=== PATIENT | female | born 1935 | race Caucasian/White ===

== ENCOUNTER → 2016-04-29 | Outpatient (CLI) | payer BC ==
[~2016-04-29] MED LIST: ACET-1311 PO; ACET-1327 PO; ASPI81TA28 PO; ATOR-26 PO; ATV5X PO; CALC-354 PO; DOCU-149 PO; DOCU-94 PO; FLNIN/ NAE; FLUT0.15 NAE; FSM70 PO; LORA-741 PO; LSX40 PO; METO25TA56 PO; MRLP527 PO; NTRGSL/4 UT; NTRSLP4 SL; OMEP40CA41 PO; POLY335019 PO; POTA10CA28 PO; POTA10TA32 PO; SENN-61 PO; TOBRSUS OPL; TPRSR25 PO; XRL20 PO
--- NOTE | 2016-04-30 12:44 | MAMMOGRAPHY REPORT ---
BILATERAL DIGITAL SCREENING MAMMOGRAM WITH CAD: 04/29/2016 CLINICAL HISTORY: Routine screening. Patient has no complaints. TECHNIQUE: Current study was also evaluated with a Computer Aided Detection (CAD) system. Bilatera l CC and MLO views were obtained. COMPARISON: Comparison is made to exams dated: 04/23/2015 mammogram, 04/22/2014 mammogram, 04/23/2013 cecilia mogram, 04/19/2013 mammogram, 04/17/2012 mammogram, and 04/16/2011 mammogram - [facility]. BREAST COMPOSITION: There are scattered areas of fibroglandular density in both breasts. FINDINGS: There is a small newly visualized cluster of punctate calcifications in the left 12:00 br east posteriorly, for which spot magnification views are recommended for further evaluation. The remainder of both breasts are stable compared to prior exams, without suspicious masses, calcifi cations, or areas of architectural distortion noted. Other scattered bilateral benign-appearing selin cifications are not significantly changed, many of which are coarse popcorn calcifications and are c onsistent with benign degenerating fibroadenomas. IMPRESSION: ACR BI-RADS CATEGORY 0: INCOMPLETE EVALUATION: NEED ADDITIONAL IMAGING EVALUATION Left 12:00 breast calcifications, for which additional imaging evaluation is recommended. The patie nt will be called to schedule an appointment. Approximately 10% of breast cancers are not detected with mammography. A negative mammographic repor t should not delay biopsy if a clinically suggestive mass is present. Jovita Montano M.D. /:04/29/2016 16:40:04 Payroll And Benefits Manager: Linda Lynn, [facility] letter sent: Addl Imaging 0 BI-RADS Code: ACR BI-RADS Category 0: Incomplete Evaluation: Need Additional Imaging Evaluation
== END | disposition home or self-care (01) ==
LOC: C.MAMM 10:49
PROVIDERS: ATTEND Family Medicine
DX: Z12.31 Encounter for screening mammogram for malignant neoplasm of breast (principal); N64.89 Other specified disorders of breast

== ENCOUNTER → 2016-05-17 | Outpatient (CLI) | payer BC ==
--- NOTE | 2016-05-17 16:43 | MAMMOGRAPHY REPORT ---
UNILATERAL LEFT DIGITAL DIAGNOSTIC MAMMOGRAM: 05/17/2016 CLINICAL HISTORY: 80-year-old woman called back from screening mammography for a new small cluster o f microcalcifications in the 12:00 far posterior left breast. TECHNIQUE: Spot magnification left CC and ML views were obtained. COMPARISON: Comparison is made to exams dated: 04/29/2016 mammogram, 04/22/2014 mammogram, 04/19/2013 ma mmogram, 04/17/2012 mammogram, 04/15/2010 mammogram, and 04/14/2009 mammogram - [facility]. BREAST COMPOSITION: There are scattered areas of fibroglandular density in the left breast. FINDINGS: There is a grouping of 4-5 round and a few smaller faint punctate microcalcifications in the 12:00 far posterior left breast. These might calcifications are new compared to prior available mammograms. There are benign popcorn calcifications, rim calcifications and vascular calcification s elsewhere within the left breast. No obvious associated asymmetry, mass or architectural distorti on. The calcifications are indeterminate, given the interval development, and definitive characteri zation with tissue sampling is recommended. IMPRESSION: ACR BI-RADS CATEGORY 4B: INTERMEDIATE SUSPICION FOR MALIGNANCY 1. Stereotactic guided left breast biopsy is recommended for a new small grouping of round and punc celaya microcalcifications in the 12:00 posterior left breast. These results and recommendations were discussed with the patient at the time of the exam. She tenta tively scheduled the biopsy prior to leaving our department. Approximately 10% of breast cancers are not detected with mammography. A negative mammographic repor t should not delay biopsy if a clinically suggestive mass is present. Rox Will M.D. ay/:05/17/2016 14:52:17 Coal Cutter: Gideon THOMPSON(Khari)(M), [facility] letter sent: Abnormal 4/5 BI-RADS Code: ACR BI-RADS Category 4B: Intermediate Suspicion For Malignancy
== END | disposition home or self-care (01) ==
LOC: C.MAMM 13:45
PROVIDERS: ATTEND Family Medicine
DX: R92.0 Mammographic microcalcification found on diagnostic imaging of breast (principal)

== ENCOUNTER → 2016-05-27 | Outpatient (CLI) | payer BC ==
--- NOTE | 2016-05-27 13:53 | Discharge Instructions ---
Discharge Instructions Procedure Procedure Date: May 27, 2016. Reason for visit: Left Calcifications. Discharge Discharge Date: May 27, 2016. Discharge Diagnosis: post left breast stereotactic guided biopsy Medications Restart Stopped Medication(s): May restart Aspirin tomorrow Instructions Activity Recommendations: Additional Limitations (see below) Return to School/Work: no limitations Recommended Home Diet: No Limitations Provider Instructions: ACTIVITY RECOMMENDATIONS: * No lifting, pushing, pulling or exercising the affected side for three days. RETURN TO SCHOOL/WORK: * You may return to work/school after the procedure, but do not perform any strenuous activities for 24 to 48 hours. MEDICATIONS: * Tylenol (two 325 mg) every four to six hours if needed for mild pain (if not allergic to Tylenol). DIET: * Resume previous diet. SPECIAL CARE INSTRUCTIONS: * Keep biopsy site dry for 24 hours. May shower after 24 hours, but do not soak (bathe) incision. * May remove Tegaderm (plastic patch) tomorrow AFTER showering. * Leave the steri-strips on for one week. Allow the steri-strips to fall off by themselves. If not off after one week, you may remove them. You may place a Bandaid crosswise over the strips, if desired. * Apply ice 10 minutes on and 10 minutes off as needed. * Wear a bra at bedtime to sleep more comfortably for 2-3 days. * Your referring physician should have the results after approximately 5 to 7 business days. * Call for unusual bleeding, fever, drainage, etc or if you have any questions call [phone] during normal business hours or after hours call Dr Will, . FOLLOW UP VISIT: Follow-up with Referring Physician as scheduled. Allergies Coded Allergies: Latex (Verified Allergy, Intermediate, RASH, 11/27/15) Erythromycin (Verified Allergy, Unknown, unknown, 11/27/15) Mannie Rodriguez Recommendations: Call your doctor if: * Temperature above 101 degrees * Pain not relieved by pain medicine ordered * There is increased drainage or redness from any incision * You have any unanswered questions or concerns. Your Doctors Instructions noted above were prepared by provider Rox Will. Patient Signature Section: Patient Instructions Signature Page Maya Shultz Patient (or Guardian) Signature/Date: I have read and understand the instructions given to me by my caregivers. Caregiver/RN/Doctor Signature/Date: The above-named patient and/or guardian has received patient instructions on this date. + Original Patient Signature Page (only) stays with chart. Please make copy for patient.
--- NOTE | 2016-05-27 15:32 | MAMMOGRAPHY REPORT ---
UNILATERAL LEFT DIGITAL DIAGNOSTIC MAMMOGRAM: 05/27/2016 CLINICAL HISTORY: Status post left breast stereotactic guided biopsy of a small cluster of microcalc ifications in the 12:00 posterior left breast. Please refer to the report from left breast stereotactic biopsy performed at the same time for full detail. IMPRESSION: POST PROCEDURE IMAGING FOR MARKER PLACEMENT Please refer to the report from left breast stereotactic biopsy performed at the same time for full detail. Approximately 10% of breast cancers are not detected with mammography. A negative mammographic repor t should not delay biopsy if a clinically suggestive mass is present. Rox Will M.D. ay/:05/27/2016 13:45:19 Heel Cementer Machine: Linda Lynn, [facility] BI-RADS Code: Post Procedure Imaging For Marker Placement
--- NOTE | 2016-05-27 15:32 | MAMMOGRAPHY REPORT ---
STEREOTACTIC GUIDED BIOPSY LEFT BREAST: 05/27/2016 CLINICAL HISTORY: A small indeterminate cluster of microcalcifications in the 12:00 posterior left b reast. Patient presents for stereotactic biopsy. Family history of breast cancer = daughter. COMPARISON: Comparison is made to exams dated: 04/19/2013 mammogram, 04/22/2014 mammogram, 04/23/2015 cecilia mogram, and 04/29/2016 mammogram - [facility]. PATIENT CONSENT: After explaining the risks, benefits and alternatives of the procedure to the patie nt, informed consent was obtained both verbally and in writing. Specific risks include: Bleeding, i nfection, puncture of adjacent structure, nontarget biopsy, sampling error, metal allergy and medica tion reaction. PROCEDURE DESCRIPTION: A time-out was performed and the left breast was confirmed as the site of bio psy. The patient was placed prone on the stereotactic biopsy table and the breast was placed in CC f rom above compression. A pressure controller image was obtained that demonstrated the clustered microcalcification s in question. They are amenable to sterotactic biopsy. Then +15 and -15 stereo pair images were obtained. The calcifications were targeted utilizing the coordinates obtained by the computer. The skin was prepped with Betadine. 1% Lidocaine with and without epinipherine was administered as local anesthesia. A small skin incision was made. Through the incision, the needle was inserted to the d epth determined by the computer. 10 samples were obtained using a Wirama 9-gauge vacuum-assiste d biopsy device. The specimen radiograph failed to demonstrate the definite clustered microcalcifica tions. Therefore, repeat stereo pair images and subsequent repeat sampling was performed. The valente tional samples demonstrated the entire cluster of calcifications and therefore a metallic marker was placed at the biopsy site. All of the samples were obtained from the same single biopsy site. The re was no immediate complication. Hemostasis was achieved after several minutes of manual compressio n. The samples were sent to pathology in 2 appropriately labeled containers, one labeled with calci fications, containing the entire cluster, and the second container containing the remainder of the a djacent tissue. Postprocedure CC and ML views of the left breast demonstrate a new dumbbell shaped metallic biopsy m arker and no significant hematoma only an air pocket at the site of the biopsied clustered calcifica tions in the 11:30 to 12:00 posterior left breast. IMPRESSION: STEREOTACTIC GUIDED BIOPSY Status post left breast stereotactic biopsy of an indeterminate cluster of microcalcifications in th e 11:30 to 12:00 posterior left breast, with biopsy marker placed at the site. There is mild inferi or displacement of the biopsy marker clip from the air pocket by 2.8 cm, likely due to accordion eff ect. The patient will receive notification of the biopsy results from her referring physician. Rox Will M.D. ay/:05/27/2016 14:32:42 Metal Furnace Operator: Linda Lynn, [facility]
== END | disposition home or self-care (01) ==
LOC: C.MAMM 12:25
PROVIDERS: ATTEND Family Medicine
DX: D24.2 Benign neoplasm of left breast (principal); R92.0 Mammographic microcalcification found on diagnostic imaging of breast

== ENCOUNTER 2016-12-03 16:16 | Observation (INO) | payer BC, OTHER ==
[~2016-12-03] VITALS: Ht 167.6 cm; Wt 70.1 kg
[~2016-12-03 16:16] MED LIST changes: -ACET-1327 PO; -ATV5X PO; -DOCU-149 PO; -FLNIN/ NAE; -FSM70 PO; -MRLP527 PO; -NTRGSL/4 UT; -POTA10TA32 PO; -SENN-61 PO; -TPRSR25 PO
[2016-12-03] MEDS ORDERED: SODIUM CHLORIDE 0.9% 500ML 500 ML IV STA ×3 (16:31→17:32)
[2016-12-03] MEDS ORDERED: ASPIRIN 81 MG CHEW PO STA (16:31)
[2016-12-03] MEDS: NITROGLYCERIN 0.4 MG SL PER TAB CHARGE SL PRN ×3 (16:54→17:25)
--- NOTE | 2016-12-03 16:54 | DIAGNOSTIC IMAGING REPORT ---
CHEST ONE VIEW PORTABLE CLINICAL HISTORY: 81 years-old Female presenting with Chest Pain. TECHNIQUE: Portable upright AP view of the chest was obtained. COMPARISON: 11/27/2015. FINDINGS: Median sternotomy wires and mediastinal surgical clips noted. Cardiac silhouette normal. Lungs and pleural spaces clear. Osseous structures normal. Upper abdomen normal. IMPRESSION: 1. No acute cardiopulmonary disease. Electronically signed by: Hayes Smith M.D. 12/03/2016 4:53 PM Dictated Date/Time: 12/03/2016 4:52 PM
[2016-12-03 16:59] LABS: HEMATOCRIT 41.9 % (37-47); MEAN CELL VOLUME 89.5 fL (80-100); MEAN CORPUSCULAR HEMOGLOBIN 31.2 pg (25-34); MEAN CORPUSCULAR HGB CONC 34.8 g/dl (32-36); PLATELET COUNT 215 K/uL (130-400); RED BLOOD COUNT 4.68 M/uL (4.2-5.4); WHITE BLOOD COUNT 5.69 K/uL (4.8-10.8)
[2016-12-03 17:08] LABS: PROTHROMBIN TIME (PATIENT) 10.5 SECONDS (9.0-12.0)
[2016-12-03] MEDS ORDERED: FSM70 PO (17:18)
[2016-12-03] MEDS ORDERED: POTA10TA32 PO (17:18)
[2016-12-03] MEDS ORDERED: DOCU-149 PO (17:18)
[2016-12-03] MEDS ORDERED: MRLP527 PO (17:21)
[2016-12-03] MEDS ORDERED: FLNIN/ NAE (17:21)
[2016-12-03] MEDS ORDERED: ATV5X PO (17:21)
[2016-12-03 17:22] LABS: BLOOD UREA NITROGEN 22 mg/dl (7-18); BUN/CREATININE RATIO 24.1 (10-20); CALCIUM 9.3 mg/dl (8.5-10.1); CARBON DIOXIDE 28 mmol/L (21-32); CHLORIDE 107 mmol/L (98-107); CREATININE 0.93 mg/dl (0.60-1.20); GLUCOSE 96 mg/dl (70-99); POTASSIUM 4.5 mmol/L (3.5-5.1); SODIUM 140 mmol/L (136-145)
[2016-12-03] MEDS ORDERED: NTRGSL/4 UT (17:23)
[2016-12-03 17:34] LABS: BASO % 0.5 %; BASO ABS # 0.03 K/uL (0-0.2); COMPLETE YES; EOS % 4.2 %; IG% 0.2 %; LYMPH % 52.5 %; LYMPH ABS # 2.99 K/uL (1.2-3.4); MONO % 9.5 %; NEUT % 33.1 %
[2016-12-03 17:44] LABS: CKMB/CK RATIO 1.4 (0-3.0)
[2016-12-03] MEDS ORDERED: FENTANYL CITRATE INJ 50 MCG/1 ML 2 ML VIAL IV ONE (17:45)
[2016-12-03] MEDS ORDERED: ACETAMINOPHEN 325 MG TAB PO PRN (19:00)
[2016-12-03] MEDS ORDERED: ONDANSETRON INJ 2 MG/ML 2 ML VIAL IV PRN (19:00)
[2016-12-03] MEDS ORDERED: NITROGLYCERIN 0.4 MG SL PER TAB CHARGE SL PRN (19:00)
[2016-12-03] MEDS ORDERED: SENN-61 PO (19:14)
[2016-12-03] MEDS ORDERED: ACET-1327 PO (19:14)
[2016-12-03] MEDS ORDERED: LORAZEPAM 0.5 MG TAB PO PRN (19:15)
[2016-12-03] MEDS ORDERED: POLYETHYLENE (MIRALAX) 17 GM PACK PO PRN (19:15)
[2016-12-03] MEDS ORDERED: FUROSEMIDE 40 MG TAB PO PRN (19:15)
[2016-12-03 20:13] VITALS: BP 124/74; PULSE 67; TEMP 36.6; Ht 167.6 cm; Wt 70.1 kg
--- NOTE | 2016-12-03 20:46 | History and Physical ---
History & Physical Date & Time of Service: Dec 03, 2016 at 19:16 Chief Complaint: Chest Pain Primary Care Physician: Darian Cornelius, [place].[facility]. History of Present Illness Source: patient, clinic records This is an 81 y/o female with PMH of CAD s/p CABG x 2 in October 2016, history of PE on Xarelto, and other problems listed below who presents to the ED with shortness of breath. Patient follows with Dr. Darian Cornelius for primary care and Dr. Nolasco for cardiology. Pt was recently seen by Dr. Nolasco on 2016 at which time metoprolol was tapered then discontinued. Patient now presents with shortness of breath starting yesterday. Yesterday the episode occurred while sitting outside and resolved after a few hours. Then this morning while standing she became SOB. This was after a stressful incident involving a tractor they bought today. She took nitro with resolution. Then 2-3 hours later she developed recurrent SOB. This was persistent for a few hours, therefore her drove her to the ER. She received 4 baby aspirin, 3 sublingual nitro, and Fentanyl in ER with relief. She is now asymptomatic. She admits to associated warmth and palpitations with the episodes. She reports having similar presentation with prior CT's before her CABG. Before the past few days did not have dyspnea, but reports malaise for 1 month. Has had nausea for past 1 week. Had bilateral ankle swelling past 2 days which resolved with PRN Lasix. She denies URI symptoms, cough, chest pain, vomiting. Past Medical/Surgical History Medical Problems: (1) Anxiety Permanent Comment: mild; uses Ativan once yearly Status: Chronic (2) CAD (coronary artery disease) Permanent Comment: NSTEMI / CABG x 2 - 10/2015 Status: Chronic (3) Dyslipidemia Status: Chronic (4) ESOPHAGEAL REFLUX Status: Chronic (5) History of superficial phlebitis Status: Chronic (6) Pulmonary embolism Status: Chronic Surgical Problems: (1) H/O vein stripping Status: Chronic (2) History of partial colectomy Permanent Comment: 2* diverticulitis; 1984 Status: Chronic (3) History of partial hysterectomy Status: Chronic (4) Hx of bladder repair surgery Permanent Comment: cystocele repair Status: Chronic (5) S/P CABG x 2 Permanent Comment: 10/17/2015 at [place] Status: Chronic Social History Problems: (1) URIN TRACT INFECTION NOS Status: Resolved Family History Cancer Diabetes mellitus Lung disease Social History Smoking Status: Never Smoker Alcohol Use: occasionally Drug Use: none Marital Status: Housing status: lives with significant other Occupational Status: retired Immunizations History of Influenza Vaccine: Yes Influenza Vaccine Date: Jan 21, 2015 History of Tetanus Vaccine?: Yes Tetanus Immunization Date: August 17, 2010 History of Pneumococcal: Yes Pneumococcal Date: Apr 01, 2014 Multi-Drug Resistant Organisms History of MDRO: No Allergies Coded Allergies: Latex (Verified Allergy, Intermediate, RASH, 11/27/15) Erythromycin (Verified Allergy, Unknown, unknown, 11/27/15) Home Medications Scheduled Alendronate Sodium (Alendronate Sodium), 70 MG PO WK Aspirin (Aspirin Ec), 162 MG PO DAILY Atorvastatin (Lipitor), 80 MG PO DAILY Calcium Carbonate-Cholecalcife (Caltrate 600+D), 1 TAB PO DAILY Docusate Sodium (Ra Col-Rite), 100 MG PO HS Rivaroxaban (Xarelto), 20 MG PO DAILY Senna (Senokot), 1 TAB PO DAILY Scheduled PRN Acetaminophen (Acetaminophen ER), 650 MG PO DAILY PRN for Pain Furosemide (Furosemide), 40 MG PO DAILY PRN for Fluid Retention/Edema Lorazepam (Lorazepam), 0.5 MG PO TID PRN for Anxiety Nitroglycerin (Nitrostat), 0.4 MG UT UD PRN for Chest Pain Omeprazole (Prilosec), 40 MG PO DAILY PRN for Acid Reflux Polyethylene (Polyethylene Glycol 3350), 17 GM PO DAILY PRN for Constipation Potassium Chloride Microencaps (Potassium Chloride Er), 10 MEQ PO DAILY PRN for When Furosemide Taken Review of Systems Ten systems reviewed and negative except as noted in HPI. Physical Exam Vital Signs Date Time Temp Pulse Resp B/P (MAP) Pulse Ox O2 Delivery O2 Flow Rate FiO2 12/03/16 18:54 67 16 101/56 95 Room Air 12/03/16 18:36 76 19 95 12/03/16 18:35 112/66 12/03/16 18:31 65 22 96 12/03/16 18:30 113/56 12/03/16 18:26 66 15 95 12/03/16 18:25 99/59 12/03/16 18:21 68 18 93 8/18/17 18:20 100/57 818/17 18:16 62 16 93 818/17 18:15 121/54 818/17 18:11 63 16 92 818/17 18:10 120/58 818/17 18:06 59 17 95 818/17 18:05 107/91 18/17 18:01 65 15 92 18/17 18:00 114/59 18/17 17:56 69 20 95 18/17 17:55 123/55 18/17 17:51 72 24 87 18/17 17:50 133/53 18/17 17:46 63 27 94 18/17 17:45 129/65 818/17 17:41 66 21 97 18/17 17:40 117/65 18/17 17:36 72 27 96 18/17 17:35 114/62 18/17 17:31 73 21 95 18/17 17:30 122/70 18/17 17:27 73 20 116/66 97 Room Air 18/17 17:26 70 17 97 18/17 17:25 116/66 18/17 17:21 71 26 98 18/17 17:17 70 26 131/59 100 Room Air 18/17 17:16 68 29 99 18/17 17:15 131/59 18/17 17:14 127/64 18/17 17:11 82 33 100 18/17 17:06 91 23 97 18/17 17:01 96 19 96 18/17 17:00 91 20 95/73 96 Room Air 18/17 17:00 95/73 18/17 16:58 138/71 818/17 16:58 74 818/17 16:53 136/91 818/17 16:50 99 Room Air 18/17 16:45 98 Room Air 818/17 16:18 37.0 81 16 144/83 96 Room Air General Appearance: WD/WN, no apparent distress, + pertinent finding (alert 81 y/o female, lying in bed, no distress, at bedside) Head: normocephalic, atraumatic Eyes: normal inspection, PERRL, EOMI ENT: hearing grossly normal, pharynx normal Neck: supple, no JVD, trachea midline Respiratory/Chest: lungs clear, normal breath sounds, no respiratory distress, no accessory muscle use, + pertinent finding (saturating well on room air) Cardiovascular: regular rate, rhythm, no murmur, normal peripheral pulses Abdomen/GI: normal bowel sounds, non tender, soft Extremities/Musculoskelatal: normal inspection, no calf tenderness, no pedal edema Neurologic/Psych: alert, normal mood/affect, oriented x 3 Skin: normal color, warm/dry Diagnostics Laboratory Results Results Past 24 Hours Test 12/03/16 16:45 Range/Units White Blood Count 5.69 4.8-10.8 K/uL Red Blood Count 4.68 4.2-5.4 M/uL Hemoglobin 14.6 12.0-16.0 g/dL Hematocrit 41.9 37-47 % Mean Corpuscular Volume 89.5 80-100 fL Mean Corpuscular Hemoglobin 31.2 25-34 pg Mean Corpuscular Hemoglobin Concent 34.8 32-36 g/dl Platelet Count 215 130-400 K/uL Mean Platelet Volume 10.0 7.4-10.4 fL Neutrophils (%) (Auto) 33.1 % Lymphocytes (%) (Auto) 52.5 % Monocytes (%) (Auto) 9.5 % Eosinophils (%) (Auto) 4.2 % Basophils (%) (Auto) 0.5 % Neutrophils # (Auto) 1.88 1.4-6.5 K/uL Lymphocytes # (Auto) 2.99 1.2-3.4 K/uL Monocytes # (Auto) 0.54 0.11-0.59 K/uL Eosinophils # (Auto) 0.24 0-0.5 K/uL Basophils # (Auto) 0.03 0-0.2 K/uL RDW Standard Deviation 47.4 36.4-46.3 fL RDW Coefficient of Variation 14.4 11.5-14.5 % Immature Granulocyte % (Auto) 0.2 % Immature Granulocyte # (Auto) 0.01 0.00-0.02 K/uL Prothrombin Time 10.5 9.0-12.0 SECONDS Prothromb Time International Ratio 1.0 0.9-1.1 Activated Partial Thromboplast Time 27.0 21.0-31.0 SECONDS Partial Thromboplastin Ratio 1.0 Sodium Level 140 136-145 mmol/L Potassium Level 4.5 3.5-5.1 mmol/L Chloride Level 107 98-107 mmol/L Carbon Dioxide Level 28 21-32 mmol/L Anion Gap 5.0 3-11 mmol/L Blood Urea Nitrogen 22 7-18 mg/dl Creatinine 0.93 0.60-1.20 mg/dl Est Creatinine Clear Calc Drug Dose 45.1 ml/min Estimated GFR () 67.3 Estimated GFR (Non- 58.0 BUN/Creatinine Ratio 24.1 10-20 Random Glucose 96 70-99 mg/dl Calcium Level 9.3 8.5-10.1 mg/dl Total Creatine Kinase 102 26-192 U/L Creatine Kinase MB 1.4 0.5-3.6 ng/ml Creatine Kinase MB Ratio 1.4 0-3.0 Troponin I < 0.015 0-0.045 ng/ml Chemistry Specimen Hemolysis Diagnostic Radiology CHEST ONE VIEW PORTABLE CLINICAL HISTORY: 81 years-old Female presenting with Chest Pain. TECHNIQUE: Portable upright AP view of the chest was obtained. COMPARISON: 11/27/2015. FINDINGS: Median sternotomy wires and mediastinal surgical clips noted. Cardiac silhouette normal. Lungs and pleural spaces clear. Osseous structures normal. Upper abdomen normal. IMPRESSION: 1. No acute cardiopulmonary disease. EKG NSR, 78 bpm, no ST abnormality, no significant change when compared to prior EKG in [facility] from 09/2016 Impression Assessment and Plan DYSPNEA R/o ACS; known hx of CAD s/p CABG x 2 in 09/2015; patient reports similar presentation for prior CT's Relieved with nitro Initial troponin negative, EKG- no ischemic findings; CXR- no infiltrate or failure; not volume overloaded clinically, saturating well on RA History of PE, anticoagulated on Xarelto, PE unlikely, Wells score 1.5 (low risk ) Trend serial cardiac enzymes Check echo Repeat EKG in am Continue aspirin, statin, PRN Lasix Recently tapered off metoprolol by cardiology Consult cardiology HISTORY OF PE Continue Xarelto ANXIETY Continue PRN Ativan GERD Continue PPI CODE STATUS Full code per my discussion with the patient. DISPOSITION Follows with Dr. Darian Cornelius for primary care Patient seen in collaboration with Dr. Weiner. Please see his addendum. Attending addendum. Pt was seen and examined. Agreed with Hyun ESQUIVEL assessment, plan. 81 y/o female with PMH of CAD s/p CABG x 2 in October 2016, history of PE on Xarelto, presents to the ED with pressure in her chest associated with shortness of breath. Pt said that her symptoms feels the same when she had her heart attack. General- No acute distress Head- atraumatic Eyes- PERRL, EOMI ENT- oropharynx clear Neck- supple, no JVD Lungs- clear to auscultation Heart- regular rhythm; no murmur Abdomen- normal bowel sounds, soft Extremities- no calf tenderness Skin- warm & dry A/p Pressure like chest discomfort associated with dyspnea Need to R/O ACS R/o ACS; known hx of CAD s/p CABG x 2 in 09/2015; patient reports similar presentation for prior CT's First set troponin negative follow up CM EKG showed no ischemic changes Continue aspirin, statin, PRN Lasix Cardiology consul Please refer to Hyun ESQUIVEL documentation for other problems Nida Weiner MD VTE Prophylaxis VTE Risk Assessment Done? Y/N: Yes Risk Level: Moderate Given or contraindicated: Other Anticoagulation
[2016-12-03] MEDS: DOCUSATE SODIUM 100 MG CAP PO SCH (21:42)
[2016-12-03] MEDS ORDERED: IV FLUIDS COMPLETED PRN (22:00)
[2016-12-03 23:13] VITALS: BP 103/47; PULSE 66; TEMP 37; O2SAT 96
--- NOTE | 2016-12-03 23:24 | EMERGENCY ROOM VISIT NOTE ---
History Report prepared by Mayda: Byron York Under the Supervision of: Dr. Ricardo Aguilar D.O. First contact with patient: 16:24 Chief Complaint: CHEST PAIN Stated Complaint: CHEST PAIN History of Present Illness The patient is a 81 year old female who presents to the Emergency Room with complaints of pressure-like chest pain that occurred twice in the past day. She rates her pain a 5/10 in severity. Over this time, she had experienced this pain intermittently. This morning, she took a baby Aspirin and a Nitroglycerin and notes mild relief, but the pain is still present. Nothing makes her pain worse. She is also experiencing shortness of breath, dizziness, lightheadedness , and a headache. Pt denies change in vision, fevers, cough, rhinorrhea, jaw pain, loss of consciousness, nausea, vomiting, diarrhea, pain with urination, and melena. She has a past medical history of a double bypass last year. She states that she feels similar to how she felt at that time. She is currently on Xarelto for a history of a blood clot. Source of History: patient Onset: yesterday Position: chest Symptom Intensity: 5/10 Quality: pressure Timing: intermittent Modifying Factors (Relieving): other (ASA and NTG) Associated Symptoms: + headache, + SOB, No LOC, No fevers, No cough, No nausea, No vomiting, No abdominal pain, No melena, No diarrhea, No urinary symptoms Note: She is lightheaded and dizzy. She denies any arm or jaw pain. Review of Systems See HPI for pertinent positives & negatives. A total of 10 systems reviewed and were otherwise negative. Past Medical & Surgical Medical Problems: (1) Anxiety (2) CAD (coronary artery disease) (3) Chest pain (4) Dyslipidemia (5) ESOPHAGEAL REFLUX (6) History of superficial phlebitis (7) Pulmonary embolism Surgical Problems: (1) H/O vein stripping (2) History of partial colectomy (3) History of partial hysterectomy (4) Hx of bladder repair surgery (5) S/P CABG x 2 Social History Problems: (1) Chest pain (2) Elevated troponin (3) URIN TRACT INFECTION NOS Family History Cancer Diabetes mellitus Lung disease Social History Smoking Status: Never Smoker Alcohol Use: none Drug Use: none Marital Status: Housing Status: lives with significant other Occupation Status: retired Current/Historical Medications Scheduled Alendronate Sodium (Alendronate Sodium), 70 MG PO WK Aspirin (Aspirin Ec), 162 MG PO DAILY Atorvastatin (Lipitor), 80 MG PO DAILY Calcium Carbonate-Cholecalcife (Caltrate 600+D), 1 TAB PO DAILY Docusate Sodium (Ra Col-Rite), 100 MG PO HS Rivaroxaban (Xarelto), 20 MG PO DAILY Senna (Senokot), 1 TAB PO DAILY Scheduled PRN Acetaminophen (Acetaminophen ER), 650 MG PO DAILY PRN for Pain Furosemide (Furosemide), 40 MG PO DAILY PRN for Fluid Retention/Edema Lorazepam (Lorazepam), 0.5 MG PO TID PRN for Anxiety Nitroglycerin (Nitrostat), 0.4 MG UT UD PRN for Chest Pain Omeprazole (Prilosec), 40 MG PO DAILY PRN for Acid Reflux Polyethylene (Polyethylene Glycol 3350), 17 GM PO DAILY PRN for Constipation Potassium Chloride Microencaps (Potassium Chloride Er), 10 MEQ PO DAILY PRN for When Furosemide Taken Allergies Coded Allergies: Latex (Verified Allergy, Intermediate, RASH, 11/27/15) Erythromycin (Verified Allergy, Unknown, unknown, 11/27/15) Physical Exam Vital Signs Date Time Temp Pulse Resp B/P (MAP) Pulse Ox O2 Delivery O2 Flow Rate FiO2 12/03/16 20:13 36.6 67 14 124/74 Room Air 12/03/16 19:42 63 18 111/57 94 Room Air 12/03/16 18:54 67 16 101/56 95 Room Air 12/03/16 18:36 76 19 95 12/03/16 18:35 112/66 12/03/16 18:31 65 22 96 12/03/16 18:30 113/56 12/03/16 18:26 66 15 95 12/03/16 18:25 99/59 12/03/16 18:21 68 18 93 12/03/16 18:20 100/57 12/03/16 18:16 62 16 93 12/03/16 18:15 121/54 12/03/16 18:11 63 16 92 12/03/16 18:10 120/58 12/03/16 18:06 59 17 95 12/03/16 18:05 107/91 12/03/16 18:01 65 15 92 8/18/17 18:00 114/59 18/17 17:56 69 20 95 18/17 17:55 123/55 1817 17:51 72 24 87 18/17 17:50 133/53 18/17 17:46 63 27 94 1817 17:45 129/65 18/17 17:41 66 21 97 1817 17:40 117/65 1817 17:36 72 27 96 1817 17:35 114/62 18/17 17:31 73 21 95 1817 17:30 122/70 18/17 17:27 73 20 116/66 97 Room Air 12/03/16 17:26 70 17 97 1817 17:25 116/66 12/03/17 17:21 71 26 98 17 17:17 70 26 131/59 100 Room Air 12/03/16 17:16 68 29 99 17 17:15 131/59 17 17:14 127/64 17 17:11 82 33 100 1817 17:06 91 23 97 1817 17:01 96 19 96 17 17:00 91 20 95/73 96 Room Air 17 17:00 95/73 17 16:58 138/71 1817 16:58 74 1817 16:53 136/91 1817 16:50 99 Room Air 12/03/16 16:45 98 Room Air 17 16:18 37.0 81 16 144/83 96 Room Air Physical Exam GENERAL: alert, well appearing, well nourished, no distress, non-toxic, sitting up in bed EYE EXAM: normal conjunctiva OROPHARYNX: no exudate, no erythema, lips, buccal mucosa, and tongue normal and mucous membranes are moist NECK: supple, no nuchal rigidity, no adenopathy, non-tender LUNGS: Clear to auscultation. Normal chest wall mechanics HEART: no murmurs, S1 normal and S2 normal CHEST: Old midline sternal incision present. ABDOMEN: abdomen soft, non-tender, normo-active bowel sounds, no masses, no rebound or guarding. BACK: Back is symmetrical on inspection and there is no deformity, no midline tenderness, no CVA tenderness. SKIN: no rashes and no bruising UPPER EXTREMITIES: upper extremities are grossly normal. Radial pulses equal bilaterally. LOWER EXTREMITIES: No pitting edema. Calves equal bilaterally. NEURO EXAM: Normal sensorium, cranial nerves II-XII grossly intact, normal speech, no gross weakness of arms, no gross weakness of legs. Medical Decision & Procedures ER Provider Diagnostic Interpretation: Radiology results as stated below per my review and the radiologist's interpretation: CHEST ONE VIEW PORTABLE CLINICAL HISTORY: 81 years-old Female presenting with Chest Pain. TECHNIQUE: Portable upright AP view of the chest was obtained. COMPARISON: 11/27/2015. FINDINGS: Median sternotomy wires and mediastinal surgical clips noted. Cardiac silhouette normal. Lungs and pleural spaces clear. Osseous structures normal. Upper abdomen normal. IMPRESSION: 1. No acute cardiopulmonary disease. Electronically signed by: Hayes Smith M.D. 12/03/2016 4:53 PM Dictated Date/Time: 12/03/2016 4:52 PM Laboratory Results 12/03/16 16:45 Red Blood Count 4.68, Mean Corpuscular Volume 89.5, Mean Corpuscular Hemoglobin 31.2, Mean Corpuscular Hemoglobin Concent 34.8, Mean Platelet Volume 10.0, Neutrophils (%) (Auto) 33.1, Lymphocytes (%) (Auto) 52.5, Monocytes (%) (Auto) 9.5, Eosinophils (%) (Auto) 4.2, Basophils (%) (Auto) 0.5, Neutrophils # (Auto) 1.88, Lymphocytes # (Auto) 2.99, Monocytes # (Auto) 0.54, Eosinophils # (Auto) 0.24, Basophils # (Auto) 0.03 12/03/16 16:45 Test 12/03/16 16:45 White Blood Count 5.69 K/uL (4.8-10.8) Red Blood Count 4.68 M/uL (4.2-5.4) Hemoglobin 14.6 g/dL (12.0-16.0) Hematocrit 41.9 % (37-47) Mean Corpuscular Volume 89.5 fL (80-100) Mean Corpuscular Hemoglobin 31.2 pg (25-34) Mean Corpuscular Hemoglobin Concent 34.8 g/dl (32-36) Platelet Count 215 K/uL (130-400) Mean Platelet Volume 10.0 fL (7.4-10.4) Neutrophils (%) (Auto) 33.1 % Lymphocytes (%) (Auto) 52.5 % Monocytes (%) (Auto) 9.5 % Eosinophils (%) (Auto) 4.2 % Basophils (%) (Auto) 0.5 % Neutrophils # (Auto) 1.88 K/uL (1.4-6.5) Lymphocytes # (Auto) 2.99 K/uL (1.2-3.4) Monocytes # (Auto) 0.54 K/uL (0.11-0.59) Eosinophils # (Auto) 0.24 K/uL (0-0.5) Basophils # (Auto) 0.03 K/uL (0-0.2) RDW Standard Deviation 47.4 fL (36.4-46.3) RDW Coefficient of Variation 14.4 % (11.5-14.5) Immature Granulocyte % (Auto) 0.2 % Immature Granulocyte # (Auto) 0.01 K/uL (0.00-0.02) Prothrombin Time 10.5 SECONDS (9.0-12.0) Prothromb Time International Ratio 1.0 (0.9-1.1) Activated Partial Thromboplast Time 27.0 SECONDS (21.0-31.0) Partial Thromboplastin Ratio 1.0 Anion Gap 5.0 mmol/L (3-11) Est Creatinine Clear Calc Drug Dose 45.1 ml/min Estimated GFR () 67.3 Estimated GFR (Non- 58.0 BUN/Creatinine Ratio 24.1 (10-20) Calcium Level 9.3 mg/dl (8.5-10.1) Chemistry Specimen Hemolysis Laboratory results per my review. Medications Administered Medications (Trade) Dose Ordered Sig/Yane Route Start Time Stop Time Status Last Admin Dose Admin Aspirin (Aspirin Chew) 324 mg NOW STAT PO 12/03/16 16:31 12/03/16 16:33 DC 12/03/16 16:53 324 MG Nitroglycerin (Nitrostat Tab) 0.4 mg Q5M PRN SL 12/03/16 16:45 12/03/16 20:39 DC 12/03/16 17:25 0.4 MG Sodium Chloride 500 ml @ 999 mls/hr Q31M STAT IV 12/03/16 16:31 12/03/16 17:01 DC 12/03/16 16:56 999 MLS/HR Sodium Chloride 500 ml @ 999 mls/hr Q31M STAT IV 12/03/16 17:32 12/03/16 18:02 DC 12/03/16 17:39 999 MLS/HR Fentanyl Citrate (Fentanyl Inj) 50 mcg NOW ONCE IV 12/03/16 17:45 12/03/16 17:46 DC 12/03/16 17:37 50 MCG Sodium Chloride 500 ml @ 999 mls/hr Q31M STAT IV 12/03/16 17:32 12/03/16 18:02 DC 12/03/16 17:32 999 MLS/HR ECG Indication: chest pain Rate (beats per minute): 78 Rhythm: sinus rhythm Findings: no ectopy, other (Normal axis) ED Course ED COURSE: Vital signs were reviewed and showed hypertension. The patients medical record was reviewed The above diagnostic studies were performed and reviewed. ED treatments and interventions as stated above. 1624: The patient was evaluated in room B3. A complete history and physical examination was performed. 1631: Ordered Sodium Chloride 500 ml @ 999 mls/hr IV, Aspirin 324 mg PO 1645: Ordered Nitroglycerin 0.4 mg SL 1732: Ordered Sodium Chloride 500 ml @ 999 mls/hr IV, Sodium Chloride 500 ml @ 999 mls/hr IV 1745: Ordered Fentanyl Citrate 50 mcg IV 1748: Upon reevaluation, the patient is resting. I discussed my findings with the patient and she understands and agrees with the treatment plan. Based on the patients age, coexisting illnesses, exam and lab findings the decision to treat as an inpatient was made. The patient remained stable while under my care. The patient will be evaluated for further management. 1826: The patient's pain is gone. Medical Decision Differential diagnoses includes but is not limited to acute coronary syndrome, myocardial infarction, pericarditis, pulmonary embolus, aortic dissection, pneumonia, pneumothorax, musculoskeletal, shingles, esophageal. Patient is an 81-year-old female who presents the ER for chest tightness associated with shortness of breath which feels close to her previous [place]. History of your ago with double bypass. Pain was improved with nitroglycerin. CBC along with BMP and troponin was negative. EKG shows no obvious ischemia. INR was unremarkable. Patient is taking a Xa inhibitor and has not missed any doses. PE was not pursued secondary to this. Chest x-ray unremarkable. With her symptoms feeling similar to her previous CABG she is given nitroglycerin and aspirin. Her pain completely resolved. She was admitted to internal medicine for further workup. Medication Reconcilliation Current Medication List: was personally reviewed by me Blood Pressure Screening Patient's blood pressure: Elevated blood pressure Blood pressure disposition: Elevated BP felt to be situational Consults Time Called: [phone] Consulting Physician: Courtney Munoz [facility] Hospitalist Returned Call: [phone] I reviewed the patient's case with her. She will evaluate the patient for further management. Impression Primary Impression: Precordial chest pain Scribe Attestation The scribe's documentation has been prepared under my direction and personally reviewed by me in its entirety. I confirm that the note above accurately reflects all work, treatment, procedures, and medical decision making performed by me. Departure Information Dispostion Being Evaluated By Hospitalist Referrals Darian Cornelius D.O. (PCP) Patient Instructions My [facility]
[2016-12-04] VITALS (8 sets, daily range): BP systolic 110–136; BP diastolic 66–72; PULSE 62–71; TEMP 36.4–36.8; O2SAT 93–96
[2016-12-04 00:30] LABS: CKMB/CK RATIO 1.4 (0-3.0)
[2016-12-04 06:04] LABS: CKMB/CK RATIO 1.9 (0-3.0)
[2016-12-04] MEDS: ASPIRIN 81 MG ECTAB PO SCH (08:10)
[2016-12-04] MEDS: SENNA 8.6 MG TAB PO SCH (08:10)
[2016-12-04] MEDS: ATORVASTATIN 40 MG TAB PO SCH (08:10)
[2016-12-04] MEDS: PANTOprazole SOD 40 MG TAB PO SCH (08:10)
[2016-12-04] MEDS: CALCIUM 600MG + VIT D 400 IU TAB PO SCH (08:10)
[2016-12-04] MEDS: RIVAROXABAN 20 MG TAB PO SCH (08:11)
--- NOTE | 2016-12-04 11:02 | ECHOCARDIOGRAM REPORT ---
*NOTICE TO RECEIVING REPUBLICAN AGENCY This information is strictly Confidential and protected under [place] law. [place] law prohibits you from making any further disclosure of this information unless further disclosure is expressly permitted by the written consent of the person to whom it pertains or is authorized by law. A general authorization for the release of medical or other information is not sufficient for this purpose. Hospital accepts no responsibility if the information is made available to any other person, INCLUDING THE PATIENT. Interpretation Summary * Name: ARELY KINNEY Study Date: 12/04/2016 07:09 AM BP: 114/68 mmHg * Patient Location: C.2T\S\S239\S\1 HR: 69 * : 1935 (M/d/yyyy) Gender: Female Height: 66 in * Age: 81 yrs Ethnicity: [place] Weight: 155 lb * Ordering Physician: Hyun Carpenter * Performed By: Enid Murillo * * Reason For Study: DYSPNEA * BSA: 1.8 m2 * The study was technically adequate. * Compared to prior study, there is no significant change. * -- Conclusions -- * Ejection Fraction = 65-70%. * No regional wall motion abnormalities noted. * There is mild concentric left ventricular hypertrophy. * Grade I diastolic dysfunction, (abnormal relaxation pattern). * Mild aortic regurgitation. * There is mild mitral regurgitation. * There is mild tricuspid regurgitation. * Doppler findings do not suggest pulmonary hypertension. Procedure Details * A complete two-dimensional transthoracic echocardiogram was performed (2D, M-mode, Doppler and color flow Doppler). Left Ventricle * The left ventricle is normal in size. * There is no thrombus. * There is mild concentric left ventricular hypertrophy. * Ejection Fraction = 65-70%. * Left ventricular systolic function is normal. * No regional wall motion abnormalities noted. Right Ventricle * The right ventricle is normal size. * The right ventricular systolic function is normal as assessed by tricuspid annular plane systolic excursion (TAPSE) (normal >1.5 cm). Atria * The left atrial size is normal. * Right atrial size is normal. * There is no evidence of atrial septal defect, but resolution does not allow assessment for a patent foramen ovale. Mitral Valve * The mitral valve is normal. * There is no mitral valve stenosis. * There is mild mitral regurgitation. Tricuspid Valve * The tricuspid valve is normal. * There is no tricuspid stenosis. * There is mild tricuspid regurgitation. * Doppler findings do not suggest pulmonary hypertension. Aortic Valve * The aortic valve is trileaflet. * Aortic stenosis is absent. * Mild aortic regurgitation. Pulmonic Valve * The pulmonary valve is not well seen, but the Doppler examination is normal without significant regurgitation or stenosis. Great Vessels * The aortic root is normal size. Pericardium/Pleural * There is no pericardial effusion. Great Vessels * Normal inferior vena cava diameter and respiratory variation suggests normal central venous pressure. Left Ventricular Diastolic Function * Grade I diastolic dysfunction, (abnormal relaxation pattern). MMode 2D Measurements and Calculations IVSd 1.3 cm IVSs 1.8 cm LVIDd 3.6 cm LVIDs 2.1 cm LVPWd 1.3 cm LVPWs 1.6 cm IVS/LVPW 0.98 FS 41.9 % EDV(Teich) 53.7 ml ESV(Teich) 14.0 ml EF(Teich) 73.9 % EDV(cubed) 45.9 ml ESV(cubed) 9.0 ml EF(cubed) 80.4 % % IVS thick 42.3 % % LVPW thick 25.8 % LV mass(C)d 153.1 grams LV mass(C)dI 85.3 grams/m\S\2 LV mass(C)s 130.1 grams LV mass(C)sI 72.5 grams/m\S\2 SV(Teich) 39.7 ml SI(Teich) 22.1 ml/m\S\2 SV(cubed) 36.9 ml SI(cubed) 20.6 ml/m\S\2 ACS 0.96 cm LA dimension 3.7 cm asc Aorta Diam 2.9 cm LVOT diam 1.9 cm LVOT area 2.9 cm\S\2 LVAd ap4 24.5 cm\S\2 LVLd ap4 6.7 cm EDV(MOD-sp4) 74.4 ml EDV(sp4-el) 75.8 ml LVAs ap4 11.7 cm\S\2 LVLs ap4 5.4 cm ESV(MOD-sp4) 22.1 ml ESV(sp4-el) 21.6 ml EF(MOD-sp4) 70.3 % EF(sp4-el) 71.5 % LVAd ap2 15.1 cm\S\2 LVLd ap2 5.6 cm EDV(MOD-sp2) 33.1 ml EDV(sp2-el) 34.5 ml LVAs ap2 7.0 cm\S\2 LVLs ap2 4.7 cm ESV(MOD-sp2) 9.0 ml ESV(sp2-el) 8.8 ml EF(MOD-sp2) 72.7 % EF(sp2-el) 74.4 % LVLd %diff -20.34 % EDV(MOD-bp) 53.2 ml LVLs %diff -16.30 % ESV(MOD-bp) 14.9 ml EF(MOD-bp) 72.0 % SV(MOD-sp4) 52.3 ml SI(MOD-sp4) 29.2 ml/m\S\2 SV(MOD-sp2) 24.0 ml SI(MOD-sp2) 13.4 ml/m\S\2 SV(MOD-bp) 38.3 ml SI(MOD-bp) 21.3 ml/m\S\2 SV(sp4-el) 54.2 ml SI(sp4-el) 30.2 ml/m\S\2 SV(sp2-el) 25.7 ml SI(sp2-el) 14.3 ml/m\S\2 Doppler Measurements and Calculations MV E max janet 72.1 cm/sec MV A max janet 102.7 cm/sec MV E/A 0.70 MV dec time 0.18 sec Ao V2 max 116.5 cm/sec Ao max PG 5.4 mmHg Ao max PG (full) 3.0 mmHg DUC(V,A) 1.9 cm\S\2 DUC(V,D) 1.9 cm\S\2 AI max janet 345.5 cm/sec AI max PG 47.7 mmHg AI dec slope 226.8 cm/sec\S\2 AI P1/2t 446.1 msec LV V1 max PG 2.4 mmHg LV V1 max 77.8 cm/sec MR max janet 283.1 cm/sec MR max PG 32.1 mmHg PA V2 max 53.6 cm/sec PA max PG 1.1 mmHg TR max janet 236.2 cm/sec
[2016-12-04] MEDS ORDERED: METOPROLOL SUCC 25MG EXT REL TAB PO ONE (11:12)
--- NOTE | 2016-12-04 13:34 | CARDIOLOGY CONSULTATION ---
DATE OF CONSULTATION: 12/04/2016 REFERRING PHYSICIAN: Dr. Dilip Parikh. REASON FOR CONSULTATION: Chest pain. HISTORY OF PRESENT ILLNESS: Ms. Shultz is an 81-year-old female with a past medical history of coronary artery disease, status post coronary artery bypass grafting x2 in October 2016 secondary to left main ostial disease, history of PE on Xarelto and other problems listed below. Recently, metoprolol was discontinued by her delivery analyst, which was weaned over 2-3 weeks. Her symptoms have been gradual. She notes she has not felt quite as energetic. Over the past 48 hours, she experienced some episodes of chest discomfort and shortness of breath. He describes a feeling of someone sitting on her chest. She took aspirin and nitroglycerin as well as fentanyl in the ER yesterday. She is now asymptomatic. Her cardiac enzymes are negative. ECG unremarkable. Resting 2D transthoracic echo demonstrates normal wall motion and borderline hyperdynamic function. No edema today. Utilizes Lasix at home as needed. Denies fever, chills or URI symptoms. No orthopnea or PND. Offers no other complaints at this time. REVIEW OF SYSTEMS: The pertinent positives noted above. Comprehensive 10-system review is otherwise negative. PAST MEDICAL HISTORY: 1. Coronary artery disease with NSTEMI and coronary artery bypass grafting x2 in October 2015. 2. Dyslipidemia. 3. Anxiety disorder. 4. GERD. 5. Phlebitis. 6. Pulmonary embolus. 7. DVT. PAST SURGICAL HISTORY: 1. Vein stripping. 2. Coronary artery bypass grafting x2. 3. Partial colectomy due to diverticulitis. 4. Partial hysterectomy. 5. Bladder repair surgery. FAMILY HISTORY: Negative for premature CAD or sudden cardiac . SOCIAL HISTORY: Lifelong nonsmoker. She is and lives with her . ALLERGIES: LATEX AND ERYTHROMYCIN. HOME MEDICATIONS: 1. Alendronate 70 mg weekly. 2. Aspirin 162 mg daily. 3. Lipitor 80 mg. 4. Caltrate and vitamin D daily. 5. Xarelto 20 mg daily. 6. Colace 100 mg at bedtime. 7. Senokot daily. 8. Tylenol as needed. 9. Lasix 40 mg daily as needed. 10. Ativan 0.5 mg t.i.d. as needed. 11. Prilosec 40 mg daily. 12. Potassium chloride 10 mEq daily. ECG ON ADMISSION: Normal sinus rhythm, low voltage QRS. Resting 2D transthoracic echo demonstrates normal left ventricular systolic function, normal wall motion. No significant valvular disease. Chest x-ray on admission: No acute cardiopulmonary disease. TELEMETRY: Sinus rhythm, no dysrhythmias. LABORATORY DATA: Cardiac enzymes negative x3 sets. Sodium 140, potassium 4.5, chloride 107, CO2 is 28, BUN is 22, and creatinine is 0.93. INR is 1.0. White blood cell count 5.69, hemoglobin is 14.6, and platelet count is 215. PHYSICAL EXAMINATION: VITAL SIGNS: Temperature is 36.8 degrees centigrade, pulse 67 beats per minute and regular, respiratory rate is 18 breaths per minute, blood pressure 120/72, and SaO2 is 95% on room air. GENERAL: NAD, awake, alert and oriented x3. HEENT: Mucous membranes are moist. No scleral icterus. Conjunctivae pink. NECK: Supple. No JVD. No HJR. No carotid bruit. HEART: Regular with a normal S1 and S2. There is no murmur, rub, or gallop. LUNGS: Clear. There are no rales, rhonchi or wheeze. ABDOMEN: Soft and nontender. No rebound or guarding. EXTREMITIES: Warm and dry without clubbing, cyanosis or edema. NEUROLOGIC: Demonstrates no focal deficit. FINAL IMPRESSION: 1. An 81-year-old female with a history of prior coronary artery disease and coronary artery bypass grafting x2, presents with atypical chest discomfort. Initial evaluation for acute coronary syndrome is negative including normal ECG, negative cardiac enzymes, and normal resting 2D transthoracic echo without regional wall motion abnormality. 2. Gastroesophageal reflux disease with intermittent heartburn. 3. Pulmonary embolus on chronic oral anticoagulation with Xarelto. 4. Generalized anxiety disorder. PLAN AND RECOMMENDATIONS: Recommend dobutamine stress echocardiography. This can be performed as an outpatient. The patient is currently asymptomatic. Instructed to take proton pump inhibitor daily. Other cardiovascular medications will be continued as previously ordered. Xarelto will be continued as well. All questions answered to the satisfaction about the patient and her family members at bedside. At this time, the patient prefers to remain in the inpatient setting for stress testing on Tuesday. We will readdress later today. From a medication perspective, I am also restarting her metoprolol at a reduced dose. Toprol-XL 25 mg daily ordered. Thank you for allowing me to take part in the care of your patient.
--- NOTE | 2016-12-04 18:16 | Progress Note ---
Medicine Progress Note Date & Time of Visit: Dec 04, 2016 at 18:06. Subjective Pt was seen and examined Lying in bed comfortable with at bedside Pt said that she feels hungry Continue to feel a pressure in her chest denies any sob, palpitation Objective Last 8 Hrs Date Time Temp Pulse Resp B/P (MAP) Pulse Ox O2 Delivery O2 Flow Rate FiO2 12/04/16 16:27 36.8 65 16 115/70 (85) 93 Room Air 12/04/16 16:02 Room Air 12/04/16 12:02 Room Air 12/04/16 11:19 36.4 62 17 136/66 (89) 96 Room Air Physical Exam: General- No acute distress Head- atraumatic Eyes- PERRL, EOMI ENT- oropharynx clear Neck- supple, no JVD Lungs- clear to auscultation and percussion Heart- regular rhythm; no murmur Abdomen- normal bowel sounds, soft, Extremities- no calf tenderness Neuro- alert, oriented x 3; PERRL, EOMI; no facial palsy Skin- warm & dry Laboratory Results: Last 24 Hours Test 12/03/16 23:17 12/04/16 04:48 Total Creatine Kinase 77 U/L 77 U/L Creatine Kinase MB 1.1 ng/ml 1.5 ng/ml Creatine Kinase MB Ratio 1.4 1.9 Troponin I < 0.015 ng/ml < 0.015 ng/ml Assessment & Plan Pressure like chest discomfort associated with dyspnea R/o ACS; known hx of CAD s/p CABG x 2 in 09/2015; patient reports similar presentation for prior MT's All 3 sets of troponin negative EKG showed no ischemic changes Continue aspirin, statin, PRN Lasix Cardiology on board recommended dobutamine stress echo that can be done as an outpatient Pt would rather like to stay to get it done on Tuesday ECHO showed * Ejection Fraction = 65-70%. * No regional wall motion abnormalities noted. * There is mild concentric left ventricular hypertrophy. * Grade I diastolic dysfunction, (abnormal relaxation pattern). * Mild aortic regurgitation. * There is mild mitral regurgitation. * There is mild tricuspid regurgitation. HISTORY OF PE Continue Xarelto ANXIETY Continue PRN Ativan GERD Continue PPI CODE STATUS FUL CODE DISPOSITION Follows with Dr. Darian Cornelius for primary care Consultants: Cardiology Current Inpatient Medications: Current Inpatient Medications Medications (Trade) Dose Ordered Sig/Yane Route Start Time Stop Time Status Last Admin Dose Admin Acetaminophen (Tylenol Tab) 650 mg Q4H PRN PO 12/03/16 19:00 01/02/17 18:59 Ondansetron HCl (Zofran Inj) 4 mg Q6H PRN IV 12/03/16 19:00 01/02/17 18:59 Nitroglycerin (Nitrostat Tab) 0.4 mg UD PRN SL 12/03/16 19:00 01/02/17 18:59 Alendronate Sodium (Fosamax Tab) 70 mg Tu@0630 PO 12/07/16 06:30 01/06/17 06:29 Aspirin (Ecotrin Tab) 162 mg DAILY PO 12/04/16 09:00 01/03/17 08:59 12/04/16 08:10 162 MG Atorvastatin Calcium (Lipitor Tab) 80 mg DAILY PO 12/04/16 09:00 01/03/17 08:59 12/04/16 08:10 80 MG Docusate Sodium (coLACE CAP) 100 mg HS PO 12/03/16 21:00 01/02/17 20:59 12/03/16 21:42 100 MG Furosemide (Lasix Tab) 40 mg DAILY PRN PO 12/03/16 19:15 01/02/17 19:14 Lorazepam (Ativan Tab) 0.5 mg TID PRN PO 12/03/16 19:15 01/02/17 19:14 Miscellaneous Information (Pending Order) 1 ea QS N/A 12/04/16 00:00 01/03/17 00:00 Rivaroxaban (Xarelto Tab) 20 mg DAILY PO 12/04/16 09:00 01/03/17 08:59 12/04/16 08:11 20 MG Senna (Senokot Tab) 8.6 mg DAILY PO 12/04/16 09:00 01/03/17 08:59 12/04/16 08:10 8.6 MG Calcium/Vitamin D (Caltrate Plus Tab) 1 tab DAILY PO 12/04/16 09:00 01/03/17 08:59 12/04/16 08:10 1 TAB Polyethylene (Miralax Powder Packet) 17 gm DAILY PRN PO 12/03/16 19:15 9/17/17 19:14 Pantoprazole Sodium (Protonix Tab) 40 mg QAM PO 12/04/16 09:00 01/03/17 08:59 12/04/16 08:10 40 MG Miscellaneous (Iv Fluids Completed) 1 ea PRN PRN N/A 12/03/16 22:00 12/03/17 21:59 Metoprolol Succinate (Toprol Xl Tab) 25 mg QAM PO 12/05/16 09:00 01/04/17 08:59
[2016-12-04] MEDS: DOCUSATE SODIUM 100 MG CAP PO SCH (19:47)
[2016-12-05 04:18] VITALS: BP 115/70; PULSE 68; TEMP 36.7; O2SAT 97
[2016-12-05 07:25] VITALS: BP 107/64; PULSE 69; TEMP 36.9; O2SAT 95
[2016-12-05] MEDS: ATORVASTATIN 40 MG TAB PO SCH (07:44)
[2016-12-05] MEDS: CALCIUM 600MG + VIT D 400 IU TAB PO SCH (07:45)
[2016-12-05] MEDS: RIVAROXABAN 20 MG TAB PO SCH (07:45)
[2016-12-05] MEDS: METOPROLOL SUCC 25MG EXT REL TAB PO SCH (07:45)
[2016-12-05] MEDS: SENNA 8.6 MG TAB PO SCH (07:45)
[2016-12-05] MEDS: PANTOprazole SOD 40 MG TAB PO SCH (07:45)
[2016-12-05] MEDS: ASPIRIN 81 MG ECTAB PO SCH (07:45)
[2016-12-05 11:23] VITALS: BP 118/75; PULSE 64; TEMP 36.5; O2SAT 95
--- NOTE | 2016-12-05 12:24 | Progress Note ---
Medicine Progress Note Date & Time of Visit: Dec 05, 2016 at 12:19. Subjective Pt was seen and examined Lying in bed with no distress with at bed side Pt said that she continue to feels the pressure discomfort in her chest She had a BM this morning She would like to get the stress test done tomorrow denies any SOB, Palpitation and dizziness Objective Last 8 Hrs Date Time Temp Pulse Resp B/P (MAP) Pulse Ox O2 Delivery O2 Flow Rate FiO2 12/05/16 11:23 36.5 64 18 118/75 (89) 95 Room Air 12/05/16 08:05 Room Air 12/05/16 07:25 36.9 69 17 107/64 (78) 95 Room Air 12/05/16 04:26 Room Air Physical Exam: General- No acute distress Head- atraumatic Eyes- PERRL, EOMI ENT- oropharynx clear Neck- supple, no JVD Lungs- clear to auscultation and percussion Heart- regular rhythm; no murmur Abdomen- normal bowel sounds, soft, Extremities- no calf tenderness Neuro- alert, oriented x 3; PERRL, EOMI; no facial palsy Skin- warm & dry Assessment & Plan Pressure like chest discomfort associated with dyspnea R/o ACS; known hx of CAD s/p CABG x 2 in 09/2015; patient reports similar presentation for prior NC's All 3 sets of troponin negative EKG showed no ischemic changes Continue aspirin, statin, PRN Lasix Cardiology on board recommended dobutamine stress echo that can be done as an outpatient Pt would rather like to stay to get it done on Tuesday Continue to have pressure feeling in her chest ECHO showed * Ejection Fraction = 65-70%. * No regional wall motion abnormalities noted. * There is mild concentric left ventricular hypertrophy. * Grade I diastolic dysfunction, (abnormal relaxation pattern). * Mild aortic regurgitation. * There is mild mitral regurgitation. * There is mild tricuspid regurgitation. HISTORY OF PE Continue Xarelto ANXIETY Continue PRN Ativan GERD Continue PPI CODE STATUS FUL CODE DISPOSITION Follows with Dr. Darian Cornelius for primary care Consultants: Cardiology Current Inpatient Medications: Current Inpatient Medications Medications (Trade) Dose Ordered Sig/Yane Route Start Time Stop Time Status Last Admin Dose Admin Acetaminophen (Tylenol Tab) 650 mg Q4H PRN PO 12/03/16 19:00 01/02/17 18:59 Ondansetron HCl (Zofran Inj) 4 mg Q6H PRN IV 12/03/16 19:00 01/02/17 18:59 Nitroglycerin (Nitrostat Tab) 0.4 mg UD PRN SL 12/03/16 19:00 01/02/17 18:59 Alendronate Sodium (Fosamax Tab) 70 mg Tu@0630 PO 12/07/16 06:30 01/06/17 06:29 Aspirin (Ecotrin Tab) 162 mg DAILY PO 12/04/16 09:00 01/03/17 08:59 12/05/16 07:45 162 MG Atorvastatin Calcium (Lipitor Tab) 80 mg DAILY PO 12/04/16 09:00 01/03/17 08:59 12/05/16 07:44 80 MG Docusate Sodium (coLACE CAP) 100 mg HS PO 12/03/16 21:00 01/02/17 20:59 12/04/16 19:47 100 MG Furosemide (Lasix Tab) 40 mg DAILY PRN PO 12/03/16 19:15 01/02/17 19:14 Lorazepam (Ativan Tab) 0.5 mg TID PRN PO 12/03/16 19:15 01/02/17 19:14 Miscellaneous Information (Pending Order) 1 ea QS N/A 12/04/16 00:00 01/03/17 00:00 Rivaroxaban (Xarelto Tab) 20 mg DAILY PO 12/04/16 09:00 01/03/17 08:59 12/05/16 07:45 20 MG Senna (Senokot Tab) 8.6 mg DAILY PO 12/04/16 09:00 01/03/17 08:59 12/05/16 07:45 8.6 MG Calcium/Vitamin D (Caltrate Plus Tab) 1 tab DAILY PO 12/04/16 09:00 01/03/17 08:59 12/05/16 07:45 1 TAB Polyethylene (Miralax Powder Packet) 17 gm DAILY PRN PO 12/03/16 19:15 01/02/17 19:14 Pantoprazole Sodium (Protonix Tab) 40 mg QAM PO 12/04/16 09:00 01/03/17 08:59 12/05/16 07:45 40 MG Miscellaneous (Iv Fluids Completed) 1 ea PRN PRN N/A 12/03/16 22:00 12/03/17 21:59 Metoprolol Succinate (Toprol Xl Tab) 25 mg QAM PO 12/05/16 09:00 01/04/17 08:59 12/05/16 07:45 25 MG
[2016-12-05 15:13] VITALS: BP 106/69; PULSE 70; TEMP 36.4; O2SAT 93
[2016-12-05 19:00] VITALS: BP 110/71; PULSE 70; TEMP 36.3; O2SAT 93
[2016-12-05] MEDS: DOCUSATE SODIUM 100 MG CAP PO SCH (19:56)
[2016-12-05 23:46] VITALS: BP 122/75; PULSE 69; TEMP 36.8; O2SAT 96
[2016-12-06 04:18] VITALS: BP 130/75; PULSE 62; TEMP 36.4; O2SAT 98
[2016-12-06] MEDS: RIVAROXABAN 20 MG TAB PO SCH (07:46)
[2016-12-06] MEDS: ATORVASTATIN 40 MG TAB PO SCH (07:46)
[2016-12-06] MEDS: PANTOprazole SOD 40 MG TAB PO SCH (07:46)
[2016-12-06] MEDS: ASPIRIN 81 MG ECTAB PO SCH (07:46)
[2016-12-06] MEDS: METOPROLOL SUCC 25MG EXT REL TAB PO SCH (07:46)
[2016-12-06] MEDS: CALCIUM 600MG + VIT D 400 IU TAB PO SCH (07:46)
[2016-12-06] MEDS: SENNA 8.6 MG TAB PO SCH (07:46)
[2016-12-06 07:48] LABS: CREATININE 0.88 mg/dl (0.60-1.20)
[2016-12-06 08:08] VITALS: BP 124/60; PULSE 67; TEMP 36.9; O2SAT 93
[2016-12-06] MEDS ORDERED: DOBUTamine HCL 12.5 MG/ML 20 ML VIAL ONE (09:14)
[2016-12-06] MEDS ORDERED: ATROPINE SULFATE 0.1 MG/ML 5ML SYR ONE (09:14)
[2016-12-06] MEDS ORDERED: METOPROLOL TARTRATE 1 MG/ML VIAL ONE (09:15)
--- NOTE | 2016-12-06 12:30 | DOBUTAMINE ECHO ---
*NOTICE TO RECEIVING DEMOCRAT AGENCY This information is strictly Confidential and protected under [place] law. [place] law prohibits you from making any further disclosure of this information unless further disclosure is expressly permitted by the written consent of the person to whom it pertains or is authorized by law. A general authorization for the release of medical or other information is not sufficient for this purpose. Hospital accepts no responsibility if the information is made available to any other person, INCLUDING THE PATIENT. Interpretation Summary * Name: ARELY KINNEY Study Date: 12/06/2016 09:02 AM BP: 151/70 mmHg * Patient Location: .2T\S\S239\S\1 HR: 64 * : 1935 (M/d/yyyy) Gender: Female Height: 66 in * Age: 81 yrs Ethnicity: CA Weight: 154 lb * Ordering Physician: Sher Pichardo * Referring Physician: MARILU * Performed By: Ariana Capone RDCS * * Reason For Study: CHEST PAIN * BSA: 1.8 m2 * The study was technically adequate. * There is no comparison study available. * STRESS STUDY: Normal pharmacologic stress echocardiogram. No echocardiographic or ECG evidence of myocardial ischemia having achieved heart rate adequate for diagnostic purposes. Procedure Details * DOBUTAMINE ECHO, CPT#39816 Left Ventricle * There is mild concentric left ventricular hypertrophy. * The left ventricular ejection fraction increases normally with stress. The left ventricular end-systolic cavity size reduces post-stress (normal response). The left ventricular wall motion with stress is normal. * Left ventricular systolic function is normal. * Resting wall motion: Normal. Stress wall motion: Appropriate increase in Left ventricular systolic function and decrease in cavity size. No stress induced segmental wall motion abnormalities. Stress Parameters * The baseline ECG displays normal sinus rhythm. * Stress ECG: No ST changes. No arrhythmias. * The stress portion of this study was personally supervised by the undersigned interpreting physician. * Rest heart rate was '64' BPM. * Rest blood pressure was '151/70' * Maximum heart rate achieved was 137 bpm. * Maximum heart rate was 97 % of maximum age-predicted heart rate. * Maximum blood pressure was '168/69' * Maximum Dobutamine infusion rate was '20' mcg/kg/min. * A total of .5 mg of intravenous Atropine was used to supplement Dobutamine for heart rate response. * Dobutamine infusion was terminated due to achieving target heart rate * A total of 5 mg of IV Metoprolol was administered to reverse Dobutamine-induced tachycardia.
[2016-12-06 12:45] VITALS: BP 115/74; PULSE 74; TEMP 36.7; O2SAT 96
--- NOTE | 2016-12-06 13:29 | Progress Note ---
Medicine Progress Note Date & Time of Visit: Dec 06, 2016 at 13:18. Subjective Pt was seen and examined Lying in bed with no distress Pt said that she feels the same pressure in her chest Denies any sob, chest pain, palpitation and dizziness Objective Last 8 Hrs Date Time Temp Pulse Resp B/P (MAP) Pulse Ox O2 Delivery O2 Flow Rate FiO2 12/06/16 12:54 Room Air 12/06/16 12:45 36.7 74 16 115/74 (88) 96 Room Air 12/06/16 08:08 36.9 67 16 124/60 (81) 93 Room Air 12/06/16 08:05 Room Air Physical Exam: General- No acute distress Head- atraumatic Eyes- PERRL, EOMI ENT- oropharynx clear Neck- supple, no JVD Lungs- clear to auscultation and percussion Heart- regular rhythm; no murmur Abdomen- normal bowel sounds, soft, Extremities- no calf tenderness Neuro- alert, oriented x 3; PERRL, EOMI; no facial palsy Skin- warm & dry Laboratory Results: Last 24 Hours Test 12/06/16 06:40 Creatinine 0.88 mg/dl Est Creatinine Clear Calc Drug Dose 47.7 ml/min Estimated GFR () 71.9 Estimated GFR (Non- 62.1 Assessment & Plan Pressure like chest discomfort associated with dyspnea R/o ACS; known hx of CAD s/p CABG x 2 in 09/2015; patient reports similar presentation for prior CA's All 3 sets of troponin negative EKG showed no ischemic changes Continue aspirin, statin, PRN Lasix Cardiology on board recommended dobutamine stress echo that can be done as an outpatient Toprol xl 25mg restarted by cardiology Pt would rather like to stay to get it done on Tuesday Continue to have pressure feeling in her chest 12/06 Dobutamine stress echo showed no wall abnormality Continue metoprolol 25mg Clinically stable Follow up with your PCP Dr. Cornelius on 12/08 at 11 am ECHO showed * Ejection Fraction = 65-70%. * No regional wall motion abnormalities noted. * There is mild concentric left ventricular hypertrophy. * Grade I diastolic dysfunction, (abnormal relaxation pattern). * Mild aortic regurgitation. * There is mild mitral regurgitation. * There is mild tricuspid regurgitation. HISTORY OF PE Continue Xarelto ANXIETY Continue PRN Ativan GERD Continue PPI CODE STATUS FUL CODE DISPOSITION Discharge home today Follow up with your PCP Dr. Cornelius on 12/08 @ 11 am Consultants: Cardiology Procedures: Dobutamine stress echo Current Inpatient Medications: Current Inpatient Medications Medications (Trade) Dose Ordered Sig/Yane Route Start Time Stop Time Status Last Admin Dose Admin Acetaminophen (Tylenol Tab) 650 mg Q4H PRN PO 12/03/16 19:00 01/02/17 18:59 Ondansetron HCl (Zofran Inj) 4 mg Q6H PRN IV 12/03/16 19:00 01/02/17 18:59 Nitroglycerin (Nitrostat Tab) 0.4 mg UD PRN SL 12/03/16 19:00 01/02/17 18:59 Alendronate Sodium (Fosamax Tab) 70 mg Tu@0630 PO 12/07/16 06:30 01/06/17 06:29 Aspirin (Ecotrin Tab) 162 mg DAILY PO 12/04/16 09:00 01/03/17 08:59 12/06/16 07:46 162 MG Atorvastatin Calcium (Lipitor Tab) 80 mg DAILY PO 12/04/16 09:00 01/03/17 08:59 12/06/16 07:46 80 MG Docusate Sodium (coLACE CAP) 100 mg HS PO 12/03/16 21:00 01/02/17 20:59 12/05/16 19:56 100 MG Furosemide (Lasix Tab) 40 mg DAILY PRN PO 12/03/16 19:15 01/02/17 19:14 Lorazepam (Ativan Tab) 0.5 mg TID PRN PO 12/03/16 19:15 01/02/17 19:14 Miscellaneous Information (Pending Order) 1 ea QS N/A 12/04/16 00:00 01/03/17 00:00 Rivaroxaban (Xarelto Tab) 20 mg DAILY PO 12/04/16 09:00 01/03/17 08:59 12/06/16 07:46 20 MG Senna (Senokot Tab) 8.6 mg DAILY PO 12/04/16 09:00 01/03/17 08:59 12/06/16 07:46 8.6 MG Calcium/Vitamin D (Caltrate Plus Tab) 1 tab DAILY PO 12/04/16 09:00 01/03/17 08:59 12/06/16 07:46 1 TAB Polyethylene (Miralax Powder Packet) 17 gm DAILY PRN PO 12/03/16 19:15 01/02/17 19:14 Pantoprazole Sodium (Protonix Tab) 40 mg QAM PO 12/04/16 09:00 01/03/17 08:59 12/06/16 07:46 40 MG Miscellaneous (Iv Fluids Completed) 1 ea PRN PRN N/A 12/03/16 22:00 12/03/17 21:59 Metoprolol Succinate (Toprol Xl Tab) 25 mg QAM PO 12/05/16 09:00 01/04/17 08:59 12/06/16 07:46 25 MG
[2016-12-06] MEDS ORDERED: TPRSR25 PO (13:37)
--- NOTE | 2016-12-06 13:43 | Discharge Instructions ---
Discharge Instructions Date of Service Dec 06, 2016. Admission Reason for Admission: Pressure like chest discomfort Discharge Discharge Diagnosis / Problem: Atypical chest discomfort, Anxiety, GERD Discharge Goals Goal(s): Decrease discomfort, Improve function, Improve disease control Activity Recommendations Activity Limitations: resume your previous activity (as tolerated) . Instructions / Follow-Up Instructions / Follow-Up Follow up with your Primary care provider Dr. Cornelius on 12/08 @11 am New medication Metoprolol succinate ER 25 mg take 1 tab by mouth daily Current Hospital Diet Patient's current hospital diet: AHA Diet (Heart Healthy) Discharge Diet Recommended Diet: AHA Diet (Heart Healthy) Procedures Procedures Performed: Dobutamine stress echo Pending Studies Studies pending at discharge: no Medical Emergencies . Who to Call and When: Medical Emergencies: If at any time you feel your situation is an emergency, please call 911 immediately. . Non-Emergent Contact Non-Emergency issues call your: Primary Care Provider Call Non-Emergent contact if: you have any medication questions . . "Provider Documentation" section prepared by Nida Weiner. . VTE Core Measure Inpt VTE Proph given/why not?: Other Anticoagulation
[2016-12-06 14:03] VITALS: BP 115/74; PULSE 74; TEMP 36.7; O2SAT 96
[2016-12-07] MEDS ORDERED: ALENDRONATE SODIUM 70 MG TAB PO SCH (06:30)
--- NOTE | 2016-12-07 08:34 | Discharge Summary ---
Discharge Summary Date of Service Dec 07, 2016. Discharge Summary Admission Date: Dec 03, 2016 at 20:17 Discharge Date: Dec 06, 2016 Discharge Disposition: Home Principal Diagnosis: Atypical chest discomfort Secondary Diagnoses/Problems: Anxiety GERD Procedures: Dobutamine stress echo Consultations: Cardiology Medication Reconciliation New Medications: Metoprolol Succinate (Metoprolol Succinate ER) 25 Mg Tabcr 25 MG PO QAM for 30 Days Continued Medications: Acetaminophen (Acetaminophen ER) 650 Mg Tab 650 MG PO DAILY PRN for Pain Alendronate Sodium (Alendronate Sodium) 70 Mg Tab 70 MG PO WK TAKE THIS MEDICATION EVERY TUESDAY 30 MINUTES BEFORE FOOD OR ANY OTHER MEDICATIONS WITH A FULL GLASS OF WATER (8 OUNCES), REMAIN UPRIGHT AFTER TAKING FOR 30 MINUTES Aspirin (Aspirin Ec) 81 Mg Tab 162 MG PO DAILY Atorvastatin (Lipitor) 80 Mg Tab 80 MG PO DAILY Calcium Carbonate-Cholecalcife (Caltrate 600+D) 1 Tab Tab 1 TAB PO DAILY Docusate Sodium (Ra Col-Rite) 100 Mg Cap 100 MG PO HS Furosemide (Furosemide) 40 Mg Tab 40 MG PO DAILY PRN for Fluid Retention/Edema Lorazepam (Lorazepam) 0.5 Mg Tab 0.5 MG PO TID PRN for Anxiety Nitroglycerin (Nitrostat) 0.4 Mg Tab 0.4 MG UT UD PRN for Chest Pain, BTL Omeprazole (Prilosec) 40 Mg Cap 40 MG PO DAILY PRN for Acid Reflux Polyethylene (Polyethylene Glycol 3350) 527 Gm Soln 17 GM PO DAILY PRN for Constipation Potassium Chloride Microencaps (Potassium Chloride Er) 10 Meq Tab 10 MEQ PO DAILY PRN for When Furosemide Taken Rivaroxaban (Xarelto) 20 Mg Tab 20 MG PO DAILY Senna (Senokot) 8.6 Mg Tab 1 TAB PO DAILY, TAB Admission Information HPI (per Admitting provider): This is an 81 y/o female with PMH of CAD s/p CABG x 2 in October 2016, history of PE on Xarelto, and other problems listed below who presents to the ED with shortness of breath. Patient follows with Dr. Darian Cornelius for primary care and Dr. Nolasco for cardiology. Pt was recently seen by Dr. Nolasco on 2016 at which time metoprolol was tapered then discontinued. Patient now presents with shortness of breath starting yesterday. Yesterday the episode occurred while sitting outside and resolved after a few hours. Then this morning while standing she became SOB. This was after a stressful incident involving a tractor they bought today. She took nitro with resolution. Then 2-3 hours later she developed recurrent SOB. This was persistent for a few hours, therefore her drove her to the ER. She received 4 baby aspirin, 3 sublingual nitro, and Fentanyl in ER with relief. She is now asymptomatic. She admits to associated warmth and palpitations with the episodes. She reports having similar presentation with prior VA's before her CABG. Before the past few days did not have dyspnea, but reports malaise for 1 month. Has had nausea for past 1 week. Had bilateral ankle swelling past 2 days which resolved with PRN Lasix. She denies URI symptoms, cough, chest pain, vomiting. Physical Exam (per Admitting): General Appearance: WD/WN, no apparent distress, + pertinent finding (alert 81 y/o female, lying in bed, no distress, at bedside) Head: normocephalic, atraumatic Eyes: normal inspection, PERRL, EOMI ENT: hearing grossly normal, pharynx normal Neck: supple, no JVD, trachea midline Respiratory/Chest: lungs clear, normal breath sounds, no respiratory distress, no accessory muscle use, + pertinent finding (saturating well on room air) Cardiovascular: regular rate, rhythm, no murmur, normal peripheral pulses Abdomen/GI: normal bowel sounds, non tender, soft Extremities/Musculoskelatal: normal inspection, no calf tenderness, no pedal edema Neurologic/Psych: alert, normal mood/affect, oriented x 3 Skin: normal color, warm/dry Hospital Course Pressure like chest discomfort associated with dyspnea R/o ACS; known hx of CAD s/p CABG x 2 in 09/2015; patient reports similar presentation for prior VA's All 3 sets of troponin negative EKG showed no ischemic changes Continue aspirin, statin, PRN Lasix Cardiology on board recommended dobutamine stress echo that can be done as an outpatient Toprol xl 25mg restarted by cardiology Pt would rather like to stay to get it done on Tuesday Continue to have pressure feeling in her chest 12/06 Dobutamine stress echo showed no wall abnormality Continue metoprolol 25mg Clinically stable Follow up with your PCP Dr. Cornelius on 8/23 at 11 am ECHO showed * Ejection Fraction = 65-70%. * No regional wall motion abnormalities noted. * There is mild concentric left ventricular hypertrophy. * Grade I diastolic dysfunction, (abnormal relaxation pattern). * Mild aortic regurgitation. * There is mild mitral regurgitation. * There is mild tricuspid regurgitation. HISTORY OF PE Continue Xarelto ANXIETY Continue PRN Ativan GERD Continue PPI CODE STATUS FUL CODE DISPOSITION Discharge home today Follow up with your PCP Dr. Cornelius on 12/08 @ 11 am Total time spent on discharge = 35 minutes This includes examination of the patient, discharge planning, medication reconciliation, and communication with other providers. Discharge Instructions Discharge Instructions Date of Service Dec 06, 2016. Admission Reason for Admission: Pressure like chest discomfort Discharge Discharge Diagnosis / Problem: Atypical chest discomfort, Anxiety, GERD Discharge Goals Goal(s): Decrease discomfort, Improve function, Improve disease control Activity Recommendations Activity Limitations: resume your previous activity (as tolerated) . Instructions / Follow-Up Instructions / Follow-Up Follow up with your Primary care provider Dr. Cornelius on 12/08 @11 am New medication Metoprolol succinate ER 25 mg take 1 tab by mouth daily Current Hospital Diet Patient's current hospital diet: AHA Diet (Heart Healthy) Discharge Diet Recommended Diet: AHA Diet (Heart Healthy) Procedures Procedures Performed: Dobutamine stress echo Pending Studies Studies pending at discharge: no Medical Emergencies . Who to Call and When: Medical Emergencies: If at any time you feel your situation is an emergency, please call 911 immediately. . Non-Emergent Contact Non-Emergency issues call your: Primary Care Provider Call Non-Emergent contact if: you have any medication questions . . "Provider Documentation" section prepared by Nida Weiner. . VTE Core Measure Inpt VTE Proph given/why not?: Other Anticoagulation Additional Copies To Darian Cornelius D.O.
== END 2016-12-06 14:34 | disposition home or self-care (01) ==
LOC: C.EDB 16:17 → ENRESERV 19:26 → INTOOBSV 20:17 → C.2T 20:17 → CANBEDREQ 20:38
PROVIDERS: ADMIT Internal Medicine; ATTEND Internal Medicine
DX: R07.89 Other chest pain (principal); R06.00 Dyspnea, unspecified; K21.9 Gastro-esophageal reflux disease without esophagitis; E78.5 Hyperlipidemia, unspecified; I10 Essential (primary) hypertension; I25.10 Atherosclerotic heart disease of native coronary artery without angina pectoris; I25.2 Old myocardial infarction; Z79.82 Long term (current) use of aspirin; Z95.1 Presence of aortocoronary bypass graft; Z86.711 Personal history of pulmonary embolism; Z79.01 Long term (current) use of anticoagulants; Z90.710 Acquired absence of both cervix and uterus; Z90.49 Acquired absence of other specified parts of digestive tract; Z86.718 Personal history of other venous thrombosis and embolism; Z87.440 Personal history of urinary (tract) infections; Z83.3 Family history of diabetes mellitus; Z83.6 Family history of other diseases of the respiratory system

== ENCOUNTER → 2017-05-02 | Outpatient (CLI) | payer BC ==
[~2017-05-02] MED LIST changes: -ACET-1311 PO; +ACET650T9 PO; +ATV5X PO; +DOCU-149 PO; -DOCU-94 PO; -FLUT0.15 NAE; +FSM70 PO; -LORA-741 PO; -METO25TA56 PO; +MRLP527 PO; +NTRGSL/4 UT; -NTRSLP4 SL; -POLY335019 PO; -POTA10CA28 PO; +POTA10TA32 PO; +SENN-61 PO; -TOBRSUS OPL; +TPRSR25 PO
--- NOTE | 2017-05-03 07:51 | MAMMOGRAPHY REPORT ---
BILATERAL DIGITAL SCREENING MAMMOGRAM TOMOSYNTHESIS WITH CAD: 05/02/2017 CLINICAL HISTORY: Routine screening. Patient has no complaints. TECHNIQUE: Breast tomosynthesis in addition to standard 2D mammography was performed. Current study was also evaluated with a Computer Aided Detection (CAD) system. COMPARISON: Comparison is made to exams dated: 05/27/2016 mammogram, 05/17/2016 mammogram, 05/27/2016 massimo reotactic biopsy, 04/29/2016 mammogram, 04/23/2015 mammogram, and 04/22/2014 mammogram - [facility]. BREAST COMPOSITION: There are scattered areas of fibroglandular density in both breasts. FINDINGS: There is a stable biopsy marker clip in the 11:00 posterior left breast, denoting the site of prior benign stereotactic biopsy. There are numerous benign popcorn calcifications and scattered round benign-appearing microcalcifications in the breasts. Mild vascular calcification as well. No new suspicious mass, architectural distortion or cluster of microcalcifications is seen. IMPRESSION: ACR BI-RADS CATEGORY 1: NEGATIVE There is no mammographic evidence of malignancy. A 1 year screening mammogram is recommended. The pa tient will receive written notification of the results. Approximately 10% of breast cancers are not detected with mammography. A negative mammographic report should not delay biopsy if a clinically suggestive mass is present. Rox Will M.D. ay/:05/02/2017 16:14:24 Winder Fixer: Linda THOMPSON(Khari)(Yaritza), [facility] letter sent: Normal 1/2 BI-RADS Code: ACR BI-RADS Category 1: Negative
== END | disposition home or self-care (01) ==
LOC: C.MAMM 10:13
PROVIDERS: ATTEND Family Medicine
DX: Z12.31 Encounter for screening mammogram for malignant neoplasm of breast (principal)

== ENCOUNTER 2017-06-14 09:25 | Observation (INO) | payer BC ==
[2017-06-14] VITALS (7 sets, daily range): BP systolic 106–155; BP diastolic 55–84; PULSE 65–76; TEMP 36.4–37.1; O2SAT 93–97; Ht 167.6 cm; Wt 69.8 kg
[~2017-06-14] VITALS: Ht 167.6 cm; Wt 69.8 kg
--- NOTE | 2017-06-14 09:55 | EMERGENCY ROOM VISIT NOTE ---
History Report prepared by Mayda: Meeta Jackson Under the Supervision of: Dr. Jose Carey M.D. First contact with patient: 09:33 Chief Complaint: SHORTNESS OF BREATH Stated Complaint: SOB, REFERRED BY DOC Nursing Triage Summary: Pt ambulatory to triage for eval of sob, dizziness over the past week, worse since yesterday. Denies cough or cp. Pt states open heart surgery 1.5 yrs ago[address] Nolasco. History of Present Illness The patient is a 81 year old female who presents to the Emergency Room with complaints of constant shortness of breath for the past week worsening over the last two days. Her symptoms are always present but are worsened with exertion or moving around. Today the patient called her director of personnel's office and was advised to come to the ED for further evaluation. She reports a history of CHF and takes Lasix PRN. She took Lasix yesterday. She had a double bypass 1.5 years ago. The patient denies any new chest pain or cough. She denies fevers, urinary symptoms, diarrhea, melena, and any recent weight gain. She takes Xarelto. Source of History: patient Onset: 1 week ago Position: chest (respiratory) Quality: other (shortness of breath) Timing: constant, worsening Modifying Factors (Worsening): exertion, movement Associated Symptoms: No fevers, No cough, No chest pain, No melena, No diarrhea, No urinary symptoms Review of Systems See HPI for pertinent positives & negatives. A total of 10 systems reviewed and were otherwise negative. Past Medical & Surgical Medical Problems: (1) Anxiety (2) CAD (coronary artery disease) (3) Chest pain (4) Dyslipidemia (5) ESOPHAGEAL REFLUX (6) History of superficial phlebitis (7) Pulmonary embolism Surgical Problems: (1) H/O vein stripping (2) History of partial colectomy (3) History of partial hysterectomy (4) Hx of bladder repair surgery (5) S/P CABG x 2 Social History Problems: (1) Chest pain (2) Elevated troponin (3) URIN TRACT INFECTION NOS Family History Cancer Diabetes mellitus Lung disease Social History Smoking Status: Never Smoker Alcohol Use: none Drug Use: none Marital Status: Housing Status: lives with significant other Occupation Status: retired Current/Historical Medications Scheduled Alendronate Sodium (Alendronate Sodium), 70 MG PO WK Aspirin (Aspirin Ec), 162 MG PO DAILY Atorvastatin (Lipitor), 80 MG PO DAILY Calcium Carbonate-Cholecalcife (Caltrate 600+D), 1 TAB PO DAILY Metoprolol Succinate (Metoprolol Succinate ER), 25 MG PO QAM Rivaroxaban (Xarelto), 20 MG PO DAILY Scheduled PRN Acetaminophen (Tylenol), 650 MG PO DAILY PRN for PO Docusate Sodium (Ra Col-Rite), 100 MG PO HS PRN for Constipation Furosemide (Furosemide), 40 MG PO DAILY PRN for Fluid Retention/Edema Lorazepam (Lorazepam), 0.5 MG PO TID PRN for Anxiety Nitroglycerin (Nitrostat), 0.4 MG UT UD PRN for Chest Pain Omeprazole (Prilosec), 40 MG PO DAILY PRN for Acid Reflux Polyethylene (Polyethylene Glycol 3350), 17 GM PO DAILY PRN for Constipation Potassium Chloride Microencaps (Potassium Chloride Er), 10 MEQ PO DAILY PRN for When Furosemide Taken Sennosides (Senokot), 1 TAB PO DAILY PRN for Constipation Allergies Coded Allergies: Latex (Verified Allergy, Intermediate, RASH, 11/27/15) Erythromycin (Verified Allergy, Unknown, unknown, 11/27/15) Physical Exam Vital Signs Date Time Temp Pulse Resp B/P (MAP) Pulse Ox O2 Delivery O2 Flow Rate FiO2 06/14/17 13:32 152/76 06/14/17 13:25 76 19 97 06/14/17 13:07 171/68 06/14/17 11:23 36.8 59 19 131/77 96 06/14/17 11:08 131/77 06/14/17 10:55 61 19 94 06/14/17 10:25 66 22 94 06/14/17 10:07 66 06/14/17 09:27 36.6 72 18 160/81 98 Room Air Physical Exam GENERAL: Patient is in no acute distress. HEENT: No acute trauma, normocephalic atraumatic, mucous membranes moist, no nasal congestion, no scleral icterus. NECK: No stridor, no adenopathy, no meningismus, trachea is midline. LUNGS: Clear to auscultation bilaterally, no wheeze, no rhonchi, breath sounds equal. HEART: Without murmurs gallops or rubs, regular rate and rhythm. ABDOMEN: Soft, nontender, bowel sounds positive, no hernias, no peritonitis. EXTREMITIES: No cyanosis or edema, full range of motion of all the joints without pain or difficulty, no signs for acute trauma. NEUROLOGIC: Oriented x 3, no acute motor or sensory deficits, no focal weakness. SKIN: No rash, no jaundice, no diaphoresis. Medical Decision & Procedures ER Provider Diagnostic Interpretation: Radiology results as stated below per my review and radiologist interpretation: CHEST ONE VIEW PORTABLE CLINICAL HISTORY: 81 years-old Female presenting with EVALUATE RESPIRATORY DISTRESS.DYSPNEA. TECHNIQUE: Portable upright AP view of the chest was obtained. COMPARISON: 12/03/2016. FINDINGS: Median sternotomy wires, bypass graft rings, and mediastinal surgical clips noted. Atherosclerosis of aortic arch. Cardiac silhouette normal in size. Mildly low lung volumes with hypoventilatory changes. Slightly exaggerated thoracic kyphosis. Upper abdomen normal. IMPRESSION: 1. Mildly low lung volumes with hypoventilatory changes. No other evidence of acute cardiopulmonary disease. Electronically signed by: Hayes Smith M.D. 06/14/2017 10:20 AM Dictated Date/Time: 06/14/2017 10:19 AM (CHEST FOR PE) ANGIO WITH CLINICAL HISTORY: 81 years-old Female presenting with chest pain and shortness of breath. TECHNIQUE: Multidetector CT angiography of the chest was performed after administration of intravenous contrast. 3-D volumetric and/or maximum intensity projection (MIP) images were subsequently reconstructed for review. IV contrast: 72 mL of Optiray 320. A dose lowering technique was used consistent with the principles of ALARA (as low as reasonably achievable). COMPARISON: 02/12/2016. CT DOSE (mGy.cm): The estimated cumulative dose is 213.81 mGy.cm. FINDINGS: O And M Supervisor topogram: Median sternotomy wires and bypass graft rings noted. Pulmonary vasculature: The study is adequate for assessment of the pulmonary vascular tree. No filling defect within the pulmonary arteries to suggest embolus. Main pulmonary artery is not enlarged. No flattening of the interventricular septum. No intracardiac filling defect. No reflux of contrast into the hepatic veins. Remaining chest: On soft tissue windows, normal thyroid. Multiple benign calcifications noted in the breasts. Median sternotomy wires and postsurgical changes of bypass graft. Few subcentimeter subcarinal and bilateral hilar lymph nodes likely reactive. Atherosclerosis of the aorta. Four-vessel aortic arch noted. Heart top normal in size. Coronary artery calcification. No pericardial or pleural effusion. Upper abdomen normal. On lung windows, scarring noted at the apices. Dependent changes likely atelectasis. Few calcified granulomas noted. Solid 6 mm fissural nodule in the superior segment of the right lower lobe (series 4 image 118). Airways patent. On bone windows, degenerative changes of the spine. IMPRESSION: 1. No evidence of pulmonary embolus or gross evidence of acute aortic injury. 2. Post surgical changes of coronary artery bypass. 3. Dependent atelectasis. 4. Solid 6 mm pulmonary nodule in the right lower lobe. Follow-up per Ifrah Society 2017 recommendations below. Please refer to below summary of Fleischner Society 2017 recommendations for follow-up of incidental CT nodules (Melanie Silva et al. Guidelines for management of incidental pulmonary nodules detected on CT images: From the Fleischner Society 2017. Radiology 2017; 284: 228-243.) SOLID NODULES Single nodule; size < 6 mm * Low risk patients: No routine follow-up * High risk patients: Optional CT at 12 months Single nodule; size 6-8 mm * Low risk patients: CT at 6-12 months, then consider CT at 18-24 months * High risk patients: CT at 6-12 months, then at 18-24 months Single nodule; size > 8 mm * Either low or high risk patients: Considered CT at 3 months, PET/CT, or tissue sampling Multiple nodules; size < 6 mm * Low risk patients: No routine follow up * High risk patients: Optional CT at 12 months Multiple nodules; size 6-8 mm * Low risk patients: CT at 3-6 months, then consider CT at 18-24 months * High risk patients: CT at 3-6 months, then at 18-24 months Multiple nodules; size > 8 mm * Low risk patients: CT at 3-6 months, then consider at 18-24 months * High risk patients: CT at 3-6 months, then at 18-24 months Note: These guidelines apply to incidental nodules. These guidelines do not apply to patients younger than 35 years, immunocompromised patients, or patients with cancer. * Low risk patients: Minimal or absent history of smoking and/or other known risk factors * High risk patients: History of smoking, exposure to other carcinogens, emphysema, fibrosis, upper lobe location, family history of lung cancer, etc. * If a nodule up to 8 mm is partly solid or is ground glass, further follow-up is required after 24 months to exclude possible slow growing adenocarcinoma. SUBSOLID NODULES Single ground-glass nodule * Nodule size < 6 mm: No routine follow-up * Nodule size > or = 6 mm: CT at 6-12 months to confirm persistence, then CT every 2 years until 5 years Single part-solid nodule * Nodule size < 6 mm: No routine follow-up * Nodules size > or = 6 mm: CT at 3-6 months to confirm persistence. If unchanged and solid component remains < 6 mm, annual CT should be performed for 5 years Multiple nodules * Nodule size < 6 mm: CT at 3-6 months. If stable, consider CT at 2 and 4 years. * Nodules size > or = 6 mm: CT at 3-6 months. Subsequent management based on the most suspicious nodule(s) Electronically signed by: Hayes Smith M.D. 06/14/2017 11:29 AM Dictated Date/Time: 06/14/2017 11:23 AM Laboratory Results 06/14/17 10:00 Red Blood Count 4.73, Mean Corpuscular Volume 89.9, Mean Corpuscular Hemoglobin 30.4, Mean Corpuscular Hemoglobin Concent 33.9, Mean Platelet Volume 10.0 06/14/17 10:00 Test 06/14/17 10:00 06/14/17 12:02 White Blood Count 5.32 K/uL (4.8-10.8) Red Blood Count 4.73 M/uL (4.2-5.4) Hemoglobin 14.4 g/dL (12.0-16.0) Hematocrit 42.5 % (37-47) Mean Corpuscular Volume 89.9 fL (80-100) Mean Corpuscular Hemoglobin 30.4 pg (25-34) Mean Corpuscular Hemoglobin Concent 33.9 g/dl (32-36) Platelet Count 195 K/uL (130-400) Mean Platelet Volume 10.0 fL (7.4-10.4) RDW Standard Deviation 46.5 fL (36.4-46.3) RDW Coefficient of Variation 14.1 % (11.5-14.5) Neutrophils % (Manual) 27.8 % Lymphocytes % (Manual) 23.5 % Variant Lymphocytes % (manual) 40.0 % Monocytes % (Manual) 7.0 % Eosinophils % (Manual) 1.7 % Neutrophils # (Manual) 1.48 K/uL (1.4-6.5) Total Absolute Neutrophils 1.48 K/uL (1.4-6.5) Lymphocytes # (Manual) 1.25 K/uL (1.2-3.4) Absolute Variant Lymphocytes 2.13 K/uL Total Absolute Lymphocytes 3.38 K/uL (1.2-3.4) Monocytes # (Manual) 0.37 K/uL (0.11-0.59) Eosinophils # (Manual) 0.09 K/uL (0-0.5) Red Blood Cell Morphology Unremarkable Prothrombin Time 12.0 SECONDS (9.0-12.0) Prothromb Time International Ratio 1.1 (0.9-1.1) Activated Partial Thromboplast Time 30.6 SECONDS (21.0-31.0) Partial Thromboplastin Ratio 1.2 Anion Gap 6.0 mmol/L (3-11) Est Creatinine Clear Calc Drug Dose 48.5 ml/min Estimated GFR () 66.4 Estimated GFR (Non- 57.3 BUN/Creatinine Ratio 17.2 (10-20) Calcium Level 9.0 mg/dl (8.5-10.1) Magnesium Level 2.4 mg/dl (1.8-2.4) Total Bilirubin 0.6 mg/dl (0.2-1) Aspartate Amino Transf (AST/SGOT) 30 U/L (15-37) Alanine Aminotransferase (ALT/SGPT) 38 U/L (12-78) Alkaline Phosphatase 69 U/L (45-117) Troponin I < 0.015 ng/ml (0-0.045) Pro-B-Type Natriuretic Peptide 160 pg/ml (0-1800) Total Protein 7.6 gm/dl (6.4-8.2) Albumin 3.8 gm/dl (3.4-5.0) Globulin 3.8 gm/dl (2.5-4.0) Albumin/Globulin Ratio 1.0 (0.9-2) Urine Color YELLOW Urine Appearance CLEAR (CLEAR) Urine pH 8.5 (4.5-7.5) Urine Specific [place] 1.004 (1.000-1.030) Urine Protein NEG (NEG) Urine Glucose (UA) NEG (NEG) Urine Ketones NEG (NEG) Urine Occult Blood NEG (NEG) Urine Nitrite NEG (NEG) Urine Bilirubin NEG (NEG) Urine Urobilinogen NEG (NEG) Urine Leukocyte Esterase TRACE (NEG) Urine WBC (Auto) 0 /hpf (0-5) Urine RBC (Auto) 0-4 /hpf (0-4) Urine Hyaline Casts (Auto) 0 /lpf (0-5) Urine Epithelial Cells (Auto) 0-5 /lpf (0-5) Urine Bacteria (Auto) NEG (NEG) Laboratory results reviewed by me. Medications Administered Medications (Trade) Dose Ordered Sig/Yane Route Start Time Stop Time Status Last Admin Dose Admin Albuterol (Ventolin Hfa Inhaler) 3 puffs NOW ONCE INH 06/14/17 12:00 06/14/17 12:01 DC 06/14/17 12:19 3 PUFFS ECG Per My Interpretation Indication: SOB/dyspnea Rate (beats per minute): 66 Rhythm: normal sinus Findings: other (no PVC; no ST elevation) ED Course 0933: The patient was evaluated in room B3B. A complete history and physical exam was performed. 1103: I updated the patient and she is doing well. 1200: Albuterol 3 puffs INH 1219: I discussed the results with the patient. 1251: I spoke with Dr. Nolasco, the patient's director of personnel. We discussed the case. He felt that she should stay in the hospital for further management. 1259: I reassessed the patient at this time. She is feeling better and resting comfortably. I discussed the results and treatment plan with the patient. I answered all pertaining questions that she had. She expressed understanding and verbalized agreement. 1304: I spoke with Maria C Nix PA-C. We discussed the patient's case. [facility] Medical Decision Differential diagnoses includes CHF, pneumonia, pneumothorax, cardiac ischemia, anemia, electrolyte imbalance. There is no leukocytosis or concerning anemia. No significant electrolyte abnormalities, kidney failure or hepatitis. EKG shows a sinus rhythm, no acute ischemia. Cardiac enzyme testing times one is not consistent with acute cardiac injury. Chest film does not show pneumonia or CHF. Urinalysis does not show infection. Chest CT shows no pneumonia, no PE. The patient received albuterol via [facility], she was walked about the ER, she still felt dyspneic with exertion. Her O2 saturation did not drop. The patient presents with increasing dyspnea with exertion. She has had some chest pain as well. She has a history of previous cardiac bypass surgery. I discussed her case with her director of personnel. A hospital stay for further cardiac workup was felt warranted. I spoke with the patient and egg caser. The on- call hospitalist was consulted. Medication Reconcilliation Current Medication List: was personally reviewed by me Blood Pressure Screening Patient's blood pressure: Elevated blood pressure Blood pressure disposition: Elevated BP felt to be situational Consults Time Called: 1248 Consulting Physician: Dr. Nolasco Returned Call: [address] Nolasco, the patient's director of personnel. We discussed the case. He felt that she should stay in the hospital for further management. Additional Consults: Time Called: 1300 Consulted Physician: Maria C Nix PA-C Returned Call: 1304 Additional Comments: I spoke with Maria C Nix PA-C. We discussed the patient's case. The patient will be evaluated by the [facility] for further management. Impression Primary Impression: SOB (shortness of breath) Additional Impression: Precordial chest pain Scribe Attestation The scribe's documentation has been prepared under my direction and personally reviewed by me in its entirety. I confirm that the note above accurately reflects all work, treatment, procedures, and medical decision making performed by me. Departure Information Dispostion Being Evaluated By Hospitalist Referrals Darian Cornelius, D.O. (PCP) Patient Instructions My [facility] Problem Qualifiers
[2017-06-14 10:21] LABS: HEMATOCRIT 42.5 % (37-47); HEMOGLOBIN 14.4 g/dL (12.0-16.0); MEAN CELL VOLUME 89.9 fL (80-100); MEAN CORPUSCULAR HEMOGLOBIN 30.4 pg (25-34); MEAN CORPUSCULAR HGB CONC 33.9 g/dl (32-36); PLATELET COUNT 195 K/uL (130-400); RED CELL DISTRIBUTION WIDTH CV 14.1 % (11.5-14.5); RED CELL DISTRIBUTION WIDTH SD 46.5 fL (36.4-46.3); WHITE BLOOD COUNT 5.32 K/uL (4.8-10.8)
--- NOTE | 2017-06-14 10:21 | DIAGNOSTIC IMAGING REPORT ---
CHEST ONE VIEW PORTABLE CLINICAL HISTORY: 81 years-old Female presenting with EVALUATE RESPIRATORY DISTRESS.DYSPNEA. TECHNIQUE: Portable upright AP view of the chest was obtained. COMPARISON: 12/03/2016. FINDINGS: Median sternotomy wires, bypass graft rings, and mediastinal surgical clips noted. Atherosclerosis of aortic arch. Cardiac silhouette normal in size. Mildly low lung volumes with hypoventilatory changes. Slightly exaggerated thoracic kyphosis. Upper abdomen normal. IMPRESSION: 1. Mildly low lung volumes with hypoventilatory changes. No other evidence of acute cardiopulmonary disease. Electronically signed by: Hayes Smith M.D. 06/14/2017 10:20 AM Dictated Date/Time: 06/14/2017 10:19 AM
[2017-06-14 10:50] LABS: ALBUMIN 3.8 gm/dl (3.4-5.0); ALT/SGPT 38 U/L (12-78); BLOOD UREA NITROGEN 16 mg/dl (7-18); CARBON DIOXIDE 28 mmol/L (21-32); CREATININE 0.94 mg/dl (0.60-1.20); GLUCOSE 97 mg/dl (70-99); POTASSIUM 4.2 mmol/L (3.5-5.1); SODIUM 140 mmol/L (136-145)
[2017-06-14 10:55] LABS: ALKALINE PHOSPHATASE 69 U/L (45-117); AST/SGOT 30 U/L (15-37); TOTAL PROTEIN 7.6 gm/dl (6.4-8.2)
[2017-06-14] MEDS ORDERED: OPTIRAY 320 IV PRN (11:00)
--- NOTE | 2017-06-14 11:30 | DIAGNOSTIC IMAGING REPORT ---
(CHEST FOR PE) ANGIO WITH CLINICAL HISTORY: 81 years-old Female presenting with chest pain and shortness of breath. TECHNIQUE: Multidetector CT angiography of the chest was performed after administration of intravenous contrast. 3-D volumetric and/or maximum intensity projection (MIP) images were subsequently reconstructed for review. IV contrast: 72 mL of Optiray 320. A dose lowering technique was used consistent with the principles of ALARA (as low as reasonably achievable). COMPARISON: 02/12/2016. CT DOSE (mGy.cm): The estimated cumulative dose is 213.81 mGy.cm. FINDINGS: Meter Reader Chief topogram: Median sternotomy wires and bypass graft rings noted. Pulmonary vasculature: The study is adequate for assessment of the pulmonary vascular tree. No filling defect within the pulmonary arteries to suggest embolus. Main pulmonary artery is not enlarged. No flattening of the interventricular septum. No intracardiac filling defect. No reflux of contrast into the hepatic veins. Remaining chest: On soft tissue windows, normal thyroid. Multiple benign calcifications noted in the breasts. Median sternotomy wires and postsurgical changes of bypass graft. Few subcentimeter subcarinal and bilateral hilar lymph nodes likely reactive. Atherosclerosis of the aorta. Four-vessel aortic arch noted. Heart top normal in size. Coronary artery calcification. No pericardial or pleural effusion. Upper abdomen normal. On lung windows, scarring noted at the apices. Dependent changes likely atelectasis. Few calcified granulomas noted. Solid 6 mm fissural nodule in the superior segment of the right lower lobe (series 4 image 118). Airways patent. On bone windows, degenerative changes of the spine. IMPRESSION: 1. No evidence of pulmonary embolus or gross evidence of acute aortic injury. 2. Post surgical changes of coronary artery bypass. 3. Dependent atelectasis. 4. Solid 6 mm pulmonary nodule in the right lower lobe. Follow-up per Ifrah Society 2017 recommendations below. Please refer to below summary of Fleischner Society 2017 recommendations for follow-up of incidental CT nodules (Melanie Silva et al. Guidelines for management of incidental pulmonary nodules detected on CT images: From the Fleischner Society 2017. Radiology 2017; 284: 228-243.) SOLID NODULES Single nodule; size < 6 mm * Low risk patients: No routine follow-up * High risk patients: Optional CT at 12 months Single nodule; size 6-8 mm * Low risk patients: CT at 6-12 months, then consider CT at 18-24 months * High risk patients: CT at 6-12 months, then at 18-24 months Single nodule; size > 8 mm * Either low or high risk patients: Considered CT at 3 months, PET/CT, or tissue sampling Multiple nodules; size < 6 mm * Low risk patients: No routine follow up * High risk patients: Optional CT at 12 months Multiple nodules; size 6-8 mm * Low risk patients: CT at 3-6 months, then consider CT at 18-24 months * High risk patients: CT at 3-6 months, then at 18-24 months Multiple nodules; size > 8 mm * Low risk patients: CT at 3-6 months, then consider at 18-24 months * High risk patients: CT at 3-6 months, then at 18-24 months Note: These guidelines apply to incidental nodules. These guidelines do not apply to patients younger than 35 years, immunocompromised patients, or patients with cancer. * Low risk patients: Minimal or absent history of smoking and/or other known risk factors * High risk patients: History of smoking, exposure to other carcinogens, emphysema, fibrosis, upper lobe location, family history of lung cancer, etc. * If a nodule up to 8 mm is partly solid or is ground glass, further follow-up is required after 24 months to exclude possible slow growing adenocarcinoma. SUBSOLID NODULES Single ground-glass nodule * Nodule size < 6 mm: No routine follow-up * Nodule size > or = 6 mm: CT at 6-12 months to confirm persistence, then CT every 2 years until 5 years Single part-solid nodule * Nodule size < 6 mm: No routine follow-up * Nodules size > or = 6 mm: CT at 3-6 months to confirm persistence. If unchanged and solid component remains < 6 mm, annual CT should be performed for 5 years Multiple nodules * Nodule size < 6 mm: CT at 3-6 months. If stable, consider CT at 2 and 4 years. * Nodules size > or = 6 mm: CT at 3-6 months. Subsequent management based on the most suspicious nodule(s) Electronically signed by: Hayes Smith M.D. 06/14/2017 11:29 AM Dictated Date/Time: 06/14/2017 11:23 AM
[2017-06-14] MEDS ORDERED: ALBUTEROL HFA 8 GM INHALER INH ONE (12:00)
[2017-06-14 13:35] LABS: INR 1.1 (0.9-1.1); PTT PATIENT 30.6 SECONDS (21.0-31.0)
[2017-06-14] MEDS ORDERED: ONDANSETRON INJ 2 MG/ML 2 ML VIAL IV PRN (13:45)
[2017-06-14] MEDS ORDERED: ALUMINUM/MAGNESIUM/SIMETH (MAALOX MAX) 30 ML UDC PO PRN (13:45)
[2017-06-14] MEDS ORDERED: ACETAMINOPHEN 325 MG TAB PO PRN (13:45)
[2017-06-14] MEDS ORDERED: SENN-63 PO (13:58)
[2017-06-14] MEDS ORDERED: ACET-1311 PO (13:58)
[2017-06-14] MEDS ORDERED: NITROGLYCERIN 0.4 MG SL PER TAB CHARGE UT PRN (14:15)
[2017-06-14] MEDS ORDERED: LORAZEPAM 0.5 MG TAB PO PRN (14:15)
[2017-06-14] MEDS ORDERED: POLYETHYLENE (MIRALAX) 17 GM PACK PO PRN (14:15)
[2017-06-14] MEDS ORDERED: ALBUTEROL HFA 8 GM INHALER INH PRN (14:15)
[2017-06-14] MEDS ORDERED: DOCUSATE SODIUM 100 MG CAP PO PRN (14:15)
--- NOTE | 2017-06-14 14:22 | History and Physical ---
History & Physical Date & Time of Service: Jun 14, 2017 at 14:20 Chief Complaint: Sob, Referred By Doc Primary Care Physician: Darian Cornelius D.O. History of Present Illness Source: patient, spouse (at bedside), clinic records, hospital records Patient is an 81 y/o female with PMH of CAD (s/p CABG x 2 in October 2016), history of PE (on Xarelto), HLD and other medical problems listed below who presents to the ED with worsening dyspnea on exertion and chest discomfort. Patient walks for exercise and can go about a mile before experiencing dyspnea on exertion. Started to feel more SOB a week ago but could still complete her normal walk. Yesterday, however, patient could only walk 1/4 mile before needing to stop. Denies recent URI, cough or wheezing. Has continued to experience a constant chest discomfort that she describes as 4/10 "soreness" substernally in her left chest. States that it has been present intermittently since her CABG procedure 1.5 years ago. Does not seem to be exacerbated by exertion. Has not tried using sublingual ntg. Denies any tenderness to touch, radiation up to neck or down arms, diaphoresis, nausea or vomiting. Has a history of grade 1 diastolic HF for which she takes 40mg lasix as needed for LE edema. Patient last took Lasix yesterday due to a ~3-4 lb weight gain. LE edema has since resolved, per patient. Takes Xarelto for h/o PE. Follows with Dr. Darian Cornelius PCP and Dr. Nolasco for cardiology. Patient notes that she has been experiencing generalized malaise and fatigue over the past few months, which is similar to how she felt prior to previous MIs. Has also been experiencing lightheadedness when she bends forward. No near syncopal episodes. Denies fever, chills, URI symptoms, cough, palpitations, abdominal pain, nausea, vomiting, bowel or bladder changes. Past Medical/Surgical History Medical Problems: (1) Anxiety Permanent Comment: mild; uses Ativan once yearly Status: Chronic (2) CAD (coronary artery disease) Permanent Comment: NSTEMI / CABG x 2 - 10/2015 Status: Chronic (3) Dyslipidemia Status: Chronic (4) ESOPHAGEAL REFLUX Status: Chronic (5) History of superficial phlebitis Status: Chronic (6) Pulmonary embolism Status: Chronic Surgical Problems: (1) H/O vein stripping Status: Chronic (2) History of partial colectomy Permanent Comment: 2* diverticulitis; 1985 Status: Chronic (3) History of partial hysterectomy Status: Chronic (4) Hx of bladder repair surgery Permanent Comment: cystocele repair Status: Chronic (5) S/P CABG x 2 Permanent Comment: 10/17/2015 at [facility] [place] Status: Chronic Social History Problems: (1) URIN TRACT INFECTION NOS Status: Resolved Family History Cancer Diabetes mellitus Lung disease Social History Smoking Status: Never Smoker Alcohol Use: occasionally Drug Use: none Marital Status: Housing status: lives with significant other Occupational Status: retired Immunizations History of Influenza Vaccine: Yes Influenza Vaccine Date: Jan 21, 2015 History of Tetanus Vaccine?: Yes Tetanus Immunization Date: August 17, 2010 History of Pneumococcal: Yes Pneumococcal Date: Apr 01, 2014 Multi-Drug Resistant Organisms History of MDRO: No Allergies Coded Allergies: Latex (Verified Allergy, Intermediate, RASH, 11/27/15) Erythromycin (Verified Allergy, Unknown, unknown, 11/27/15) Home Medications Scheduled Alendronate Sodium (Alendronate Sodium), 70 MG PO WK Aspirin (Aspirin Ec), 162 MG PO DAILY Atorvastatin (Lipitor), 80 MG PO DAILY Calcium Carbonate-Cholecalcife (Caltrate 600+D), 1 TAB PO DAILY Metoprolol Succinate (Metoprolol Succinate ER), 25 MG PO QAM Rivaroxaban (Xarelto), 20 MG PO DAILY Scheduled PRN Acetaminophen (Tylenol), 650 MG PO DAILY PRN for PO Docusate Sodium (Ra Col-Rite), 100 MG PO HS PRN for Constipation Furosemide (Furosemide), 40 MG PO DAILY PRN for Fluid Retention/Edema Lorazepam (Lorazepam), 0.5 MG PO TID PRN for Anxiety Nitroglycerin (Nitrostat), 0.4 MG UT UD PRN for Chest Pain Omeprazole (Prilosec), 40 MG PO DAILY PRN for Acid Reflux Polyethylene (Polyethylene Glycol 3350), 17 GM PO DAILY PRN for Constipation Potassium Chloride Microencaps (Potassium Chloride Er), 10 MEQ PO DAILY PRN for When Furosemide Taken Sennosides (Senokot), 1 TAB PO DAILY PRN for Constipation Review of Systems Constitutional: + fatigue, No fever, No chills, No sweats Eyes: No worsening of vision, No diplopia ENT: No nasal symptoms, No sore throat, No tinnitus Respiratory: + shortness of breath, + dyspnea on exertion, No cough, No sputum , No wheezing, No dyspnea at rest, No hemoptysis Cardiovascular: + chest pain, No orthopnea, No PND, No edema, No palpitations Abdomen: No pain, No nausea, No vomiting, No diarrhea, No constipation Musculoskeletal: No joint pain, No muscle pain Genitourinary - Female: No dysuria Neurologic: No memory loss, No weakness, No numbness/tingling Psychiatric: No depression symptoms, No anxiety Hematologic / Lymphatic: No abnormal bleeding/bruising, No clotting problems Integumentary: No rash, No itch, No new/changing skin lesions Allergic / Immunologic: + seasonal allergies Physical Exam Vital Signs Date Time Temp Pulse Resp B/P (MAP) Pulse Ox O2 Delivery O2 Flow Rate FiO2 06/14/17 14:17 36.8 76 19 143/67 94 06/14/17 14:01 143/67 06/14/17 13:55 76 19 94 06/14/17 13:32 152/76 06/14/17 13:25 76 19 97 06/14/17 13:07 171/68 06/14/17 11:23 36.8 59 19 131/77 96 06/14/17 11:08 131/77 06/14/17 10:55 61 19 94 06/14/17 10:25 66 22 94 06/14/17 10:07 66 06/14/17 09:27 36.6 72 18 160/81 98 Room Air General Appearance: WD/WN, no apparent distress, + pertinent finding ( Breathing comfortably on room air ) Head: normocephalic, atraumatic Eyes: normal inspection, PERRL, sclerae normal ENT: normal ENT inspection, hearing grossly normal, pharynx normal (moist mucous membranes. No pharyngeal erythema. ) Neck: supple, thyroid normal, no JVD, trachea midline Respiratory/Chest: chest non-tender, lungs clear, normal breath sounds ( decreased breath sounds at bases), no respiratory distress, no accessory muscle use Cardiovascular: regular rate, rhythm, no murmur, normal peripheral pulses Abdomen/GI: non tender, soft, no organomegaly Back: normal inspection Extremities/Musculoskelatal: normal inspection, no calf tenderness, no pedal edema Neurologic/Psych: no motor/sensory deficits, alert, normal mood/affect, oriented x 3 Skin: normal color, warm/dry Diagnostics Laboratory Results Results Past 24 Hours Test 06/14/17 10:00 06/14/17 12:02 Range/Units White Blood Count 5.32 4.8-10.8 K/uL Red Blood Count 4.73 4.2-5.4 M/uL Hemoglobin 14.4 12.0-16.0 g/dL Hematocrit 42.5 37-47 % Mean Corpuscular Volume 89.9 80-100 fL Mean Corpuscular Hemoglobin 30.4 25-34 pg Mean Corpuscular Hemoglobin Concent 33.9 32-36 g/dl Platelet Count 195 130-400 K/uL Mean Platelet Volume 10.0 7.4-10.4 fL RDW Standard Deviation 46.5 36.4-46.3 fL RDW Coefficient of Variation 14.1 11.5-14.5 % Neutrophils % (Manual) 27.8 % Lymphocytes % (Manual) 23.5 % Variant Lymphocytes % (manual) 40.0 % Monocytes % (Manual) 7.0 % Eosinophils % (Manual) 1.7 % Neutrophils # (Manual) 1.48 1.4-6.5 K/uL Total Absolute Neutrophils 1.48 1.4-6.5 K/uL Lymphocytes # (Manual) 1.25 1.2-3.4 K/uL Absolute Variant Lymphocytes 2.13 K/uL Total Absolute Lymphocytes 3.38 1.2-3.4 K/uL Monocytes # (Manual) 0.37 0.11-0.59 K/uL Eosinophils # (Manual) 0.09 0-0.5 K/uL Red Blood Cell Morphology Unremarkable Prothrombin Time 12.0 9.0-12.0 SECONDS Prothromb Time International Ratio 1.1 0.9-1.1 Activated Partial Thromboplast Time 30.6 21.0-31.0 SECONDS Partial Thromboplastin Ratio 1.2 Sodium Level 140 136-145 mmol/L Potassium Level 4.2 3.5-5.1 mmol/L Chloride Level 106 98-107 mmol/L Carbon Dioxide Level 28 21-32 mmol/L Anion Gap 6.0 3-11 mmol/L Blood Urea Nitrogen 16 7-18 mg/dl Creatinine 0.94 0.60-1.20 mg/dl Est Creatinine Clear Calc Drug Dose 48.5 ml/min Estimated GFR () 66.4 Estimated GFR (Non- 57.3 BUN/Creatinine Ratio 17.2 10-20 Random Glucose 97 70-99 mg/dl Calcium Level 9.0 8.5-10.1 mg/dl Magnesium Level 2.4 1.8-2.4 mg/dl Total Bilirubin 0.6 0.2-1 mg/dl Aspartate Amino Transf (AST/SGOT) 30 15-37 U/L Alanine Aminotransferase (ALT/SGPT) 38 12-78 U/L Alkaline Phosphatase 69 45-117 U/L Troponin I < 0.015 0-0.045 ng/ml Pro-B-Type Natriuretic Peptide 160 0-1800 pg/ml Total Protein 7.6 6.4-8.2 gm/dl Albumin 3.8 3.4-5.0 gm/dl Globulin 3.8 2.5-4.0 gm/dl Albumin/Globulin Ratio 1.0 0.9-2 Urine Color YELLOW Urine Appearance CLEAR CLEAR Urine pH 8.5 4.5-7.5 Urine Specific [place] 1.004 1.000-1.030 Urine Protein NEG NEG Urine Glucose (UA) NEG NEG Urine Ketones NEG NEG Urine Occult Blood NEG NEG Urine Nitrite NEG NEG Urine Bilirubin NEG NEG Urine Urobilinogen NEG NEG Urine Leukocyte Esterase TRACE NEG Urine WBC (Auto) 0 0-5 /hpf Urine RBC (Auto) 0-4 0-4 /hpf Urine Hyaline Casts (Auto) 0 0-5 /lpf Urine Epithelial Cells (Auto) 0-5 0-5 /lpf Urine Bacteria (Auto) NEG NEG Diagnostic Radiology CXR: IMPRESSION: 1. Mildly low lung volumes with hypoventilatory changes. No other evidence of acute cardiopulmonary disease. Chest/thorax CTA: IMPRESSION: 1. No evidence of pulmonary embolus or gross evidence of acute aortic injury. 2. Post surgical changes of coronary artery bypass. 3. Dependent atelectasis. 4. Solid 6 mm pulmonary nodule in the right lower lobe. Follow-up per Ifrah Society 2017 recommendations below. Please refer to below summary of Fleischner Society 2017 recommendations for follow-up of incidental CT nodules (H Ricardo et al. Single nodule; size 6-8 mm * Low risk patients: CT at 6-12 months, then consider CT at 18-24 months * High risk patients: CT at 6-12 months, then at 18-24 months Impression Assessment and Plan Patient is an 81 y/o female with PMH of CAD (s/p CABG x 2 in October 2016), history of PE (on Xarelto), HLD and other medical problems listed below who presents to the ED with worsening dyspnea on exertion and chest discomfort. Dyspnea on exertion: -Noticeably declined from baseline yesterday -Denies recent URI, cough or wheezing -No leukocytosis, no evidence of PNA on CXR, no PE on chest/thorax CTA -CXR with mildly low lung volumes with hypoventilatory changes -No evidence of decompensated CHF on imaging. BNP of 160 -Albuterol inhaler given in ED with marginal improvement. Continue PRN -O2 saturation of 94% on room air Chest discomfort: -Described as a chronic intermittent "soreness" for past 1.5 years -States that generalized malaise, dyspnea on exertion is similar to presentations of [place] in past -H/o CABG x 2 in October 2016 -Dobutamine stress test from November 2017 without wall motion abnormalities -EKG with NSR, no acute ischemic changes -Initial troponin negative -CXR- no acute cardiopulmonary changes -Trend serial cardiac enzymes -Check echo -Repeat EKG in am -Dr. Nolasco aware -Plan for dobutamine stress test in AM if no active CP, troponin negative x 3 Diastolic CHF: -Euvolemic on exam -CXR without evidence of volume overload -Echo from Nov 2016 with EF of 65-70%, grade 1 diastolic dysfunction, mild aortic regurgitation, mild mitral regurg, mild tricuspid regurg -Took lasix PRN yesterday. Hold for now. H/o PE: -No evidence of a PE on chest/thorax CTA -Cont Xarelto Lung nodule on CTA: -Incidental finding of a solid 6 mm pulmonary nodule in the right lower lobe. -Follow-up per Ifrah Society 2017 recommendations: repeat CT scan in 6-12 months HLD: -Cont statin Osteoporosis: -Cont home dose vit D, calcium, Fosamax Anxiety: -Stable -Home dose ativan PRN DVT Ppx: Xarelto Code status: FULL per my discussion with patient PCP: Mark Cornelius Dispo: Observation telemetry. Patient lives at home with . Discharge planning ordered. Patient seen in collaboration with Dr. Doan. Please see addendum. Level of Care Telemetry Resuscitation Status FULL RESUSCITATION VTE Prophylaxis VTE Risk Assessment Done? Y/N: Yes Risk Level: Moderate Given or contraindicated: Other Anticoagulation Note ATTENDING ADDENDUM Record reviewed. Patient interviewed and examined. Care coordinated with Maria C Nix PA-C. Please refer to her documentation for patient's history. Briefly, 81-year-old female with history of coronary artery disease (status post CABG in 2017), pulmonary embolism, and other problems as noted below. She has experienced dyspnea on exertion for some time, but worsening symptoms over the past few days. No fever or cough. Notes substernal chest pressure that is fairly constant and not related to exertion. Chronic lower extremity edema. No palpitations. Chronically anticoagulated with rivaroxaban for history of pulmonary embolism. EXAM: General-no acute distress VS- as noted HEENT-anicteric Neck-no JVD Lungs-clear to auscultation Heart-regular, no murmur gallop appreciated Abdomen-soft, nontender Extremities-no cyanosis; no calf tenderness; trace pretibial edema Neuro-alert DATA: Troponin less than 0.015 . Other lab studies as noted. Chest x-ray did not show any infiltrates, effusions, CHF. CTA chest negative for pulmonary embolism or other acute findings. 6 mm pulmonary nodule noted in the right lower lobe. EKG performed at 1006 reviewed and demonstrated normal sinus rhythm at 70/minute , no acute ST or T-wave abnormalities. ASSESSMENT AND PLAN: History of ischemic heart disease and pulmonary embolism. Chronic, but worsening dyspnea on exertion. Nonexertional chest pain. EKG shows sinus rhythm without acute changes. First 2 troponins within normal limits. No acute processes on either chest x-ray or CT chest. No signs/symptoms of pulmonary infection. Etiology of symptoms uncertain. Check serial cardiac markers. Consult Cardiology. Pursue further pulmonary evaluation if there is not a cardiac etiology to explain her significant dyspnea. Consider Pulmonary Medicine consultation and 2 step pulse oximetry prior to discharge. Please refer to JESUS ALBERTO Nix's documentation for discussion of other issues. Mark Doan MD
[2017-06-14] MEDS ORDERED: ASPIRIN 81 MG ECTAB PO ONE (15:00)
[2017-06-14] MEDS: RIVAROXABAN 20 MG TAB PO SCH (16:01)
[2017-06-14] MEDS ORDERED: IV FLUIDS COMPLETED PRN (16:15)
[2017-06-15] VITALS (9 sets, daily range): BP systolic 114–122; BP diastolic 53–73; PULSE 68–94; TEMP 36.4–37; O2SAT 92–96
[2017-06-15 05:46] LABS: HEMATOCRIT 40.5 % (37-47); HEMOGLOBIN 13.7 g/dL (12.0-16.0); MEAN CELL VOLUME 90.4 fL (80-100); MEAN CORPUSCULAR HEMOGLOBIN 30.6 pg (25-34); MEAN CORPUSCULAR HGB CONC 33.8 g/dl (32-36); MEAN PLATELET VOLUME 9.8 fL (7.4-10.4); PLATELET COUNT 183 K/uL (130-400); RED CELL DISTRIBUTION WIDTH SD 46.5 fL (36.4-46.3); WHITE BLOOD COUNT 5.91 K/uL (4.8-10.8)
[2017-06-15 06:24] LABS: CALCIUM 8.4 mg/dl (8.5-10.1); CREATININE 0.88 mg/dl (0.60-1.20); POTASSIUM 4.2 mmol/L (3.5-5.1)
--- NOTE | 2017-06-15 10:07 | Progress Note ---
Internal Med Progress Note Date of Service: Jun 15, 2017. Provider Documentation: SUBJECTIVE: Seen and examined at bedside States having SOB at rest which worsens with exertion Denies chest pain, cough, wheezing, dizziness, nausea Family at bedside No other complaints OBJECTIVE: Vital Signs-as noted below .Physical Exam: General Appearance:Moderately built and nourished, no apparent distress Head: normocephalic, Atraumatic Eyes: normal inspection, EOMI, PERRL Neck: supple, Trachea midline Respiratory/Chest: Normal breath sounds, CTA Cardiovascular: S1, S2, No murmur Abdomen/GI:Soft, Non tender, Bowel sounds present Extremities/Musculoskelatal:normal inspection, Trace edema Neurologic/Psych:AAOX3, grossly no focal neurological deficits Skin: normal color, warm, Vertical well healed post surgical scar on chest Lab data as noted below. ASSESSMENT & PLAN: Patient is an 81 yr female with PMH of CAD s/p CABG in October 2016, H/O PE on Xarelto presents with worsening dyspnea on exertion. Dyspnea on exertion: Unclear etiology Chronic Intermittent chest discomfort H/O CABG in October 2016 No H/O COPD, Asthma Last stress test in Nov 2017 CTA: No PE, No signs of Pneumonia CXR with mildly low lung volumes with hypoventilatory changes BNP 160 EKG: no acute ischemic changes Troponin X 3: Negative ECHO pending Planned for dobutamine stress test today Will consider Pulmonology consult if cardiac work up negative May need 2 step prior to discharge Incentive spirometry for dependent atelectasis Diastolic CHF: No signs of decompensation Last ECHO in Nov 2016: EF of 65-70%, grade 1 diastolic dysfunction, On lasix PRN at home H/o PE: No acute PE on CTA Cont Xarelto Incidental finding of Lung nodule on CTA: solid 6 mm pulmonary nodule in the right lower lobe. Will advise to get repeat CT scan in 6-12 months HLD: Continue statin Osteoporosis: Continue Vit D, calcium, Fosamax Anxiety: stable Ativan PRN DVT Px: On Xarelto Code status: Full Code Disposition: Monitor in telemetry. Vital Signs: Date Time Temp Pulse Resp B/P (MAP) Pulse Ox O2 Delivery O2 Flow Rate FiO2 06/15/17 08:00 Room Air 06/15/17 07:43 37.0 80 19 122/63 (82) 93 Room Air 06/15/17 04:00 95 Room Air 06/15/17 03:40 36.9 68 18 120/53 (75) 96 Room Air 06/15/17 00:01 95 Room Air 06/14/17 23:33 37.1 73 18 106/55 (72) 96 Nasal Cannula 2.0 06/14/17 20:00 95 Room Air 06/14/17 19:07 36.4 71 18 132/59 (83) 94 Room Air 06/14/17 16:00 97 Room Air 06/14/17 15:45 36.6 76 19 132/60 (84) 93 Room Air 06/14/17 15:00 36.8 65 18 155/84 97 Room Air 06/14/17 14:44 36.8 68 16 155/84 (107) 97 Room Air 06/14/17 14:17 36.8 76 19 143/67 94 06/14/17 14:01 143/67 06/14/17 13:55 76 19 94 06/14/17 13:32 152/76 06/14/17 13:25 76 19 97 06/14/17 13:07 171/68 06/14/17 11:23 36.8 59 19 131/77 96 06/14/17 11:08 131/77 06/14/17 10:55 61 19 94 06/14/17 10:25 66 22 94 06/14/17 10:07 66 Lab Results: Results Past 24 Hours Test 06/14/17 10:00 06/14/17 12:02 06/14/17 15:42 06/14/17 21:57 Range/Units White Blood Count 5.32 4.8-10.8 K/uL Red Blood Count 4.73 4.2-5.4 M/uL Hemoglobin 14.4 12.0-16.0 g/dL Hematocrit 42.5 37-47 % Mean Corpuscular Volume 89.9 80-100 fL Mean Corpuscular Hemoglobin 30.4 25-34 pg Mean Corpuscular Hemoglobin Concent 33.9 32-36 g/dl Platelet Count 195 130-400 K/uL Mean Platelet Volume 10.0 7.4-10.4 fL RDW Standard Deviation 46.5 36.4-46.3 fL RDW Coefficient of Variation 14.1 11.5-14.5 % Neutrophils % (Manual) 27.8 % Lymphocytes % (Manual) 23.5 % Variant Lymphocytes % (manual) 40.0 % Monocytes % (Manual) 7.0 % Eosinophils % (Manual) 1.7 % Neutrophils # (Manual) 1.48 1.4-6.5 K/uL Total Absolute Neutrophils 1.48 1.4-6.5 K/uL Lymphocytes # (Manual) 1.25 1.2-3.4 K/uL Absolute Variant Lymphocytes 2.13 K/uL Total Absolute Lymphocytes 3.38 1.2-3.4 K/uL Monocytes # (Manual) 0.37 0.11-0.59 K/uL Eosinophils # (Manual) 0.09 0-0.5 K/uL Red Blood Cell Morphology Unremarkable Prothrombin Time 12.0 9.0-12.0 SECONDS Prothromb Time International Ratio 1.1 0.9-1.1 Activated Partial Thromboplast Time 30.6 21.0-31.0 SECONDS Partial Thromboplastin Ratio 1.2 Sodium Level 140 136-145 mmol/L Potassium Level 4.2 3.5-5.1 mmol/L Chloride Level 106 98-107 mmol/L Carbon Dioxide Level 28 21-32 mmol/L Anion Gap 6.0 3-11 mmol/L Blood Urea Nitrogen 16 7-18 mg/dl Creatinine 0.94 0.60-1.20 mg/dl Est Creatinine Clear Calc Drug Dose 48.5 ml/min Estimated GFR () 66.4 Estimated GFR (Non- 57.3 BUN/Creatinine Ratio 17.2 10-20 Random Glucose 97 70-99 mg/dl Calcium Level 9.0 8.5-10.1 mg/dl Magnesium Level 2.4 1.8-2.4 mg/dl Total Bilirubin 0.6 0.2-1 mg/dl Aspartate Amino Transf (AST/SGOT) 30 15-37 U/L Alanine Aminotransferase (ALT/SGPT) 38 12-78 U/L Alkaline Phosphatase 69 45-117 U/L Troponin I < 0.015 < 0.015 < 0.015 0-0.045 ng/ml Pro-B-Type Natriuretic Peptide 160 0-1800 pg/ml Total Protein 7.6 6.4-8.2 gm/dl Albumin 3.8 3.4-5.0 gm/dl Globulin 3.8 2.5-4.0 gm/dl Albumin/Globulin Ratio 1.0 0.9-2 Urine Color YELLOW Urine Appearance CLEAR CLEAR Urine pH 8.5 4.5-7.5 Urine Specific [place] 1.004 1.000-1.030 Urine Protein NEG NEG Urine Glucose (UA) NEG NEG Urine Ketones NEG NEG Urine Occult Blood NEG NEG Urine Nitrite NEG NEG Urine Bilirubin NEG NEG Urine Urobilinogen NEG NEG Urine Leukocyte Esterase TRACE NEG Urine WBC (Auto) 0 0-5 /hpf Urine RBC (Auto) 0-4 0-4 /hpf Urine Hyaline Casts (Auto) 0 0-5 /lpf Urine Epithelial Cells (Auto) 0-5 0-5 /lpf Urine Bacteria (Auto) NEG NEG Test 06/15/17 05:34 Range/Units White Blood Count 5.91 4.8-10.8 K/uL Red Blood Count 4.48 4.2-5.4 M/uL Hemoglobin 13.7 12.0-16.0 g/dL Hematocrit 40.5 37-47 % Mean Corpuscular Volume 90.4 80-100 fL Mean Corpuscular Hemoglobin 30.6 25-34 pg Mean Corpuscular Hemoglobin Concent 33.8 32-36 g/dl RDW Standard Deviation 46.5 36.4-46.3 fL RDW Coefficient of Variation 14.0 11.5-14.5 % Platelet Count 183 130-400 K/uL Mean Platelet Volume 9.8 7.4-10.4 fL Sodium Level 140 136-145 mmol/L Potassium Level 4.2 3.5-5.1 mmol/L Chloride Level 108 98-107 mmol/L Carbon Dioxide Level 26 21-32 mmol/L Anion Gap 6.0 3-11 mmol/L Blood Urea Nitrogen 19 7-18 mg/dl Creatinine 0.88 0.60-1.20 mg/dl Est Creatinine Clear Calc Drug Dose 47.7 ml/min Estimated GFR () 71.9 Estimated GFR (Non- 62.1 BUN/Creatinine Ratio 21.0 10-20 Random Glucose 102 70-99 mg/dl Calcium Level 8.4 8.5-10.1 mg/dl Triglycerides Level 121 0-150 mg/dl Cholesterol Level 152 0-200 mg/dl HDL Cholesterol 63 mg/dl LDL Cholesterol, Calculated 65 mg/dl VLDL Cholesterol, Calculated 24 mg/dl Cholesterol/HDL Ratio 2.4
[2017-06-15] MEDS: ASPIRIN 81 MG ECTAB PO SCH (12:12)
[2017-06-15] MEDS: METOPROLOL SUCC 25MG EXT REL TAB PO SCH (12:12)
[2017-06-15] MEDS: PANTOprazole SOD 40 MG TAB PO PRN (12:13)
[2017-06-15] MEDS: ATORVASTATIN 40 MG TAB PO SCH (12:13)
[2017-06-15] MEDS: CALCIUM 600MG + VIT D 400 IU TAB PO SCH (12:13)
--- NOTE | 2017-06-15 12:16 | EXERCISE STRESS ECHO ---
*NOTICE TO RECEIVING [employer] This information is strictly Confidential and protected under [place] law. [place] law prohibits you from making any further disclosure of this information unless further disclosure is expressly permitted by the written consent of the person to whom it pertains or is authorized by law. A general authorization for the release of medical or other information is not sufficient for this purpose. Hospital accepts no responsibility if the information is made available to any other person, INCLUDING THE PATIENT. Interpretation Summary * Name: ARELY KINNEY Study Date: 06/15/2017 10:06 AM BP: 129/66 mmHg * Patient Location: C.2E\S\E204\S\1 HR: 101 * : 1935 (M/d/yyyy) Gender: Female Height: 66 in * Age: 81 yrs Ethnicity: CA Weight: 158 lb * Ordering Physician: Maria C Nix * Referring Physician: Self, Referred * Performed By: Beverly Elmore RDCS * * Reason For Study: Chest pain * BSA: 1.8 m2 * -- Conclusions -- * Nonischemic exercise stress echocardiogram. * No arrhythmias. * Elevated BP response to exercise. * Average exercise tolerance for age. * At rest, normal LV chamber size and wall thickness. * Normal LV systolic function, EF 65-70%. * No segmental left ventricular wall motion abnormalities are noted. * Grade I diastolic dysfunction. * Aortic valve sclerosis mild, without significant aortic valvular stenosis. Mild aortic regurgitation. * Pulmonary hypertension is not present. * PASP of 28 mmHg assuming a RA pressure of 3 mmHg. Procedure Details * ECHOEX, CPT #[id number] * ECHO DOPPLER, CPT #[id number] * ECHO COLOR FLOW, CPT #[id number] Left Ventricle * The left ventricle is normal in size. * There is normal left ventricular wall thickness. * Ejection Fraction = 65-70%. * Left ventricular systolic function is normal. * No segmental left ventricular wall motion abnormalities are noted. * Resting wall motion: Normal. Stress wall motion: Appropriate increase in Left ventricular systolic function and decrease in cavity size. No stress induced segmental wall motion abnormalities. Right Ventricle * The right ventricular cavity size is normal (basal dimension <4.2 cm in right ventricular apical 4-chamber view). * The right ventricular systolic function is qualitatively normal. Atria * The left atrial size is normal. * Right atrial size is normal. * No ASD detected; PFO is not assessed. Mitral Valve * The mitral valve is normal in structure and function. Tricuspid Valve * The tricuspid valve is normal in structure and function. Aortic Valve * The aortic valve is trileaflet. * Aortic valve sclerosis mild, without significant aortic valvular stenosis. * Mild aortic regurgitation. Pulmonic Valve * The pulmonary valve is not well seen, but the Doppler examination is normal without significant regurgitation or stenosis. Great Vessels * The aortic root and proximal ascending aorta are normal sized. Pericardium * There is no pericardial effusion. Stress Parameters * Normal baseline electrocardiogram. * There was no new ST segment depression. * No arrhythmia were noted with stress. * The stress portion of this study was personally supervised by the undersigned interpreting physician. * Rest heart rate was '101' BPM. * Rest blood pressure was '129/66' * Maximum heart rate achieved was 166 bpm. * Maximum heart rate was 118 % of maximum age-predicted heart rate. * Maximum blood pressure was '209/103' * Total exercise time was '6:01' * Maximum exercise MET level achieved was '7.00' METS * Maximum treadmill speed was '2.80' miles per hour. * Maximum treadmill elevation was '12.70'% grade. * Exercise was terminated due to 'patient fatigue' Left Ventricular Diastolic Function * Grade I diastolic dysfunction, (abnormal relaxation pattern). MMode 2D Measurements and Calculations IVSd 0.83 cm LVIDd 3.7 cm LVIDs 2.3 cm LVPWd 0.71 cm IVS/LVPW 1.2 FS 37.8 % EDV(Teich) 59.1 ml ESV(Teich) 18.5 ml EF(Teich) 68.7 % EDV(cubed) 51.7 ml ESV(cubed) 12.5 ml EF(cubed) 75.9 % LV mass(C)d 79.0 grams LV mass(C)dI 43.7 grams/m\S\2 SV(Teich) 40.6 ml SI(Teich) 22.4 ml/m\S\2 SV(cubed) 39.2 ml SI(cubed) 21.7 ml/m\S\2 Ao root diam 2.5 cm Ao root area 5.1 cm\S\2 ACS 1.8 cm LA dimension 2.6 cm asc Aorta Diam 2.4 cm LA/Ao 1.0 LVOT diam 2.0 cm LVOT area 3.3 cm\S\2 LVAd ap4 17.5 cm\S\2 LVLd ap4 6.3 cm EDV(MOD-sp4) 39.8 ml EDV(sp4-el) 41.5 ml LVAs ap4 6.9 cm\S\2 LVLs ap4 4.4 cm ESV(MOD-sp4) 9.9 ml ESV(sp4-el) 9.2 ml EF(MOD-sp4) 75.1 % EF(sp4-el) 77.8 % LVAd ap2 14.4 cm\S\2 LVLd ap2 5.8 cm EDV(MOD-sp2) 29.5 ml EDV(sp2-el) 30.4 ml LVAs ap2 6.6 cm\S\2 LVLs ap2 4.7 cm ESV(MOD-sp2) 8.0 ml ESV(sp2-el) 7.9 ml EF(MOD-sp2) 73.0 % EF(sp2-el) 74.0 % LVLd %diff -8.43 % EDV(MOD-bp) 36.0 ml LVLs %diff 6.8 % ESV(MOD-bp) 9.2 ml EF(MOD-bp) 74.5 % SV(MOD-sp4) 29.9 ml SI(MOD-sp4) 16.5 ml/m\S\2 SV(MOD-sp2) 21.6 ml SI(MOD-sp2) 11.9 ml/m\S\2 SV(MOD-bp) 26.8 ml SI(MOD-bp) 14.8 ml/m\S\2 SV(sp4-el) 32.3 ml SI(sp4-el) 17.9 ml/m\S\2 SV(sp2-el) 22.5 ml SI(sp2-el) 12.4 ml/m\S\2 Doppler Measurements and Calculations MV E max janet 75.7 cm/sec MV A max janet 104.8 cm/sec MV E/A 0.72 MV dec time 0.20 sec Ao V2 max 167.0 cm/sec Ao max PG 11.1 mmHg Ao max PG (full) 5.4 mmHg DUC(V,A) 2.4 cm\S\2 DUC(V,D) 2.4 cm\S\2 AI max janet 377.3 cm/sec AI max PG 57.0 mmHg AI dec slope 304.6 cm/sec\S\2 AI P1/2t 362.9 msec LV V1 max PG 5.8 mmHg LV V1 max 120.3 cm/sec PA V2 max 80.1 cm/sec PA max PG 2.6 mmHg PA acc slope 476.2 cm/sec\S\2 PA acc time 0.12 sec TR max janet 248.4 cm/sec PA pr(Accel) 23.5 mmHg
--- NOTE | 2017-06-15 16:12 | PULMONARY CONSULTATION ---
DATE OF CONSULTATION: 06/15/2017 TIME: 3:00 p.m. REPORT OF CONSULTATION: The patient was seen in room 204. She is an 81-year-old female who is being evaluated because of a chief complaint of shortness of breath. She states overall she has not felt quite right since a bypass surgery on her coronary artery disease about a year and a half ago. Especially, for the past 6 months, she has not felt right. For the past week, she has had shortness of breath and dizziness. The shortness of breath has been both at rest and with exertion. She tells me she feels short of breath at the time of this exam even though she looks perfectly comfortable. She does relate that she is typically active. She walks up to a mile at a time, usually without difficulty. Recently, she was getting winded at about 1/4 mile. In April, she had gained 3 or 4 pounds. Lasix was ordered. She thinks it helped some. She has not had any true chest pain. She has not had any significant cough, sputum production or hemoptysis. She has not had chills, fevers or sweats. The patient does have a history of pulmonary embolic disease, which occurred after her bypass surgery. She did have a CAT scan of the chest done yesterday. This showed no evidence of pulmonary embolic disease. She did have a 6-mm nodule in the right lower lobe that clearly is not causing her shortness of breath, but needs followup. Dependent atelectasis was reported, which is frequently found with a CAT scan and is related to position. I asked the patient if she has been under a lot of stress. She said that her has some dementia and that has bothered her. Her was present during this evaluation. She has never had any lung trouble in the past. She specifically denied asthma, emphysema, tuberculosis or pleurisy. She has never smoked. The patient underwent a stress echo earlier today. She did well getting her heart rate up to 166. She exercised for 6 minutes and achieved a maximum of 7 METs. The echo showed grade 1 diastolic dysfunction with a normal ejection fraction of 65%-70%. PAST SURGICAL HISTORY: 1. Coronary artery bypass graft in 2016. 2. Vein stripping. 3. Partial hysterectomy. 4. Bladder suspension x2. 5. Partial colectomy for diverticular disease. PAST MEDICAL HISTORY: 1. Coronary artery disease. 2. Hyperlipidemia. 3. Reflux. 4. Anxiety. 5. Prior pulmonary emboli. 6. Prior history of phlebitis in the remote past. SOCIAL HISTORY: Tobacco never. ETOH -- very occasional. ALLERGIES: ERYTHROMYCIN AND LATEX. FAMILY HISTORY: Mother at age 78, color cancer. Father at age 66, emphysema. REVIEW OF SYSTEMS: In addition to the above-mentioned complaints, the patient has noticed decreased energy. She has had headaches for the past 3 days. She has had dizziness. She has had some balance problems, which she has noticed for about 6 months. She complains of constipation. The remainder of the review of systems is negative except as noted above. PHYSICAL EXAMINATION: GENERAL: The patient is a pleasant 81-year-old female who was cooperative, alert and oriented. She was in no distress at rest. She did not look short of breath even though she stated she was short of breath. VITAL SIGNS: Temperature is 36.4. HEENT: Pupils were reactive to light. Nares were clear. Mouth exam was unremarkable. NECK: Palpation of the neck reveals no lymph nodes or masses. HEART: Heart rate was 74 per minute. The rhythm was regular. Blood pressure 116/73. LUNGS: Lung gifford were clear bilaterally. The respiratory rate was 18 breaths per minute. The oxygen saturation was 94% on room air. ABDOMEN: Soft. Bowel sounds were present. There was no tenderness to palpation. EXTREMITIES: Showed no cyanosis, clubbing or edema. LABORATORY DATA: White count is 5.91. Hemoglobin 13.7. Platelets 183,000. Coags were normal. Urinalysis was normal. Electrolytes show sodium 140, potassium 4.2, chloride 108, bicarbonate 26. BUN 19, creatinine 0.88. Calcium was 8.4. Troponins were negative x3. Cholesterol was 152. LDL cholesterol was 65. HDL was 63. Liver functions were normal. IMPRESSION: 1. Shortness of breath of undetermined etiology. 2. Right lower lobe nodule of 6 mm. 3. Anxiety. 4. Grade 1 diastolic dysfunction. 5. Recent history of balance problems and ataxia. COMMENTS: The patient on exam shows no signs of any significant pulmonary disease. She has never smoked. She had not had any environmental exposures. 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 I am wondering if some of her shortness of breath could be stress related. She seemed to express that possibility. Obviously, cannot exclude metabolic disorders such as hypothyroidism, etc. I think this should be checked. She likely would need pulmonary functions. The lung nodule will need followup. RECOMMENDATIONS: 1. Check TSH level. 2. We would suggest a followup CAT scan of the chest without contrast in 6-12 months. 3. Advise outpatient complete pulmonary function test. 4. We would do a 2-step before discharge to be certain she does not desaturate with ambulation. 5. Consideration could be given to a CT of the brain or an MRI of the brain in light of the complaints of the balance problems. Thank you for asking me to assist in her care.
[2017-06-15] MEDS: RIVAROXABAN 20 MG TAB PO SCH (16:19)
[2017-06-16] VITALS: BP 118/62; PULSE 77; TEMP 36.6; O2SAT 93
[2017-06-16 03:35] VITALS: BP 111/68; PULSE 82; TEMP 36.7; O2SAT 95
[2017-06-16 04:00] VITALS: O2SAT 95
[2017-06-16 07:08] LABS: CALCIUM 8.8 mg/dl (8.5-10.1); CREATININE 0.85 mg/dl (0.60-1.20); POTASSIUM 4.2 mmol/L (3.5-5.1)
[2017-06-16 07:47] VITALS: BP 113/63; PULSE 75; TEMP 37; O2SAT 91
[2017-06-16 08:00] VITALS: O2SAT 96
[2017-06-16] MEDS: PANTOprazole SOD 40 MG TAB PO PRN (08:12)
[2017-06-16] MEDS: METOPROLOL SUCC 25MG EXT REL TAB PO SCH (08:12)
[2017-06-16] MEDS: ATORVASTATIN 40 MG TAB PO SCH (08:13)
[2017-06-16] MEDS: CALCIUM 600MG + VIT D 400 IU TAB PO SCH (08:13)
[2017-06-16] MEDS: ASPIRIN 81 MG ECTAB PO SCH (08:13)
--- NOTE | 2017-06-16 08:33 | Progress Note ---
Internal Med Progress Note Date of Service: Jun 16, 2017. Provider Documentation: SUBJECTIVE: Seen and examined at bedside Feels lot better Reports dyspnea is much improved Denies chest pain, cough No other complaints Planned for 2 step today OBJECTIVE: Vital Signs-as noted below .Physical Exam: General Appearance:Moderately built and nourished, no apparent distress Head: normocephalic, Atraumatic Eyes: normal inspection, EOMI, PERRL Neck: supple, Trachea midline Respiratory/Chest: Normal breath sounds, CTA Cardiovascular: S1, S2, No murmur Abdomen/GI:Soft, Non tender, Bowel sounds present Extremities/Musculoskelatal:normal inspection, Trace edema Neurologic/Psych:AAOX3, grossly no focal neurological deficits Skin: normal color, warm, Vertical well healed post surgical scar on chest Lab data as noted below. ASSESSMENT & PLAN: Patient is an 81 yr female with PMH of CAD s/p CABG in October 2016, H/O PE on Xarelto presents with worsening dyspnea on exertion. Dyspnea on exertion: Unclear etiology Chronic Intermittent chest discomfort H/O CABG in October 2016 No H/O COPD, Asthma Last stress test in Nov 2017 CTA: No PE, No signs of Pneumonia CXR with mildly low lung volumes with hypoventilatory changes BNP 160 EKG: no acute ischemic changes Troponin X 3: Negative TSH: Normal Stress ECHO as below Negative dobutamine Stress Test Appreciate Pulmonology Input 2 step done Continue Incentive spirometry for dependent atelectasis Needs PFTs done as outpatient Diastolic CHF: No signs of decompensation Last ECHO in Nov 2016: EF of 65-70%, grade 1 diastolic dysfunction, On lasix PRN at home H/o PE: No acute PE on CTA Cont Xarelto Incidental finding of Lung nodule on CTA: solid 6 mm pulmonary nodule in the right lower lobe. Advised to get repeat CT chest scan in 6-12 months HLD: Continue statin Osteoporosis: Continue Vit D, calcium, Fosamax Anxiety: stable Ativan PRN DVT Px: On Xarelto Code status: Full Code Disposition: Plan to discharge home today Follow up with your PCP on 2017 at 12:55 PM Follow up with your Machine Feeder on July 06, 2017 at 9:15 AM Follow up with your Gymnasium Teacher and get Pulmonary function tests as outpatient as advised Seek immediate medical attention if your symptoms reoccur or worsen Get CT chest in 6-12 months to monitor for Right lower lobe Lung Nodule PROCEDURES: Stress ECHO: * Nonischemic exercise stress echocardiogram. * No arrhythmias. * Elevated BP response to exercise. * Average exercise tolerance for age. * At rest, normal LV chamber size and wall thickness. * Normal LV systolic function, EF 65-70%. * No segmental left ventricular wall motion abnormalities are noted. * Grade I diastolic dysfunction. * Aortic valve sclerosis mild, without significant aortic valvular stenosis. Mild aortic regurgitation. * Pulmonary hypertension is not present. * PASP of 28 mmHg assuming a RA pressure of 3 mmHg. Vital Signs: Date Time Temp Pulse Resp B/P (MAP) Pulse Ox O2 Delivery O2 Flow Rate FiO2 06/16/17 08:00 96 Room Air 06/16/17 07:47 37.0 75 18 113/63 (80) 91 Room Air 06/16/17 04:00 95 Room Air 06/16/17 03:35 36.7 82 18 111/68 (82) 95 Room Air 06/16/17 00:00 93 Room Air 06/16/17 00:00 36.6 77 118/62 (80) 93 Room Air 06/15/17 20:00 95 Room Air 06/15/17 19:45 36.8 78 16 122/62 (82) 95 Room Air 06/15/17 16:25 36.4 68 16 114/66 (82) 92 Room Air 06/15/17 16:00 94 Room Air 06/15/17 12:05 36.4 94 18 116/73 (87) 94 Room Air 06/15/17 12:00 Room Air Lab Results: Results Past 24 Hours Test 06/16/17 06:02 Range/Units Sodium Level 139 136-145 mmol/L Potassium Level 4.2 3.5-5.1 mmol/L Chloride Level 108 98-107 mmol/L Carbon Dioxide Level 24 21-32 mmol/L Anion Gap 7.0 3-11 mmol/L Blood Urea Nitrogen 20 7-18 mg/dl Creatinine 0.85 0.60-1.20 mg/dl Est Creatinine Clear Calc Drug Dose 49.4 ml/min Estimated GFR () 75.0 Estimated GFR (Non- 64.7 BUN/Creatinine Ratio 23.4 10-20 Random Glucose 116 70-99 mg/dl Calcium Level 8.8 8.5-10.1 mg/dl Magnesium Level 2.3 1.8-2.4 mg/dl
--- NOTE | 2017-06-16 08:38 | Discharge Instructions ---
Discharge Instructions Date of Service Jun 16, 2017. Admission Reason for Admission: Chest Pain, Sob Discharge Discharge Diagnosis / Problem: Chest Pain, Dyspnea Discharge Goals Goal(s): Decrease discomfort, Improve function Activity Recommendations Activity Limitations: resume your previous activity Exercise/Sports Limitations: as tolerated . Instructions / Follow-Up Instructions / Follow-Up Follow up with your PCP on 2017 at 12:55 PM Follow up with your Wood Grinder Operator on July 06, 2017 at 9:15 AM Follow up with your Bus And Trolley Inspecting Dispatcher and get Pulmonary function tests as outpatient as advised Seek immediate medical attention if your symptoms reoccur or worsen Get CT chest in 6-12 months to monitor for Right lower lobe Lung Nodule Current Hospital Diet Patient's current hospital diet: AHA Diet (Heart Healthy), Low Sodium Diet (2gm Na) Discharge Diet Recommended Diet: AHA Diet (Heart Healthy), Low Sodium Diet (2gm Na) Pending Studies Studies pending at discharge: no Laboratory Results Lipid Panel Test 06/15/17 05:34 Range/Units Triglycerides Level 121 0-150 mg/dl Cholesterol Level 152 0-200 mg/dl HDL Cholesterol 63 mg/dl Cholesterol/HDL Ratio 2.4 LDL Cholesterol, Calculated 65 mg/dl Medical Emergencies . Who to Call and When: Medical Emergencies: If at any time you feel your situation is an emergency, please call 911 immediately. . Non-Emergent Contact Non-Emergency issues call your: Primary Care Provider, Wood Grinder Operator, Bus And Trolley Inspecting Dispatcher Call Non-Emergent contact if: you have a fever, your pain is not controlled, your pain is worsening, your pain is unusual for you, your pain is concerning you, you have any medication questions Seek immediate medical attention if your symptoms reoccur or worsen . . "Provider Documentation" section prepared by Clay Conrad. .
[2017-06-16 10:03] VITALS: BP 113/63; PULSE 75; TEMP 37; O2SAT 96
--- NOTE | 2017-06-16 10:06 | Discharge Summary ---
Discharge Summary Date of Service Jun 16, 2017. Discharge Summary Admission Date: Jun 14, 2017 at 13:44 Discharge Date: Jun 16, 2017 Discharge Disposition: Home Principal Diagnosis: Chest Pain, Dyspnea Procedures: CTA: 1. No evidence of pulmonary embolus or gross evidence of acute aortic injury. 2. Post surgical changes of coronary artery bypass. 3. Dependent atelectasis. 4. Solid 6 mm pulmonary nodule in the right lower lobe. Follow-up per [employer] 2017 recommendations below. Stress ECHO: * Nonischemic exercise stress echocardiogram. * No arrhythmias. * Elevated BP response to exercise. * Average exercise tolerance for age. * At rest, normal LV chamber size and wall thickness. * Normal LV systolic function, EF 65-70%. * No segmental left ventricular wall motion abnormalities are noted. * Grade I diastolic dysfunction. * Aortic valve sclerosis mild, without significant aortic valvular stenosis. Mild aortic regurgitation. * Pulmonary hypertension is not present. * PASP of 28 mmHg assuming a RA pressure of 3 mmHg. Consultations: Pulmonology Pending Studies/Follow-Up: Follow up with your PCP on 2017 at 12:55 PM Follow up with your [employer] Assistant on July 06, 2017 at 9:15 AM Follow up with your Shot Lighter and get Pulmonary function tests as outpatient as advised Seek immediate medical attention if your symptoms reoccur or worsen Get CT chest in 6-12 months to monitor for Right lower lobe Lung Nodule Medication Reconciliation Continued Medications: Acetaminophen (Tylenol) 325 Mg Tab 650 MG PO DAILY PRN for PO, TAB Alendronate Sodium (Alendronate Sodium) 70 Mg Tab 70 MG PO WK TAKE THIS MEDICATION EVERY TUESDAY 30 MINUTES BEFORE FOOD OR ANY OTHER MEDICATIONS WITH A FULL GLASS OF WATER (8 OUNCES), REMAIN UPRIGHT AFTER TAKING FOR 30 MINUTES Aspirin (Aspirin Ec) 81 Mg Tab 162 MG PO DAILY Patient taking differently: 81mg BID Atorvastatin (Lipitor) 80 Mg Tab 80 MG PO DAILY Calcium Carbonate-Cholecalcife (Caltrate 600+D) 1 Tab Tab 1 TAB PO DAILY Docusate Sodium (Ra Col-Rite) 100 Mg Cap 100 MG PO HS PRN for Constipation Furosemide (Furosemide) 40 Mg Tab 40 MG PO DAILY PRN for Fluid Retention/Edema Lorazepam (Lorazepam) 0.5 Mg Tab 0.5 MG PO TID PRN for Anxiety Metoprolol Succinate (Metoprolol Succinate ER) 25 Mg Tabcr 25 MG PO QAM for 30 Days Nitroglycerin (Nitrostat) 0.4 Mg Tab 0.4 MG UT UD PRN for Chest Pain, BTL Omeprazole (Prilosec) 40 Mg Cap 40 MG PO DAILY PRN for Acid Reflux Polyethylene (Polyethylene Glycol 3350) 527 Gm Soln 17 GM PO DAILY PRN for Constipation Potassium Chloride Microencaps (Potassium Chloride Er) 10 Meq Tab 10 MEQ PO DAILY PRN for When Furosemide Taken Rivaroxaban (Xarelto) 20 Mg Tab 20 MG PO DAILY Sennosides (Senokot) 8.6 Mg Tab 1 TAB PO DAILY PRN for Constipation for 20 Days, #20 TAB Admission Information HPI (per Admitting provider): Patient is an 81 y/o female with PMH of CAD (s/p CABG x 2 in October 2016), history of PE (on Xarelto), HLD and other medical problems listed below who presents to the ED with worsening dyspnea on exertion and chest discomfort. Patient walks for exercise and can go about a mile before experiencing dyspnea on exertion. Started to feel more SOB a week ago but could still complete her normal walk. Yesterday, however, patient could only walk 1/4 mile before needing to stop. Denies recent URI, cough or wheezing. Has continued to experience a constant chest discomfort that she describes as 4/10 "soreness" substernally in her left chest. States that it has been present intermittently since her CABG procedure 1.5 years ago. Does not seem to be exacerbated by exertion. Has not tried using sublingual ntg. Denies any tenderness to touch, radiation up to neck or down arms, diaphoresis, nausea or vomiting. Has a history of grade 1 diastolic HF for which she takes 40mg lasix as needed for LE edema. Patient last took Lasix yesterday due to a ~3-4 lb weight gain. LE edema has since resolved, per patient. Takes Xarelto for h/o PE. Follows with Dr. Darian Cornelius PCP and Dr. Nolasco for cardiology. Patient notes that she has been experiencing generalized malaise and fatigue over the past few months, which is similar to how she felt prior to previous MIs. Has also been experiencing lightheadedness when she bends forward. No near syncopal episodes. Denies fever, chills, URI symptoms, cough, palpitations, abdominal pain, nausea, vomiting, bowel or bladder changes. Physical Exam (per Admitting): General Appearance: WD/WN, no apparent distress, + pertinent finding ( Breathing comfortably on room air ) Head: normocephalic, atraumatic Eyes: normal inspection, PERRL, sclerae normal ENT: normal ENT inspection, hearing grossly normal, pharynx normal (moist mucous membranes. No pharyngeal erythema. ) Neck: supple, thyroid normal, no JVD, trachea midline Respiratory/Chest: chest non-tender, lungs clear, normal breath sounds ( decreased breath sounds at bases), no respiratory distress, no accessory muscle use Cardiovascular: regular rate, rhythm, no murmur, normal peripheral pulses Abdomen/GI: non tender, soft, no organomegaly Back: normal inspection Extremities/Musculoskelatal: normal inspection, no calf tenderness, no pedal edema Neurologic/Psych: no motor/sensory deficits, alert, normal mood/affect, oriented x 3 Skin: normal color, warm/dry Hospital Course Patient is an 81 yr female with PMH of CAD s/p CABG in October 2016, H/O PE on Xarelto presents with worsening dyspnea on exertion. Dyspnea on exertion: Unclear etiology Chronic Intermittent chest discomfort H/O CABG in October 2016 No H/O COPD, Asthma Last stress test in Nov 2017 CTA: No PE, No signs of Pneumonia CXR with mildly low lung volumes with hypoventilatory changes BNP 160 EKG: no acute ischemic changes Troponin X 3: Negative TSH: Normal Stress ECHO as below Negative dobutamine Stress Test Appreciate Pulmonology Input 2 step done Continue Incentive spirometry for dependent atelectasis Needs PFTs done as outpatient Diastolic CHF: No signs of decompensation Last ECHO in Nov 2016: EF of 65-70%, grade 1 diastolic dysfunction, On lasix PRN at home H/o PE: No acute PE on CTA Cont Xarelto Incidental finding of Lung nodule on CTA: solid 6 mm pulmonary nodule in the right lower lobe. Advised to get repeat CT chest scan in 6-12 months HLD: Continue statin Osteoporosis: Continue Vit D, calcium, Fosamax Anxiety: stable Ativan PRN DVT Px: On Xarelto Code status: Full Code Disposition: Plan to discharge home today Follow up with your PCP on 2017 at 12:55 PM Follow up with your [employer] Assistant on July 06, 2017 at 9:15 AM Follow up with your Shot Lighter and get Pulmonary function tests as outpatient as advised Seek immediate medical attention if your symptoms reoccur or worsen Get CT chest in 6-12 months to monitor for Right lower lobe Lung Nodule PROCEDURES: Stress ECHO: * Nonischemic exercise stress echocardiogram. * No arrhythmias. * Elevated BP response to exercise. * Average exercise tolerance for age. * At rest, normal LV chamber size and wall thickness. * Normal LV systolic function, EF 65-70%. * No segmental left ventricular wall motion abnormalities are noted. * Grade I diastolic dysfunction. * Aortic valve sclerosis mild, without significant aortic valvular stenosis. Mild aortic regurgitation. * Pulmonary hypertension is not present. * PASP of 28 mmHg assuming a RA pressure of 3 mmHg. Total time spent on discharge = This includes examination of the patient, discharge planning, medication reconciliation, and communication with other providers. Discharge Instructions Discharge Instructions Date of Service Jun 16, 2017. Admission Reason for Admission: Chest Pain, Sob Discharge Discharge Diagnosis / Problem: Chest Pain, Dyspnea Discharge Goals Goal(s): Decrease discomfort, Improve function Activity Recommendations Activity Limitations: resume your previous activity Exercise/Sports Limitations: as tolerated . Instructions / Follow-Up Instructions / Follow-Up Follow up with your PCP on 2017 at 12:55 PM Follow up with your [employer] Assistant on July 06, 2017 at 9:15 AM Follow up with your Shot Lighter and get Pulmonary function tests as outpatient as advised Seek immediate medical attention if your symptoms reoccur or worsen Get CT chest in 6-12 months to monitor for Right lower lobe Lung Nodule Current Hospital Diet Patient's current hospital diet: AHA Diet (Heart Healthy), Low Sodium Diet (2gm Na) Discharge Diet Recommended Diet: AHA Diet (Heart Healthy), Low Sodium Diet (2gm Na) Pending Studies Studies pending at discharge: no Laboratory Results Lipid Panel Test 06/15/17 05:34 Range/Units Triglycerides Level 121 0-150 mg/dl Cholesterol Level 152 0-200 mg/dl HDL Cholesterol 63 mg/dl Cholesterol/HDL Ratio 2.4 LDL Cholesterol, Calculated 65 mg/dl Medical Emergencies . Who to Call and When: Medical Emergencies: If at any time you feel your situation is an emergency, please call 911 immediately. . Non-Emergent Contact Non-Emergency issues call your: Primary Care Provider, [employer] Assistant, Shot Lighter Call Non-Emergent contact if: you have a fever, your pain is not controlled, your pain is worsening, your pain is unusual for you, your pain is concerning you, you have any medication questions Seek immediate medical attention if your symptoms reoccur or worsen . . "Provider Documentation" section prepared by Clay Conrad. . <Electronically signed by Clay Conrad MD> Signed: 06/16/17 0838 Signed: The status of this report is Signed * If report status is Draft, the document has not been finalized by the responsible provider.
[2017-06-21] MEDS ORDERED: ALENDRONATE SODIUM 70 MG TAB PO SCH (06:00)
== END 2017-06-16 11:18 | disposition home or self-care (01) ==
LOC: C.EDB 09:26 → C.2E 13:44 → ENRESERV 13:52
PROVIDERS: ADMIT Hospitalist; ATTEND Internal Medicine
DX: R07.9 Chest pain, unspecified (principal); R06.02 Shortness of breath; R06.00 Dyspnea, unspecified; I25.10 Atherosclerotic heart disease of native coronary artery without angina pectoris; I50.30 Unspecified diastolic (congestive) heart failure; E78.5 Hyperlipidemia, unspecified; M81.0 Age-related osteoporosis without current pathological fracture; I35.2 Nonrheumatic aortic (valve) stenosis with insufficiency; J44.9 Chronic obstructive pulmonary disease, unspecified; K21.9 Gastro-esophageal reflux disease without esophagitis; Z90.710 Acquired absence of both cervix and uterus; Z90.49 Acquired absence of other specified parts of digestive tract; Z88.1 Allergy status to other antibiotic agents; Z91.040 Latex allergy status; Z95.1 Presence of aortocoronary bypass graft; Z79.01 Long term (current) use of anticoagulants; Z86.711 Personal history of pulmonary embolism; Z87.440 Personal history of urinary (tract) infections; Z79.82 Long term (current) use of aspirin; Z83.3 Family history of diabetes mellitus

== ENCOUNTER 2018-04-29 16:15 | Inpatient (IN) ==
[2018-04-29] MEDS ORDERED: ASPIRIN CHEW 324 MG PO STA ×2 (16:23→16:24)
[2018-04-29 17:17] LABS: Basophils # (auto) 0.02 K/uL (0-0.2); Basophils % (auto) 0.3 %; Eosinophils # (auto) 0.08 K/uL (0-0.5); Eosinophils % (auto) 1.1 %; Hematocrit (blood only) 42.3 % (37-47); Hemoglobin 14.2 g/dL (12.0-16.0); Immature Granulocytes # (auto) 0.01 K/uL (0.00-0.02); Immature Granulocytes % (auto) 0.1 %; Lymphocytes # (auto) 3.24 K/uL (1.2-3.4); Lymphocytes % (auto) 44.3 %; Mean Corpuscular Hgb Conc 33.6 g/dL (32-36); Mean Corpuscular Volume 92.2 fL (80-100); Mean Platelet Volume 10.3 fL (7.4-10.4); Monocytes # (auto) 0.62 K/uL (0.11-0.59); Monocytes % (auto) 8.5 %; Neutrophils # (auto) 3.35 K/uL (1.4-6.5); Neutrophils % (auto) 45.7 %; Platelet Count 221 K/uL (130-400); RDW Coefficient of Variation 14.2 % (11.5-14.5); RDW Standard Deviation 47.8 fL (36.4-46.3); Red Blood Count 4.59 M/uL (4.2-5.4); White Blood Count 7.32 K/uL (4.8-10.8)
--- NOTE | 2018-04-29 17:37 | XRay Report ---
XR chest 2V routine CLINICAL HISTORY: Atypical chest pain COMPARISON STUDY: 12/25/2017 FINDINGS: The heart is at the upper limits of normal in size. There are postsurgical changes of a mid line sternotomy. There is no focal pulmonary consolidation. There are no pleural effusions. Slight in creased density left lung base is felt to be secondary to a fat pad/atelectatic change. IMPRESSION: No active disease in the chest. Electronically signed by: Jj Gr M.D. 04/29/2018 5:35 PM
[2018-04-29 17:40] LABS: BUN Creatinine Ratio 17.5 (10-20); Blood Urea Nitrogen 18 mg/dl (7-18); Calcium 9.3 mg/dl (8.5-10.1); Carbon Dioxide 28 mmol/L (21-32); Chloride 104 mmol/L (98-107); Creatinine Clr Calc Pharmacy 40.9 ml/min; Est GFR (African American) 60.5; Est GFR (Non-African American) 52.2; Glucose 97 mg/dl (70-99); Sodium 139 mmol/L (136-145)
[2018-04-29 17:45] LABS: Troponin I < 0.015 ng/ml (0-0.045)
--- NOTE | 2018-04-29 19:29 | Emergency Department Note ---
Entered by Jacques Galvan acting as a scribe for Micha Byrne History of Present Illness General Chief complaint: Chest Pain Stated complaint: CHEST PAIN, CARDIAC HX Time Seen by Provider: 04/29/18 16:21 Source: patient History of Present Illness Onset (ago): minute(s) 30 Location: chest Pain Consistency: + other (persistent) Maximum Pain Intensity: 7 Current Pain Intensity: 4 Quality: + other (similar to chest pain during past heart attack) Relieved By: + medication (nitroglycerin prior to arrival) Associated symptoms: + shortness of breath and + other (nausea but denies vomiting) The patient is an 82 year old female who presents to the Emergency Room with complaints of persistent chest pain beginning 30 minutes ago. The patient reports that this pain is similar to her prior heart attacks. She states that at the time of onset her pain was 7/10, but it has now improved to 3 or 4/10 after taking 2 sublingual nitroglycerin. She notes some shortness of breath and nausea but denies vomiting. She states that she takes Xarelto and has not missed any doses. She notes that she did not take aspirin. She states that she follows Dr. Gaurav Villalpando Cardiology. Home Medications Home Medications Medication Instructions Recorded Confirmed Type aspirin [Aspir-81] 81 mg PO BID #0 04/07/15 04/29/18 History atorvastatin [Lipitor] 80 mg PO QAM #0 10/29/15 04/29/18 History calcium carbonate-vitamin D3 1 tab PO QAM #0 10/29/15 04/29/18 History [Caltrate 600 + D] omeprazole 40 mg PO DAILY PRN #0 10/29/15 04/29/18 History rivaroxaban [Xarelto] 20 mg PO QAM #0 11/27/15 04/29/18 History furosemide 40 mg PO DAILY PRN #0 02/12/16 04/29/18 History alendronate 70 mg PO WK #0 12/03/16 04/29/18 History lorazepam 0.5 mg PO TID PRN #0 12/03/16 04/29/18 History nitroglycerin [Nitrostat] 0.4 mg SUBLINGUAL UD PRN #0 btl 12/03/16 04/29/18 History potassium chloride 10 meq PO DAILY PRN #0 12/03/16 04/29/18 History metoprolol succinate [Toprol XL] 25 mg PO QAM #30 tab 10/05/17 04/29/18 History polyethylene glycol 3350 [Miralax] 17 g PO DAILY PRN #0 g 10/05/17 04/29/18 History sennosides [Senokot] 8.6 mg PO BID PRN #0 tab 10/05/17 04/29/18 History ellen mafb-bdasrcyz-spqvvsiec ac 1 cap PO DAILY PRN #0 10/06/17 04/29/18 History [Aydlett Oil] fluticasone [Flonase Allergy 2 spray INTRANASAL DAILY PRN 04/29/18 04/29/18 History Relief] montelukast [Singulair] 10 mg PO DAILY 04/29/18 04/29/18 History Allergies Allergy/AdvReac Type Severity Reaction Status Date / Time latex Allergy Intermediate RASH Verified 03/07/18 11:43 erythromycin base Allergy Unknown RASH Verified 03/07/18 11:43 Past Med/Surg History Social History marital status: Current Living Situation: Spouse Feels Safe at Home: Yes Smoking Status: Never smoker Second Hand Exposure: No Hx Alcohol Use: Yes Alcohol Intake Frequency: holidays/special occasions only Hx Substance Use: No Beliefs That Will Affect Care: None Preferred Language: Amharic Review of Systems See HPI for pertinent positives & negatives. and A total of 10 systems reviewed and were otherwise negative Physical Exam Vital Signs Vital Signs - 24 hr 04/29/18 16:16 04/29/18 17:35 04/29/18 17:40 Temperature 36.3 C L Temperature Source Oral Sepsis Recent Fever Within 48 Hours No Sepsis Action Taken by Nursing No Action Required Pulse Rate 78 72 71 Pulse Rate [Apical] Pulse Rhythm [Apical] Respiratory Rate 18 19 18 Respiratory Effort / Characteristics Non-Labored Spontaneous Respiratory Depth Normal Respiratory Pattern Regular Blood Pressure 133/75 129/80 Blood Pressure [Right Arm] Blood Pressure Mean 94 96 Blood Pressure Mean [Right Arm] Blood Pressure Position Sitting Pulse Oximetry 97 95 95 Oxygen Delivery Method Room Air 04/29/18 18:00 04/29/18 18:02 04/29/18 18:30 Temperature Temperature Source Sepsis Recent Fever Within 48 Hours Sepsis Action Taken by Nursing Pulse Rate 69 67 Pulse Rate [Apical] 71 Pulse Rhythm [Apical] Regular Respiratory Rate 19 18 19 Respiratory Effort / Characteristics Respiratory Depth Normal Respiratory Pattern Blood Pressure 127/77 136/72 Blood Pressure [Right Arm] 127/77 Blood Pressure Mean 93 93 Blood Pressure Mean [Right Arm] 93 Blood Pressure Position Pulse Oximetry 94 94 95 Oxygen Delivery Method Room Air GENERAL: She is oriented to person, place, and time. She appears well-developed and well-nourished. She does not appear distressed. HENT: Exam performed. Head: Normocephalic and atraumatic. Right Ear: External ear normal. No mastoid tenderness. Left Ear: External ear normal. No mastoid tenderness. Mouth/Throat: The oropharynx is clear and moist. No trismus in the jaw. No dental abscesses or uvula swelling. No oropharyngeal exudate or tonsillar abscesses. EYES: Conjunctivae and EOM are normal. Pupils are equal, round, and reactive to light. Right eye exhibits no discharge. Left eye exhibits no discharge. No scleral icterus. NECK: Normal range of motion. Neck supple. No JVD present. No spinous process tenderness present. No carotid bruit present. No rigidity. No tracheal deviation and normal range of motion present. No Brudzinski's sign and no Kernig 's sign noted. CV: Normal rate, regular rhythm, normal heart sounds and intact distal pulses. There is no peripheral edema. Palpable radial pulses bue. PULM/CHEST: Effort normal and breath sounds normal. No respiratory distress. No stridor. She has no wheezes. She has no rales. Chest Wall: She exhibits no tenderness. ABD: The abdomen is soft. Bowel sounds are normal. She has no distension. No mass is present. There is no tenderness. There is no rebound, no guarding, no Aldrich's sign and no tenderness at McBurney's point. Rovsig negative. MUSC/SKEL: Normal range of motion. There is no peripheral edema, tenderness or deformity. LYMPH: No cervical adenopathy. NEURO: She is alert and oriented to person, place, and time. She has normal strength. No cranial nerve deficit or sensory deficit. Coordination and gait normal. GCS eye subscore is 4. GCS verbal subscore is 5. GCS motor subscore is 6. cerbellar tests wnl. SKIN: Skin is warm and dry. She is not diaphoretic. PSYCH: She has a normal mood and affect. Her behavior is normal. Judgment and thought content normal. Course 1624: Past medical records reviewed. The patient was evaluated in room C12B, and a complete history and physical examination were performed. 1825: Vital signs are stable. The patient reports that she does not have any significant chest pain at this time. Given her history of cardiac disease as well as her chest pain that improved after administration of two sublingual nitro, the patient will be brought in for chest pain rule out ACS. Maria C Nix PA-C: [facility] Hospitalist was made aware of the patients case, and the patient will be evaluated for hospitalization to Dr. Doan. Consultations Consultation #1: Maria C Nix PA-C: [facility] Hospitalist was made aware of the patients case, and the patient will be evaluated for hospitalization to Dr. Doan. Time: 18:27 Administered Medications Discontinued Medications Aspirin (Aspirin) 324 mg PO NOW STA Stop: 04/29/18 16:24 Last Admin: 04/29/18 16:49 Dose: Not Given Aspirin (Aspirin) 324 mg PO NOW STA Stop: 04/29/18 16:25 Last Admin: 04/29/18 16:48 Dose: 324 mg Medical Decision Making Medical Records Attestation: I reviewed the patient's medical records. Home Medications Current Medication List: was personally reviewed by me Laboratory Data Attestation: I reviewed the patient's lab results. Result diagrams: 04/29/18 17:00 04/29/18 17:00 Lab Results 04/29/18 04/29/18 04/29/18 Range/Units 17:00 17:00 17:00 WBC 7.32 (4.8-10.8) K/uL RBC 4.59 (4.2-5.4) M/uL Hgb 14.2 (12.0-16.0) g/dL Hct 42.3 (37-47) % MCV 92.2 (80-100) fL MCH 30.9 (25-34) pg MCHC 33.6 (32-36) g/dL RDW Std Deviation 47.8 H (36.4-46.3) fL RDW Coeff of Derick 14.2 (11.5-14.5) % Plt Count 221 (130-400) K/uL MPV 10.3 (7.4-10.4) fL Immature Gran % (Auto) 0.1 % Neut % (Auto) 45.7 % Lymph % (Auto) 44.3 % [place] % (Auto) 8.5 % Eos % (Auto) 1.1 % Baso % (Auto) 0.3 % Immature Gran # (Auto) 0.01 (0.00-0.02) K/uL Neut # (Auto) 3.35 (1.4-6.5) K/uL Lymph # (Auto) 3.24 (1.2-3.4) K/uL [place] # (Auto) 0.62 H (0.11-0.59) K/uL Eos # (Auto) 0.08 (0-0.5) K/uL Baso # (Auto) 0.02 (0-0.2) K/uL Sodium 139 (136-145) mmol/L Potassium 4.0 (3.5-5.1) mmol/L Chloride 104 (98-107) mmol/L Carbon Dioxide 28 (21-32) mmol/L Anion Gap 7.0 (3-11) BUN 18 (7-18) mg/dl Creatinine 1.01 (0.6-1.2) mg/dl Est Cr Clr Drug Dosing 40.9 ml/min Est GFR ( Amer) 60.5 Est GFR (Non-Af Amer) 52.2 BUN/Creatinine Ratio 17.5 (10-20) Glucose 97 (70-99) mg/dl Calcium 9.3 (8.5-10.1) mg/dl Troponin I < 0.015 Cancelled (0-0.045) ng/ml Lipase 150 (73-393) U/L Imaging Data Radiologist's Impression: Radiology results as stated below per my review and the radiologist's interpretation: XR chest 2V routine CLINICAL HISTORY: Atypical chest pain COMPARISON STUDY: 12/25/2017 FINDINGS: The heart is at the upper limits of normal in size. There are postsurgical changes of a midline sternotomy. There is no focal pulmonary consolidation. There are no pleural effusions. Slight increased density left lung base is felt to be secondary to a fat pad/atelectatic change. IMPRESSION: No active disease in the chest. Electronically signed by: Jj Gr M.D. 04/29/2018 5:35 PM ECG Data Attestation: I personally reviewed and interpreted this ECG as follows: Indication: chest pain Rate (beats per minute): 67 Rhythm: sinus rhythm Findings: + other (UT, QRS and QTC intervals within normal limits); no ST depression and no ST elevation Blood Pressure Blood Pressure Findings: Normal blood pressure Blood Pressure Disposition: did not require urgent referral MDM Narrative Vital signs are stable. The patient reports that she does not have any significant chest pain at this time. Given her history of cardiac disease as well as her chest pain that improved after administration of two sublingual nitro, the patient will be brought in for chest pain rule out ACS. Maria C Nix PA-C: [facility] Hospitalist was made aware of the patients case, and the patient will be evaluated for hospitalization to Dr. Doan. Impression & Plan Chest pain Discharge Plan Visit Data Chief Complaint: Chest Pain Stated Complaint: CHEST PAIN, CARDIAC HX ED Provider: Micha Byrne Discharge Problem: Chest pain Patient Disposition: Being Evaluated by Hospitalist Forms Stand Alone Forms: My [facility] Prescriptions Prescriptions: No Action aspirin [Aspir-81] 81 mg Tablet,Delayed Release (Dr/Ec) 81 mg PO BID Qty: 0 RF: 0 atorvastatin [Lipitor] 80 mg Tablet 80 mg PO QAM Qty: 0 RF: 0 omeprazole 40 mg Capsule,Delayed Release(Dr/Ec) 40 mg PO DAILY PRN (Reason: Gastric Reflux) Qty: 0 RF: 0 calcium carbonate-vitamin D3 [Caltrate 600 + D] 600 mg (1,500 mg)-800 unit Tablet,Chewable 1 tab PO QAM Qty: 0 RF: 0 rivaroxaban [Xarelto] 20 mg Tablet 20 mg PO QAM Qty: 0 RF: 0 furosemide 40 mg Tablet 40 mg PO DAILY PRN (Reason: Fluid Retention) Qty: 0 RF: 0 alendronate 70 mg Tablet 70 mg PO WK Qty: 0 RF: 0 potassium chloride 10 mEq Tablet Extended Release 10 meq PO DAILY PRN (Reason: WHEN TAKES LASIX) Qty: 0 RF: 0 lorazepam 0.5 mg Tablet 0.5 mg PO TID PRN (Reason: Anxiety) Qty: 0 RF: 0 nitroglycerin [Nitrostat] 0.4 mg Tablet, Sublingual 0.4 mg Sublingual UD PRN (Reason: Chest Pain) Qty: 0 RF: 0 sennosides [Senokot] 8.6 mg Tablet 8.6 mg PO BID PRN (Reason: Constipation) Qty: 0 RF: 0 polyethylene glycol 3350 [Miralax] 17 gram Powder In Packet 17 g PO DAILY PRN (Reason: Constipation) Qty: 0 RF: 0 metoprolol succinate [Toprol XL] 25 mg Tablet Extended Release 24 Hr 25 mg PO QAM Qty: 30 RF: 0 ellen czpe-vvxjngms-mupylvvvf ac [Aydlett Oil] 1,000 mg Capsule 1 cap PO DAILY PRN (Reason: HOT FLASHES) Qty: 0 RF: 0 montelukast [Singulair] 10 mg tablet 10 mg PO DAILY RF: 0 fluticasone [Flonase Allergy Relief] 50 mcg/actuation [place],Suspension 2 spray INTRANASAL DAILY PRN (Reason: Nasal Congestion) RF: 0 Referrals Referrals: Darian Cornelius [Primary Care Provider] - The scribe's documentation has been prepared under my direction and personally reviewed by me in its entirety. I confirm that the note above accurately reflects all work, treatment, procedures, and medical decision making performed by me.
[2018-04-29] MEDS ORDERED: NITROGLYCERIN 2% OINTMENT 30GM TUBE EXT ONE (19:57)
--- NOTE | 2018-04-29 20:18 | History & Physical Report ---
Date of Service April 29, 2018 Assessment & Plan (1) CAD (coronary artery disease): History of ischemic heart disease, s/p NSTEMI, s/p CABG. Now with symptoms consistent with unstable angina. First troponin normal. No acute EKG changes at rest. Check serial troponins. Continue antiplatelet therapy with aspirin. On rivaroxaban for history of VTE. Continue metoprolol. Add topical nitrates. Continue statin. Consult Cardiology. (2) Hypertension: Continue metoprolol. (3) History of pulmonary embolism: Continue rivaroxaban. (4) GERD (gastroesophageal reflux disease): Continue PPI. (5) Dyslipidemia: Check fasting lipid profile. Continue atorvastatin. (6) Visual field defect: Patient describes what sounds like visual field defect, onset in recent months. She was advised to see her prescription eyeglass maker as soon as possible. (7) DVT prophylaxis: Continue rivaroxaban. (8) Discharge planning issues: Anticipated discharge to home. Family Medicine follow-up with Dr. Darian Cornelius. Cardiology follow-up with Dr. Nolasco. History of Present Illness Chief Complaint: chest pain Primary Care Provider: Darian Cornelius 82 YO female followed by Dr. Darian Cornelius for Family Medicine and Dr. Nolasco for Cardiology. History of coronary artery disease, s/p NSTEMI and CABG x 2 (BOWEN to LAD and SVG to OM1). Also has history of thromboembolic disease on rivaroxaban and other problems as noted. She has done well from a cardiac perspective since her CABG. Noted dyspnea on exertion over past few days. Today she developed chest pain and dyspnea while working on a quilt. Pain described as midsternal pressure that radiated to her left arm. Severity rated as 7/10. Has some nausea, no emesis. Took SL NTG x 2 tablets; symptoms resolved after about 30 minutes. Allergies Allergy/AdvReac Type Severity Reaction Status Date / Time latex Allergy Intermediate RASH Verified 03/07/18 11:43 erythromycin base Allergy Unknown RASH Verified 03/07/18 11:43 Home Medications Home Medications Medication Instructions Recorded Confirmed Type aspirin [Aspir-81] 81 mg PO BID #0 04/07/15 04/29/18 History atorvastatin [Lipitor] 80 mg PO QAM #0 10/29/15 04/29/18 History calcium carbonate-vitamin D3 1 tab PO QAM #0 10/29/15 04/29/18 History [Caltrate 600 + D] omeprazole 40 mg PO DAILY PRN #0 10/29/15 04/29/18 History rivaroxaban [Xarelto] 20 mg PO QAM #0 11/27/15 04/29/18 History furosemide 40 mg PO DAILY PRN #0 02/12/16 04/29/18 History alendronate 70 mg PO WK #0 12/03/16 04/29/18 History lorazepam 0.5 mg PO TID PRN #0 12/03/16 04/29/18 History nitroglycerin [Nitrostat] 0.4 mg SUBLINGUAL UD PRN #0 btl 12/03/16 04/29/18 History potassium chloride 10 meq PO DAILY PRN #0 12/03/16 04/29/18 History metoprolol succinate [Toprol XL] 25 mg PO QAM #30 tab 10/05/17 04/29/18 History polyethylene glycol 3350 [Miralax] 17 g PO DAILY PRN #0 g 10/05/17 04/29/18 History sennosides [Senokot] 8.6 mg PO BID PRN #0 tab 10/05/17 04/29/18 History ellen zioz-wmirxgcg-idbdexcrl ac 1 cap PO DAILY PRN #0 10/06/17 04/29/18 History [[place] Oil] cyclobenzaprine 5 mg PO Q8H PRN 04/29/18 04/29/18 History fluticasone [Flonase Allergy 2 spray INTRANASAL DAILY PRN 04/29/18 04/29/18 History Relief] montelukast [Singulair] 10 mg PO DAILY 04/29/18 04/29/18 History Past Med/Surg History Medical History Occipital neuralgia (Chronic) Benign neoplasm of hard palate (Chronic) CAD (coronary artery disease) (Chronic) GERD (gastroesophageal reflux disease) (Chronic) History of DVT of lower extremity (Chronic) History of diverticulitis (Chronic) Hypertension (Chronic) History of pulmonary embolism (Chronic) Anxiety (Chronic) "mild; uses Ativan once yearly " Dyslipidemia (Chronic) History of superficial phlebitis (Chronic) Accelerated hypertension Surgical History History of bladder repair surgery (Chronic) S/P partial resection of colon (Chronic) S/P CABG x 2 (Chronic) H/O vein stripping (Chronic) Hx of bladder repair surgery (Chronic) "cystocele repair " History of partial hysterectomy (Chronic) Family History Mother Lymphoma Colon cancer Father COPD (chronic obstructive pulmonary disease) [place] [employer] lung Brother Murder Sister Brain tumor Social History marital status: Current Living Situation: Spouse Feels Safe at Home: Yes Smoking Status: Never smoker Second Hand Exposure: No Hx Alcohol Use: Yes Alcohol Intake Frequency: holidays/special occasions only Hx Substance Use: No Beliefs That Will Affect Care: None Preferred Language: Latvian Review of Systems Constitutional: no fever and no weight loss Eyes: + blind spots; no diplopia and no worsening vision Ear, Nose, Mouth, Throat: no nasal congestion, no sinus pain/pressure and no sore throat Respiratory: no cough and no dyspnea Cardiovascular: as per Subjective / HPI Gastrointestinal: no nausea, no vomiting, no constipation, no diarrhea/loose stools, no blood in stools and no melena Genitourinary (Female): no dysuria and no hematuria Musculoskeletal: + joint pain; no myalgia Integumentary: + rash (psoriasis); no new lesions Neurologic: + headache(s) (occipital) Endocrine: no polydipsia and no polyuria Hematologic / Lymphatic: + easy bleeding and + easy bruising; no lymphadenopathy Physical Exam 2 Vital Signs (Past 24 Hours): Last Vital Signs Temp 36.3 C L 04/29/18 16:16 Pulse 67 04/29/18 18:30 Resp 19 04/29/18 18:30 BP 136/72 04/29/18 18:30 Pulse Ox 95 04/29/18 18:30 Constitutional: WD/WN, vitals as above no acute distress Eyes: PERRL, conjunctivae normal, anicteric sclerae ENMT: external ear and nose normal, oropharynx normal Neck: trachea midline, no thyromegaly Respiratory: normal respiratory effort, lungs clear to auscultation Cardiovascular: Rate/Rhythm: regular rate Heart Sounds: no gallop, no murmur and no cardiac rub Vessels: no JVD Extremities: normal capillary refill; no calf tenderness and no edema Gastrointestinal (Abdomen): normal bowel sounds, soft, nontender, no hepatosplenomegaly Musculoskeletal: Head/Neck/Chest: neck supple Extremities: strength 5/5 throughout; no cyanosis and no clubbing Skin: no rashes, warm and dry Neurologic: PERRL, EOMI no facial palsy no dysarthria or aphasia patellar DTR's 2/2 bilat Psychiatric: Orientation: alert and oriented x 3 Affect: euthymic affect Lymphatic: no cervical lymphadenopathy Results & Data Laboratory Results Laboratory Results - last 24 hr 04/29/18 04/29/18 04/29/18 17:00 17:00 17:00 WBC 7.32 RBC 4.59 Hgb 14.2 Hct 42.3 MCV 92.2 MCH 30.9 MCHC 33.6 RDW Std Deviation 47.8 H RDW Coeff of Derick 14.2 Plt Count 221 MPV 10.3 Immature Gran % (Auto) 0.1 Neut % (Auto) 45.7 Lymph % (Auto) 44.3 [place] % (Auto) 8.5 Eos % (Auto) 1.1 Baso % (Auto) 0.3 Immature Gran # (Auto) 0.01 Neut # (Auto) 3.35 Lymph # (Auto) 3.24 [place] # (Auto) 0.62 H Eos # (Auto) 0.08 Baso # (Auto) 0.02 Sodium 139 Potassium 4.0 Chloride 104 Carbon Dioxide 28 Anion Gap 7.0 BUN 18 Creatinine 1.01 Est Cr Clr Drug Dosing 40.9 Est GFR ( Amer) 60.5 Est GFR (Non-Af Amer) 52.2 BUN/Creatinine Ratio 17.5 Glucose 97 Calcium 9.3 Troponin I < 0.015 Cancelled Lipase 150 Diagnostic Findings Chest x-ray reviewed by the undersigned and interpreted by Radiology. Postsurgical changes, no acute findings. ECG Additional Comments: EKG performed at 1623 reviewed and demonstrated NSR at 70/min, no acute changes. Code Status & VTE Plan Code Status Discussed with patient. She has a living will. She would like resuscitation attempted in the event of a cardiopulmonary arrest if there is a reasonable chance of a meaningful recovery. However, she would not want extraordinary measures undertaken or continued if prognosis was poor. VTE Prophylaxis Plan VTE Prophylaxis will be ordered: Yes _ (1) CAD (coronary artery disease) Coronary Disease-Associated Artery/Lesion type: [place] artery [place] vs. transplanted heart: [place] heart Associated angina: with unstable angina Qualified Code(s): I25.110 - Atherosclerotic heart disease of [place] coronary artery with unstable angina pectoris (2) Hypertension Hypertension type: essential hypertension Qualified Code(s): I10 - Essential (primary) hypertension (3) GERD (gastroesophageal reflux disease) Esophagitis presence: without esophagitis Qualified Code(s): K21.9 - Gastro- esophageal reflux disease without esophagitis
[2018-04-29] MEDS ORDERED: NITROGLYCERIN SL 0.4 MG/TAB TAB SL PRN (21:01)
[2018-04-29] MEDS ORDERED: POLYETHYLENE (MIRALAX) 17 GM PACK PO PRN (21:01)
[2018-04-29] MEDS ORDERED: CYCLOBENZAPRINE HCL 5 MG TAB PO PRN (21:01)
[2018-04-29] MEDS ORDERED: LORazepam 0.5 MG TAB PO PRN (21:01)
[2018-04-29] MEDS ORDERED: MoRPHine SULFATE 2 MG/ML CARP IV PRN (21:01)
[2018-04-30] MEDS: NITROGLYCERIN 2% OINTMENT 30GM TUBE EXT SCH ×4 (02:43→19:23)
[2018-04-30 07:57] LABS: HDL Cholesterol 69 mg/dl; Triglycerides 104 mg/dl (0-150); Troponin I < 0.015 ng/ml (0-0.045); VLDL Cholesterol 21 mg/dl
[2018-04-30 07:59] LABS: Chol HDL Ratio 2; Cholesterol 152 mg/dl (0-200); LDL Cholesterol Calculated 62 mg/dl
[2018-04-30] MEDS: MONTELUKAST SODIUM 10 MG TABLET PO SCH (08:17)
[2018-04-30] MEDS: ATORVASTATIN 40 MG TAB PO SCH (08:17)
[2018-04-30] MEDS: ASPIRIN 81 MG ECTAB PO SCH ×2 (08:18→19:23)
[2018-04-30] MEDS: PANTOprazole 40 MG TAB PO SCH (08:18)
[2018-04-30] MEDS: METOPROLOL SUCC 25MG EXT REL TAB PO SCH (08:18)
[2018-04-30] MEDS ORDERED: RIVAROXABAN 20 MG TAB PO SCH (09:00)
--- NOTE | 2018-04-30 11:09 | Cardiology Consultation ---
Date of Consultation April 30, 2018 Assessment & Plan (1) Crescendo angina: I had a long discussion with the patient and her family who was there today during my exam. She has classic anginal symptoms which are new in onset since her bypass surgery. Her cardiac markers are negative as well as her EKGs. Given her history I think the best approach would be to proceed with a cardiac catheterization. I have explained the risk benefit and intent of the procedure to her including the potential for a catheter-based intervention such as balloon angioplasty or intracoronary stenting. The patient is willing to proceed. Unfortunately she was given her dose of Xarelto today. The plan will be to proceed with a transfemoral approach for her heart catheterization due to her bypass grafts. Therefore, it would be preferable for her last dose of Xarelto to be about 48 hours prior to the heart catheterization. If she remains stable we will plan on proceeding on Tuesday. (2) S/P CABG x 2: (3) History of DVT of lower extremity: (4) History of pulmonary embolism: History of Present Illness Attending Physician: Ashly Rubalcava MD History of Present Illness This is a pleasant 82-year-old female who usually follows with Dr. Nolasco through our office. Approximately 2 years ago she presented with angina and eventually underwent a cardiac catheterization followed by CABG at [facility]. She was in her usual state of health until approximately a week ago she began to have exertion related chest and left arm discomfort which resolved with rest. This continued through the week and became progressively more frequent and she decided to present to the emergency department where she has been admitted with crescendo angina. After admission her cardiac markers are negative and her EKG showed no acute changes. She has had no chest pain since being admitted to the hospital. Denies shortness of breath orthopnea. No heart palpitations or dizziness. PAST MEDICAL HISTORY: 1. Coronary artery disease status post CABG x2 with a BOWEN to the LAD and vein graft to OM1, October 2015. 2. Pulmonary embolism on chronic Xarelto anticoagulation. 3. GERD. 4. Dyslipidemia. 5. Hearing loss. Allergies Allergy/AdvReac Type Severity Reaction Status Date / Time latex Allergy Intermediate RASH Verified 03/07/18 11:43 erythromycin base Allergy Unknown RASH Verified 03/07/18 11:43 Home Medications Home Medications Medication Instructions Recorded Confirmed Type aspirin [Aspir-81] 81 mg PO BID #0 04/07/15 04/29/18 History atorvastatin [Lipitor] 80 mg PO QAM #0 10/29/15 04/29/18 History calcium carbonate-vitamin D3 1 tab PO QAM #0 10/29/15 04/29/18 History [Caltrate 600 + D] omeprazole 40 mg PO DAILY PRN #0 10/29/15 04/29/18 History rivaroxaban [Xarelto] 20 mg PO QAM #0 11/27/15 04/29/18 History furosemide 40 mg PO DAILY PRN #0 02/12/16 04/29/18 History alendronate 70 mg PO WK #0 12/03/16 04/29/18 History lorazepam 0.5 mg PO TID PRN #0 12/03/16 04/29/18 History nitroglycerin [Nitrostat] 0.4 mg SUBLINGUAL UD PRN #0 btl 12/03/16 04/29/18 History potassium chloride 10 meq PO DAILY PRN #0 12/03/16 04/29/18 History metoprolol succinate [Toprol XL] 25 mg PO QAM #30 tab 10/05/17 04/29/18 History polyethylene glycol 3350 [Miralax] 17 g PO DAILY PRN #0 g 10/05/17 04/29/18 History sennosides [Senokot] 8.6 mg PO BID PRN #0 tab 10/05/17 04/29/18 History ellen sjgs-jebduita-eeikinisj ac 1 cap PO DAILY PRN #0 10/06/17 04/29/18 History [Altha Oil] cyclobenzaprine 5 mg PO Q8H PRN 04/29/18 04/29/18 History fluticasone [Flonase Allergy 2 spray INTRANASAL DAILY PRN 04/29/18 04/29/18 History Relief] montelukast [Singulair] 10 mg PO DAILY 04/29/18 04/29/18 History Patient History Medical History Occipital neuralgia (Chronic) Benign neoplasm of hard palate (Chronic) CAD (coronary artery disease) (Chronic) GERD (gastroesophageal reflux disease) (Chronic) History of DVT of lower extremity (Chronic) History of diverticulitis (Chronic) Hypertension (Chronic) History of pulmonary embolism (Chronic) Anxiety (Chronic) "mild; uses Ativan once yearly " Dyslipidemia (Chronic) History of superficial phlebitis (Chronic) Accelerated hypertension Surgical History History of bladder repair surgery (Chronic) S/P partial resection of colon (Chronic) S/P CABG x 2 (Chronic) H/O vein stripping (Chronic) Hx of bladder repair surgery (Chronic) "cystocele repair " History of partial hysterectomy (Chronic) Family History Mother Lymphoma Colon cancer Father COPD (chronic obstructive pulmonary disease) [place] miners' lung Brother Murder Sister Brain tumor Social History marital status: Current Living Situation: Spouse Feels Safe at Home: Yes Smoking Status: Never smoker Second Hand Exposure: No Hx Alcohol Use: Yes Alcohol Intake Frequency: holidays/special occasions only Hx Substance Use: No Beliefs That Will Affect Care: None Preferred Language: Portuguese Review of Systems Review of Systems: See HPI for pertinent positives. All other 10 point review of systems are negative. Physical Exam 2 Vital Signs (Past 24 Hours): Last Vital Signs Temp 36.7 C 04/30/18 10:58 Pulse 72 04/30/18 10:58 Resp 19 04/30/18 10:58 BP 119/71 04/30/18 10:58 Pulse Ox 92 04/30/18 10:58 Physical Exam: General: no acute distress and stated age Head: normocephalic, no masses, lesions, tenderness or abnormalities Eyes: conjunctiva are pink and non-injected, sclera clear Neck: supple, no adenopathy, no bruits, normal jugular venous pulse, no hepatojugular reflux Chest: normal shape and normal respiratory effort Lungs: clear to auscultation and percussion Cardiac Exam: - regular rate & rhythm, no murmurs gallops or rubs - normal S1, normal S2 Pulses: 2(+) throughout Abdomen: abdomen soft, non-tender, no abnormal masses and no hepatosplenomegaly Musculoskeletal: no gait disturbance, no joint inflammation, no deforming arthritis Extremities: no edema and no cyanosis Neuro: grossly normal exam Results & Data Laboratory Results Laboratory Results - last 24 hr 04/29/18 04/29/18 04/29/18 17:00 17:00 17:00 WBC 7.32 RBC 4.59 Hgb 14.2 Hct 42.3 MCV 92.2 MCH 30.9 MCHC 33.6 RDW Std Deviation 47.8 H RDW Coeff of Derick 14.2 Plt Count 221 MPV 10.3 Immature Gran % (Auto) 0.1 Neut % (Auto) 45.7 Lymph % (Auto) 44.3 [place] % (Auto) 8.5 Eos % (Auto) 1.1 Baso % (Auto) 0.3 Immature Gran # (Auto) 0.01 Neut # (Auto) 3.35 Lymph # (Auto) 3.24 [place] # (Auto) 0.62 H Eos # (Auto) 0.08 Baso # (Auto) 0.02 Sodium 139 Potassium 4.0 Chloride 104 Carbon Dioxide 28 Anion Gap 7.0 BUN 18 Creatinine 1.01 Est Cr Clr Drug Dosing 40.9 Est GFR ( Amer) 60.5 Est GFR (Non-Af Amer) 52.2 BUN/Creatinine Ratio 17.5 Glucose 97 Calcium 9.3 Troponin I < 0.015 Cancelled Triglycerides Cholesterol LDL Cholesterol, Calc VLDL Cholesterol, Calc HDL Cholesterol Cholesterol/HDL Ratio Lipase 150 04/29/18 04/30/18 23:58 07:12 WBC RBC Hgb Hct MCV MCH MCHC RDW Std Deviation RDW Coeff of Derick Plt Count MPV Immature Gran % (Auto) Neut % (Auto) Lymph % (Auto) [place] % (Auto) Eos % (Auto) Baso % (Auto) Immature Gran # (Auto) Neut # (Auto) Lymph # (Auto) [place] # (Auto) Eos # (Auto) Baso # (Auto) Sodium Potassium Chloride Carbon Dioxide Anion Gap BUN Creatinine Est Cr Clr Drug Dosing Est GFR ( Amer) Est GFR (Non-Af Amer) BUN/Creatinine Ratio Glucose Calcium Troponin I < 0.015 < 0.015 Triglycerides 104 Cholesterol 152 LDL Cholesterol, Calc 62 VLDL Cholesterol, Calc 21 HDL Cholesterol 69 Cholesterol/HDL Ratio 2 Lipase Medications Administered Current Inpatient Medications Acetaminophen (Tylenol) 500 mg PO Q6H PRN PRN Reason: Pain Stop: 05/29/18 21:00 Aspirin (Ecotrin Ectab) 81 mg PO BID CRISSY Stop: 05/30/18 08:59 Last Admin: 04/30/18 08:18 Dose: 81 mg Atorvastatin Calcium (Lipitor) [facility] Stop: 05/30/18 08:59 Last Admin: 04/30/18 08:17 Dose: 80 mg Cyclobenzaprine HCl (Flexeril) 5 mg PO Q8H PRN PRN Reason: Muscle Spasm Stop: 05/29/18 21:00 Lorazepam (Ativan) 0.5 mg PO TID PRN PRN Reason: Anxiety Stop: 05/29/18 21:00 Metoprolol Succinate (Toprol Xl) 25 mg PO [facility] Stop: 05/30/18 08:59 Last Admin: 04/30/18 08:18 Dose: 25 mg Montelukast Sodium (Singulair) 10 mg PO DAILY [facility] Stop: 05/30/18 08:59 Last Admin: 04/30/18 08:17 Dose: 10 mg Morphine Sulfate (Morphine Sulfate) 2 mg IV Q30M PRN PRN Reason: Chest Pain Stop: 05/13/18 21:00 Nitroglycerin (Nitro-Bid 2%) 0.5 inch EXT Q6H [facility] Stop: 05/30/18 01:59 Last Admin: 04/30/18 08:54 Dose: Not Given Nitroglycerin (Nitrostat) 0.4 mg SL UD PRN PRN Reason: Chest Pain Stop: 05/29/18 21:00 Pantoprazole Sodium (Protonix) 40 mg PO [facility] Stop: 05/30/18 08:59 Last Admin: 04/30/18 08:18 Dose: 40 mg Polyethylene Glycol (Miralax Powder Packet) 17 gm PO DAILY PRN PRN Reason: Constipation Stop: 05/29/18 21:00 Rivaroxaban (Xarelto) 20 mg PO [facility] Stop: 05/30/18 08:59 Last Admin: 04/30/18 08:18 Dose: 20 mg Sennosides (Senokot) 8.6 mg PO BID PRN PRN Reason: Constipation Stop: 05/29/18 21:00
--- NOTE | 2018-04-30 17:17 | Hospitalist Progress Note ---
Date of Service April 30, 2018 Assessment & Plan (1) CAD (coronary artery disease): History of ischemic heart disease, s/p NSTEMI, s/p CABG. presented wtih symptoms consistent with unstable angina. serial troponin normal. No acute EKG changes at rest. Continue metoprolol. hx of CAD S/p CABG appreciate input from Cardiology will need diagnostic cardiac cath next week (2) Hypertension: Continue metoprolol. (3) History of pulmonary embolism: hold Xeralto for cardiac cath on next week ( tuesday05/02/18 ) (4) GERD (gastroesophageal reflux disease): Continue PPI. (5) Dyslipidemia: Continue atorvastatin. (6) DVT prophylaxis: sub q heprin (7) Discharge planning issues: Anticipated discharge to home. Family Medicine follow-up with Dr. Darian Cornelius. Cardiology follow-up with Dr. Nolasco. Subjective no complain of chest heaviness no SOLO feels fine ambulating independently in room Physical Exam 2 Vital Signs (Past 24 Hours): Last Vital Signs Temp 36.6 C 04/30/18 15:00 Pulse 79 04/30/18 15:00 Resp 16 04/30/18 15:00 BP 105/66 04/30/18 15:00 Pulse Ox 94 04/30/18 15:00 Physical Exam: GENERAL: No sign of distress, HEENT: Sclera nonicteric, pink-purple bilateral equal reactive to light extraocular muscle intact Normal oral mucosa, neck: No JVD, no thyromegaly, trachea midline Lungs: Clear to auscultate, no wheeze or rales Cardiovascular: Regular S1 and S2, no murmur or gallop, no JVD, no lower extremity edema Abdomen: Soft, nontender, bowel sounds active, no hepatosplenomegaly Extremities: No rash or deformity, normal joint, Neuro: No focal neurological deficit, no dysarthria, no facial droop Psych: Alert awake oriented x3: Euthymic Skin: No rash LYMPH NODES: No cervical lymphadenopathy _ (1) CAD (coronary artery disease) Associated angina: with unstable angina Coronary Disease-Associated Artery/ Lesion type: [place] artery [place] vs. transplanted heart: [place] heart Qualified Code(s): I25.110 - Atherosclerotic heart disease of [place] coronary artery with unstable angina pectoris (2) GERD (gastroesophageal reflux disease) Esophagitis presence: without esophagitis Qualified Code(s): K21.9 - Gastro- esophageal reflux disease without esophagitis (3) Hypertension Hypertension type: essential hypertension Qualified Code(s): I10 - Essential (primary) hypertension
[2018-04-30] MEDS: ACETAMINOPHEN 500 MG TAB PO PRN (19:23)
[2018-04-30] MEDS: SENNA 8.6 MG TAB PO PRN (20:13)
[2018-05-01] MEDS: NITROGLYCERIN 2% OINTMENT 30GM TUBE EXT SCH ×2 (01:30→08:52)
[2018-05-01] MEDS: ATORVASTATIN 40 MG TAB PO SCH (08:51)
[2018-05-01] MEDS: SENNA 8.6 MG TAB PO PRN (08:51)
[2018-05-01] MEDS: PANTOprazole 40 MG TAB PO SCH (08:51)
[2018-05-01] MEDS: METOPROLOL SUCC 25MG EXT REL TAB PO SCH (08:51)
[2018-05-01] MEDS: MONTELUKAST SODIUM 10 MG TABLET PO SCH (08:52)
[2018-05-01] MEDS: ASPIRIN 81 MG ECTAB PO SCH ×2 (08:52→21:17)
--- NOTE | 2018-05-01 10:37 | Cardiology Progress Note ---
Date of Service May 01, 2018 Assessment & Plan (1) Crescendo angina: The patient had an uneventful night. The plan will be to proceed with a cardiac catheterization tomorrow. The patient was taken off her Xarelto receiving her last dose yesterday morning. By tomorrow her last dose would have been 48 hours and I believe we can proceed. (2) S/P CABG x 2: Previous CABG in 2016 the patient received a BOWEN to the LAD and a saphenous vein graft to marginal branch. (3) History of DVT of lower extremity: The patient has a history of pulmonary emboli and has been on Xarelto which was held for the heart catheterization. Physical Exam 2 Vital Signs (Past 24 Hours): Last Vital Signs Temp 36.9 C 05/01/18 07:06 Pulse 70 05/01/18 07:06 Resp 18 05/01/18 07:06 BP 121/73 05/01/18 07:06 Pulse Ox 94 05/01/18 07:06 Physical Exam: General: no acute distress and stated age Head: normocephalic, no masses, lesions, tenderness or abnormalities Eyes: conjunctiva are pink and non-injected, sclera clear Neck: supple, no adenopathy, no bruits, normal jugular venous pulse, no hepatojugular reflux Chest: normal shape and normal respiratory effort Lungs: clear to auscultation and percussion Cardiac Exam: - regular rate & rhythm, no murmurs gallops or rubs - normal S1, normal S2 Pulses: 2(+) throughout Abdomen: abdomen soft, non-tender, no abnormal masses and no hepatosplenomegaly Musculoskeletal: no gait disturbance, no joint inflammation, no deforming arthritis Extremities: no edema and no cyanosis Neuro: grossly normal exam Results & Data Medications Administered Current Inpatient Medications Acetaminophen (Tylenol) 500 mg PO Q6H PRN PRN Reason: Pain Stop: 05/29/18 21:00 Last Admin: 04/30/18 19:23 Dose: 500 mg Aspirin (Ecotrin Ectab) 81 mg PO BID [facility] Stop: 05/30/18 08:59 Last Admin: 05/01/18 08:52 Dose: 81 mg Atorvastatin Calcium (Lipitor) 80 mg PO QAM CRISSY Stop: 05/30/18 08:59 Last Admin: 05/01/18 08:51 Dose: 80 mg Cyclobenzaprine HCl (Flexeril) 5 mg PO Q8H PRN PRN Reason: Muscle Spasm Stop: 05/29/18 21:00 Sodium Chloride (Nss 1000ml) 1,000 mls @ 69 mls/hr IV .[id number] [facility] Stop: 06/01/18 00:00 Lorazepam (Ativan) 0.5 mg PO TID PRN PRN Reason: Anxiety Stop: 05/29/18 21:00 Metoprolol Succinate (Toprol Xl) [facility] [place] [facility] Stop: 05/30/18 08:59 Last Admin: 05/01/18 08:51 Dose: 25 mg Montelukast Sodium (Singulair) 10 mg PO DAILY [facility] Stop: 05/30/18 08:59 Last Admin: 05/01/18 08:52 Dose: 10 mg Morphine Sulfate (Morphine Sulfate) 2 mg IV Q30M PRN PRN Reason: Chest Pain Stop: 05/13/18 21:00 Nitroglycerin (Nitro-Bid 2%) 0.5 inch EXT Q6H [facility] Stop: 05/30/18 01:59 Last Admin: 05/01/18 08:52 Dose: Not Given Nitroglycerin (Nitrostat) 0.4 mg SL UD PRN PRN Reason: Chest Pain Stop: 05/29/18 21:00 Pantoprazole Sodium (Protonix) 40 mg PO [facility] Stop: 05/30/18 08:59 Last Admin: 05/01/18 08:51 Dose: 40 mg Polyethylene Glycol (Miralax Powder Packet) 17 gm PO DAILY PRN PRN Reason: Constipation Stop: 05/29/18 21:00 Rivaroxaban (Xarelto) 20 [facility] [place] Stop: 05/30/18 08:59 Last Admin: 04/30/18 08:18 Dose: 20 mg Sennosides (Senokot) 8.6 mg PO BID PRN PRN Reason: Constipation Stop: 05/29/18 21:00 Last Admin: 05/01/18 08:51 Dose: 8.6 mg
--- NOTE | 2018-05-01 16:15 | Hospitalist Progress Note ---
Date of Service May 01, 2018 Assessment & Plan (1) Crescendo angina: presented with chest heaviness with typical angina symptom improved with Nitro cardiac markers been negative having intermittent chest heaviness with exertion scheduled for catheterization tomorrow. has been off Xarelto for 48 hrs appreciate cardiology input Present on Admission?: Yes (2) CAD (coronary artery disease): S/P CABG x 2: Previous CABG in 2016 the patient received a BOWEN to the LAD and a saphenous vein graft to marginal branch. presented wtih symptoms consistent with unstable angina. serial troponin normal. No acute EKG changes at rest. Continue metoprolol. appreciate input from Cardiology scheduled diagnostic cardiac cath tomorrow Present on Admission?: Yes (3) Hypertension: Continue metoprolol. (4) History of pulmonary embolism: History of DVT of lower extremity?PE has been on Xarelto which was held for the heart catheterization. (5) GERD (gastroesophageal reflux disease): Continue PPI. (6) Dyslipidemia: Continue atorvastatin. (7) DVT prophylaxis: sub q heprin (8) Discharge planning issues: Anticipated discharge to home. Family Medicine follow-up with Dr. Darian Cornelius. Cardiology follow-up with Dr. Nolasco. Subjective pt seen ambulating in hallway with family memebers no complain of SOB or SOLO mentions getting intermittent chest heaviness after walking for a distance scheduled for cardiac cath tomorrow Physical Exam 2 Vital Signs (Past 24 Hours): Last Vital Signs Temp 36.4 C L 05/01/18 15:55 Pulse 64 05/01/18 15:55 Resp 18 05/01/18 15:55 BP 115/71 05/01/18 15:55 Pulse Ox 94 05/01/18 15:55 Physical Exam: GENERAL: No sign of distress, HEENT: Sclera nonicteric, pink-purple bilateral equal reactive to light extraocular muscle intact Normal oral mucosa, neck: No JVD, no thyromegaly, trachea midline Lungs: Clear to auscultate, no wheeze or rales Cardiovascular: Regular S1 and S2, no murmur or gallop, no JVD, no lower extremity edema Abdomen: Soft, nontender, bowel sounds active, no hepatosplenomegaly Extremities: No rash or deformity, normal joint, Neuro: No focal neurological deficit, no dysarthria, no facial droop Psych: Alert awake oriented x3: Euthymic Skin: No rash LYMPH NODES: No cervical lymphadenopathy _ (1) CAD (coronary artery disease) Associated angina: with unstable angina Coronary Disease-Associated Artery/ Lesion type: [place] artery [place] vs. transplanted heart: [place] heart Qualified Code(s): I25.110 - Atherosclerotic heart disease of [place] coronary artery with unstable angina pectoris (2) GERD (gastroesophageal reflux disease) Esophagitis presence: without esophagitis Qualified Code(s): K21.9 - Gastro- esophageal reflux disease without esophagitis (3) Hypertension Hypertension type: essential hypertension Qualified Code(s): I10 - Essential (primary) hypertension
[2018-05-01] MEDS: ACETAMINOPHEN 500 MG TAB PO PRN (21:20)
[2018-05-02] MEDS: PANTOprazole 40 MG TAB PO SCH (09:16)
[2018-05-02] MEDS: ASPIRIN 81 MG ECTAB PO SCH (09:16)
[2018-05-02] MEDS: METOPROLOL SUCC 25MG EXT REL TAB PO SCH (09:17)
[2018-05-02] MEDS: MONTELUKAST SODIUM 10 MG TABLET PO SCH (09:17)
[2018-05-02] MEDS: ATORVASTATIN 40 MG TAB PO SCH (09:17)
[2018-05-02] MEDS ORDERED: LIDOCAINE HCL 1% 20 ML VIAL ONE (09:38)
[2018-05-02] MEDS ORDERED: MIDAZOLAM HCL 1 MG/ML 2ML VIAL ONE (09:43)
--- NOTE | 2018-05-02 10:37 | Cardiac Catheterization ---
Date of Service May 02, 2018 Cardiac Cath Report Cardiac Cath Report Procedure: 1. Left heart catheterization 2. Coronary angiography 3. Left ventriculography History: This is an 82-year-old female who underwent coronary artery bypass surgery 2 years ago. She presented with new onset exertional angina. Procedure summary: After informed consent was obtained, the patient was taken to the cardiac catheterization lab where she was prepped and draped in the usual manner for a right transfemoral approach. Preformed 5 [place] diagnostic catheters were utilized for the coronary angiograms. A 5 [place] pigtail catheter was utilized for the left ventriculogram and left heart pressures. Following the procedure the patient had her arterial site closed with a minx device and was returned to her room in stable condition. ACC data: AUC score 7 Start time 9:52 AM End time 10:20 AM Opening aortic pressure 145/63 Closing aortic pressure 166/64 Left ventricular pressure 171/23 Sedation Versed 1 mg IV IV fluid 67 cc Contrast 134 cc Optiray Fluoroscopy time 7.3 minutes Radiation 1036 mGy DAP 7301 mGy Right coronary artery dominant Coronary angiography: Selective injections of the left coronary artery revealed tapering at the origin of the left main trunk suggesting a 50% narrowing. The LAD has calcium in its proximal segment but is widely patent and supplies the myocardium all the way to the apex. There is a single large diagonal branch with a 30-40% proximal stenosis. The left circumflex artery is occluded at its origin. Selective injections of the right coronary artery revealed it to be dominant. Right coronary artery is widely patent. Selective injections of the saphenous vein graft to the first marginal branch reveals it to be widely patent supplying both antegrade and retrograde flow. Selective injections of the LG graft to the LAD reveal it to be atretic and under matured most likely due to competitive flow from the [place] LAD. Left ventriculogram: Left ventriculogram the left ventricle is of normal size with normal systolic function. Mitral valve is competent. The aortic root and ascending aorta have normal morphology and diameter. Summary: The patient has widely patent right coronary and LAD arteries. There is a 50% ostial stenosis of the left main trunk. The left circumflex artery is occluded proximally with a patent saphenous vein graft to the first marginal branch. The LG graft is atretic due to failure to mature from competitive flow from the [place] LAD. Recommendations. Recommendations are for continued medical management of the patient's coronary artery disease.
[2018-05-02] MEDS ORDERED: SODIUM CHLORIDE 0.9% 1000ML 1,000 ML IV SCH ×2 (11:30)
--- NOTE | 2018-05-02 13:48 | Cardiology Progress Note ---
Date of Service May 02, 2018 Subjective I discussed the results of the heart catheterization with the patient and family. She essentially has an atretic LG graft to the LAD due to competitive flow from the [place] artery. The saphenous vein graft to the left circumflex artery is patent along with the [place] right coronary artery. In short, her coronary artery disease should be medically managed. I will arrange follow-up as an outpatient. Physical Exam 2 Vital Signs (Past 24 Hours): Last Vital Signs Temp 36.7 C 05/02/18 11:44 Pulse 80 05/02/18 12:44 Resp 18 05/02/18 12:44 BP 138/84 05/02/18 12:44 Pulse Ox 98 05/02/18 12:44
[2018-05-02] MEDS ORDERED: ISOSORBIDE MONO EXTENDED REL 30 MG TABCR PO STA (15:35)
--- NOTE | 2018-05-02 18:17 | Discharge Summary ---
Date of Service May 02, 2018 Admission HPI Per Admitting Provider 82 YO female followed by Dr. Hubert Bangura for Family Medicine and Dr. Nolasco for Cardiology. History of coronary artery disease, s/p NSTEMI and CABG x 2 (BOWEN to LAD and SVG to OM1). Also has history of thromboembolic disease on rivaroxaban and other problems as noted. She has done well from a cardiac perspective since her CABG. Noted dyspnea on exertion over past few days. Today she developed chest pain and dyspnea while working on a quilt. Pain described as midsternal pressure that radiated to her left arm. Severity rated as 7/10. Has some nausea, no emesis. Took SL NTG x 2 tablets; symptoms resolved after about 30 minutes. Principal Diagnosis UNSTABLE ANGINA /CORONARY ARTERY DISEASE /CABG Discharge Exam Constitutional WD/WN, vitals as above no acute distress Eyes PERRL, conjunctivae normal, anicteric sclerae ENMT external ear and nose normal, oropharynx normal Mallampati Class: III Neck trachea midline, no thyromegaly Respiratory normal respiratory effort, lungs clear to auscultation Cardiovascular Rate/Rhythm: regular rate Heart Sounds: no gallop, no murmur and no cardiac rub Vessels: no JVD Extremities: normal capillary refill; no calf tenderness and no edema Gastrointestinal (Abdomen) normal bowel sounds, soft, nontender, no hepatosplenomegaly Musculoskeletal Head/Neck/Chest: neck supple Extremities: strength 5/5 throughout; no cyanosis and no clubbing Skin no rashes, warm and dry Psychiatric Orientation: alert and oriented x 3 Affect: euthymic affect Lymphatic no cervical lymphadenopathy Discharge Data Allergies Allergy/AdvReac Type Severity Reaction Status Date / Time latex Allergy Intermediate RASH Verified 03/07/18 11:43 erythromycin base Allergy Unknown RASH Verified 03/07/18 11:43 Consultations 04/29/18 18:20 ED Decision to Admit Stat 04/29/18 21:01 Consult Cardiology Routine Procedures Performed Operation Date: 05/02/18 09:30 Actual Procedures p Cath, Left w/Cors Vent Grafts - Vaibhav Salmon, s Cineradiography w/Routine Exam - Vaibhav Salmon DO Ordered Studies 05/02/18 06:36 CL Cath Imgs for PACS use only Routine Hospital Course (1) Crescendo angina: presented with chest heaviness with typical angina symptom improved with Nitro cardiac markers been negative having intermittent chest heaviness with exertion s/p catheterization shows essentially has an atretic LG graft to the LAD due to competitive flow from the [place] artery. The saphenous vein graft to the left circumflex artery is patent along with the [place] right coronary artery. appreciate cardiology input recommends medical management resume Xarelto in 2 days (2) CAD (coronary artery disease): S/P CABG x 2: Previous CABG in 2016 the patient received a BOWEN to the LAD and a saphenous vein graft to marginal branch. presented wtih symptoms consistent with unstable angina. serial troponin normal. No acute EKG changes at rest. Continue metoprolol. appreciate input from Cardiology cardiac cath today 05/02/18 : atretic LG graft to the LAD due to competitive flow from the [place] artery. The saphenous vein graft to the left circumflex artery is patent along with the [place] right coronary artery. per cardiology her coronary artery disease should be medically managed. (3) Hypertension: Continue metoprolol. (4) History of pulmonary embolism: History of DVT of lower extremity?PE has been on Xarelto which was held for the heart catheterization. can be resumed in next 2 days (5) GERD (gastroesophageal reflux disease): Continue PPI. (6) Dyslipidemia: Continue atorvastatin. (7) DVT prophylaxis: sub q heprin (8) Discharge planning issues: stable to discharge home. Family Medicine follow-up with Dr. Hubert Bangura. Cardiology follow-up with Dr. Nolasco. Total Time Total Time Spent Total Time Spent (In Minutes): 35 mins Total Time Includes: Examination of the Patient, Discharge Planning, Medication Reconciliation and Communication With Other Providers Discharge Plan Discharge Items Patient Disposition: Home - Self-Care Reason For Visit: CHEST PAIN, CAD Discharge Diagnosis: ANGINA /CORONARY ARTERY DISEASE /CABG Discharge Goals: Decrease discomfort and Diagnostic testing Activity: As commented below Non-emergency contact: Primary Care Provider Call non-emergency contact if: you have any medication questions Follow-up/Referrals: Hubert Bangura [Primary Care Provider] - 05/05/18 11:00 am Diet: Heart Healthy Addtl Provider Instructions: YOU CAN START TAKING XARELTO TILL ON Tuesday05/06/[address] HUBERT BANGURA ON Tuesday05/05/2018 @ 11 AM ACTIVITY RECOMMENDATIONS: It is common to feel weak and fatigue for a few days. * Do not drive or operate any motorized equipment for the next three days. * Limit stair usage (2 or 3 trips a day only) for the next three days. * Do not lift anything heavier than 10 pounds for the next three days. * Do not engage in vigorous exercise or any sports for the next five days. * You may shower the day after your procedure, but do not immerse the area for three days. Cleanse the site gently with soap and water. SPECIAL CARE INSTRUCTIONS: * You may replace the pressure dressing or band-aid the morning after the procedure. * After your procedure, it is normal to have a small bruise or small lump at the site. Examine your site daily for any change in the bruise or lump, redness, swelling, drainage or numbness. Notify your doctor if any change. BLEEDING: * If there is a small amount of bleeding at the site, lie down and apply firm pressure with a clean cloth for ten minutes. When the bleeding stops, lie quietly keeping the procedure limb straight for six hours. Notify your doctor as soon as possible. * If the bleeding does not stop after ten minutes or if there is a large amount of bleeding or spurting, call 911 immediately. Continue to lie down and hold firm pressure until help arrives. SKIN IRRITATION: * You may experience some redness and/or swelling in the area where radiation was administered. If any skin irritation occurs, please contact your family physician. FOLLOW UP VISIT: Keep any scheduled doctor appointments. . Prescriptions: Continue aspirin [Aspir-81] 81 mg Tablet,Delayed Release (Dr/Ec) 81 mg PO BID Qty: 0 RF: 0 atorvastatin [Lipitor] 80 mg Tablet 80 mg PO QAM Qty: 0 RF: 0 omeprazole 40 mg Capsule,Delayed Release(Dr/Ec) 40 mg PO DAILY PRN (Reason: Gastric Reflux) Qty: 0 RF: 0 calcium carbonate-vitamin D3 [Caltrate 600 + D] 600 mg (1,500 mg)-800 unit Tablet,Chewable 1 tab PO QAM Qty: 0 RF: 0 rivaroxaban [Xarelto] 20 mg Tablet 20 mg PO QAM Qty: 0 RF: 0 furosemide 40 mg Tablet 40 mg PO DAILY PRN (Reason: Fluid Retention) Qty: 0 RF: 0 alendronate 70 mg Tablet 70 mg PO WK Qty: 0 RF: 0 potassium chloride 10 mEq Tablet Extended Release 10 meq PO DAILY PRN (Reason: WHEN TAKES LASIX) Qty: 0 RF: 0 lorazepam 0.5 mg Tablet 0.5 mg PO TID PRN (Reason: Anxiety) Qty: 0 RF: 0 nitroglycerin [Nitrostat] 0.4 mg Tablet, Sublingual 0.4 mg Sublingual UD PRN (Reason: Chest Pain) Qty: 0 RF: 0 sennosides [Senokot] 8.6 mg Tablet 8.6 mg PO BID PRN (Reason: Constipation) Qty: 0 RF: 0 polyethylene glycol 3350 [Miralax] 17 gram Powder In Packet 17 g PO DAILY PRN (Reason: Constipation) Qty: 0 RF: 0 metoprolol succinate [Toprol XL] 25 mg Tablet Extended Release 24 Hr 25 mg PO QAM Qty: 30 RF: 0 ellen [id number] ac [[place] Oil] 1,000 mg Capsule 1 cap PO DAILY PRN (Reason: HOT FLASHES) Qty: 0 RF: 0 montelukast [Singulair] 10 mg tablet 10 mg PO DAILY RF: 0 fluticasone [Flonase Allergy Relief] 50 mcg/actuation [place],Suspension 2 spray INTRANASAL DAILY PRN (Reason: Nasal Congestion) RF: 0 cyclobenzaprine 5 mg tablet 5 mg PO Q8H PRN (Reason: Muscle Spasm) RF: 0 Visit Report Forms: My [facility] Stand-Alone Forms: My [facility]/Other Patient Handouts: Angiography Coronary Discharge Orders: Discharge Order (Routine); Ordered 05/02/18 Ordered By: Ashly Rubalcava Admission Data Admit Date/Time: 05/02/18 09:20 Attending Provider: Ashly Rubalcava Admit Provider: Mark Doan Primary Care Provider: Hubert Bangura Other Providers: Mark Doan ; Vaibhav Salmon Service: Telemetry Other Interventions: Discharge Summary Assessment (RN) Last Done: 05/02/18 17:06 DC Date/Time DO NOT enter until pt leaves facility: 05/02/18 17:39
== END 2018-05-02 17:39 | disposition home or self-care (01) | DRG 287 ==
LOC: ED 16:15 → INTOOBSV 19:57 → 2S 19:57

== ENCOUNTER 2019-03-29 12:21 | Observation (INO) ==
[2019-03-29] MEDS ORDERED: ASPIRIN CHEW 324 MG PO STA (13:14)
[2019-03-29] MEDS: NITROGLYCERIN SL 0.4 MG/TAB TAB SL PRN ×3 (14:07→14:23)
--- NOTE | 2019-03-29 14:15 | XRay Report ---
XR chest 1V portable CLINICAL HISTORY: Chest Pain pain COMPARISON STUDY: 04/29/2018 FINDINGS: The lungs are considered clear. Minimal residual chronic interstitial prominence left base. Prior median sternotomy. Minimal upper lungs are clear. IMPRESSION: No acute process. Chronic and postoperative change. The above report was generated using voice recognition software. It may contain grammatical, syntax or spelling errors. Electronically signed by: Nahum Kim M.D. 03/29/2019 2:12 PM
[2019-03-29] MEDS ORDERED: SODIUM CHLORIDE 0.9% 1000ML 500 ML IV ONE (14:19)
[2019-03-29] MEDS ORDERED: ACETAMINOPHEN 325 MG TAB PO STA (14:35)
[2019-03-29 14:56] LABS: Basophils # (auto) 0.02 K/uL (0-0.2); Basophils % (auto) 0.3 %; Eosinophils # (auto) 0.07 K/uL (0-0.5); Hematocrit (blood only) 41.8 % (37-47); Hemoglobin 13.9 g/dL (12.0-16.0); Immature Granulocytes # (auto) 0.01 K/uL (0.00-0.02); Immature Granulocytes % (auto) 0.1 %; Lymphocytes % (auto) 48.7 %; Mean Corpuscular Hgb Conc 33.3 g/dL (32-36); Mean Corpuscular Volume 90.3 fL (80-100); Mean Platelet Volume 10.9 fL (7.4-10.4); Monocytes # (auto) 0.45 K/uL (0.11-0.59); Monocytes % (auto) 6.3 %; Neutrophils # (auto) 3.13 K/uL (1.4-6.5); Neutrophils % (auto) 43.6 %; Platelet Count 199 K/uL (130-400); RDW Standard Deviation 46.1 fL (36.4-46.3); Red Blood Count 4.63 M/uL (4.2-5.4); White Blood Count 7.18 K/uL (4.8-10.8)
[2019-03-29 15:26] LABS: Alanine Aminotransferase 31 U/L (12-78); Albumin Level 3.6 gm/dl (3.4-5.0); Aspartate Aminotransferase 25 U/L (15-37); BUN Creatinine Ratio 20.2 (10-20); Blood Urea Nitrogen 18 mg/dl (7-18); Calcium 9.4 mg/dl (8.5-10.1); Carbon Dioxide 25 mmol/L (21-32); Chloride 108 mmol/L (98-107); Creatinine Clr Calc Pharmacy 50.6 ml/min; Est GFR (African American) 71.9; Glucose 99 mg/dl (70-99); Lipase 175 U/L (73-393); Magnesium 2.4 mg/dl (1.8-2.4); Potassium 3.7 mmol/L (3.5-5.1); Sodium 140 mmol/L (136-145)
[2019-03-29 15:31] LABS: Albumin Globulin Ratio 0.9 (0.9-2); Alkaline Phosphatase 73 U/L (45-117); Bilirubin,Total 0.5 mg/dl (0.2-1); Globulin 3.9 gm/dl (2.5-4.0); Total Protein 7.5 gm/dl (6.4-8.2); Troponin I < 0.015 ng/ml (0-0.045)
--- NOTE | 2019-03-29 16:23 | History & Physical Report ---
Date of Service March 29, 2019 Assessment & Plan (1) Stable angina: This is an 83yo F with a PMH of CAD (s/p CABG in 2016), HLD, h/o thromboembolism of Xarelto and other medical problems listed below who presents with chest pain x 7-10 days. -History of chest pain over the past year that worsens with exertion. Recent cardiac catheterization in Apr 2018 with atretic BOWEN graft and medical management was recommended -Currently chest pain free after ntg x 3. Pain reproducible on exam -EKG with sinus rhythm with premature supraventricular complexes, otherwise normal. Initial troponin negative -Trend troponin, monitor on telemetry, continue medical management -2D echo ordered, routine cardiology consult. Hold Xarelto in AM until evaluated by cards in case need for cath, NPO after midnight -Continue statin, aspirin, Toprol. PRN SL ntg (2) Hx of venous thromboembolic disease: Last took Xarelto this morning. Will hold AM dose for now- can either resume or start IV heparin if indicated (3) Hypertension: Normotensive -Continue Toprol (4) Anxiety: Ativan PRN (5) Dyslipidemia: Continue statin (6) GERD (gastroesophageal reflux disease): Continue PPI DVT Ppx: SCDs Code status: FULL per discussion with patient PCP: Mark Cornelius Dispo: Observation telemetry. Plan to return home once medically stable. Patient seen in collaboration with Dr. Conrad. Please see addendum. History of Present Illness Chief Complaint: chest pain Primary Care Provider: Darian Cornelius, DO This is an 83yo F with a PMH of CAD (s/p CABG in 2016), HLD, h/o thromboembolism of Xarelto and other medical problems listed below who presents with chest pain x 7-10 days. First noted chest pressure last week when [place] the [place] with associated shortness of breath. Chest pain was sharp and constant, centrally-located, 5/10 and worse with exertion. Pain is non- radiating and denies associated diaphoresis, nausea or vomiting and improves with rest to a 1/10. Denies a change in severity of pain throughout the week but notes that it does get worse with exertion. In ED today, pain resolved after 3 sublingual ntg. Was admitted for similar pain described as crescendo pain back in April 2018. Underwent a cardiac catheterization at that time which revealed an atretic BOWEN graft and medical management was recommended. Follows with Dr. Nolasco in clinic and was last seen in Jan 2019. At that time, he felt that positional chest pressure and shortness of breath she was experiencing was due to diaphragmatic compression from her abdomen and does not represent cardiac pathology no medication changes were made at that time. In ED, patient denies any chest pain after being given nitroglycerin. Denies any fever, chills, lightheadedness, visual changes, palpitations, shortness of breath, wheezing, nausea, vomiting, abdominal pain, dysuria, diarrhea or constipation. EKG with sinus rhythm with premature supraventricular complexes, otherwise normal. Initial troponin negative. CBC and BMP essentially unremarkable for abnormality. Allergies Allergy/AdvReac Type Severity Reaction Status Date / Time latex Allergy Intermediate RASH Verified 03/29/19 15:05 erythromycin base Allergy Unknown RASH Verified 03/29/19 15:05 sulfamethoxazole AdvReac Intermediate Rash Unverified 03/29/19 15:05 [From Bactrim] trimethoprim [From Bactrim] AdvReac Intermediate Rash Unverified 03/29/19 15:05 Home Medications Home Medications Medication Instructions Recorded Confirmed Type aspirin [Aspir-81] 81 mg PO BID #0 04/07/15 03/29/19 History Caltrate 600 plus D 1 tab PO BID #0 10/29/15 03/29/19 History atorvastatin [Lipitor] 80 mg PO QAM #0 10/29/15 03/29/19 History omeprazole 40 mg PO DAILY PRN #0 10/29/15 03/29/19 History Xarelto 20 mg PO QAM #0 11/27/15 03/29/19 History furosemide 40 mg PO DAILY PRN #0 02/12/16 03/29/19 History lorazepam 0.5 mg PO TID PRN #0 12/03/16 03/29/19 History nitroglycerin [Nitrostat] 0.4 mg SUBLINGUAL UD PRN #0 btl 12/03/16 03/29/19 History potassium chloride 10 meq PO DAILY PRN #0 12/03/16 03/29/19 History metoprolol succinate [Toprol XL] 25 mg PO QAM #30 tab 10/05/17 03/29/19 History polyethylene glycol 3350 [Miralax] 17 g PO DAILY PRN #0 g 10/05/17 03/29/19 History sennosides [Senokot] 8.6 mg PO BID PRN #0 tab 10/05/17 03/29/19 History fluticasone propionate [Flonase 2 spray INTRANASAL DAILY PRN 04/29/18 03/29/19 History Allergy Relief] Past Med/Surg History Medical History (Updated 03/29/19 @ 17:09 by Maria C Nix PA-C) Accelerated hypertension Anxiety (Chronic) "mild; uses Ativan once yearly " Benign neoplasm of hard palate (Chronic) CAD (coronary artery disease) (Chronic) Dyslipidemia (Chronic) GERD (gastroesophageal reflux disease) (Chronic) History of diverticulitis (Chronic) History of DVT of lower extremity (Chronic) History of pulmonary embolism (Chronic) History of superficial phlebitis (Chronic) Hx of venous thromboembolic disease Hypertension (Chronic) Occipital neuralgia (Chronic) Surgical History H/O vein stripping (Chronic) History of bladder repair surgery (Chronic) History of partial hysterectomy (Chronic) Hx of bladder repair surgery (Chronic) "cystocele repair " S/P CABG x 2 (Chronic) S/P partial resection of colon (Chronic) Family History Mother Lymphoma Colon cancer Father COPD (chronic obstructive pulmonary disease) [place] [employer] lung Brother Murder Sister Brain tumor Social History Preferred Language: Amharic Communication Ability: Effective Head Charrer Required: No Beliefs That Will Affect Care: None marital status: Current Living Situation: Spouse Current Living Situation Comment: Home Feels Safe at Home: Yes Smoking Status: Never smoker Second Hand Exposure: No ; Hx Alcohol Use: Yes Hx Substance Use: No Review of Systems Review of Systems: At least ten systems reviewed and negative except as noted in the HPI. Physical Exam Physical Exam: General Appearance: WD/WN, vitals as above, NAD, sitting up in bed, pleasant, conversing easily Head: normocephalic, atraumatic Eyes: normal inspection, PERRL, conjunctivae normal, anicteric sclerae ENT: external ear and nose normal, oropharynx normal Neck: trachea midline, no thyromegaly normal visual inspection Respiratory: lungs clear to auscultation, no wheeze, rales, rhonchi. Normal insp/exp effort, no accessory muscle use Cardiovascular: regular rate, rhythm, no murmur, normal peripheral pulses. Vess els: no JVD or carotid bruit Chest: normal inspection of chest. TTP with palpation of chest wall Abdomen/GI: normal bowel sounds, soft, nontender, no hepatosplenomegaly Extremities/Musculoskelatal: no cyanosis or clubbing, extremities motor strength 5/5 Neurologic: PERRL, EOMI, accommodation nl, no face palsy, no dysarthria, CN's II-XI intact bilaterally and moves all extremities Psychiatric: A+Ox3, euthymic affect Skin: no rashes, normal color, warm/dry Results & Data Vital Signs (Past 12 Hours) Vital Signs Temp Pulse Resp BP Pulse Ox 03/29/19 14:46 63 20 129/82 93 03/29/19 14:31 69 27 H 135/72 93 03/29/19 14:30 71 22 122/81 93 03/29/19 14:25 70 28 H 118/64 90 03/29/19 14:20 73 28 H 125/67 93 03/29/19 14:15 81 31 H 134/63 93 03/29/19 14:11 29 H 129/93 03/29/19 14:09 95 03/29/19 14:08 59 L 17 119/87 03/29/19 14:02 57 L 22 156/65 H 97 03/29/19 13:19 94 03/29/19 13:18 63 17 148/73 H 94 03/29/19 12:31 36.3 C L 67 16 157/83 H 97 Laboratory Results Short CBC 03/29/19 Range/Units 14:15 WBC 7.18 (4.8-10.8) K/uL Hgb 13.9 (12.0-16.0) g/dL Hct 41.8 (37-47) % Plt Count 199 (130-400) K/uL BMP 03/29/19 14:15 Sodium 140 Potassium 3.7 Chloride 108 H Carbon Dioxide 25 BUN 18 Creatinine 0.87 Glucose 99 Calcium 9.4 Cardiac Enzymes 03/29/19 Range/Units 14:15 Troponin I < 0.015 (0-0.045) ng/ml Liver Function 03/29/19 Range/Units 14:15 Total Bilirubin 0.5 (0.2-1) mg/dl AST 25 (15-37) U/L ALT 31 (12-78) U/L Alkaline Phosphatase 73 (45-117) U/L Albumin 3.6 (3.4-5.0) gm/dl Diagnostic Findings CXR: IMPRESSION: No acute process. Chronic and postoperative change. ECG Rhythm: sinus rhythm and other (with premature SVCs) Change: no significant change Supervising Physician Co-Signing Physician Notes Patient is an 83-year-old female with history of coronary artery disease S/P CABG, history of DVT on chronic anticoagulation with Xarelto, dyslipidemia and other problems presents with history of worsening chest pain since 1 week duration. Chest pain increases with exertion and improves with rest. Patient had BOWEN to LAD and SVG to OM1 in the past. Her last stress test, cardiac catheterization is in April 2018. While in ED chest pain improved with nitroglycerin. Please review HPI for complete details of presentation. Initial cardiac enzymes are negative. EKG is not suggestive of acute ischemia. On exam patient is moderately built and nourished, normocephalic atraumatic, lungs are clear to auscultation, no apparent distress, S1-S2, no murmur, abdomen soft nontender, grossly no focal neurological deficits, no pedal edema. Chest pain is reproducible with palpation. Patient is admitted for management of chest pain rule out ACS. Symptoms suggestive of stable angina. Continue aspirin, statin, metoprolol. Check resting echo, trend cardiac enzymes. Agree with holding Xarelto for now. Cardiology consulted. Likely not a candidate for nitrates secondary to low relatively low blood pressure. I personally reviewed the record. Patient is interviewed and examined at bedside. Patient's care is coordinated with Maria C Nix PA-C. Please refer to the documentation above for details of patient's presentation and for discussion of other issues. (1) GERD (gastroesophageal reflux disease) Esophagitis presence: without esophagitis Qualified Code(s): K21.9 - Gastro- esophageal reflux disease without esophagitis (2) Hypertension Hypertension type: essential hypertension Qualified Code(s): I10 - Essential (primary) hypertension
[2019-03-29] MEDS ORDERED: POLYETHYLENE (MIRALAX) 17 GM PACK PO PRN ×2 (17:40)
[2019-03-29] MEDS ORDERED: FUROSEMIDE 40 MG TAB PO PRN (17:40)
[2019-03-29] MEDS ORDERED: ONDANSETRON INJ 2 MG/ML 2 ML VIAL IV PRN (17:40)
[2019-03-29] MEDS ORDERED: SENNA 8.6 MG TAB PO PRN (17:40)
[2019-03-29] MEDS ORDERED: ACETAMINOPHEN 325 MG TAB PO PRN (17:40)
[2019-03-29] MEDS ORDERED: LORazepam 0.5 MG TAB PO PRN (17:40)
[2019-03-29] MEDS ORDERED: FLUTICASONE PROPIONATE NA SPR 16 GM BTL NAE PRN (17:40)
[2019-03-29] MEDS ORDERED: POTASSIUM CHLORIDE 10 MEQ TABCR PO PRN (17:40)
[2019-03-29] MEDS ORDERED: PANTOprazole 40 MG TAB PO PRN (17:46)
--- NOTE | 2019-03-29 20:23 | Emergency Department Note ---
Entered by Rosangela Soliz acting as a scribe for Larry Walters MD History of Present Illness General Chief complaint: Shortness of Breath/Dyspnea Stated complaint: SOB, PRESSURE IN CHEST Time Seen by Provider: 03/29/19 13:00 Source: patient History of Present Illness Onset (ago): day(s) 10 Location: chest Pain Consistency: + other (episode) Maximum Pain Intensity: 4 Quality: + other (shortness of breath) Exacerbated By: + movement (exertion) Associated symptoms: + chest pain, + cough and + other (dizziness, leg swelling) The patient is an 83 year old female w/ PMHx CABG, anxiety, HTN, CAD, GERD, diverticulitis. PE, and venous thromboembolic disease who presents to the ED w/ CC of an episode of shortness of breath starting 10 days ago. The patient states that 10 days ago she noticed that she was having chest pain that is worse with exertion and bending over. She states that it has caused her to feel short of breath and dizzy. She states that she has also had some leg swelling that was symmetric and improved with Lasix. The patient complains of a nonproductive cough. The patient denies missing any medications, use of alcohol, and being a smoker. Home Medications Home Medications Medication Instructions Recorded Confirmed Type aspirin [Aspir-81] 81 mg PO BID #0 04/07/15 03/29/19 History Caltrate 600 plus D 1 tab PO BID #0 10/29/15 03/29/19 History atorvastatin [Lipitor] 80 mg PO QAM #0 10/29/15 03/29/19 History omeprazole 40 mg PO DAILY PRN #0 10/29/15 03/29/19 History Xarelto 20 mg PO QAM #0 11/27/15 03/29/19 History furosemide 40 mg PO DAILY PRN #0 02/12/16 03/29/19 History lorazepam 0.5 mg PO TID PRN #0 12/03/16 03/29/19 History nitroglycerin [Nitrostat] 0.4 mg SUBLINGUAL UD PRN #0 btl 12/03/16 03/29/19 History potassium chloride 10 meq PO DAILY PRN #0 12/03/16 03/29/19 History metoprolol succinate [Toprol XL] 25 mg PO QAM #30 tab 10/05/17 03/29/19 History polyethylene glycol 3350 [Miralax] 17 g PO DAILY PRN #0 g 10/05/17 03/29/19 History sennosides [Senokot] 8.6 mg PO BID PRN #0 tab 10/05/17 03/29/19 History fluticasone propionate [Flonase 2 spray INTRANASAL DAILY PRN 04/29/18 03/29/19 History Allergy Relief] Allergies Allergy/AdvReac Type Severity Reaction Status Date / Time latex Allergy Intermediate RASH Verified 03/29/19 15:05 erythromycin base Allergy Unknown RASH Verified 03/29/19 15:05 sulfamethoxazole AdvReac Intermediate Rash Unverified 03/29/19 15:05 [From Bactrim] trimethoprim [From Bactrim] AdvReac Intermediate Rash Unverified 03/29/19 15:05 Past Med/Surg History Medical History Accelerated hypertension Anxiety (Chronic) "mild; uses Ativan once yearly " Benign neoplasm of hard palate (Chronic) CAD (coronary artery disease) (Chronic) Dyslipidemia (Chronic) GERD (gastroesophageal reflux disease) (Chronic) History of diverticulitis (Chronic) History of DVT of lower extremity (Chronic) History of pulmonary embolism (Chronic) History of superficial phlebitis (Chronic) Hx of venous thromboembolic disease Hypertension (Chronic) Occipital neuralgia (Chronic) Surgical History H/O vein stripping (Chronic) History of bladder repair surgery (Chronic) History of partial hysterectomy (Chronic) Hx of bladder repair surgery (Chronic) "cystocele repair " S/P CABG x 2 (Chronic) S/P partial resection of colon (Chronic) Family History Mother Lymphoma Colon cancer Father COPD (chronic obstructive pulmonary disease) [place] miners' lung Brother Murder Sister Brain tumor Social History Preferred Language: Spanish Communication Ability: Effective Superintendent Nonselling Required: No Beliefs That Will Affect Care: None marital status: Current Living Situation: Spouse Current Living Situation Comment: Home Other Information That Helps Us Care for You: No Feels Safe at Home: Yes Safety Concerns: Feels Safe At This Time Smoking Status: Never smoker Second Hand Exposure: No ; Hx Alcohol Use: Yes Hx Substance Use: No Review of Systems See HPI for pertinent positives & negatives. and A total of 10 systems reviewed and were otherwise negative Physical Exam Vital Signs Vital Signs - 24 hr 03/29/19 12:31 03/29/19 13:18 03/29/19 13:19 Temperature 36.3 C L Temperature Source Oral Pulse Rate 67 63 Pulse Rate from SpO2 Sensor 64 Pulse Rhythm Regular Pulse Strength Normal Respiratory Rate 16 17 Respiratory Effort / Characteristics Non-Labored Respiratory Depth Normal Respiratory Pattern Regular Blood Pressure 157/83 H 148/73 H Blood Pressure Mean 107 98 Blood Pressure Position Sitting Pulse Oximetry 97 94 94 Oxygen Delivery Method Room Air Room Air Sepsis Recent Fever Within 48 Hours No Sepsis Action Taken by Nursing No Action Required 03/29/19 14:02 03/29/19 14:08 03/29/19 14:09 Temperature Temperature Source Pulse Rate 57 L 59 L Pulse Rate from SpO2 Sensor 57 L Pulse Rhythm Pulse Strength Respiratory Rate 22 17 Respiratory Effort / Characteristics Respiratory Depth Respiratory Pattern Blood Pressure 156/65 H 119/87 Blood Pressure Mean 93 99 Blood Pressure Position Pulse Oximetry 97 95 Oxygen Delivery Method Room Air Sepsis Recent Fever Within 48 Hours Sepsis Action Taken by Nursing 03/29/19 14:11 03/29/19 14:15 03/29/19 14:20 Temperature Temperature Source Pulse Rate 81 73 Pulse Rate from SpO2 Sensor 80 72 Pulse Rhythm Pulse Strength Respiratory Rate 29 H 31 H 28 H Respiratory Effort / Characteristics Respiratory Depth Respiratory Pattern Blood Pressure 129/93 134/63 125/67 Blood Pressure Mean 107 78 82 Blood Pressure Position Pulse Oximetry 93 93 Oxygen Delivery Method Sepsis Recent Fever Within 48 Hours Sepsis Action Taken by Nursing 03/29/19 14:25 03/29/19 14:30 03/29/19 14:31 Temperature Temperature Source Pulse Rate 70 71 69 Pulse Rate from SpO2 Sensor 70 71 68 Pulse Rhythm Pulse Strength Respiratory Rate 28 H 22 27 H Respiratory Effort / Characteristics Respiratory Depth Respiratory Pattern Blood Pressure 118/64 122/81 135/72 Blood Pressure Mean 85 94 82 Blood Pressure Position Pulse Oximetry 90 93 93 Oxygen Delivery Method Sepsis Recent Fever Within 48 Hours Sepsis Action Taken by Nursing 03/29/19 14:46 03/29/19 15:01 03/29/19 15:15 Temperature Temperature Source Pulse Rate 63 58 L 66 Pulse Rate from SpO2 Sensor 62 59 L 66 Pulse Rhythm Pulse Strength Respiratory Rate 20 16 18 Respiratory Effort / Characteristics Respiratory Depth Respiratory Pattern Blood Pressure 129/82 111/50 L 100/58 L Blood Pressure Mean 88 64 73 Blood Pressure Position Pulse Oximetry 93 92 91 Oxygen Delivery Method Sepsis Recent Fever Within 48 Hours Sepsis Action Taken by Nursing 03/29/19 15:30 03/29/19 15:45 03/29/19 16:00 Temperature Temperature Source Pulse Rate 64 61 66 Pulse Rate from SpO2 Sensor 57 L 60 66 Pulse Rhythm Pulse Strength Respiratory Rate 22 16 20 Respiratory Effort / Characteristics Respiratory Depth Respiratory Pattern Blood Pressure 114/60 109/56 L 102/57 L Blood Pressure Mean 77 73 66 Blood Pressure Position Pulse Oximetry 92 92 93 Oxygen Delivery Method Sepsis Recent Fever Within 48 Hours Sepsis Action Taken by Nursing 03/29/19 16:15 Temperature Temperature Source Pulse Rate 63 Pulse Rate from SpO2 Sensor 63 Pulse Rhythm Pulse Strength Respiratory Rate 17 Respiratory Effort / Characteristics Respiratory Depth Respiratory Pattern Blood Pressure 101/68 Blood Pressure Mean 78 Blood Pressure Position Pulse Oximetry 96 Oxygen Delivery Method Sepsis Recent Fever Within 48 Hours Sepsis Action Taken by Nursing GENERAL: Well appearing, well nourished, NAD, non-toxic. Wearing glasses. EYE EXAM: Normal conjunctiva. PERRL, no anisocoria and EOM's grossly intact w/o pain. OROPHARYNX: Moist mucous membranes. Grossly normal dentition. NECK: Supple, no nuchal rigidity, no adenopathy, non-tender. No signs of meningismus. LUNGS: Clear to auscultation. Normal chest wall mechanics. HEART: NSR, no MRG. CHEST: Midline sternotomy scar present. ABDOMEN: Abdomen soft, non-tender, normo-active bowel sounds, no masses, no rebound or guarding. BACK: No CVA TTP. SKIN: No rashes and no bruising. UPPER EXTREMITIES: Upper extremities are grossly normal. LOWER EXTREMITIES: No pitting edema. No calf pain. Negative homans sign. NEURO EXAM: A&O x3, cranial nerves II-XII grossly intact, normal speech, moves all 4 extremities on command w/o issue. Course Course 1310: The patient was evaluated in room B8. A complete history and physical exam was performed. 1312: Orders were placed and the patient was started on the grocery checker at this time. 1433: Nursing staff called to inform me that the patient's chest pain resolved with Nitroglycerin. 1601: I discussed the patient's case with RODOLFO Titus. She will evaluate the patient for further management under Dr. Conrad's service. 1605: I reevaluated the patient and updated her on her test results. I discussed the treatment plan with her. She verbally agrees and understands. Administered Medications Aspirin (Ecotrin Ectab) 81 mg PO BID [facility] Stop: 04/29/19 08:59 Last Admin: 03/30/19 09:00 Dose: 81 mg Documented by: [id number] Atorvastatin Calcium (Lipitor) [facility] Stop: 04/29/19 08:59 Last Admin: 03/30/19 09:00 Dose: 80 mg Documented by: [id number] Metoprolol Succinate (Toprol Xl) 25 [facility] [place] Stop: 04/29/19 08:59 Last Admin: 03/30/19 09:00 Dose: 25 mg Documented by: [id number] Multivitamins/Minerals (Caltrate Plus) 1 tab PO BID [facility] Stop: 04/28/19 20:59 Last Admin: 03/30/19 09:00 Dose: 1 tab Documented by: [id number] Admin: 03/29/19 20:36 Dose: 1 tab Documented by: [id number] Nitroglycerin (Nitrostat) 0.4 mg SL UD PRN PRN Reason: Chest Pain Stop: 04/28/19 13:13 Last Admin: 03/29/19 14:23 Dose: 0.4 mg Documented by: [id number] Admin: 03/29/19 14:17 Dose: 0.4 mg Documented by: [id number] Admin: 03/29/19 14:07 Dose: 0.4 mg Documented by: [id number] Discontinued Medications Acetaminophen (Tylenol) 650 mg PO NOW STA Stop: 03/29/19 14:36 Last Admin: 03/29/19 14:57 Dose: 650 mg Documented by: [id number] Aspirin (Aspirin) 324 mg PO NOW STA Stop: 03/29/19 13:15 Last Admin: 03/29/19 14:07 Dose: 324 mg Documented by: [id number] Sodium Chloride (Nss 1000ml) 500 mls @ 999 mls/hr IV .Q31M ONE Stop: 03/29/19 14:49 Last Infusion: 03/29/19 14:50 Dose: 0 mls/hr Documented by: [id number] Admin: 03/29/19 14:20 Dose: 999 mls/hr Documented by: [id number] Perflutren Lipid Microsphere (Definity) 2 ml IV ONCE ONE Stop: 03/30/19 07:15 Last Admin: 03/30/19 07:14 Dose: 2 ml Documented by: [id number] Medical Decision Making Differential Diagnosis Differential diagnoses includes but is not limited to acute coronary syndrome, myocardial infarction, pericarditis, pulmonary embolus, aortic dissection, pneumonia, pneumothorax, musculoskeletal, shingles, esophageal. Medical Records Attestation: I reviewed the patient's medical records. Home Medications Current Medication List: was personally reviewed by me Laboratory Data Attestation: I reviewed the patient's lab results. Result diagrams: 03/30/19 06:05 03/30/19 06:05 Lab Results 03/29/19 03/29/19 Range/Units 14:15 14:15 WBC 7.18 (4.8-10.8) K/uL RBC 4.63 (4.2-5.4) M/uL Hgb 13.9 (12.0-16.0) g/dL Hct 41.8 (37-47) % MCV 90.3 (80-100) fL MCH 30.0 (25-34) pg MCHC 33.3 (32-36) g/dL RDW Std Deviation 46.1 (36.4-46.3) fL RDW Coeff of Derick 14.0 (11.5-14.5) % Plt Count 199 (130-400) K/uL MPV 10.9 H (7.4-10.4) fL Immature Gran % (Auto) 0.1 % Neut % (Auto) 43.6 % Lymph % (Auto) 48.7 % [place] % (Auto) 6.3 % Eos % (Auto) 1.0 % Baso % (Auto) 0.3 % Immature Gran # (Auto) 0.01 (0.00-0.02) K/uL Neut # (Auto) 3.13 (1.4-6.5) K/uL Lymph # (Auto) 3.50 H (1.2-3.4) K/uL [place] # (Auto) 0.45 (0.11-0.59) K/uL Eos # (Auto) 0.07 (0-0.5) K/uL Baso # (Auto) 0.02 (0-0.2) K/uL Sodium 140 (136-145) mmol/L Potassium 3.7 (3.5-5.1) mmol/L Chloride 108 H (98-107) mmol/L Carbon Dioxide 25 (21-32) mmol/L Anion Gap 7.0 (3-11) BUN 18 (7-18) mg/dl Creatinine 0.87 (0.6-1.2) mg/dl Est Cr Clr Drug Dosing 50.6 ml/min Est GFR ( Amer) 71.9 Est GFR (Non-Af Amer) 62.0 BUN/Creatinine Ratio 20.2 H (10-20) Glucose 99 (70-99) mg/dl Calcium 9.4 (8.5-10.1) mg/dl Magnesium 2.4 (1.8-2.4) mg/dl Total Bilirubin 0.5 (0.2-1) mg/dl AST 25 (15-37) U/L ALT 31 (12-78) U/L Alkaline Phosphatase 73 (45-117) U/L Troponin I < 0.015 (0-0.045) ng/ml Total Protein 7.5 (6.4-8.2) gm/dl Albumin 3.6 (3.4-5.0) gm/dl Globulin 3.9 (2.5-4.0) gm/dl Albumin/Globulin Ratio 0.9 (0.9-2) Lipase 175 (73-393) U/L Imaging Data Radiologist's Impression: Radiology results as stated below per my review and the radiologist's interpretation: XR chest 1V portable CLINICAL HISTORY: Chest Pain pain COMPARISON STUDY: 04/29/2018 FINDINGS: The lungs are considered clear. Minimal residual chronic interstitial prominence left base. Prior median sternotomy. Minimal upper lungs are clear. IMPRESSION: No acute process. Chronic and postoperative change. The above report was generated using voice recognition software. It may contain grammatical, syntax or spelling errors. Electronically signed by: Nahum Kim M.D. 03/29/2019 2:12 PM ECG Data Attestation: I personally reviewed and interpreted this ECG as follows: Indication: + chest pain and + SOB/dyspnea Rate (beats per minute): 65 Rhythm: + sinus rhythm ECG Intervals/blocks: + Normal QRS, + Normal [place] and + Normal QT-c ECG [place]: + Normal ECG ST segments: no ST depression and no ST elevation Blood Pressure Blood Pressure Findings: Normal blood pressure Blood Pressure Disposition: did not require urgent referral MDM Narrative The patient is an 83 year old female w/ PMHx CABG, anxiety, HTN, CAD, GERD, diverticulitis. PE, and venous thromboembolic disease who presents to the ED w/ CC of an episode of shortness of breath starting 10 days ago. Patient was seen and evaluated the bedside. Known history of CABG. The patient was complaining of worsening more persistent chest pressure. Somewhat exertional and positional. No nausea vomiting. The patient did have some lower extremity swelling which did improve with Lasix. The patient is fairly well- appearing at the bedside. She is not taking anything for her discomfort. The patient was given additional nitro and rest of a full dose aspirin. EKG does not show any acute changes. Troponin is nondetectable. The patient's chest pressure resolved after 3 nitros and a full aspirin. Patient is currently anticoagulated believe PE to be less likely. Chest x-ray does not show any acute process. Patient's other blood counts are fairly reassuring. May be somewhat dehydrated as the patient was given some IV fluids. I did speak the on-call hospitalist after updating the patient the patient was agreeable to observation and treatment. Patient was admitted to the medicine service. Impression & Plan Atypical chest pain, Dehydration Discharge Plan Visit Data *Final* Discharge Date/Time: 03/29/19 17:06 Chief Complaint: Shortness of Breath/Dyspnea Stated Complaint: SOB, PRESSURE IN CHEST ED Provider: Larry Walters Discharge Problem: Atypical chest pain, Dehydration Patient Disposition: Being Evaluated by Hospitalist Discharge Instructions Interventions: ED Discharge Assessment Last Done: 03/29/19 17:06 The scribe's documentation has been prepared under my direction and personally reviewed by me in its entirety. I confirm that the note above accurately ref lects all work, treatment, procedures, and medical decision making performed by me.
[2019-03-29] MEDS: CALCIUM 600MG + VIT D 400 IU TAB PO SCH (20:36)
[2019-03-30 06:32] LABS: Hematocrit (blood only) 41.1 % (37-47); Hemoglobin 13.4 g/dL (12.0-16.0); Mean Corpuscular Hemoglobin 29.6 pg (25-34); Mean Corpuscular Hgb Conc 32.6 g/dL (32-36); Mean Corpuscular Volume 90.9 fL (80-100); Mean Platelet Volume 10.6 fL (7.4-10.4); Platelet Count 188 K/uL (130-400); RDW Coefficient of Variation 13.9 % (11.5-14.5); RDW Standard Deviation 46.5 fL (36.4-46.3); Red Blood Count 4.52 M/uL (4.2-5.4); White Blood Count 5.48 K/uL (4.8-10.8)
[2019-03-30 07:07] LABS: Calcium 9.1 mg/dl (8.5-10.1); Creatinine Clr Calc Pharmacy 39.4 ml/min; Est GFR (African American) 58.6; Est GFR (Non-African American) 50.6; Potassium 4.3 mmol/L (3.5-5.1)
[2019-03-30] MEDS ORDERED: PERFLUTREN LIPID MICROSPHERE (DEFINITY) IV ONE (07:14)
[2019-03-30] MEDS: CALCIUM 600MG + VIT D 400 IU TAB PO SCH (09:00)
[2019-03-30] MEDS ORDERED: ASPIRIN 81 MG ECTAB PO SCH (09:00)
[2019-03-30] MEDS ORDERED: METOPROLOL SUCC 25MG EXT REL TAB PO SCH (09:00)
[2019-03-30] MEDS ORDERED: ATORVASTATIN 40 MG TAB PO SCH (09:00)
--- NOTE | 2019-03-30 12:20 | Cardiology Consultation ---
Date of Consultation March 30, 2019 Assessment & Plan (1) Atypical chest pain: 83-year-old female with complex coronary artery disease status post coronary artery bypass grafting x2 here today for evaluation of chest discomfort. Discomfort is atypical by history, suggesting musculoskeletal etiology as well as possible GERD. EKGs without acute change. Troponin I negative x2. Resting echocardiography is pending. Catheterization last in April 2018 widely patent right coronary and LAD arteries, 50% ostial stenosis of the left main trunk, occluded left circumflex proximally with a patent saphenous vein graft to the first marginal branch, and an atretic LG graft due to failure to mature from competitive flow from the [place] LAD. We will continue medical management. Trial Isordil, 10 mg twice per day. Increased activity as tolerated. Outpatient cardiology follow-up with Dr. Nolasco. Patient was seen and examined personally. Agree with assessment as above. Patient presented with atypical chest discomfort. EKG and troponins normal. Will increase nitrates slightly as above Follow-up with cardiology as scheduled Miguel Ángel Sanders MD History of Present Illness Reason for Consultation: Chest pain Requesting Physician: Boyd Attending Physician: Clyde Fowler MD History of Present Illness Mrs. Maya Shultz is a pleastant 83-year-old female who is being seen at the request of Maria C Nix. Reason for consultation is chest pain. and son are present for my entire evaluation. The patient describes experiencing chest discomfort that is been persistent for the last 3 weeks. She describes a sensation of somebody sitting on the chest or tightness that is been constant x 3 weeks. It has not necessarily been aggravated by activity. Nonradiating. No associated symptoms. Symptoms are aggravated by leaning forward especially with the head bent down. She notes concern for the vein graft from the leg being loose in the chest. In the emergency room she was given 3 sublingual nitroglycerin with eventual resolution after approximately 15 minutes. Notes her symptoms are somewhat similar to those which led to hospitalization in April 2018, undergoing diagnostic cardiac catheterization at that time with recommendations for ongoing medical management. EKGs without acute change. Troponin negative x2. Resting echocardiography pending. Continuous telemetry monitoring reveals sinus rhythm in the 60s and 70s. History: Coronary artery disease Status post CABG x2 with a BOWEN to the LAD and vein graft to OM1, October 2015. Catheterization in April 2018 with an atretic BOWEN graft. Pulmonary embolism on chronic Xarelto anticoagulation. GERD. Dyslipidemia. Hypertension Allergies Allergy/AdvReac Type Severity Reaction Status Date / Time latex Allergy Intermediate RASH Verified 03/29/19 15:05 erythromycin base Allergy Unknown RASH Verified 03/29/19 15:05 sulfamethoxazole AdvReac Intermediate Rash Unverified 03/29/19 15:05 [From Bactrim] trimethoprim [From Bactrim] AdvReac Intermediate Rash Unverified 03/29/19 15:05 Home Medications Home Medications Medication Instructions Recorded Confirmed Type aspirin [Aspir-81] 81 mg PO BID #0 04/07/15 03/29/19 History Caltrate 600 plus D 1 tab PO BID #0 10/29/15 03/29/19 History atorvastatin [Lipitor] 80 mg PO QAM #0 10/29/15 03/29/19 History omeprazole 40 mg PO DAILY PRN #0 10/29/15 03/29/19 History Xarelto 20 mg PO QAM #0 11/27/15 03/29/19 History furosemide 40 mg PO DAILY PRN #0 02/12/16 03/29/19 History lorazepam 0.5 mg PO TID PRN #0 12/03/16 03/29/19 History nitroglycerin [Nitrostat] 0.4 mg SUBLINGUAL UD PRN #0 btl 12/03/16 03/29/19 History potassium chloride 10 meq PO DAILY PRN #0 12/03/16 03/29/19 History metoprolol succinate [Toprol XL] 25 mg PO QAM #30 tab 10/05/17 03/29/19 History polyethylene glycol 3350 [Miralax] 17 g PO DAILY PRN #0 g 10/05/17 03/29/19 History sennosides [Senokot] 8.6 mg PO BID PRN #0 tab 10/05/17 03/29/19 History fluticasone propionate [Flonase 2 spray INTRANASAL DAILY PRN 04/29/18 03/29/19 History Allergy Relief] isosorbide dinitrate 10 mg PO BID@0700,1200 30 Days #60 03/30/19 Rx tab Patient History Medical History Accelerated hypertension Anxiety (Chronic) "mild; uses Ativan once yearly " Benign neoplasm of hard palate (Chronic) CAD (coronary artery disease) (Chronic) Dyslipidemia (Chronic) GERD (gastroesophageal reflux disease) (Chronic) History of diverticulitis (Chronic) History of DVT of lower extremity (Chronic) History of pulmonary embolism (Chronic) History of superficial phlebitis (Chronic) Hx of venous thromboembolic disease Hypertension (Chronic) Occipital neuralgia (Chronic) Surgical History H/O vein stripping (Chronic) History of bladder repair surgery (Chronic) History of partial hysterectomy (Chronic) Hx of bladder repair surgery (Chronic) "cystocele repair " S/P CABG x 2 (Chronic) S/P partial resection of colon (Chronic) Family History Mother Lymphoma Colon cancer Father COPD (chronic obstructive pulmonary disease) [place] miners' lung Brother Murder Sister Brain tumor Social History Preferred Language: Icelandic Communication Ability: Effective Communication Technician Required: No Beliefs That Will Affect Care: None marital status: Current Living Situation: Spouse Current Living Situation Comment: Home Other Information That Helps Us Care for You: No Feels Safe at Home: Yes Safety Concerns: Feels Safe At This Time Smoking Status: Never smoker Second Hand Exposure: No ; Hx Alcohol Use: Yes Hx Substance Use: No Review of Systems Review of Systems: All systems reviewed & are unremarkable except as noted in HPI & below Constitutional: no fever and no chills Eyes: no worsening vision Ear, Nose, Mouth, Throat: + tinnitus Respiratory: + dyspnea on exertion; no cough, no chest congestion and no hemoptysis Cardiovascular: + chest pain at rest; no orthopnea and no syncope Gastrointestinal: no nausea and no vomiting Genitourinary: no dysuria Integumentary: no rash Neurologic: no falls Physical Exam Physical Exam: General: A&Ox3. NAD. HEENT: Normocephalic. Atraumatic. PER. Conjunctiva pink, sclera clear. No carotid bruits. No JVD. No HJR. Heart: RRR. Soft apical systolic murmur. Lungs: Clear to auscultation. Abdomen: +BS. Soft. Nontender. No masses or organomegaly. Extremities: No clubbing, cyanosis, or edema. Limited neurological examination is without focal deficits. Pulses: radial=2/4, posterior tibial=2/4. Results & Data Vital Signs (Past 12 Hours) Vital Signs Temp Pulse Resp BP BP Pulse Ox 03/30/19 11:52 37.0 C 61 18 141/79 H 94 03/30/19 07:00 36.7 C 72 16 118/69 94 03/30/19 04:13 37.0 C 71 17 119/62 96 Laboratory Results Laboratory Results - last 24 hr 03/29/19 03/29/19 03/30/19 14:15 14:15 06:05 WBC 7.18 5.48 RBC 4.63 4.52 Hgb 13.9 13.4 Hct 41.8 41.1 MCV 90.3 90.9 MCH 30.0 29.6 MCHC 33.3 32.6 RDW Std Deviation 46.1 46.5 H RDW Coeff of Derick 14.0 13.9 Plt Count 199 188 MPV 10.9 H 10.6 H Immature Gran % (Auto) 0.1 Neut % (Auto) 43.6 Lymph % (Auto) 48.7 [place] % (Auto) 6.3 Eos % (Auto) 1.0 Baso % (Auto) 0.3 Immature Gran # (Auto) 0.01 Neut # (Auto) 3.13 Lymph # (Auto) 3.50 H [place] # (Auto) 0.45 Eos # (Auto) 0.07 Baso # (Auto) 0.02 Sodium 140 Potassium 3.7 Chloride 108 H Carbon Dioxide 25 Anion Gap 7.0 BUN 18 Creatinine 0.87 Est Cr Clr Drug Dosing 50.6 Est GFR ( Amer) 71.9 Est GFR (Non-Af Amer) 62.0 BUN/Creatinine Ratio 20.2 H Glucose 99 Calcium 9.4 Magnesium 2.4 Total Bilirubin 0.5 AST 25 ALT 31 Alkaline Phosphatase 73 Troponin I < 0.015 Total Protein 7.5 Albumin 3.6 Globulin 3.9 Albumin/Globulin Ratio 0.9 Lipase 175 03/30/19 03/30/19 06:05 06:05 WBC RBC Hgb Hct MCV MCH MCHC RDW Std Deviation RDW Coeff of Derick Plt Count MPV Immature Gran % (Auto) Neut % (Auto) Lymph % (Auto) [place] % (Auto) Eos % (Auto) Baso % (Auto) Immature Gran # (Auto) Neut # (Auto) Lymph # (Auto) [place] # (Auto) Eos # (Auto) Baso # (Auto) Sodium 140 Potassium 4.3 D Chloride 109 H Carbon Dioxide 27 Anion Gap 4.0 BUN 22 H Creatinine 1.03 Est Cr Clr Drug Dosing 39.4 Est GFR ( Amer) 58.6 Est GFR (Non-Af Amer) 50.6 BUN/Creatinine Ratio 21.0 H Glucose 100 H Calcium 9.1 Magnesium Total Bilirubin AST ALT Alkaline Phosphatase Troponin I < 0.015 Total Protein Albumin Globulin Albumin/Globulin Ratio Lipase
[2019-03-30] MEDS ORDERED: ISOSORBIDE DINITRATE 10 MG TAB PO SCH (14:00)
--- NOTE | 2019-03-30 15:09 | Hospitalist Progress Note ---
Date of Service March 30, 2019 Assessment & Plan (1) Stable angina: Chest pain (atypical chest pain versus stable angina) This is an 83yo F with a PMH of CAD (s/p CABG in 2016), HLD, h/o thromboembolism of Xarelto and other medical problems listed below who presents with chest pain x 7-10 days. -History of chest pain over the past year that worsens with exertion. Catheterization last in April 2018 widely patent right coronary and LAD arteries, 50% ostial stenosis of the left main trunk, occluded left circumflex proximally with a patent saphenous vein graft to the first marginal branch, and an atretic LG graft due to failure to mature from competitive flow from the [place] LAD. -on admission, patient was chest pain free after ntg x 3 but pain also noted to be reproducible on exam; admission EKG with sinus rhythm with premature supraventricular complexes, otherwise normal -troponins have been negative and echocardiogram does not show signs of cardiac ischemia -Patient was evaluated by cardiology service on 03/30/19: no plans for cardiac cath based on hospital evaluation and to continue medical management. Patient was started on trial of Isordil, 10 mg twice per day. -Continue statin, aspirin, beta ramu -New discharge medication of isosorbide dinitrate sent electronically to [place] [id number] [place] [address] -outpatient follow up 04/02/2019 12:15 PM Provider Sean Nolasco Jr., Department Cardiology, [facility] 04/04/2019 10:10 AM Provider Darian Cornelius DO Department [facility] (2) Hx of venous thromboembolic disease: patient may resume home dose Xarelto (3) Hypertension: Normotensive -Continue Toprol (4) Anxiety: Ativan PRN (5) Dyslipidemia: Continue statin (6) GERD (gastroesophageal reflux disease): Continue PPI DVT Ppx: SCDs Code status: FULL Discharge Diagnosis: Chest pain (atypical chest pain versus stable angina), Hypertension, History of venous thromboembolic disease Subjective Patient does not have chest pain. no shortness of breath. no acute telemetry events. no palpitations. patient able to ambulate without discomfort. no focal neurological deficits. patient eager to go home. she agrees to follow with trial of Isordil and outpatient cardiology follow up. Discharge plans discussed at length Review of Systems Review of Systems: All systems reviewed & are unremarkable except as noted in HPI & below Physical Exam Constitutional: comfortable Eyes: PERRL, conjunctivae normal, anicteric sclerae EOM intact bilaterally ENMT: external ear and nose normal, oropharynx normal Respiratory: normal respiratory effort, lungs clear to auscultation Cardiovascular: Rate/Rhythm: + bradycardic Gastrointestinal (Abdomen): normal bowel sounds, soft, nontender, no hepatosplenomegaly Musculoskeletal: Head/Neck/Chest: normocephalic and head atraumatic Neurologic: PERRL, EOMI, accommodation nl, no face palsy, no dysarthria CN's II-XI intact bilaterally Psychiatric: A+Ox3, euthymic affect Results & Data Vital Signs (Past 12 Hours) Vital Signs Temp Pulse Resp BP BP Pulse Ox 03/30/19 11:52 37.0 C 61 18 141/79 H 94 03/30/19 07:00 36.7 C 72 16 118/69 94 03/30/19 04:13 37.0 C 71 17 119/62 96 (1) GERD (gastroesophageal reflux disease) Esophagitis presence: without esophagitis Qualified Code(s): K21.9 - Gastro- esophageal reflux disease without esophagitis (2) Hypertension Hypertension type: essential hypertension Qualified Code(s): I10 - Essential (primary) hypertension
[2019-03-30] MEDS ORDERED: RIVAROXABAN 20 MG TAB PO STA (15:16)
--- NOTE | 2019-03-30 15:17 | Discharge Summary ---
Date of Service March 30, 2019 Admission HPI Per Admitting Provider This is an 83yo F with a PMH of CAD (s/p CABG in 2016), HLD, h/o thromboembolism of Xarelto and other medical problems listed below who presents with chest pain x 7-10 days. First noted chest pressure last week when she was walking in the mall with associated shortness of breath. Chest pain was sharp and constant, centrally-located, 5/10 and worse with exertion. Pain is non-radiating and denies associated diaphoresis, nausea or vomiting and improves with rest to a 1/10. Denies a change in severity of pain throughout the week but notes that it does get worse with exertion. In ED today, pain resolved after 3 sublingual ntg. Was admitted for similar pain described as crescendo pain back in April 2018. Underwent a cardiac catheterization at that time which revealed an atretic BOWEN graft and medical management was recommended. Follows with Dr. Nolasco in clinic and was last seen in Jan 2019. At that time, he felt that positional chest pressure and shortness of breath she was experiencing was due to diaphragmatic compression from her abdomen and does not represent cardiac pathology no medication changes were made at that time. In ED, patient denies any chest pain after being given nitroglycerin. Denies any fever, chills, lightheadedness, visual changes, palpitations, shortness of breath, wheezing, nausea, vomiting, abdominal pain, dysuria, diarrhea or constipation. EKG with sinus rhythm with premature supraventricular complexes, otherwise normal. Initial troponin negative. CBC and BMP essentially unremarkable for abnormality. Admission Exam Per Admitting Provider General Appearance: WD/WN, vitals as above, NAD, sitting up in bed, pleasant, conversing easily Head: normocephalic, atraumatic Eyes: normal inspection, PERRL, conjunctivae normal, anicteric sclerae ENT: external ear and nose normal, oropharynx normal Neck: trachea midline, no thyromegaly normal visual inspection Respiratory: lungs clear to auscultation, no wheeze, rales, rhonchi. Normal insp/exp effort, no accessory muscle use Cardiovascular: regular rate, rhythm, no murmur, normal peripheral pulses. Vessels: no JVD or carotid bruit Chest: normal inspection of chest. TTP with palpation of chest wall Abdomen/GI: normal bowel sounds, soft, nontender, no hepatosplenomegaly Extremities/Musculoskelatal: no cyanosis or clubbing, extremities motor strength 5/5 Neurologic: PERRL, EOMI, accommodation nl, no face palsy, no dysarthria, CN's II-XI intact bilaterally and moves all extremities Psychiatric: A+Ox3, euthymic affect Skin: no rashes, normal color, warm/dry Principal Diagnosis Chest pain (atypical chest pain versus stable angina), Hypertension, History of venous thromboembolic disease Discharge Exam Constitutional comfortable Eyes PERRL, conjunctivae normal, anicteric sclerae EOM intact bilaterally ENMT external ear and nose normal, oropharynx normal Respiratory normal respiratory effort, lungs clear to auscultation Cardiovascular Rate/Rhythm: + bradycardic Gastrointestinal (Abdomen) normal bowel sounds, soft, nontender, no hepatosplenomegaly Musculoskeletal Head/Neck/Chest: normocephalic and head atraumatic Neurologic PERRL, EOMI, accommodation nl, no face palsy, no dysarthria CN's II-XI intact bilaterally Psychiatric A+Ox3, euthymic affect Discharge Data Allergies Allergy/AdvReac Type Severity Reaction Status Date / Time latex Allergy Intermediate RASH Verified 03/29/19 15:05 erythromycin base Allergy Unknown RASH Verified 03/29/19 15:05 sulfamethoxazole AdvReac Intermediate Rash Unverified 03/29/19 15:05 [From Bactrim] trimethoprim [From Bactrim] AdvReac Intermediate Rash Unverified 03/29/19 15:05 Consultations 03/29/19 16:02 ED Decision to Admit Stat 03/30/19 08:00 Consult Cardiology Routine Hospital Course (1) Stable angina: Chest pain (atypical chest pain versus stable angina) This is an 83yo F with a PMH of CAD (s/p CABG in 2016), HLD, h/o thromboembolism of Xarelto and other medical problems listed below who presents with chest pain x 7-10 days. -History of chest pain over the past year that worsens with exertion. Catheterization last in April 2018 widely patent right coronary and LAD eric fermin, 50% ostial stenosis of the left main trunk, occluded left circumflex proximally with a patent saphenous vein graft to the first marginal branch, and an atretic LG graft due to failure to mature from competitive flow from the [place] LAD. -on admission, patient was chest pain free after ntg x 3 but pain also noted to be reproducible on exam; admission EKG with sinus rhythm with premature simpson praventricular complexes, otherwise normal -troponins have been negative and echocardiogram does not show signs of cardiac ischemia -Patient was evaluated by cardiology service on 03/30/19: no plans for cardiac cath based on hospital evaluation and to continue medical management. Patient was started on trial of Isordil, 10 mg twice per day. -Continue statin, aspirin, beta ramu -New discharge medication of isosorbide dinitrate sent electronically to [address] [id number] -outpatient follow up 04/02/2019 12:15 PM Provider Sean Nolasco Jr., Department Cardiology, [facility] 04/04/2019 10:10 AM Provider DO Carlos A [facility] (2) Hx of venous thromboembolic disease: patient may resume home dose Xarelto (3) Hypertension: Normotensive -Continue Toprol (4) Anxiety: Ativan PRN (5) Dyslipidemia: Continue statin (6) GERD (gastroesophageal reflux disease): Continue PPI DVT Ppx: SCDs Code status: FULL Discharge Diagnosis: Chest pain (atypical chest pain versus stable angina), Hypertension, History of venous thromboembolic disease Total Time Total Time Spent Total Time Spent (In Minutes): 40 minutes Total Time Includes: Examination of the Patient, Discharge Planning, Medication Reconciliation and Communication With Other Providers Discharge Plan Discharge Items Patient Disposition: Home - Self-Care Reason For Visit: CHEST PAIN Discharge Diagnosis: Chest pain (atypical chest pain versus stable angina), Hypertension, History of venous thromboembolic disease Condition on Discharge: Good Activity: Resume your previous activity Non-emergency contact: Primary Care Provider and School Coordinator Call non-emergency contact if: you have any medication questions Follow-up/Referrals: Darian Cornelius DO [Primary Care Provider] - Diet: Heart Healthy Addtl Attending Provider Instructions: New discharge medication of isosorbide dinitrate sent electronically to [address] [id number] 04/02/2019 12:15 PM Provider Sean Nolasco Jr., DO Department Cardiology, [facility] 04/04/2019 10:10 AM Provider DO [facility] Pending Studies at Discharge: No Stand-Alone Forms: My [facility], Smoking Cessation Medications and DC Order Prescriptions: New isosorbide dinitrate 10 mg Tablet 10 mg PO BID@0700,1200 30 Days Qty: 60 RF: 0 Continued aspirin [Aspir-81] 81 mg Tablet,Delayed Release (Dr/Ec) 81 mg PO BID Qty: 0 RF: 0 atorvastatin [Lipitor] 80 mg Tablet 80 mg PO QAM Qty: 0 RF: 0 omeprazole 40 mg Capsule,Delayed Release(Dr/Ec) 40 mg PO DAILY PRN (Reason: Gastric Reflux) Qty: 0 RF: 0 Caltrate 600 plus D 600 mg (1,500 mg)-800 unit Tablet,Chewable 1 tab PO BID Qty: 0 RF: 0 Xarelto 20 mg Tablet 20 mg PO QAM Qty: 0 RF: 0 furosemide 40 mg Tablet 40 mg PO DAILY PRN (Reason: Fluid Retention) Qty: 0 RF: 0 potassium chloride 10 mEq Tablet Extended Release 10 meq PO DAILY PRN (Reason: WHEN TAKES LASIX) Qty: 0 RF: 0 lorazepam 0.5 mg Tablet 0.5 mg PO TID PRN (Reason: Anxiety) Qty: 0 RF: 0 nitroglycerin [Nitrostat] 0.4 mg Tablet, Sublingual 0.4 mg Sublingual UD PRN (Reason: Chest Pain) Qty: 0 RF: 0 sennosides [Senokot] 8.6 mg Tablet 8.6 mg PO BID PRN (Reason: Constipation) Qty: 0 RF: 0 polyethylene glycol 3350 [Miralax] 17 gram Powder In Packet 17 g PO DAILY PRN (Reason: Constipation) Qty: 0 RF: 0 metoprolol succinate [Toprol XL] 25 mg Tablet Extended Release 24 Hr 25 mg PO QAM Qty: 30 RF: 0 fluticasone propionate [Flonase Allergy Relief] 50 mcg/actuation [place],Suspension 2 spray INTRANASAL DAILY PRN (Reason: Nasal Congestion) RF: 0 Discharge Orders: Discharge Order (Routine); Ordered 03/30/19 Ordered By: Clyde Fowler Admission Data Admit Date/Time: 03/29/19 16:25 Attending Provider: Clyde Fowler Admit Provider: Clay Conrad Primary Care Provider: Darian Cornelius Other Providers: Clay Conrad ; Sher Pichardo
[2019-03-31] MEDS ORDERED: RIVAROXABAN 20 MG TAB PO SCH (09:00)
== END 2019-03-30 16:32 | disposition home or self-care (01) ==
LOC: 2E 12:21 → ED 12:21 → SUATTDRO 16:25 → 2E 17:06

== ENCOUNTER 2020-04-09 18:16 | Observation (INO) ==
[2020-04-09] MEDS ORDERED: ASPIRIN CHEW 324 MG PO STA (18:29)
--- NOTE | 2020-04-09 18:33 | Emergency Department Note ---
Impression & Plan Chest pain, CAD (coronary artery disease), S/P CABG x 2 ED Provider Note NAME: ARELY KINNEY AGE: 84 SEX: F : 1935 ARRIVES VIA: Walk-In INFORMANT: Patient ED PROVIDER(S): Ricardo Aguilar DO CHIEF COMPLAINT: Chest pain HPI: Patient is an 84-year-old female with a past medical history of bypass x2 with last cath in 2019 with 50% stenosis as well as other minor lesions who present to the ER for chest pain. She notes that she has angina that she normally gets with exertion. Today she had pain over the left side of her chest and down her left arm. Left arm pain was far worse than what it typically is. Pain was sharp. Relieved with nitro. It lasted for about 1/2-hour. Started around 4 30-5 30. Denies any nausea or vomiting. Admits to shortness of breath. Denies any dysuria urgency or frequency. No belly pain. No other exacerbating or remitting factors. Pain is currently a 0 out of 10 at this time. ROS: See above HPI for pertinent positives & negatives. A total of 10 systems reviewed and were otherwise negative. PAST MEDICAL HISTORY:See Below PAST SURGICAL HISTORY:See Below FAMILY HISTORY:See Below SOCIAL HISTORY:See Below HOME MEDICATIONS:See Below ALLERGIES:See Below VITALS:See Below PHYSICAL EXAMINATION: GENERAL: Sitting up in bed, alert, well appearing, well nourished, no distress, non-toxic EYE EXAM: normal conjunctiva. OROPHARYNX: no exudate, no erythema, lips, buccal mucosa, and tongue normal and mucous membranes are moist NECK: supple, no nuchal rigidity, no adenopathy, non-tender LUNGS: Clear to auscultation. Normal chest wall mechanics HEART: no murmurs, S1 normal and S2 normal ABDOMEN: abdomen soft, non-tender, normo-active bowel sounds, no masses, no rebound or guarding. UPPER EXTREMITIES: upper extremities are grossly normal. LOWER EXTREMITIES: No pitting edema. Calves are equal bilateral NEURO EXAM: Normal sensorium, cranial nerves II-XII grossly intact, normal speech, no gross weakness of arms, no gross weakness of legs. MEDICAL DECISION MAKING: Patient is an 84-year-old female with a past medical history of CABG and CAD the presents the ER for chest pain. He was relieved with nitro. IV was established blood was obtained. Labs show no significant leukocytosis or anemia. BMP with a chloride of 109. LFTs bilirubin and troponin was negative. Lipase unremarkab le. Covid negative. Chest x-ray was unremarkable. EKG nondiagnostic. Pain- free upon presentation. With her history and presentation discussed with the hospitalist for observation. Triage Nursing notes reviewed. Prior medical records reviewed Vital Signs: reviewed and remarkable for HTN Differential diagnosis: Differential diagnoses includes but is not limited to acute coronary syndrome, myocardial infarction, pericarditis, pulmonary embolus, aortic dissection, pneumonia, pneumothorax, musculoskeletal, shingles, esophageal. ER treatment provided: See below Diagnostics interpreted by me: ECG: Sinus rhythm rate of 70 Normal axis PAC Poor baseline in the lateral leads QTC 406 Cardiac Monitoring: An order was placed for continuous cardiac monitoring. The monitor shows a rate of 72 with sinus rhythm. Laboratory studies: As stated above and show below. Imaging studies: Portable AP upright 1 view the chest shows no focal infiltrate or pneumothorax Consultation(s): Discussed with hospitalist for further evaluation ED COURSE: Procedures: none Critical Care: None Past Med/Surg History Medical History (Updated 04/09/20 @ 23:16 by Ricardo Aguilar DO) Accelerated hypertension Anxiety "mild; uses Ativan once yearly " Benign neoplasm of hard palate CAD (coronary artery disease) Dyslipidemia GERD (gastroesophageal reflux disease) History of diverticulitis History of DVT of lower extremity History of pulmonary embolism History of superficial phlebitis Hx of venous thromboembolic disease Hypertension Occipital neuralgia Surgical History (Updated 04/09/20 @ 23:16 by Ricardo Aguilar DO) H/O vein stripping History of bladder repair surgery History of partial hysterectomy Hx of bladder repair surgery "cystocele repair " S/P CABG x 2 S/P partial resection of colon Family History Mother Lymphoma Colon cancer Father COPD (chronic obstructive pulmonary disease) [employer] lung Brother Murder Sister Brain tumor Social History (Updated 05/25/19 @ 09:47 by Jenni Guevara) Smoking Status: Unknown if ever smoked Second Hand Exposure: No; Do You Dip or Chew Tobacco: No; Tobacco Cessation Education Requested by Patient: No Hx Alcohol Use: Yes Hx Substance Use: No Preferred Language: Iraqi Communication Ability: Effective [employer] Required: No Beliefs That Will Affect Care: None marital status: Current Living Situation: Spouse Current Living Situation Comment: Lives w/ spouse Other Information That Helps Us Care for You: No Feels Safe at Home: Yes Safety Concerns: Feels Safe At This Time Assistive Devices: None Assistive Devices Comment: Pt. has reading glasses Allergies Allergies Allergy/AdvReac Type Severity Reaction Status Date / Time latex Allergy Intermediate RASH Verified 04/09/20 20:06 erythromycin base Allergy Unknown RASH Verified 04/09/20 20:06 sulfamethoxazole AdvReac Intermediate Rash Unverified 04/09/20 20:06 [From Bactrim] trimethoprim [From Bactrim] AdvReac Intermediate Rash Unverified 04/09/20 20:06 Home Meds Home Medications Medication Instructions Recorded Confirmed Caltrate 600 plus D 1 tab PO DAILY #0 10/29/15 04/09/20 atorvastatin [Lipitor] 80 mg PO QAM #0 10/29/15 04/09/20 omeprazole 40 mg PO DAILY PRN #0 10/29/15 04/09/20 Xarelto 20 mg PO QAM #0 11/27/15 04/09/20 furosemide 40 mg PO DAILY PRN #0 02/12/16 04/09/20 lorazepam 0.5 mg PO TID PRN #0 12/03/16 04/09/20 nitroglycerin [Nitrostat] 0.4 mg SUBLINGUAL UD PRN #0 btl 12/03/16 04/09/20 potassium chloride 10 meq PO DAILY PRN #0 12/03/16 04/09/20 polyethylene glycol 3350 [Miralax] 17 g PO DAILY PRN #0 g 10/05/17 04/09/20 sennosides [Senokot] 8.6 mg PO BID PRN #0 tab 10/05/17 04/09/20 fluticasone propionate [Flonase 2 spray INTRANASAL DAILY PRN 04/29/18 04/09/20 Allergy Relief] aspirin [Aspir-Low] 81 mg PO DAILY 04/09/20 04/09/20 ellen iror-tceikacj-bkrhmbdvr ac 1 cap PO DAILY 04/09/20 04/09/20 [[place] [employer]] isosorbide dinitrate 10 mg PO BID 04/09/20 04/09/20 metoprolol succinate 25 mg PO QAM 04/09/20 04/09/20 Results & Data (ED) Vital Signs Vital Signs - 24 hr 04/09/20 18:19 04/09/20 18:31 04/09/20 18:32 Temperature 36.6 C Temperature Source Temporal Artery Scan Pulse Rate 70 66 Pulse Rate from SpO2 Sensor 65 Respiratory Rate 18 24 Respiratory Effort / Characteristics SOB on Exertion Blood Pressure 159/87 H 162/84 H Blood Pressure Mean 111 100 Blood Pressure Position Sitting Pulse Oximetry 93 97 Oxygen Delivery Method Room Air Room Air Sepsis Recent Fever Within 48 Hours No Sepsis New/Unexplained Change in Mental Status N/A Sepsis Action Taken by Nursing No Action Required 04/09/20 18:33 04/09/20 19:00 04/09/20 19:30 Temperature Temperature Source Pulse Rate 66 59 L 57 L Pulse Rate from SpO2 Sensor 66 59 L 60 Respiratory Rate 15 18 17 Respiratory Effort / Characteristics Blood Pressure 158/63 H 163/74 H Blood Pressure Mean 92 106 Blood Pressure Position Pulse Oximetry 97 97 98 Oxygen Delivery Method Sepsis Recent Fever Within 48 Hours Sepsis New/Unexplained Change in Mental Status Sepsis Action Taken by Nursing 04/09/20 20:00 04/09/20 20:30 Temperature Temperature Source Pulse Rate 56 L 54 L Pulse Rate from SpO2 Sensor 57 L 58 L Respiratory Rate 19 16 Respiratory Effort / Characteristics Blood Pressure 152/67 H 141/70 H Blood Pressure Mean 104 90 Blood Pressure Position Pulse Oximetry 95 90 Oxygen Delivery Method Sepsis Recent Fever Within 48 Hours Sepsis New/Unexplained Change in Mental Status Sepsis Action Taken by Nursing Laboratory Data Result diagrams: 04/09/20 18:37 04/09/20 18:37 Lab Results 04/09/20 04/09/20 04/09/20 Range/Units 18:37 18:37 18:37 WBC 7.04 (4.8-10.8) K/uL RBC 4.52 (4.2-5.4) M/uL Hgb 13.7 (12.0-16.0) g/dL Hct 41.6 (37-47) % MCV 92.0 (80-100) fL MCH 30.3 (25-34) pg MCHC 32.9 (32-36) g/dL RDW Std Deviation 47.0 H (36.4-46.3) fL RDW Coeff of Derick 14.0 (11.5-14.5) % Plt Count 210 (130-400) K/uL MPV 10.7 H (7.4-10.4) fL Immature Gran % (Auto) 0.0 % Neut % (Auto) 40.1 % Lymph % (Auto) 50.0 % [place] % (Auto) 8.1 % Eos % (Auto) 1.4 % Baso % (Auto) 0.4 % Neut # (Auto) 2.82 (1.4-6.5) K/uL Lymph # (Auto) 3.52 H (1.2-3.4) K/uL [place] # (Auto) 0.57 (0.11-0.59) K/uL Eos # (Auto) 0.10 (0-0.5) K/uL Baso # (Auto) 0.03 (0-0.2) K/uL Immature Gran # (Auto) 0.00 (0.00-0.02) K/uL PT 12.1 H (9.0-12.0) Seconds INR 1.2 H (0.9-1.1) APTT 31.3 H (21.0-31.0) Seconds PTT Ratio 1.1 Sodium 142 (136-145) mmol/L Potassium 4.1 (3.5-5.1) mmol/L Chloride 109 H (98-107) mmol/L Carbon Dioxide 27 (21-32) mmol/L Anion Gap 7.0 (3-11) BUN 21 H (7-18) mg/dl Creatinine 1.03 (0.6-1.2) mg/dl Est Cr Clr Drug Dosing 42.0 ml/min Est GFR ( Amer) 58.2 Est GFR (Non-Af Amer) 50.2 BUN/Creatinine Ratio 20.6 H (10-20) Glucose 102 H (70-99) mg/dl Calcium 9.2 (8.5-10.1) mg/dl Total Bilirubin 0.4 (0.2-1) mg/dl AST 30 (15-37) U/L ALT 34 (12-78) U/L Alkaline Phosphatase 73 (45-117) U/L Troponin I < 0.015 (0-0.045) ng/ml Total Protein 7.7 (6.4-8.2) gm/dl Albumin 3.7 (3.4-5.0) gm/dl Globulin 4.0 (2.5-4.0) gm/dl Albumin/Globulin Ratio 0.9 (0.9-2) Lipase 210 (73-393) U/L Administered Medications Isosorbide Dinitrate (Isosorbide Dinitrate 10 Mg Tab) 10 mg PO BID@0700,1200 CRISSY Stop: 05/09/20 21:59 Last Admin: 04/09/20 22:18 Dose: 10 mg Documented by: [id number] Discontinued Medications Aspirin (Aspirin Chew 324 Mg) 324 mg PO NOW STA Stop: 04/09/20 18:30 Last Admin: 04/09/20 18:50 Dose: 324 mg Documented by: [id number] Discharge Plan Visit Data Chief Complaint: Chest Pain Stated Complaint: chest pain, arm pain ED Provider: Ricardo Aguilar Discharge Problem: Chest pain, CAD (coronary artery disease), S/P CABG x 2 Patient Disposition: Admitted As Inpatient Discharge Instructions Interventions: ED Discharge Assessment Last Done: 04/09/20 21:13 Discharge Problem: Chest pain Qualifiers: Chest pain type: unspecified Qualified Code(s): R07.9 - Chest pain, unspecified CAD (coronary artery disease) Qualifiers: Coronary Disease-Associated Artery/Lesion type: [place] artery [place] vs. t ransplanted heart: unspecified whether [place] or transplanted heart
[2020-04-09 18:45] LABS: Hematocrit (blood only) 41.6 % (37-47); Hemoglobin 13.7 g/dL (12.0-16.0); Mean Corpuscular Hemoglobin 30.3 pg (25-34); Mean Corpuscular Hgb Conc 32.9 g/dL (32-36); Mean Platelet Volume 10.7 fL (7.4-10.4); Platelet Count 210 K/uL (130-400); Red Blood Count 4.52 M/uL (4.2-5.4); White Blood Count 7.04 K/uL (4.8-10.8)
[2020-04-09 18:57] LABS: INR 1.2 (0.9-1.1); Partial Thromboplastin Ratio 1.1; Partial Thromboplastin Time 31.3 Seconds (21.0-31.0); Prothrombin Time 12.1 Seconds (9.0-12.0)
[2020-04-09 19:03] LABS: Alanine Aminotransferase 34 U/L (12-78); Albumin Level 3.7 gm/dl (3.4-5.0); Aspartate Aminotransferase 30 U/L (15-37); BUN Creatinine Ratio 20.6 (10-20); Blood Urea Nitrogen 21 mg/dl (7-18); Calcium 9.2 mg/dl (8.5-10.1); Carbon Dioxide 27 mmol/L (21-32); Chloride 109 mmol/L (98-107); Est GFR (African American) 58.2; Est GFR (Non-African American) 50.2; Glucose 102 mg/dl (70-99); Lipase 210 U/L (73-393); Potassium 4.1 mmol/L (3.5-5.1); Sodium 142 mmol/L (136-145)
--- NOTE | 2020-04-09 19:03 | XRay Report ---
XR chest 1V portable HISTORY: 84 years-old Female Chest Pain acute atypical chest pain COMPARISON: Chest radiograph 03/29/2019 TECHNIQUE: Portable AP view of the chest FINDINGS: Cardiac silhouette is upper limits of normal in size. Prior median sternotomy and CABG. No pneumothor ax, pleural effusion or overt pulmonary edema. Minimal subsegmental left lung base densities. Degener ative changes of the shoulders and spine. IMPRESSION: Minimal left lung base opacities suggest atelectasis. ACT 112: Negative or not required by law. The above report was generated using voice recognition software. It may contain grammatical, syntax o r spelling errors. Electronically signed by: Femi Martins M.D. 04/09/2020 7:02 PM
[2020-04-09 19:07] LABS: Albumin Globulin Ratio 0.9 (0.9-2); Alkaline Phosphatase 73 U/L (45-117); Bilirubin,Total 0.4 mg/dl (0.2-1); Total Protein 7.7 gm/dl (6.4-8.2); Troponin I < 0.015 ng/ml (0-0.045)
[2020-04-09 19:29] LABS: Basophils # (auto) 0.03 K/uL (0-0.2); Basophils % (auto) 0.4 %; Eosinophils % (auto) 1.4 %; Lymphocytes # (auto) 3.52 K/uL (1.2-3.4); Monocytes # (auto) 0.57 K/uL (0.11-0.59); Monocytes % (auto) 8.1 %; Neutrophils # (auto) 2.82 K/uL (1.4-6.5); Neutrophils % (auto) 40.1 %
[2020-04-09] MEDS ORDERED: FLUTICASONE PROPIONATE NA SPR 16 GM BTL PRN (21:46)
[2020-04-09] MEDS ORDERED: LORazepam 0.5 MG TAB PO PRN (21:46)
[2020-04-09] MEDS ORDERED: POLYETHYLENE (MIRALAX) 17 GM PACK PO PRN (21:46)
[2020-04-09] MEDS ORDERED: FUROSEMIDE 40 MG TAB PO PRN (21:46)
[2020-04-09] MEDS ORDERED: NITROGLYCERIN SL 0.4 MG/TAB TAB SL PRN ×2 (21:46)
[2020-04-09] MEDS ORDERED: SENNA 8.6 MG TAB PO PRN (21:46)
[2020-04-09] MEDS ORDERED: ONDANSETRON INJ 2 MG/ML 2 ML VIAL IV PRN (21:46)
[2020-04-09] MEDS ORDERED: ACETAMINOPHEN 325 MG TAB PO PRN (21:46)
[2020-04-09] MEDS ORDERED: POTASSIUM CHLORIDE 10 MEQ TABCR PO PRN (21:46)
[2020-04-09] MEDS ORDERED: PANTOprazole 40 MG TAB PO PRN (21:50)
--- NOTE | 2020-04-09 21:57 | History and Physical Report ---
DATE OF ADMISSION: 04/09/2020 CHIEF COMPLAINT: Chest pain. HISTORY OF PRESENT ILLNESS: This is an 84-year-old female with past medical history significant for CAD status post CABG, history of gastroesophageal reflux disease, history of chronic kidney disease stage III, hydronephrosis of right kidney, senile osteoporosis, bilateral sensorineural hearing loss, dyslipidemia, allergic rhinitis, central lung nodule less than 6 cm on CAT scan, history of pulmonary embolism, on Xarelto. Lives with her . Was brought in because of chest pain. The patient around 5:00 p.m. had noticed chest discomfort, sharp pain radiating to both her arms, about 7/10 in severity. She took nitro, it relieved her pain, it appeared subsided, but she fell tingliness in the body and came to the ER. Got aspirin. Currently she has mild discomfort, the tingliness is gone. Resting comfortably and hemodynamically stable. Denies any lightheadedness. No dizziness, no blurred visions. She has headache with the nitroglycerin, but that is resolved now. No earache, no runny nose, no sore throat, no loss of sense of smell or taste. No dysphagia. Appetite is okay. No shortness of breath, no nausea, no sweating, no abdominal pain. Normal bowel and bladder movements. No swelling in the legs, no rash. Ambulates without any support. Currently resting comfortably and hemodynamically stable. ALLERGIES: ERYTHROMYCIN, BACTRIM, LATEX. PAST MEDICAL HISTORY: As mentioned above. PAST SURGICAL HISTORY: Status post CABG, colonoscopy with biopsy, partial colectomy with anastomosis, partial hysterectomy, cystocele, vaginal hysterectomy. MEDICATIONS: The patient is on Toprol-XL 25 mg p.o. daily, atorvastatin 80 mg p.o. daily, Ativan 0.5 mg p.o. at bedtime p.r.n., Xarelto 20 mg p.o. daily, nitroglycerin 0.4 mg sublingual p.r.n., isosorbide dinitrate 10 mg p.o. b.i.d., potassium chloride 10 mEq p.o. daily, omeprazole 40 mg p.o. daily, Lasix 40 mg daily p.r.n., evening primrose oil 500 mg capsule daily, Flonase 2 sprays nasally daily p.r.n., aspirin 81 mg p.o. daily, mag citrate p.r.n., Senokot 1 tablet p.o. daily, MiraLax 17 g p.o. daily p.r.n., calcium plus vitamin D 1 tablet daily. FAMILY HISTORY: Significant for mother had lymphoma, diabetes. SOCIAL HISTORY: . No smoking. Alcohol socially. No drug use. REVIEW OF SYSTEMS: As per HPI. Rest of the review of systems negative. PHYSICAL EXAMINATION: GENERAL: The patient is of moderate build, not in acute distress. VITAL SIGNS: Temperature 36.6, pulse 70, respiratory rate 18, blood pressure 159/87, oxygen 93% on room air. HEENT: Pupils equal, round, and reactive to light. Oral mucosa moist. NECK: No neck masses seen. CARDIOVASCULAR: S1, S2 heard, regular rate and rhythm, no murmur, no gallop. RESPIRATORY SYSTEM: Normal AP diameter. No accessory muscle use. No wheezing, no crackles. ABDOMEN: Soft, bowel sounds present, nontender. No distention. CENTRAL NERVOUS SYSTEM: Cranial nerves II-XII grossly intact, nonfocal. EXTREMITIES: No edema, no erythema. LABORATORY DATA: WBC 7.04, hemoglobin 13.7, hematocrit 41.6, platelets 210. PT 12.1, INR 1.2, APTT 31.3. Sodium 142, potassium 4.1, chloride 109, bicarbonate 27, BUN 21, creatinine 1.03, serum glucose 102, calcium 9.2, total bilirubin 0.4, AST 30, ALT 34, alkaline phosphatase 73, troponin I less than 0.015. Lipase 210. SARS-CoV-2 antigen rapid negative. IMAGING DATA: Chest x-ray, minimal left lung base opacities, suggest atelectasis. EKG: Normal sinus rhythm, rate of 66, no acute ST changes seen. ASSESSMENT AND PLAN: This is an 84-year-old female who presents with chest pain. 1. Chest pain, rule out acute coronary syndrome: Initial workup is negative. Troponin and EKG unremarkable. History of coronary artery disease, status post coronary artery bypass grafting: We will monitor in the tele floor. Serial cardiac enzymes, echocardiogram. Keep her n.p.o. after midnight. Consult cardiology in the a.m. for further recommendation. Continue her home medication of aspirin, statin, beta-ramu, and nitrite. 2. Hyperlipidemia: Continue statin. 3. Chronic kidney disease stage III: Creatinine 1.03. We will follow the labs. 4. Hypertension: Continue Toprol-XL, Isordil. Will monitor the blood pressure. 5. History of pulmonary embolism: On Xarelto. 6. Deep venous thrombosis prophylaxis: On Xarelto. 7. Disposition: Observation in tele floor, med tele. Expect to discharge home and follow with family doctor. Level 1 full code. MTDD
[2020-04-09] MEDS: ISOSORBIDE DINITRATE 10 MG TAB PO SCH (22:18)
[2020-04-10 05:45] LABS: Basophils # (auto) 0.02 K/uL (0-0.2); Basophils % (auto) 0.3 %; Eosinophils # (auto) 0.11 K/uL (0-0.5); Eosinophils % (auto) 1.7 %; Hematocrit (blood only) 39.6 % (37-47); Lymphocytes # (auto) 2.68 K/uL (1.2-3.4); Lymphocytes % (auto) 42.5 %; Mean Corpuscular Hemoglobin 30.3 pg (25-34); Mean Corpuscular Hgb Conc 32.8 g/dL (32-36); Mean Corpuscular Volume 92.3 fL (80-100); Mean Platelet Volume 10.7 fL (7.4-10.4); Monocytes # (auto) 0.56 K/uL (0.11-0.59); Monocytes % (auto) 8.9 %; Neutrophils # (auto) 2.94 K/uL (1.4-6.5); Neutrophils % (auto) 46.6 %; Platelet Count 203 K/uL (130-400); RDW Coefficient of Variation 14.1 % (11.5-14.5); RDW Standard Deviation 47.6 fL (36.4-46.3); Red Blood Count 4.29 M/uL (4.2-5.4); White Blood Count 6.31 K/uL (4.8-10.8)
[2020-04-10 06:14] LABS: BUN Creatinine Ratio 23.5 (10-20); Calcium 8.6 mg/dl (8.5-10.1); Creatinine Clr Calc Pharmacy 43.8 ml/min; Est GFR (African American) 67.6; Est GFR (Non-African American) 58.3; Magnesium 2.5 mg/dl (1.8-2.4); Potassium 4.2 mmol/L (3.5-5.1)
--- NOTE | 2020-04-10 08:12 | Electrocardiogram Report ---
Test Reason : Blood Pressure : / mmHG Vent. Rate : 070 BPM Atrial Rate : 070 BPM P-R Int : 166 ms QRS Dur : 080 ms QT Int : 376 ms P-R-T Axes : 001 001 033 degrees QTc Int : 406 ms Sinus rhythm with Premature atrial complexes Otherwise normal ECG When compared with ECG of 30-MAR-2019 07:20, Premature atrial complexes are now Present Confirmed by James Baeza ([id number]) on 04/10/2020 8:11:43 AM Referred By: REFERRED SELF Confirmed By:James Baeza
[2020-04-10] MEDS: ISOSORBIDE DINITRATE 10 MG TAB PO SCH ×2 (08:33→13:10)
[2020-04-10] MEDS ORDERED: RIVAROXABAN 20 MG TAB PO SCH (09:00)
[2020-04-10] MEDS ORDERED: METOPROLOL SUCC 25MG EXT REL TAB PO SCH (09:00)
[2020-04-10] MEDS ORDERED: ASPIRIN 81 MG ECTAB PO SCH (09:00)
[2020-04-10] MEDS ORDERED: ATORVASTATIN 40 MG TAB PO SCH (09:00)
[2020-04-10] MEDS ORDERED: CALCIUM 600MG + VIT D 400 IU TAB PO SCH (09:00)
--- NOTE | 2020-04-10 09:27 | Electrocardiogram Report ---
Test Reason : Blood Pressure : / mmHG Vent. Rate : 059 BPM Atrial Rate : 059 BPM P-R Int : 176 ms QRS Dur : 074 ms QT Int : 404 ms P-R-T Axes : 007 -09 020 degrees QTc Int : 399 ms Sinus bradycardia Poor R wave progression, consider anterior WI vs. lead placement vs. LVH Abnormal ECG When compared with ECG of 09-APR-2020 18:27, Premature atrial complexes are no longer Present Loss of precordial R wave progression, may be lead placement related Confirmed by James Baeza ([id number]) on 04/10/2020 9:27:16 AM Referred By: REFERRED SELF Confirmed By:James Baeza
[2020-04-10] MEDS ORDERED: DOBUTamine HCL 12.5 MG/ML 20 ML VIAL IV ONE (10:30)
[2020-04-10] MEDS ORDERED: ATROPINE SULFATE 0.1 MG/ML 10ML SYR IV ONE (10:30)
[2020-04-10] MEDS ORDERED: METOPROLOL TARTRATE 1 MG/ML VIAL IV ONE (10:30)
[2020-04-10 13:10] VITALS: BP 137/84; PULSE 61; TEMP 98.2; O2SAT 93
--- NOTE | 2020-04-10 13:32 | Cardiology Consultation ---
Date of Consultation April 10, 2020 Assessment & Plan (1) Chest pain: EKG tracings perform performed on arrival last evening and again today without acute repolarization changes. Troponin I negative on a serial basis. Patient underwent dobutamine stress echocardiogram which was negative for ischemia. Normal LVEF, mild aortic valve regurgitation mild mitral regurgitation, mild tricuspid regurgitation noted on the resting study. Perhaps patient had some degree of musculoskeletal chest soreness, as she had recently done some snow shoveling. Patient stable for discharge from a cardiac perspective, on her prior to hospital medication regimen. History of Present Illness Attending Physician: Jacquie Delgado MD History of Present Illness Maya Shultz is an 84 year old female seen in cardiology consultation per the [facility] discomfort. She notes chest discomfort mostly at rest that occurred yesterday and last evening. She notes that she can perform physical exertion such as housework and even shoveled some snow yesterday, with no symptoms with this physical exertion. The patient was admitted for observation. Her chest discomfort has since subsided. EKG and serial troponin levels have been negative thus far. Past Medical History: History of coronary heart disease for which the patient underwent CABG x2 with BOWEN to LAD and vein graft to the obtuse marginal in October,. Catheterization last in April 2018 widely patent right coronary and LAD arteries, 50% ostial stenosis of the left main trunk, occluded left circumflex proximally with a patent saphenous vein graft to the first marginal branch, and an atretic LG graft due to failure to mature from competitive flow from the [place] LAD. Pulmonary embolism for which patient is on chronic Xarelto Dyslipidemia Hypertension Allergies Allergy/AdvReac Type Severity Reaction Status Date / Time latex Allergy Intermediate RASH Verified 04/09/20 20:06 erythromycin base Allergy Unknown RASH Verified 04/09/20 20:06 sulfamethoxazole AdvReac Intermediate Rash Unverified 04/09/20 20:06 [From Bactrim] trimethoprim [From Bactrim] AdvReac Intermediate Rash Unverified 04/09/20 20:06 Home Medications Medication Instructions Recorded Confirmed Type Caltrate 600 plus D 1 tab PO DAILY #0 10/29/15 04/09/20 History atorvastatin [Lipitor] 80 mg PO QAM #0 10/29/15 04/09/20 History omeprazole 40 mg PO DAILY PRN #0 10/29/15 04/09/20 History Xarelto 20 mg PO QAM #0 11/27/15 04/09/20 History furosemide 40 mg PO DAILY PRN #0 02/12/16 04/09/20 History lorazepam 0.5 mg PO TID PRN #0 12/03/16 04/09/20 History nitroglycerin [Nitrostat] 0.4 mg SUBLINGUAL UD PRN #0 btl 12/03/16 04/09/20 History potassium chloride 10 meq PO DAILY PRN #0 12/03/16 04/09/20 History polyethylene glycol 3350 [Miralax] 17 g PO DAILY PRN #0 g 10/05/17 04/09/20 History sennosides [Senokot] 8.6 mg PO BID PRN #0 tab 10/05/17 04/09/20 History fluticasone propionate [Flonase 2 spray INTRANASAL DAILY PRN 04/29/18 04/09/20 History Allergy Relief] [place] Oil 1 cap PO DAILY 04/09/20 04/09/20 History aspirin 81 mg PO DAILY 04/09/20 04/09/20 History isosorbide dinitrate 10 mg PO BID 04/09/20 04/09/20 History metoprolol succinate 25 mg PO QAM 04/09/20 04/09/20 History Patient History Medical History Accelerated hypertension Anxiety "mild; uses Ativan once yearly " Benign neoplasm of hard palate CAD (coronary artery disease) Dyslipidemia GERD (gastroesophageal reflux disease) History of diverticulitis History of DVT of lower extremity History of pulmonary embolism History of superficial phlebitis Hx of venous thromboembolic disease Hypertension Occipital neuralgia Surgical History H/O vein stripping History of bladder repair surgery History of partial hysterectomy Hx of bladder repair surgery "cystocele repair " S/P CABG x 2 S/P partial resection of colon Family History Mother Lymphoma Colon cancer Father COPD (chronic obstructive pulmonary disease) [place] [employer] Brother Murder Sister Brain tumor Social History (Updated 05/25/19 @ 09:47 by Jenni Guevara) Smoking Status: Unknown if ever smoked Second Hand Exposure: No; Hx Alcohol Use: Yes Hx Substance Use: No Preferred Language: Georgian Communication Ability: Effective 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 Beliefs That Will Affect Care: None marital status: Current Living Situation: Spouse Current Living Situation Comment: Lives w/ spouse Feels Safe at Home: Yes Assistive Devices: Glasses Physical Exam Physical Exam: Temp Pulse Resp BP Pulse Ox 36.8 C 61 18 137/84 93 04/10/20 13:09 04/10/20 13:09 04/10/20 13:09 04/10/20 13:09 04/10/20 13:09 Constitutional: WD/WN, vitals as above Respiratory: normal respiratory effort, lungs clear to auscultation Cardiovascular: RRR, no murmur, no edema Gastrointestinal (Abdomen): normal bowel sounds, soft, nontender, no hepatosplenomegaly Neurologic: PERRL, EOMI, accommodation nl, no face palsy, no dysarthria Results & Data ([facility]) Vital Signs (Past 12 Hours) Vital Signs Temp Pulse Pulse Resp BP Pulse Ox 04/10/20 13:09 36.8 C 61 18 137/84 93 04/10/20 11:33 36.4 C L 68 20 122/80 100 04/10/20 11:27 36.4 C L 68 20 122/80 100 04/10/20 08:00 64 04/10/20 07:57 36.8 C 59 L 20 128/77 96 04/10/20 04:03 36.6 C 55 L 18 114/65 93 Laboratory Results Cardiac Enzymes 04/09/20 04/10/20 04/10/20 Range/Units 18:37 05:20 12:41 AST 30 (15-37) U/L Troponin I < 0.015 < 0.015 < 0.015 (0-0.045) ng/ml Coagulation 04/09/20 Range/Units 18:37 PT 12.1 H (9.0-12.0) Seconds APTT 31.3 H (21.0-31.0) Seconds CBC 04/09/20 04/10/20 Range/Units 18:37 05:20 WBC 7.04 6.31 (4.8-10.8) K/uL RBC 4.52 4.29 (4.2-5.4) M/uL Hgb 13.7 13.0 (12.0-16.0) g/dL Hct 41.6 39.6 (37-47) % Plt Count 210 203 (130-400) K/uL Neut # (Auto) 2.82 2.94 (1.4-6.5) K/uL Lymph # (Auto) 3.52 H 2.68 (1.2-3.4) K/uL [place] # (Auto) 0.57 0.56 (0.11-0.59) K/uL Eos # (Auto) 0.10 0.11 (0-0.5) K/uL Baso # (Auto) 0.03 0.02 (0-0.2) K/uL Comprehensive Metabolic Panel 04/09/20 04/10/20 Range/Units 18:37 05:20 Sodium 142 143 (136-145) mmol/L Potassium 4.1 4.2 (3.5-5.1) mmol/L Chloride 109 H 111 H (98-107) mmol/L Carbon Dioxide 27 29 (21-32) mmol/L BUN 21 H 21 H (7-18) mg/dl Creatinine 1.03 0.91 (0.6-1.2) mg/dl Glucose 102 H 112 H (70-99) mg/dl Calcium 9.2 8.6 (8.5-10.1) mg/dl AST 30 (15-37) U/L ALT 34 (12-78) U/L Alkaline Phosphatase 73 (45-117) U/L Total Protein 7.7 (6.4-8.2) gm/dl Albumin 3.7 (3.4-5.0) gm/dl Intake and Output 04/10/20 04/10/20 04/10/20 06:59 14:59 22:59 Intake Total 240 / 240 Balance 240 / 240 Intake: Oral 240 / 240 Other: Other Intake Source NPO npo Weight 70.5 kg 70.5 kg Weight Measurement Method Standing Scale Patient Weight 04/11/20 06:59 Weight 70.5 kg Diagnostic Findings EKG performed 04/09/2020 1827 revealed sinus rhythm with PACs, no significant repolarization changes. Repeat EKG this morning reveals sinus rhythm, no significant ST changes, premature atrial contractions had resolved. (1) Chest pain Chest pain type: unspecified Qualified Code(s): R07.9 - Chest pain, unspecified
--- NOTE | 2020-04-10 13:57 | Discharge Summary ---
Date of Service April 10, 2020 Admission HPI Per Admitting Provider 84-year-old female with past medical history significant for CAD status post CABG, history of gastroesophageal reflux disease, history of chronic kidney disease stage III, hydronephrosis of right kidney, senile osteoporosis, bilateral sensorineural hearing loss, dyslipidemia, allergic rhinitis, central lung nodule less than 6 cm on CAT scan, history of pulmonary embolism, on Xarelto. Lives with her . Was brought in because of chest pain. The patient around 5:00 p.m. had noticed chest discomfort, sharp pain radiating to both her arms, about 7/10 in severity. She took nitro, it relieved her pain, it appeared subsided, but she fell tingliness in the body and came to the ER. Got aspirin. Currently she has mild discomfort, the tingliness is gone. Resting comfortably and hemodynamically stable. Denies any lightheadedness. No dizziness, no blurred visions. She has headache with the nitroglycerin, but that is resolved now. No earache, no runny nose, no sore throat, no loss of sense of smell or taste. No dysphagia. Appetite is okay. No shortness of breath, no nausea, no sweating, no abdominal pain. Normal bowel and bladder movements. No swelling in the legs, no rash. Ambulates without any support. Currently resting comfortably and hemodynamically stable. Admission Exam Per Admitting Provider GENERAL: The patient is of moderate build, not in acute distress. VITAL SIGNS: Temperature 36.6, pulse 70, respiratory rate 18, blood pressure 159/87, oxygen 93% on room air. HEENT: Pupils equal, round, and reactive to light. Oral mucosa moist. NECK: No neck masses seen. CARDIOVASCULAR: S1, S2 heard, regular rate and rhythm, no murmur, no gallop. RESPIRATORY SYSTEM: Normal AP diameter. No accessory muscle use. No wheezing, no crackles. ABDOMEN: Soft, bowel sounds present, nontender. No distention. CENTRAL NERVOUS SYSTEM: Cranial nerves II-XII grossly intact, nonfocal. EXTREMITIES: No edema, no erythema. Principal Diagnosis Chest pain Discharge Exam Constitutional + well hydrated; no acute distress Eyes PERRL, conjunctivae normal, anicteric sclerae ENMT external ear and nose normal, oropharynx normal Respiratory normal respiratory effort, lungs clear to auscultation Cardiovascular RRR, no murmur, no edema Chest (Breasts) Additional Comments: No tenderness Gastrointestinal (Abdomen) normal bowel sounds, soft, nontender, no hepatosplenomegaly Musculoskeletal no cyanosis or clubbing, extremities motor strength 5/5 Neurologic PERRL, EOMI, accommodation nl, no face palsy, no dysarthria Psychiatric A+Ox3, euthymic affect Discharge Data Allergies Allergy/AdvReac Type Severity Reaction Status Date / Time latex Allergy Intermediate RASH Verified 04/09/20 20:06 erythromycin base Allergy Unknown RASH Verified 04/09/20 20:06 sulfamethoxazole AdvReac Intermediate Rash Unverified 04/09/20 20:06 [From Bactrim] trimethoprim [From Bactrim] AdvReac Intermediate Rash Unverified 04/09/20 20:06 Consultations 04/09/20 19:32 ED Decision to Admit Stat 04/09/20 21:46 Consult Case Management - Discharge Planning Routine 04/10/20 08:00 Consult Cardiology Routine Hospital Course (1) Chest pain: Patient's chest pain and arm pain resolved Serial troponins were negative EKG was negative for any ischemic changes Patient was evaluated by cardiology and had dobutamine stress echo which was negative for ischemia Patient 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 Continue Toprol-XL (3) CAD (coronary artery disease): Continue Toprol-XL, Isordil Continue statin (4) History of pulmonary embolism: Continue Xarelto Total Time Total Time Spent Total Time Spent (In Minutes): 35 Total Time Includes: Examination of the Patient, Discharge Planning, Medication Reconciliation and Communication With Other Providers Discharge Plan Discharge Items Patient Disposition: Home - Self-Care Reason For Visit: CHEST PAIN Discharge Diagnosis: Atypical chest pain Activity: Resume your previous activity Non-emergency contact: Primary Care Provider and Director Broadcast Call non-emergency contact if: you have any medication questions Follow-up/Referrals: Abisai Cid DO [Primary Care Provider] - Diet: Heart Healthy Addtl Attending Provider Instructions: Mrs Shultz You came to the hospital complaining of arm pain and chest pain. You were evaluated by Director Broadcast and had dobutamine stress echocardiogram which was negative for ischemia. Please continue your home medications. Please follow up with your Primary Care doctor and Director Broadcast. It was a pleasure taking care of you. Stand-Alone Forms: My [facility], Smoking Cessation Medications and DC Order Prescriptions: Continued atorvastatin [Lipitor] 80 mg Tablet 80 mg PO QAM Qty: 0 RF: 0 omeprazole 40 mg Capsule,Delayed Release(Dr/Ec) 40 mg PO DAILY PRN (Reason: Gastric Reflux) Qty: 0 RF: 0 Caltrate 600 plus D 600 mg (1,500 mg)-800 unit Tablet,Chewable 1 tab PO DAILY Qty: 0 RF: 0 Xarelto 20 mg Tablet 20 mg PO QAM Qty: 0 RF: 0 furosemide 40 mg Tablet 40 mg PO DAILY PRN (Reason: Fluid Retention) Qty: 0 RF: 0 potassium chloride 10 mEq Tablet Extended Release 10 meq PO DAILY PRN (Reason: .WHEN TAKING FUROSEMIDE) Qty: 0 RF: 0 lorazepam 0.5 mg Tablet 0.5 mg PO TID PRN (Reason: Anxiety) Qty: 0 RF: 0 nitroglycerin [Nitrostat] 0.4 mg Tablet, Sublingual 0.4 mg Sublingual UD PRN (Reason: Chest Pain) Qty: 0 RF: 0 sennosides [Senokot] 8.6 mg Tablet 8.6 mg PO BID PRN (Reason: Constipation) Qty: 0 RF: 0 polyethylene glycol 3350 [Miralax] 17 gram Powder In Packet 17 g PO DAILY PRN (Reason: Constipation) Qty: 0 RF: 0 fluticasone propionate [Flonase Allergy Relief] 50 mcg/actuation [place],Suspension 2 spray INTRANASAL DAILY PRN (Reason: Nasal Congestion) RF: 0 aspirin 81 mg Tablet,Delayed Release (Dr/Ec) 81 mg PO DAILY RF: 0 isosorbide dinitrate 10 mg tablet 10 mg PO BID RF: 0 metoprolol succinate 25 mg tablet extended release 24 hr 25 mg PO QAM RF: 0 [place] Oil 1,000 mg Capsule 1 cap PO DAILY RF: 0 Discharge Orders: Discharge Order (Routine); Ordered 04/10/20 Ordered By: Jacquie Delgado Admission Data Admit Date/Time: 04/09/20 20:52 Attending Provider: Jacquie Delgado I. Admit Provider: Cale Maria Primary Care Provider: Abisai Cid Other Providers: Cale Maria ; Sean Nolasco ; Alfonso Stewart ; Miguel Ángel Sanders ; Sher Pichardo ; Vaibhav Salmon. ; Nahum Barrios ; Gabriella Forrester ; Antionette Perez ; Dale Shah Other Interventions: Discharge Summary Assessment (RN) Last Done: 04/10/20 11:33
== END 2020-04-10 14:41 | disposition home or self-care (01) ==
LOC: ED 18:16 → 2N 18:16

== ENCOUNTER 2021-01-08 11:46 | Observation (INO) ==
--- NOTE | 2021-01-08 12:34 | Emergency Department Note ---
History of Present Illness General Chief complaint: Cardiac Assessment Stated complaint: DIZZY,SOB,NOT FEELING RIGHT Time Seen by Provider: 01/08/21 12:13 Source: patient and family (Son who is at the bedside) Mode of arrival: ambulatory Limitations: no limitations History of Present Illness Maximum Pain Intensity: 5 This patient is a 85-year-old female who comes in after saying that her heart been acting up. She has been gone for a long time she been under a lot of stress after her . She said the spell today was worse than she has been having lately. This occurred around 1130 while she was doing a puzzle. She was not feeling anxious prior. She felt dizzy shortness of breath she had no chest pain she felt left arm tingle she got a headache and felt hot. This lasted about 45 minutes. She gets similar spells when she gets anxious but this was more persistent and did not go away. She has had the Covid vaccine x2. 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 She did have a CABG 5 years ago. She has had no recent stress test Home Medications Medication Instructions Recorded Confirmed Type atorvastatin 80 mg tablet (Lipitor) 80 mg PO QAM #0 10/29/15 01/08/21 History omeprazole 40 mg capsule,delayed 40 mg PO DAILY PRN #0 10/29/15 01/08/21 History release rivaroxaban 20 mg tablet (Xarelto) 20 mg PO QAM #0 11/27/15 01/08/21 History furosemide 40 mg tablet 40 mg PO DAILY PRN #0 02/12/16 01/08/21 History lorazepam 0.5 mg tablet 0.5 mg PO TID PRN #0 12/03/16 01/08/21 History nitroglycerin 0.4 mg sublingual 0.4 mg SUBLINGUAL UD PRN #0 btl 12/03/16 01/08/21 History tablet (Nitrostat) potassium chloride 10 mEq 10 meq PO DAILY PRN #0 12/03/16 01/08/21 History tablet,extended release polyethylene glycol 3350 17 gram 17 g PO DAILY PRN #0 g 10/05/17 01/08/21 H istory oral powder packet (Miralax) sennosides 8.6 mg tablet (Senokot) 8.6 mg PO BID PRN #0 tab 06/20/18 09/23/21 History fluticasone propionate 50 2 spray INTRANASAL DAILY PRN 04/29/18 01/08/21 History mcg/actuation nasal spray,suspension (Flonase Allergy Relief) aspirin 81 mg tablet,delayed 81 mg PO DAILY 04/09/20 01/08/21 History release isosorbide dinitrate 10 mg tablet 10 mg PO BID 04/09/20 01/08/21 History metoprolol succinate 25 mg 25 mg PO QAM 04/09/20 01/08/21 History tablet,extended release 24 hr metformin 500 mg tablet,extended 500 mg PO BID 01/08/21 01/08/21 History release 24 hr Allergies Allergy/AdvReac Type Severity Reaction Status Date / Time latex Allergy Intermediate RASH Verified 01/08/21 13:43 erythromycin base Allergy Unknown RASH Verified 01/08/21 13:43 sulfamethoxazole AdvReac Intermediate Rash Verified 01/08/21 13:43 [From Bactrim] trimethoprim [From Bactrim] AdvReac Intermediate Rash Verified 01/08/21 13:43 Past Med/Surg History Medical History (Updated 01/08/21 @ 14:57 by Michael Bañuelos MD) Accelerated hypertension Anxiety "mild; uses Ativan once yearly " Benign neoplasm of hard palate CAD (coronary artery disease) Dyslipidemia GERD (gastroesophageal reflux disease) History of diverticulitis History of DVT of lower extremity History of pulmonary embolism History of superficial phlebitis Hx of venous thromboembolic disease Hypertension Occipital neuralgia Surgical History H/O vein stripping History of bladder repair surgery History of partial hysterectomy Hx of bladder repair surgery "cystocele repair " S/P CABG x 2 S/P partial resection of colon Family History Mother Lymphoma Colon cancer Father COPD (chronic obstructive pulmonary disease) [employer] miners[employer] lung Brother Murder Sister Brain tumor Social History Smoking Status: Never smoker Second Hand Exposure: No; Hx Alcohol Use: Yes Hx Substance Use: No Preferred Language: Italian Communication Ability: Effective Tax Collection Coordinator Required: No Beliefs That Will Affect Care: None marital status: Current Living Situation: Spouse Current Living Situation Comment: Lives w/ spouse Feels Safe at Home: Yes Assistive Devices: Glasses Review of Systems A total of 10 systems reviewed and were otherwise negative Physical Exam Vital Signs Vital Signs - 24 hr 01/08/21 11:47 01/08/21 11:49 01/08/21 13:10 Temperature 36.8 C 36.7 C Temperature Source Oral Temporal Artery Scan Pulse Rate 89 76 Pulse Rate [Apical] Pulse Rate from SpO2 Sensor 77 Pulse Rhythm Regular Pulse Strength Normal Respiratory Rate 18 20 19 Respiratory Effort / Characteristics Non-Labored Respiratory Depth Normal Normal Respiratory Pattern Regular Blood Pressure 137/77 128/76 Blood Pressure [Right Arm] Blood Pressure Mean 97 93 Blood Pressure Mean [Right Arm] Blood Pressure Position Sitting Pulse Oximetry 93 96 93 Oxygen Delivery Method Room Air Room Air Sepsis Recent Fever Within 48 Hours No Sepsis New/Unexplained Change in Mental Status N/A Sepsis Action Taken by Nursing No Action Required 01/08/21 13:15 01/08/21 13:33 Temperature Temperature Source Pulse Rate 63 Pulse Rate [Apical] 69 Pulse Rate from SpO2 Sensor Pulse Rhythm Pulse Strength Respiratory Rate 20 17 Respiratory Effort / Characteristics Respiratory Depth Normal Respiratory Pattern Blood Pressure Blood Pressure [Right Arm] 128/76 Blood Pressure Mean Blood Pressure Mean [Right Arm] 93 Blood Pressure Position Pulse Oximetry 93 97 Oxygen Delivery Method Room Air Room Air Sepsis Recent Fever Within 48 Hours Sepsis New/Unexplained Change in Mental Status Sepsis Action Taken by Nursing General: Well developed well nourished in no acute distress, breathing comfortably on room air. Normal speech HEENT: Normal cephalic atraumatic. Pupils are equal round and reactive to light. Extraocular movements are intact. Oropharynx is pink with moist mucous membranes. No swelling of the mouth lips or tongue. Neck: Supple with a midline trachea. No meningeal signs or stiffness, no JVD or bruits. No Stridor. Chest: Clear to auscultation bilaterally. No wheezes or rhonchi. No increased work of breathing. Heart: Regular rate and rhythm without murmurs or gallops. Abdomen: Soft nontender, nondistended without rebound guarding or rigidity. Extremities: No cyanosis clubbing or edema. No calf tenderness or assymetry Spine/Back. Non tender to palpation. No CVA tenderness Skin: Good turgor without rashes. Neurologic exam: Cranial nerves two through 12 are intact. Motor and sensation are intact and symmetrical throughout. Medical Decision Making Differential Diagnosis Acute coronary syndrome, arrhythmia, anxiety, GERD, pulmonary disease, Covid, PE Medical Records Attestation: I reviewed the patient's medical records. Home Medications Current Medication List: was personally reviewed by me Laboratory Data Attestation: I reviewed the patient's lab results. Result diagrams: 01/08/21 12:22 01/08/21 12: Lab Results 01/08/21 01/08/21 01/08/21 Range/Units 12: 12: 12:22 WBC 6.44 (4.8-10.8) K/uL RBC 4.84 (4.2-5.4) M/uL Hgb 14.7 (12.0-16.0) g/dL Hct 45.2 (37-47) % MCV 93.4 (80-100) fL MCH 30.4 (25-34) pg MCHC 32.5 (32-36) g/dL RDW Std Deviation 48.4 H (36.4-46.3) fL RDW Coeff of Derick 14.1 (11.5-14.5) % Plt Count 246 (130-400) K/uL MPV 10.4 (7.4-10.4) fL Immature Gran % (Auto) 0.2 % Neut % (Auto) 52.8 % Lymph % (Auto) 32.5 % [place] % (Auto) 10.9 % Eos % (Auto) 3.4 % Baso % (Auto) 0.2 % Neut # (Auto) 3.41 (1.4-6.5) K/uL Lymph # (Auto) 2.09 (1.2-3.4) K/uL [place] # (Auto) 0.70 H (0.11-0.59) K/uL Eos # (Auto) 0.22 (0-0.5) K/uL Baso # (Auto) 0.01 (0-0.2) K/uL Immature Gran # (Auto) 0.01 (0.00-0.02) K/uL PT 13.4 H (9.0-12.0) Seconds INR 1.4 H (0.9-1.1) APTT 39.0 H (21.0-31.0) Seconds PTT Ratio 1.5 Sodium 138 (136-145) mmol/L Potassium 4.4 (3.5-5.1) mmol/L Chloride 105 (98-107) mmol/L Carbon Dioxide 29 (21-32) mmol/L Anion Gap 4.0 (3-11) BUN 17 (7-18) mg/dl Creatinine 1.06 (0.6-1.2) mg/dl Est Cr Clr Drug Dosing 37.0 ml/min Est GFR ( Amer) 55.8 ml/min Est GFR (Non-Af Amer) 48.2 ml/min BUN/Creatinine Ratio 16.3 (10-20) Glucose 90 (70-99) mg/dl Calcium 9.7 (8.5-10.1) mg/dl Total Bilirubin 0.6 (0.2-1) mg/dl AST 33 (15-37) U/L ALT 25 (12-78) U/L Alkaline Phosphatase 80 (45-117) U/L Troponin I < 0.015 (0-0.045) ng/ml Total Protein 8.3 H (6.4-8.2) gm/dl Albumin 3.9 (3.4-5.0) gm/dl Globulin 4.4 H (2.5-4.0) gm/dl Albumin/Globulin Ratio 0.9 (0.9-2) Imaging Data Attestation: I personally reviewed and interpreted this imaging study as follows: My Impression: Chest x-ray Radiologist's Impression: Chest X-Ray 01/08/21 12:13 XR chest 1V portable INDICATION: [place] ^Chest Pain . TECHNIQUE: Single frontal radiograph of the chest was obtained. Comparison: Comparison is made to chest one view 04/09/2020 FINDINGS: Stable median sternotomy wires. The cardiomediastinal silhouette is normal. The lungs are clear. No evidence of pleural effusion or pneumothorax. IMPRESSION: No acute chest disease. ACT 112: Negative or not required by law. Electronically signed by: Chris Jha M.D. 01/08/2021 12:58 PM ECG Data Attestation: I personally reviewed and interpreted this ECG as follows: Indication: + SOB/dyspnea Rate (beats per minute): 75 Rhythm: + normal sinus ECG [place]: + Normal ECG ST segments: + Normal ST segments ECG Findings: no PACs or no PVCs Comparison ECG Date: from (04/10/20) Change: no significant change MDM Narrative This patient comes in as described above. She had episode where she felt short of breath had left arm tingling and felt dizzy. She has been having a lot of stress and anxiety after her but this seemed more persistent. she says she does have an underlying cardiac history, was recently diagnosed with diabetes and also has a history of Xarelto for remote history of DVT/PE. IV access was established. she was placed on a telemetry monitor in room C2. She feels better at present EKG was obtained and shows no ischemia. She was placed on a telemetry monitor multiple blood testing was obtained. Troponin was not elevated. She has no significant electrolyte or metabolic abnormalities. Chest x-ray does not show congestive heart failure, pneumonia, or pneumothorax. She is feeling better. Her symptoms certainly could have been related to anxiety as as she has been have a lot of anxiety and stress since her and she is now living on her own, however she does have a significant cardiac history and significant other medical problems and has not had a recent stress test or cardiac work-up. I do think she needs to be admitted/observe for further cardiac work-up. I have called the Covid swab her and I discussed the case with the hospitalist as well as the patient and family who agree and are happy with the plan. Continuous cardiac monitoring: Orders placed in EMR for continuous cardiac monitoring and shows a normal sinus rhythm with a rate of 75 Impression & Plan Near syncope, Anxiety, Weakness, Current use of termite inspector anticoagulation Discharge Plan Visit Data Chief Complaint: Cardiac Assessment Stated Complaint: DIZZY,SOB,NOT FEELING RIGHT ED Provider: Michael Bañuelos Discharge Problem: Near syncope, Anxiety, Weakness, Current use of termite inspector anticoagulation Forms Stand Alone Forms: My [facility]br[facility] Prescriptions Prescriptions: No Action atorvastatin [Lipitor] 80 mg Tablet 80 mg PO QAM Qty: 0 RF: 0 omeprazole 40 mg Capsule,Delayed Release(Dr/Ec) 40 mg PO DAILY PRN (Reason: Gastric Reflux) Qty: 0 RF: 0 Xarelto 20 mg Tablet 20 mg PO QAM Qty: 0 RF: 0 furosemide 40 mg Tablet 40 mg PO DAILY PRN (Reason: Fluid Retention) Qty: 0 RF: 0 potassium chloride 10 mEq Tablet Extended Release 10 meq PO DAILY PRN (Reason: .WHEN TAKING FUROSEMIDE) Qty: 0 RF: 0 lorazepam 0.5 mg Tablet 0.5 mg PO TID PRN (Reason: Anxiety) Qty: 0 RF: 0 nitroglycerin [Nitrostat] 0.4 mg Tablet, Sublingual 0.4 mg Sublingual UD PRN (Reason: Chest Pain) Qty: 0 RF: 0 sennosides [Senokot] 8.6 mg Tablet 8.6 mg PO BID PRN (Reason: Constipation) Qty: 0 RF: 0 polyethylene glycol 3350 [Miralax] 17 gram Powder In Packet 17 g PO DAILY PRN (Reason: Constipation) Qty: 0 RF: 0 fluticasone propionate [Flonase Allergy Relief] 50 mcg/actuation [place],Suspension 2 spray INTRANASAL DAILY PRN (Reason: Nasal Congestion) RF: 0 aspirin 81 mg Tablet,Delayed Release (Dr/Ec) 81 mg PO DAILY RF: 0 isosorbide dinitrate 10 mg tablet 10 mg PO BID RF: 0 metoprolol succinate 25 mg tablet extended release 24 hr 25 mg PO QAM RF: 0 metformin 500 mg tablet extended release 24 hr 500 mg PO BID RF: 0 Referrals Referrals: Abisai Cid DO [Primary Care Provider] -
[2021-01-08 12:45] LABS: Basophils # (auto) 0.01 K/uL (0-0.2); Basophils % (auto) 0.2 %; Eosinophils # (auto) 0.22 K/uL (0-0.5); Eosinophils % (auto) 3.4 %; Hematocrit (blood only) 45.2 % (37-47); Hemoglobin 14.7 g/dL (12.0-16.0); Immature Granulocytes # (auto) 0.01 K/uL (0.00-0.02); Immature Granulocytes % (auto) 0.2 %; Lymphocytes # (auto) 2.09 K/uL (1.2-3.4); Lymphocytes % (auto) 32.5 %; Mean Corpuscular Hemoglobin 30.4 pg (25-34); Mean Corpuscular Hgb Conc 32.5 g/dL (32-36); Mean Corpuscular Volume 93.4 fL (80-100); Mean Platelet Volume 10.4 fL (7.4-10.4); Monocytes % (auto) 10.9 %; Neutrophils # (auto) 3.41 K/uL (1.4-6.5); Neutrophils % (auto) 52.8 %; Platelet Count 246 K/uL (130-400); RDW Coefficient of Variation 14.1 % (11.5-14.5); RDW Standard Deviation 48.4 fL (36.4-46.3); Red Blood Count 4.84 M/uL (4.2-5.4); White Blood Count 6.44 K/uL (4.8-10.8)
--- NOTE | 2021-01-08 12:59 | XRay Report ---
XR chest 1V portable INDICATION: [place] ^Chest Pain . TECHNIQUE: Single frontal radiograph of the chest was obtained. Comparison: Comparison is made to chest one view 04/09/2020 FINDINGS: Stable median sternotomy wires. The cardiomediastinal silhouette is normal. The lungs are clear. No e vidence of pleural effusion or pneumothorax. IMPRESSION: No acute chest disease. ACT 112: Negative or not required by law. Electronically signed by: Chris Jha M.D. 01/08/2021 12:58 PM
[2021-01-08 13:04] LABS: Alanine Aminotransferase 25 U/L (12-78); Albumin Level 3.9 gm/dl (3.4-5.0); Aspartate Aminotransferase 33 U/L (15-37); BUN Creatinine Ratio 16.3 (10-20); Blood Urea Nitrogen 17 mg/dl (7-18); Calcium 9.7 mg/dl (8.5-10.1); Carbon Dioxide 29 mmol/L (21-32); Chloride 105 mmol/L (98-107); Est GFR (African American) 55.8 ml/min; Est GFR (Non-African American) 48.2 ml/min; Glucose 90 mg/dl (70-99); Potassium 4.4 mmol/L (3.5-5.1); Sodium 138 mmol/L (136-145)
[2021-01-08 13:08] LABS: INR 1.4 (0.9-1.1); Partial Thromboplastin Ratio 1.5; Prothrombin Time 13.4 Seconds (9.0-12.0)
[2021-01-08 13:09] LABS: Albumin Globulin Ratio 0.9 (0.9-2); Alkaline Phosphatase 80 U/L (45-117); Bilirubin,Total 0.6 mg/dl (0.2-1); Globulin 4.4 gm/dl (2.5-4.0); Total Protein 8.3 gm/dl (6.4-8.2); Troponin I < 0.015 ng/ml (0-0.045)
--- NOTE | 2021-01-08 15:39 | History & Physical Report ---
Date of Service January 08, 2021 Assessment & Plan (1) SOB (shortness of breath): (2) CAD (coronary artery disease): (3) S/P CABG x 2: (4) History of pulmonary embolism: (5) T2DM (type 2 diabetes mellitus): (6) Hypertension: (7) Dyslipidemia: Plan: This is a very pleasant 85-year-old female who has significant past medical history of CAD status post CABG x2 with BOWEN to LAD and vein graft to OM1 October 2015, chronic stable angina, T2DM, HLD, GERD, remote history of DVT, history of PE after CABG on long-term anticoagulation with Xarelto, osteoporosis who presents to ED after experiencing episode of shortness of breath, dizziness and diaphoresis x45 minutes. Pt presents 2/2 to SOB, diaphoresis, L arm tingling, VINCENT that lasted 45 minutes and resolved on on. Sx started while she was doing a puzzle. These can occur at rest or with exertion and have been on going since pt lost her in May of 2019. She is hemodynamically stable in ED and ecg and troponin are unremarkable. SOB/Dizziness/L arm tingling admit to med tele to rule out ACS/arrhythmia given extensive cardiac hx pt may unfortunately still be suffering from grief but given past history warrants cardiac work up cycle trops, repeat ECG obtain echo - last stress echo 03/2020 negative for ischemia LVEF 55-60%, mild MR, mod TR, av sclerosis lipid panel in a.m. consult cardiology - she is established pt of Dr. Nolasco, last seen in September continue current regimen of asa, statin, imdur, metoprolol she is euvolemic Grief discussed with patient encourage her at PCP follow up to discuss options regarding coping or possibility of trial of short term antidepressant Newly dx T2DM A1C 6.7 on 12/17/20 hold metformin, monitor fbs will not place on coverage for now, bsg 90 HTN BP stable continue metoprolol, imdur HLD continue statin Hx of PE/DVT hold xarelto, until cardiac work up and plan determined for a.m., if sx return will start heparin - last dose was this morning DVT ppx: SCDs for now, resume xarelto in a.m. if no necessity for cath Dispo: med tele DNR/DNI PCP: Palak Pt was seen and examined in collaboration with Dr. Conrad, please see addendum History of Present Illness Chief Complaint: Shortness of breath, dizziness and diaphoresis x45 minutes. Primary Care Provider: Abisai Cid DO This is a very pleasant 85-year-old female who has significant past medical history of CAD status post CABG x2 with BOWEN to LAD and vein graft to OM1 October 2015, chronic stable angina, T2DM, HLD, GERD, remote history of DVT, history of PE after CABG on long-term anticoagulation with Xarelto, osteoporosis who presents to ED after experiencing episode of shortness of breath, dizziness and diaphoresis x45 minutes. She unfortunately lost her in May 2020. Since then she has been having similar episodes, but today's episode lasted much longer. She was sitting doing a puzzle when she became short of breath, dizzy feeling like she could pass out, diaphoretic, left arm tingling and headache. Symptoms did not resolve and after 30 minutes called cardiology who encouraged her to call EMS. Son is with patient at bedside. She states she has been having these episodes since May sometimes even daily. It can occur at rest or with exertion. She states the other day she was outside picking up apples when she became extremely short of breath and had to sit down. Typically when symptoms start she is able to sit down and they resolve on their own within minutes. She denies any associated chest pain or palpitations. She denies any recent illness. Sx mimic previous heart attack. She further complains of off and on blurred vision which has been on going for 2-3 months. This is not associated with her other symptoms. She denies double vision. Currently she feels well sitting in the bed. She denies any fever, chills, sweats, lightheadedness, dizziness, chest pain, shortness breath, cough, nausea, vomiting, abdominal pain, change in bowel or urinary habits. She does admit to a 20 pound weight loss since May and attributes this to the loss of her as well as healthier eating. She states she has not talked to anyone including her PCP regarding her grief but feels she has not been coping well. She never thought it would be this hard until having to go through it. In ED she remained hemodynamically stable. Her lab work was generally unremarkable including a troponin that was unremarkable. Her chest x-ray was negative. Her EKG showed normal sinus rhythm with a rate of [address] or T wave changes. Given her extensive cardiac history she was she was recommended for hospital admission. Allergies Allergy/AdvReac Type Severity Reaction Status Date / Time latex Allergy Intermediate RASH Verified 01/08/21 13:43 erythromycin base Allergy Unknown RASH Verified 01/08/21 13:43 sulfamethoxazole AdvReac Intermediate Rash Verified 01/08/21 13:43 [From Bactrim] trimethoprim [From Bactrim] AdvReac Intermediate Rash Verified 01/08/21 13:43 Home Medications Medication Instructions Recorded Confirmed Type atorvastatin 80 mg tablet (Lipitor) 80 mg PO QAM #0 10/29/15 01/08/21 History omeprazole 40 mg capsule,delayed 40 mg PO DAILY PRN #0 10/29/15 01/08/21 History release rivaroxaban 20 mg tablet (Xarelto) 20 mg PO QAM #0 11/27/15 01/08/21 History furosemide 40 mg tablet 40 mg PO DAILY PRN #0 02/12/16 01/08/21 History lorazepam 0.5 mg tablet 0.5 mg PO DAILY PRN #0 12/03/16 01/08/21 History nitroglycerin 0.4 mg sublingual 0.4 mg SUBLINGUAL UD PRN #0 btl 12/03/16 01/08/21 History tablet (Nitrostat) potassium chloride 10 mEq 10 meq PO DAILY PRN #0 12/03/16 01/08/21 History tablet,extended release polyethylene glycol 3350 17 gram 17 g PO DAILY PRN #0 g 10/05/17 01/08/21 History oral powder packet (Miralax) sennosides 8.6 mg tablet (Senokot) 8.6 mg PO BID PRN #0 tab 10/05/17 01/08/21 History fluticasone propionate 50 2 spray INTRANASAL DAILY PRN 04/29/18 01/08/21 History mcg/actuation nasal spray,suspension (Flonase Allergy Relief) aspirin 81 mg tablet,delayed 81 mg PO DAILY 04/09/20 01/08/21 History release isosorbide dinitrate 10 mg tablet 10 mg PO BID 04/09/20 01/08/21 History metoprolol succinate 25 mg 25 mg PO QAM 04/09/20 01/08/21 History tablet,extended release 24 hr metformin 500 mg tablet,extended 500 mg PO DAILY 01/08/21 01/08/21 History release 24 hr Past Med/Surg History Medical History (Updated 01/08/21 @ 15:42 by Esme Shoemaker PA-C) Accelerated hypertension Anxiety "mild; uses Ativan once yearly " Benign neoplasm of hard palate CAD (coronary artery disease) Dyslipidemia GERD (gastroesophageal reflux disease) History of diverticulitis History of DVT of lower extremity History of pulmonary embolism History of superficial phlebitis Hx of venous thromboembolic disease Hypertension Occipital neuralgia T2DM (type 2 diabetes mellitus) Surgical History H/O vein stripping History of bladder repair surgery History of partial hysterectomy Hx of bladder repair surgery "cystocele repair " S/P CABG x 2 S/P partial resection of colon Family History Mother Lymphoma Colon cancer Father COPD (chronic obstructive pulmonary disease) [place] [employer] Brother Murder Sister Brain tumor Social History (Updated 01/08/21 @ 15:40 by Esme Shoemaker PA-C) Smoking Status: Never smoker Second Hand Exposure: No; Hx Alcohol Use: Yes Hx Substance Use: No Preferred Language: Romanian Communication Ability: Effective Flosser Required: No Beliefs That Will Affect Care: None marital status: / Current Living Situation: Alone Feels Safe at Home: Yes Assistive Devices: Glasses Review of Systems Review of Systems: All systems reviewed & are unremarkable except as noted in HPI & below Physical Exam Physical Exam: Constitutional: WD/WN, Elderly, F, vitals as above, NAD, sitting up in bed, pleasant, conversing easily Head: Normocephalic, Atraumatic Eyes: PERRL, conjunctivae normal, anicteric sclerae ENMT: external ear and nose normal, oropharynx normal Neck: trachea midline, no thyromegaly normal visual inspection Respiratory: normal respiratory effort, lungs clear to auscultation, no wheeze, rales, rhonchi. Normal insp/exp effort, no accessory muscle use Cardiovascular: RRR, no murmur, no edema Vessels: no JVD or carotid bruit Chest: normal inspection of chest Abdomen: normal bowel sounds, soft, nontender, no hepatosplenomegaly Musculoskeletal: no cyanosis or clubbing, extremities motor strength 5/5 Skin: no rashes, warm and dry normal turgor Neurologic: PERRL, EOMI, accommodation nl, no face palsy, no dysarthria CN's II-XI intact bilaterally and moves all extremities Psychiatric: A+Ox3, euthymic affect Lymphatic: no cervical or axillary lymphadenopathy : deferred Results & Data Results & Data ([facility]) Vital Signs (Past 12 Hours) Vital Signs Temp Pulse Pulse Resp BP BP Pulse Ox 01/08/21 13:33 69 17 128/76 97 01/08/21 13:15 63 20 93 01/08/21 13:10 76 19 128/76 93 01/08/21 11:49 36.7 C 89 20 137/77 96 01/08/21 11:47 36.8 C 18 93 Diagnostic Findings Chest X-Ray 01/08/21 12:13 XR chest 1V portable INDICATION: [place] ^Chest Pain . TECHNIQUE: Single frontal radiograph of the chest was obtained. Comparison: Comparison is made to chest one view 04/09/2020 FINDINGS: Stable median sternotomy wires. The cardiomediastinal silhouette is normal. The lungs are clear. No evidence of pleural effusion or pneumothorax. IMPRESSION: No acute chest disease. ACT 112: Negative or not required by law. Electronically signed by: Chris Jha M.D. 01/08/2021 12:58 PM ECG Rate (beats per minute): 75 Rhythm: normal sinus COVID-19 Results Results COVID-19 Adm Lab Results: RBC 4.84 M/uL (4.2-5.4) 01/08/21 WBC 6.44 K/uL (4.8-10.8) 01/08/21 Hgb 14.7 g/dL (12.0-16.0) 01/08/21 Hct 45.2 % (37-47) 01/08/21 Plt Count 246 K/uL (130-400) 01/08/21 Neutrophils (%) (Auto) 52.8 % 01/08/21 Lymphocytes (%) (Auto) 32.5 % 01/08/21 Monocytes # (Auto) 0.70 K/uL (0.11-0.59) H 01/08/21 Eosinophils # (Auto) 0.22 K/uL (0-0.5) 01/08/21 Immature Granulocyte % (Auto) 0.2 % 01/08/21 Neutrophils # (Auto) 3.41 K/uL (1.4-6.5) 01/08/21 Lymphocytes # (Auto) 2.09 K/uL (1.2-3.4) 01/08/21 Monocytes # (Auto) 0.70 K/uL (0.11-0.59) H 01/08/21 Eosinophils # (Auto) 0.22 K/uL (0-0.5) 01/08/21 Basophils # (Auto) 0.01 K/uL (0-0.2) 01/08/21 Immature Granulocyte # (Auto) 0.01 K/uL (0.00-0.02) 01/08/21 Na 138 mmol/L (136-145) 01/08/21 K 4.4 mmol/L (3.5-5.1) 01/08/21 Cl 105 mmol/L (98-107) 01/08/21 CO2 29 mmol/L (21-32) 01/08/21 Anion Gap 4.0 (3-11) 01/08/21 BUN 17 mg/dl (7-18) 01/08/21 Creatinine 1.06 mg/dl (0.6-1.2) 01/08/21 BUN/Creatinine Ratio 16.3 (10-20) 01/08/21 Glucose Level 90 mg/dl (70-99) 01/08/21 Ca 9.7 mg/dl (8.5-10.1) 01/08/21 Total Bilirubin 0.6 mg/dl (0.2-1) 01/08/21 AST/SGOT 33 U/L (15-37) 01/08/21 ALT/SGPT 25 U/L (12-78) 01/08/21 Alkaline Phosphatase 80 U/L (45-117) 01/08/21 Total Protein 8.3 gm/dl (6.4-8.2) H 01/08/21 Albumin 3.9 gm/dl (3.4-5.0) 01/08/21 Globulin 4.4 gm/dl (2.5-4.0) H 01/08/21 Albumin/Globulin Ratio 0.9 (0.9-2) 01/08/21 Troponin I < 0.015 ng/ml (0-0.045) 01/08/21 PTT 39.0 Seconds (21.0-31.0) H 01/08/21 INR 1.4 (0.9-1.1) H 01/08/21 COVID-19 PCR NEGATIVE (Negative) 01/08/21 Chest X-Ray 01/08/21 Code Status & VTE Plan Code Status DNR/DNI VTE Prophylaxis Plan VTE Prophylaxis will be ordered: No Supervising Physician Co-Signing Physician Notes Patient is an 85-year-old female with history of coronary artery disease, diabetes mellitus, hyperlipidemia and other medical problems presents with history of transient shortness of breath, dizziness, diaphoresis, left upper extremity pain lasting for about 45 minutes. Currently she is asymptomatic. She denies any chest pain. Also denies any fever, chills, cough. Please review HPI for complete details of presentation. Initial troponin is negative. EKG showed no signs of acute ischemia. Patient is on Xarelto for history of DVT, PE and her last dose of Xarelto was this morning. On exam patient is moderately built and nourished, no apparent distress, elderly, normocephalic atraumatic, lungs are clear to auscultation, normal breath sounds, S1-S2, no murmur, no pedal edema, abdomen soft, nontender, normal bowel sounds, alert, awake, oriented, grossly no focal deficits. Patient is admitted for management of chest pain rule out ACS. Continue to trend cardiac enzymes, check resting echo. Consult cardiology. Continue aspirin, metoprolol, statin, Imdur. We will keep her n.p.o. after midnight. Will hold Xarelto for now. Will consider IV heparin if patient develops recurrence of chest pain. Monitor blood glucose levels for diabetes mellitus. Consider insulin therapy if required. I personally reviewed the record. Patient is interviewed and examined at bedside. Patient's care is coordinated with Esme Johnson PA-C. Please refer to the documentation above for details of patient's presentation and for discussion of other issues. (1) CAD (coronary artery disease) Coronary Disease-Associated Artery/Lesion type: [place] artery [place] vs. transplanted heart: unspecified whether [place] or transplanted heart (2) Hypertension Hypertension type: essential hypertension Qualified Code(s): I10 - Essential (primary) hypertension
[2021-01-08 16:01] LABS: Magnesium 2.5 mg/dl (1.8-2.4)
--- NOTE | 2021-01-08 16:23 | CT Scan Report ---
CT OF THE HEAD WITHOUT CONTRAST CLINICAL HISTORY: dizziness, blurry vision COMPARISON STUDY: MRI of the brain December 17, 2017. Head CT December 22, 2017. CT DOSE: 638.56 mGycm TECHNIQUE: Helical axial images of the head were obtained without IV contrast. Automated exposure con trol was utilized for the study. A dose lowering technique was utilized adhering to the principles o f ALARA. FINDINGS: No acute intracranial hemorrhage, midline shift or mass effect is present. White matter hyp odensities are similar to prior exam and favor small vessel disease. The ventricular system is unrema rkable. The basal cisterns are patent. No extra-axial collections are present. There are no findings to suggest acute dural sinus thrombosis or acute territorial infarct. No significant calvarial abnorm alities are present. Visualized portions of the sinuses and mastoid air cells are clear. IMPRESSION: No acute intracranial findings. ACT 112: Negative or not required by law. Electronically signed by: Adarsh Steele M.D. 01/08/2021 4:21 PM
--- NOTE | 2021-01-08 18:00 | Electrocardiogram Report ---
Test Reason : Blood Pressure : / mmHG Vent. Rate : 075 BPM Atrial Rate : 075 BPM P-R Int : 162 ms QRS Dur : 074 ms QT Int : 370 ms P-R-T Axes : 038 -07 041 degrees QTc Int : 413 ms Normal sinus rhythm Poor R wave progression, consider anterior OR vs. lead placement vs. LVH Abnormal ECG When compared with ECG of 10-APR-2020 06:26, No significant change was found Confirmed by James Baeza ([id number]) on 01/08/2021 6:00:44 PM Referred By: REFERRED SELF Confirmed By:James Baeza
[2021-01-08] MEDS ORDERED: MAGNESIUM HYDROXIDE SUSP 30 ML UDC PO PRN (18:12)
[2021-01-08] MEDS ORDERED: ONDANSETRON INJ 2 MG/ML 2 ML VIAL IV PRN (18:12)
[2021-01-08] MEDS ORDERED: LORazepam 0.5 MG TAB PO PRN (18:12)
[2021-01-08] MEDS ORDERED: NITROGLYCERIN SL 0.4 MG/TAB TAB SL PRN (18:12)
[2021-01-08] MEDS ORDERED: POLYETHYLENE (MIRALAX) 17 GM PACK PO PRN (18:12)
[2021-01-08] MEDS ORDERED: ACETAMINOPHEN 325 MG TAB PO PRN (18:12)
[2021-01-08] MEDS ORDERED: FLUTICASONE PROPIONATE NA SPR 16 GM BTL PRN (18:12)
[2021-01-08] MEDS ORDERED: ALUMINUM/MAGNESIUM SUSP 30 ML UDC PO PRN (18:12)
[2021-01-09] MEDS ORDERED: ISOSORBIDE DINITRATE 10 MG TAB PO SCH ×3 (07:00→12:00)
--- NOTE | 2021-01-09 08:02 | Hospitalist Progress Note ---
Date of Service January 09, 2021 Assessment & Plan Admission and Anticipated Discharge Date Admission Date: January 08, 2021 Results & Data Results & Data ([facility]) Vital Signs (Past 12 Hours) Vital Signs Temp Pulse Pulse Pulse Resp BP Pulse Ox 01/09/21 07:36 65 01/09/21 04:00 37 C 82 18 110/69 96 01/09/21 01:36 64 01/08/21 22:00 36.8 C 88 20 151/74 H 98
[2021-01-09 08:21] LABS: BUN Creatinine Ratio 20.6 (10-20); Creatinine Clr Calc Pharmacy 46.1 ml/min; Est GFR (African American) 72.9 ml/min; Est GFR (Non-African American) 62.9 ml/min
--- NOTE | 2021-01-09 08:35 | Cardiology Consultation ---
Date of Consultation January 09, 2021 Assessment & Plan (1) SOB (shortness of breath): (2) CAD (coronary artery disease): (3) Hypertension: (4) Anxiety: Patient presented with episodic SOB, not related to exertion and hand numbness. Work up has been unremarkable. She admits to frequent similar episodes when she becomes emotional regarding husbands passing. Likely strong anxiety/depression component. Work up including echo without acute changes, negative cardiac enzymes x3, normal chest xray and labs, and non ischemic EKG. She had a cardiac cath in 2018 with medical management recommended at that time due to atretic BOWEN graft and she had a DSE in 03/2020 which was negative for inducible ischemia. Her echo this morning demonstrated stable findings, without wall motion abnormalities or valvular disease. At this time, I have increased her isordil to 10 mg TID to see if this aids with her intermittent dyspnea/SOB. No indications for further cardiac testing at this time. If symptoms persist/worsen, could consider outpatient stress test She will keep her f/u appt as scheduled in 2-[address] Nolasco. Patient is agreeable to this plan. Discussed case with hospitalist and Dr. Salmon. Supervising Physician Co-Signing Physician Notes I have discussed the case with Ms. Forrester. I have examined the patient and reviewed the medical record. I performed a catheterization on her in 2018 with the result being medical management of her coronary artery disease. She also had a dobutamine stress test in last year that was negative. I agree with no additional cardiac testing at this time. Patient has follow-up with Dr. Nolasco which she should keep. History of Present Illness Reason for Consultation: Chest pain; SOB; Dizziness Requesting Physician: Ms. Navid PA-C and Dr. Conrad Attending Physician: Dr. Salmon History of Present Illness Patient is a 85 year old female who is known to [facility], following with Dr. Nolasco for history of CAD s/p CABG in 2015. History includes: 1.Coronary artery disease status post CABG x2 with a BOWEN to the LAD and vein graft to OM1, October 2015. 2.Followup cardiac catheterization in 2018 showing an atretic BOWEN graft, ongoing medical management recommended. 3.Pulmonary embolism on chronic Xarelto anticoagulation. 4. Dyslipidemia In March 2020 patient underwent dobutamine stress echo at [facility] which was negative for inducible ischemia with preserved LV systolic function, mild aortic sclerosis without stenosis. For the last year, patient's unfortunately and she has been grieving with significant emotional stressors. Yesterday she was putting together a puzzle and noted sudden onset SOB with numbness/tingling down her left arm/hand and intermittent headache. Symptoms lasted approx 30 minutes. During this time, she called the Dr. Nolasco/cardiology office for advice and recommended evaluation in ER. Upon arrival in the ER, she reports her symptoms had resolved. She denies chest pain, palpitations, syncope or near syncope. no cough, congestion. No recent edema, orthopnea, PND. She admits to frequent episodes of these "attacks" and feels anxiety may be contributing. She also reports SOB with activities at times and resolves quickly with rest. Upon arrival in ER, EKG was without ischemic changes. Cardiac enzymes unremarkable x3 since admission. Other labs without acute findings. Chest xray was negative for acute pulmonary disease and head CT was also unremarkable. She was admitted for further evaluation and observation. No arrhythmias on telemetry. She reported similar epiosodes of SOB last evening when her roommate was having "problems" and she requested to be moved to a new room. Symptoms then resolved, consistent with likely anxiety/emotional stress. Currently at time of consult, patient resting in bed comfortably. Denies complaints at this time. Anxious for discharge. Requesting breakfast. Denies recurrent SOB, CP, hand numbness/tingling. No dizziness or lightheadedness. Allergies Allergy/AdvReac Type Severity Reaction Status Date / Time latex Allergy Intermediate RASH Verified 01/08/21 13:43 erythromycin base Allergy Unknown RASH Verified 01/08/21 13:43 sulfamethoxazole AdvReac Intermediate Rash Verified 01/08/21 13:43 [From Bactrim] trimethoprim [From Bactrim] AdvReac Intermediate Rash Verified 01/08/21 13:43 Home Medications Medication Instructions Recorded Confirmed Type atorvastatin 80 mg tablet (Lipitor) 80 mg PO QAM #0 10/29/15 01/08/21 History omeprazole 40 mg capsule,delayed 40 mg PO DAILY PRN #0 10/29/15 01/08/21 History release rivaroxaban 20 mg tablet (Xarelto) 20 mg PO QAM #0 11/27/15 01/08/21 History furosemide 40 mg tablet 40 mg PO DAILY PRN #0 02/12/16 01/08/21 History lorazepam 0.5 mg tablet 0.5 mg PO DAILY PRN #0 12/03/16 01/08/21 History nitroglycerin 0.4 mg sublingual 0.4 mg SUBLINGUAL UD PRN #0 btl 12/03/16 01/08/21 History tablet (Nitrostat) potassium chloride 10 mEq 10 meq PO DAILY PRN #0 12/03/16 01/08/21 History tablet,extended release polyethylene glycol 3350 17 gram 17 g PO DAILY PRN #0 g 10/05/17 01/08/21 History oral powder packet (Miralax) sennosides 8.6 mg tablet (Senokot) 8.6 mg PO BID PRN #0 tab 10/05/17 01/08/21 History fluticasone propionate 50 2 spray INTRANASAL DAILY PRN 04/29/18 01/08/21 History mcg/actuation nasal spray,suspension (Flonase Allergy Relief) aspirin 81 mg tablet,delayed 81 mg PO DAILY 04/09/20 01/08/21 History release isosorbide dinitrate 10 mg tablet 10 mg PO BID 04/09/20 01/08/21 History metoprolol succinate 25 mg 25 mg PO QAM 04/09/20 01/08/21 History tablet,extended release 24 hr metformin 500 mg tablet,extended 500 mg PO DAILY 01/08/21 01/08/21 History release 24 hr Patient History Medical History (Updated 01/08/21 @ 15:42 by Esme Shoemaker PA-C) Accelerated hypertension Anxiety "mild; uses Ativan once yearly " Benign neoplasm of hard palate CAD (coronary artery disease) Dyslipidemia GERD (gastroesophageal reflux disease) History of diverticulitis History of DVT of lower extremity History of pulmonary embolism History of superficial phlebitis Hx of venous thromboembolic disease Hypertension Occipital neuralgia T2DM (type 2 diabetes mellitus) Surgical History H/O vein stripping History of bladder repair surgery History of partial hysterectomy Hx of bladder repair surgery "cystocele repair " S/P CABG x 2 S/P partial resection of colon Family History Mother Lymphoma Colon cancer Father COPD (chronic obstructive pulmonary disease) [place] [employer] lung Brother Murder Sister Brain tumor Social History (Updated 01/08/21 @ 15:40 by Esme Shoemaker PA-C) Smoking Status: Never smoker Second Hand Exposure: No; Hx Alcohol Use: Yes Hx Substance Use: No Preferred Language: Persian Communication Ability: Effective Sql Server Consultant Required: No Beliefs That Will Affect Care: None marital status: / Current Living Situation: Alone Other Information That Helps Us Care for You: No Feels Safe at Home: Yes Safety Concerns: Feels Safe At This Time Assistive Devices: None Review of Systems Review of Systems: All systems reviewed & are unremarkable except as noted in HPI & below Physical Exam Constitutional: WD/WN, vitals as above Eyes: PERRL, conjunctivae normal, anicteric sclerae ENMT: external ear and nose normal, oropharynx normal Neck: trachea midline, no thyromegaly Respiratory: normal respiratory effort, lungs clear to auscultation Cardiovascular: RRR, no murmur, no edema Gastrointestinal (Abdomen): normal bowel sounds, soft, nontender, no hepatosplenomegaly Musculoskeletal: no cyanosis or clubbing, extremities motor strength 5/5 Skin: no rashes, warm and dry Neurologic: PERRL, EOMI, accommodation nl, no face palsy, no dysarthria Psychiatric: A+Ox3, euthymic affect Results & Data (MN) Vital Signs (Past 12 Hours) Vital Signs Temp Pulse Pulse Pulse Resp BP Pulse Ox 01/09/21 08:01 36.6 C 76 18 134/71 93 01/09/21 07:36 65 01/09/21 04:00 37 C 82 18 110/69 96 01/09/21 01:36 64 01/08/21 22:00 36.8 C 88 20 151/74 H 98 Laboratory Results 01/09/21 01/09/21 01/09/21 Range/Units 07:41 07:21 00:29 WBC (4.8-10.8) K/uL RBC (4.2-5.4) M/uL Hgb (12.0-16.0) g/dL Hct (37-47) % MCV (80-100) fL MCH (25-34) pg MCHC (32-36) g/dL RDW Std Deviation (36.4-46.3) fL RDW Coeff of Derick (11.5-14.5) % Plt Count (130-400) K/uL MPV (7.4-10.4) fL Immature Gran % (Auto) % Neut % (Auto) % Lymph % (Auto) % Fleming % (Auto) % Eos % (Auto) % Baso % (Auto) % Neut # (Auto) (1.4-6.5) K/uL Lymph # (Auto) (1.2-3.4) K/uL Fleming # (Auto) (0.11-0.59) K/uL Eos # (Auto) (0-0.5) K/uL Baso # (Auto) (0-0.2) K/uL Immature Gran # (Auto) (0.00-0.02) K/uL PT (9.0-12.0) Seconds INR (0.9-1.1) APTT (21.0-31.0) Seconds PTT Ratio Sodium 139 (136-145) mmol/L Potassium 4.0 (3.5-5.1) mmol/L Chloride 109 H (98-107) mmol/L Carbon Dioxide 24 (21-32) mmol/L Anion Gap 6.0 (3-11) BUN 18 (7-18) mg/dl Creatinine 0.85 (0.6-1.2) mg/dl Est Cr Clr Drug Dosing 46.1 ml/min Est GFR ( Amer) 72.9 ml/min Est GFR (Non-Af Amer) 62.9 ml/min BUN/Creatinine Ratio 20.6 H (10-20) Glucose 94 (70-99) mg/dl POC Glucose 100 H (70-99) mg/dl Calcium 9.0 (8.5-10.1) mg/dl Magnesium (1.8-2.4) mg/dl Total Bilirubin (0.2-1) mg/dl AST (15-37) U/L ALT (12-78) U/L Alkaline Phosphatase (45-117) U/L Troponin I < 0.015 (0-0.045) ng/ml Total Protein (6.4-8.2) gm/dl Albumin (3.4-5.0) gm/dl Globulin (2.5-4.0) gm/dl Albumin/Globulin Ratio (0.9-2) Triglycerides 83 (0-150) mg/dl Cholesterol 117 (0-200) mg/dl LDL Cholesterol, Calc 44 mg/dl VLDL Cholesterol, Calc 17 mg/dl HDL Cholesterol 56 mg/dl Cholesterol/HDL Ratio 2 TSH (0.300-4.500) uIu/ml COVID-19 Eval Order SARS-CoV-2 (PCR) (Negative) 01/08/21 01/08/21 01/08/21 Range/Units 19:59 18:30 14:51 WBC (4.8-10.8) K/uL RBC (4.2-5.4) M/uL Hgb (12.0-16.0) g/dL Hct (37-47) % MCV (80-100) fL MCH (25-34) pg MCHC (32-36) g/dL RDW Std Deviation (36.4-46.3) fL RDW Coeff of Derick (11.5-14.5) % Plt Count (130-400) K/uL MPV (7.4-10.4) fL Immature Gran % (Auto) % Neut % (Auto) % Lymph % (Auto) % Fleming % (Auto) % Eos % (Auto) % Baso % (Auto) % Neut # (Auto) (1.4-6.5) K/uL Lymph # (Auto) (1.2-3.4) K/uL Fleming # (Auto) (0.11-0.59) K/uL Eos # (Auto) (0-0.5) K/uL Baso # (Auto) (0-0.2) K/uL Immature Gran # (Auto) (0.00-0.02) K/uL PT (9.0-12.0) Seconds INR (0.9-1.1) APTT (21.0-31.0) Seconds PTT Ratio Sodium (136-145) mmol/L Potassium (3.5-5.1) mmol/L Chloride (98-107) mmol/L Carbon Dioxide (21-32) mmol/L Anion Gap (3-11) BUN (7-18) mg/dl Creatinine (0.6-1.2) mg/dl Est Cr Clr Drug Dosing ml/min Est GFR ( Amer) ml/min Est GFR (Non-Af Amer) ml/min BUN/Creatinine Ratio (10-20) Glucose (70-99) mg/dl POC Glucose 131 H (70-99) mg/dl Calcium (8.5-10.1) mg/dl Magnesium (1.8-2.4) mg/dl Total Bilirubin (0.2-1) mg/dl AST (15-37) U/L ALT (12-78) U/L Alkaline Phosphatase (45-117) U/L Troponin I < 0.015 (0-0.045) ng/ml Total Protein (6.4-8.2) gm/dl Albumin (3.4-5.0) gm/dl Globulin (2.5-4.0) gm/dl Albumin/Globulin Ratio (0.9-2) Triglycerides (0-150) mg/dl Cholesterol (0-200) mg/dl LDL Cholesterol, Calc mg/dl VLDL Cholesterol, Calc mg/dl HDL Cholesterol mg/dl Cholesterol/HDL Ratio TSH (0.300-4.500) uIu/ml COVID-19 Eval Order SARS-CoV-2 (PCR) NEGATIVE (Negative) 01/08/21 01/08/21 01/08/21 Range/Units 14:51 12:22 12:22 WBC (4.8-10.8) K/uL RBC (4.2-5.4) M/uL Hgb (12.0-16.0) g/dL Hct (37-47) % MCV (80-100) fL MCH (25-34) pg MCHC (32-36) g/dL RDW Std Deviation (36.4-46.3) fL RDW Coeff of Derick (11.5-14.5) % Plt Count (130-400) K/uL MPV (7.4-10.4) fL Immature Gran % (Auto) % Neut % (Auto) % Lymph % (Auto) % Fleming % (Auto) % Eos % (Auto) % Baso % (Auto) % Neut # (Auto) (1.4-6.5) K/uL Lymph # (Auto) (1.2-3.4) K/uL Fleming # (Auto) (0.11-0.59) K/uL Eos # (Auto) (0-0.5) K/uL Baso # (Auto) (0-0.2) K/uL Immature Gran # (Auto) (0.00-0.02) K/uL PT 13.4 H (9.0-12.0) Seconds INR 1.4 H (0.9-1.1) APTT 39.0 H (21.0-31.0) Seconds PTT Ratio 1.5 Sodium 138 (136-145) mmol/L Potassium 4.4 (3.5-5.1) mmol/L Chloride 105 (98-107) mmol/L Carbon Dioxide 29 (21-32) mmol/L Anion Gap 4.0 (3-11) BUN 17 (7-18) mg/dl Creatinine 1.06 (0.6-1.2) mg/dl Est Cr Clr Drug Dosing 37.0 ml/min Est GFR ( Amer) 55.8 ml/min Est GFR (Non-Af Amer) 48.2 ml/min BUN/Creatinine Ratio 16.3 (10-20) Glucose 90 (70-99) mg/dl POC Glucose (70-99) mg/dl Calcium 9.7 (8.5-10.1) mg/dl Magnesium 2.5 H (1.8-2.4) mg/dl Total Bilirubin 0.6 (0.2-1) mg/dl AST 33 (15-37) U/L ALT 25 (12-78) U/L Alkaline Phosphatase 80 (45-117) U/L Troponin I < 0.015 (0-0.045) ng/ml Total Protein 8.3 H (6.4-8.2) gm/dl Albumin 3.9 (3.4-5.0) gm/dl Globulin 4.4 H (2.5-4.0) gm/dl Albumin/Globulin Ratio 0.9 (0.9-2) Triglycerides (0-150) mg/dl Cholesterol (0-200) mg/dl LDL Cholesterol, Calc mg/dl VLDL Cholesterol, Calc mg/dl HDL Cholesterol mg/dl Cholesterol/HDL Ratio TSH 1.830 (0.300-4.500) uIu/ml COVID-19 Eval Order Covid19 at [facility] SARS-CoV-2 (PCR) (Negative) 09/23/21 Range/Units 12:22 WBC 6.44 (4.8-10.8) K/uL RBC 4.84 (4.2-5.4) M/uL Hgb 14.7 (12.0-16.0) g/dL Hct 45.2 (37-47) % MCV 93.4 (80-100) fL MCH 30.4 (25-34) pg MCHC 32.5 (32-36) g/dL RDW Std Deviation 48.4 H (36.4-46.3) fL RDW Coeff of Derick 14.1 (11.5-14.5) % Plt Count 246 (130-400) K/uL MPV 10.4 (7.4-10.4) fL Immature Gran % (Auto) 0.2 % Neut % (Auto) 52.8 % Lymph % (Auto) 32.5 % Fleming % (Auto) 10.9 % Eos % (Auto) 3.4 % Baso % (Auto) 0.2 % Neut # (Auto) 3.41 (1.4-6.5) K/uL Lymph # (Auto) 2.09 (1.2-3.4) K/uL Fleming # (Auto) 0.70 H (0.11-0.59) K/uL Eos # (Auto) 0.22 (0-0.5) K/uL Baso # (Auto) 0.01 (0-0.2) K/uL Immature Gran # (Auto) 0.01 (0.00-0.02) K/uL PT (9.0-12.0) Seconds INR (0.9-1.1) APTT (21.0-31.0) Seconds PTT Ratio Sodium (136-145) mmol/L Potassium (3.5-5.1) mmol/L Chloride (98-107) mmol/L Carbon Dioxide (21-32) mmol/L Anion Gap (3-11) BUN (7-18) mg/dl Creatinine (0.6-1.2) mg/dl Est Cr Clr Drug Dosing ml/min Est GFR ( Amer) ml/min Est GFR (Non-Af Amer) ml/min BUN/Creatinine Ratio (10-20) Glucose (70-99) mg/dl POC Glucose (70-99) mg/dl Calcium (8.5-10.1) mg/dl Magnesium (1.8-2.4) mg/dl Total Bilirubin (0.2-1) mg/dl AST (15-37) U/L ALT (12-78) U/L Alkaline Phosphatase (45-117) U/L Troponin I (0-0.045) ng/ml Total Protein (6.4-8.2) gm/dl Albumin (3.4-5.0) gm/dl Globulin (2.5-4.0) gm/dl Albumin/Globulin Ratio (0.9-2) Triglycerides (0-150) mg/dl Cholesterol (0-200) mg/dl LDL Cholesterol, Calc mg/dl VLDL Cholesterol, Calc mg/dl HDL Cholesterol mg/dl Cholesterol/HDL Ratio TSH (0.300-4.500) uIu/ml COVID-19 Eval Order SARS-CoV-2 (PCR) (Negative) Diagnostic Findings Telemetry reviewed - Normal sinus rhythm, 60-80 bpm. No arrhythmias. Echo report reviewed from 01/09/21: No significant valvular pathology There is borderline concentric LVH EF 60-65% Grade I diastolic dysfunction, abnormal relaxation pattern. THe RV systolic function is normal The left atrial size is normal Right atrial size is normal. Repeat EKG from this morning, 01/09 -NSR , normal EKG -slight change in the axis, now normal. -No abnormal ST/T wave changes EKG reviewed from admission - Normal sinus rhythm Poor R wave progression When compared with prior EKG in [facility] in 2019 and outpatient [facility] from Sep 2019, no significant changes noted Chest xray on admission: FINDINGS: Stable median sternotomy wires. The cardiomediastinal silhouette is normal. The lungs are clear. No evidence of pleural effusion or pneumothorax. Head CT on admission: IMPRESSION: No acute intracranial findings. Dobutamine stress echo in 03/2020 report reviewed at [facility]: Normal pharmacologic stress echo. No echo or EKG evidence of myocardial ischemia having achieved HR adequate for diagnostic purposes. Resting study - -Mild concentric LVH -LVEF 55-60% -mild MR -Mild TR -aortic valve sclerosis without stenosis -mild AI Cardiac Cath in Apr 2018: Summary: The patient has widely patent right coronary and LAD arteries. There is a 50% ostial stenosis of the left main trunk. The left circumflex artery is occluded proximally with a patent saphenous vein graft to the first marginal branch. The LG graft is atretic due to failure to mature from competitive flow from the [place] LAD. Recommendations. Recommendations are for continued medical management of the patient's coronary artery disease. Medications Administered Current Inpatient Medications Acetaminophen (Acetaminophen 325 Mg Tab) 650 mg PO Q4H PRN PRN Reason: Pain or Fever Stop: 02/07/21 18:11 Al Hydrox/Mg Hydrox/Simethicone (Aluminum/Magnesium Susp 30 Ml Udc) 15 ml PO Q4H PRN PRN Reason: Dyspepsia Stop: 02/07/21 18:11 Aspirin (Aspirin 81 Mg Ectab) 81 mg PO DAILY [facility] Stop: 02/08/21 08:59 Last Admin: 01/09/21 08:20 Dose: 81 mg Documented by: Atorvastatin Calcium (Atorvastatin 40 Mg Tab) 80 mg PO QAM [facility] Stop: 02/08/21 08:59 Last Admin: 01/09/21 08:20 Dose: 80 mg Documented by: Fluticasone Propionate (Fluticasone Propionate Na Spr 16 Gm Btl) 2 sprays NA DAILY PRN PRN Reason: Nasal Congestion Stop: 02/07/21 18:11 Isosorbide Dinitrate (Isosorbide Dinitrate 10 Mg Tab) 10 mg PO TODAY@0700,1700 [facility] Stop: 02/08/21 06:59 Last Admin: 01/09/21 06:13 Dose: Not Given Documented by: Lorazepam (Lorazepam 0.5 Mg Tab) 0.5 mg PO DAILY PRN PRN Reason: Anxiety Stop: 02/07/21 18:11 Last Admin: 01/08/21 21:15 Dose: 0.5 mg Documented by: Magnesium Hydroxide (Magnesium Hydroxide Susp 30 Ml Udc) 30 ml PO Q12H PRN PRN Reason: Constipation Stop: 02/07/21 18:11 Metoprolol Succinate (Metoprolol Succ 25mg Ext Rel Tab) 25 mg PO QAM [facility] Stop: 02/08/21 08:59 Last Admin: 01/09/21 08:20 Dose: 25 mg Documented by: Nitroglycerin (Nitroglycerin Sl 0.4 Mg/Tab Tab) 0.4 mg SL UD PRN PRN Reason: Chest Pain Stop: 02/07/21 18:11 Ondansetron HCl (Ondansetron Inj 2 Mg/Ml 2 Ml Vial) 4 mg IV Q6H PRN PRN Reason: Nausea Stop: 02/07/21 18:11 Pantoprazole Sodium (Pantoprazole 40 Mg Tab) 40 mg PO DAILY PRN PRN Reason: gadtric reflux Stop: 02/08/21 08:59 Polyethylene Glycol (Polyethylene (Miralax) 17 Gm Pack) 17 gm PO DAILY PRN PRN Reason: Constipation Stop: 02/07/21 18:11 (1) CAD (coronary artery disease) Coronary Disease-Associated Artery/Lesion type: [place] artery [place] vs. transplanted heart: unspecified whether [place] or transplanted heart (2) Hypertension Hypertension type: essential hypertension Qualified Code(s): I10 - Essential (primary) hypertension
--- NOTE | 2021-01-09 08:53 | Electrocardiogram Report ---
Test Reason : Blood Pressure : / mmHG Vent. Rate : 079 BPM Atrial Rate : 079 BPM P-R Int : 166 ms QRS Dur : 072 ms QT Int : 378 ms P-R-T Axes : 056 061 017 degrees QTc Int : 433 ms Normal sinus rhythm Poor R wave progression, consider anterior IL vs. lead placement vs. LVH Borderline ECG When compared with ECG of 08-JAN-2021 11:58, No significant change Confirmed by James Baeza ([id number]) on 01/09/2021 8:53:36 AM Referred By: REFERRED SELF Confirmed By:James Baeza
[2021-01-09] MEDS ORDERED: METOPROLOL SUCC 25MG EXT REL TAB PO SCH (09:00)
[2021-01-09] MEDS ORDERED: ASPIRIN 81 MG ECTAB PO SCH (09:00)
[2021-01-09] MEDS ORDERED: PANTOprazole 40 MG TAB PO PRN (09:00)
[2021-01-09] MEDS ORDERED: ATORVASTATIN 40 MG TAB PO SCH (09:00)
--- NOTE | 2021-01-09 10:44 | Discharge Summary ---
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 She unfortunately lost her in May 2020. Since then she has been having similar episodes, but today's episode lasted much longer. She was sitting doing a puzzle when she became short of breath, dizzy feeling like she could pass out, diaphoretic, left arm tingling and headache. Symptoms did not resolve and after 30 minutes called cardiology who encouraged her to call EMS. Son is with patient at bedside. She states she has been having these episodes since May sometimes even daily. It can occur at rest or with exertion. She states the other day she was outside picking up apples when she became extremely short of breath and had to sit down. Typically when symptoms start she is able to sit down and they resolve on their own within minutes. She denies any associated chest pain or palpitations. She denies any recent illness. Sx mimic previous heart attack. She further complains of off and on blurred vision which has been on going for 2-3 months. This is not associated with her other symptoms. She denies double vision. Currently she feels well sitting in the bed. She denies any fever, chills, sweats, lightheadedness, dizziness, chest pain, shortness breath, cough, nausea, vomiting, abdominal pain, change in bowel or urinary habits. She does admit to a 20 pound weight loss since May and attributes this to the loss of her as well as healthier eating. She states she has not talked to anyone including her PCP regarding her grief but feels she has not been coping well. She never thought it would be this hard until having to go through it. In ED she remained hemodynamically stable. Her lab work was generally unremarkable including a troponin that was unremarkable. Her chest x-ray was negative. Her EKG showed normal sinus rhythm with a rate of [address] or T wave changes. Given her extensive cardiac history she was she was recommended for hospital admission. Admission Exam Per Admitting Provider Constitutional: WD/WN, Elderly, F, vitals as above, NAD, sitting up in bed, pleasant, conversing easily Head: Normocephalic, Atraumatic Eyes: PERRL, conjunctivae normal, anicteric sclerae ENMT: external ear and nose normal, oropharynx normal Neck: trachea midline, no thyromegaly normal visual inspection Respiratory: normal respiratory effort, lungs clear to auscultation, no wheeze, rales, rhonchi. Normal insp/exp effort, no accessory muscle use Cardiovascular: RRR, no murmur, no edema Vessels: no JVD or carotid bruit Chest: normal inspection of chest Abdomen: normal bowel sounds, soft, nontender, no hepatosplenomegaly Musculoskeletal: no cyanosis or clubbing, extremities motor strength 5/5 Skin: no rashes, warm and dry normal turgor Neurologic: PERRL, EOMI, accommodation nl, no face palsy, no dysarthria CN's II-XI intact bilaterally and moves all extremities Psychiatric: A+Ox3, euthymic affect Lymphatic: no cervical or axillary lymphadenopathy : deferred Principal Diagnosis chest pain, shortness of breath Discharge Exam General Appearance: WD/WN, vitals as above, NAD, sitting up in bed, pleasant, conversing easily Head: normocephalic, atraumatic Eyes: normal inspection, PERRL, conjunctivae normal, anicteric sclerae ENT: external ear and nose normal, oropharynx normal Neck: normal visual inspection, trachea midline, no thyromegaly Respiratory: normal respiratory effort, lungs clear to auscultation, no wheeze, rales, rhonchi. No accessory muscle use Cardiovascular: regular rate, rhythm, no murmur, normal peripheral pulses, no BLE edema. Vessels: no JVD Chest: normal inspection of chest Abdomen/GI: normal bowel sounds, soft, nontender, no hepatosplenomegaly Extremities/Musculoskeletal: no cyanosis or clubbing, extremities motor strength 5/5 Neurologic: PERRL, EOMI, accommodation nl, no face palsy, no dysarthria, CN's II-XI intact bilaterally and moves all extremities Psychiatric: A+Ox3, euthymic affect Skin: no rashes, normal color, warm/dry Discharge Data Allergies Allergy/AdvReac Type Severity Reaction Status Date / Time latex Allergy Intermediate RASH Verified 01/08/21 13:43 erythromycin base Allergy Unknown RASH Verified 01/08/21 13:43 sulfamethoxazole AdvReac Intermediate Rash Verified 01/08/21 13:43 [From Bactrim] trimethoprim [From Bactrim] AdvReac Intermediate Rash Verified 01/08/21 13:43 Consultations 01/08/21 14:58 ED Decision to Admit Stat 01/08/21 15:04 Consult Cardiology Routine Ordered Studies 01/08/21 15:30 CT head/brain wo con Stat Hospital Course (1) SOB (shortness of breath): (2) CAD (coronary artery disease): (3) S/P CABG x 2: (4) History of pulmonary embolism: (5) T2DM (type 2 diabetes mellitus): (6) Hypertension: (7) Dyslipidemia: This is a very pleasant 85-year-old female who has significant past medical history of CAD status post CABG x2 with BOWEN to LAD and vein graft to OM1 October 2015, chronic stable angina, T2DM, HLD, GERD, remote history of DVT, 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 Occurred while she was doing a puzzle at home. Has episodes like this that occur both at rest and with exertion and have been on going since patient lost her in May of 2019. Was kept in observation for ACS rule out given extensive cardiac history. Work up has been unremarkable - initial and repeat EKG without acute ischemic changes, troponin was negative x 3, normal chest xray. Resting 2D echo this morning demonstrated stable findings, without wall motion abnormalities or valvular disease. Preserved EF of 60-65%. Evaluated in consultation by cardiology this morning, who feel grief is contributing to symptoms. Will trial an increase of Isordil to 10 mg TID to see if this aids with her intermittent dyspnea/SOB. Keep follow up appointment with telegraph dispatcher Dr. Nolasco in 2-3 weeks. Also scheduled for follow up with PCP next week, where patient has been encouraged to discuss coping strategies and a possible trial of short term antidepressant given ongoing grief from loss of . Patient lives alone at home but has good relationships with adult children who live nearby. Ambulates and completes ADLs independently. When examined on day of discharge, patient is hemodynamically stable, asymptomatic and comfortable with plan. Total Time Total Time Spent Total Time Spent (In Minutes): 40 Discharge Plan Discharge Items Patient Disposition: Home - Self-Care Reason For Visit: CHEST PAIN Discharge Diagnosis: chest pain Condition on Discharge: Good Activity: Resume your previous activity Non-emergency contact: Primary Care Provider Call non-emergency contact if: you have any medication questions and your symptoms worsen Follow-up/Referrals: Abisai Cid DO [Primary Care Provider] - 01/13/21 9:40 am (Date & Time 01/13/2021 9:40 AM Provider Abisai Cid DO Department [facility] ) Diet: Heart Healthy Addtl Attending Provider Instructions: You were admitted for shortness of breath, dizziness and hand numbness that have resolved. Your cardiac work-up was negative, including echocardiogram without acute changes, negative cardiac enzymes x3, normal chest xray and labs, and non ischemic EKG. No indications for further cardiac testing at this time. Discussed possibility that grief is contributing to episodes. Please consider discussing coping strategies and a possible trial of medication at follow up appointment with primary care provider. MEDICATION CHANGES: Increase Isordil to 10 mg three times a day to see if this helps with your shortness of breath RECOMMENDATIONS FOR FOLLOW-UP: Follow up with Dr. Cid on Jan 13 2021 at 9:40am for hospital follow up. Please discuss coping strategies and possible medications for grief. Follow up with Dr. Nolasco at scheduled appointment on January 30, 2021. OTHER INSTRUCTIONS: Seek medical attention if you have: * temperature above 101 * chest pain or trouble breathing * abdominal pain, nausea, vomiting * diarrhea, dark stools or bloody stools * any unanswered questions or concerns Call 911 if symptoms are severe. Please take good care of yourself. Call if you have any questions or problems. You can reach a [facility] hospitalist on duty at [facility] 24 hours a day by calling [phone]. [facility] Pending Studies at Discharge: No Stand-Alone Forms: My [facility] Yellow Pages, Smoking Cessation Medications and DC Order Prescriptions: New isosorbide dinitrate 10 mg Tablet 10 mg PO TID@0700,1200,1700 Qty: 90 RF: 0 Continued atorvastatin [Lipitor] 80 mg Tablet 80 mg PO QAM Qty: 0 RF: 0 omeprazole 40 mg Capsule,Delayed Release(Dr/Ec) 40 mg PO DAILY PRN (Reason: Gastric Reflux) Qty: 0 RF: 0 Xarelto 20 mg Tablet 20 mg PO QAM Qty: 0 RF: 0 furosemide 40 mg Tablet 40 mg PO DAILY PRN (Reason: Fluid Retention) Qty: 0 RF: 0 potassium chloride 10 mEq Tablet Extended Release 10 meq PO DAILY PRN (Reason: .WHEN TAKING FUROSEMIDE) Qty: 0 RF: 0 lorazepam 0.5 mg Tablet 0.5 mg PO DAILY PRN (Reason: Anxiety) Qty: 0 RF: 0 nitroglycerin [Nitrostat] 0.4 mg Tablet, Sublingual 0.4 mg Sublingual UD PRN (Reason: Chest Pain) Qty: 0 RF: 0 sennosides [Senokot] 8.6 mg Tablet 8.6 mg PO BID PRN (Reason: Constipation) Qty: 0 RF: 0 polyethylene glycol 3350 [Miralax] 17 gram Powder In Packet 17 g PO DAILY PRN (Reason: Constipation) Qty: 0 RF: 0 fluticasone propionate [Flonase Allergy Relief] 50 mcg/actuation Sp ray,Suspension 2 spray INTRANASAL DAILY PRN (Reason: Nasal Congestion) RF: 0 aspirin 81 mg Tablet,Delayed Release (Dr/Ec) 81 mg PO DAILY RF: 0 metoprolol succinate 25 mg tablet extended release 24 hr 25 mg PO QAM RF: 0 metformin 500 mg tablet extended release 24 hr 500 mg PO DAILY RF: 0 Discontinued isosorbide dinitrate 10 mg tablet 10 mg PO BID RF: 0 Discharge Orders: Discharge Order (Routine); Ordered 01/09/21 Ordered By: Maria C Nix Admission Data Admit Date/Time: 01/08/21 15:04 Attending Provider: Clay Conrad Admit Provider: Clay Conrad Primary Care Provider: Abisai Cid Other Providers: Clay Conrad ; Vaibhav Salmon ; Maria C Nix Other Interventions: Discharge Summary Assessment (RN) Last Done: 01/09/21 12:56 Supervising Physician Co-Signing Physician Notes Patient is seen and examined at bedside. No recurrence of symptoms. Denies any chest pain, dyspnea, dizziness, nausea, vomiting, abd pain. Troponin is negative. EKG showed no signs of acute ischemia. ECHO showed no wall motion abnormality. Appreciate cardiology input. Increase Isosorbide to 10mg 3 times daily. On exam patient is moderately built and nourished, no apparent distress, elderly, normocephalic atraumatic, lungs are clear to auscultation, normal breath sounds, S1-S2, no murmur, no pedal edema, abdomen soft, nontender, normal bowel sounds, alert, awake, oriented, grossly no focal deficits. ACS less likely. Anxiety depression likely contributing to symptoms. Advised to follow- up with PCP for further evaluation. Continue aspirin, metoprolol, statin, Imdur. Imdur dose increased to 10mg TID. Xarelto resumed. I personally reviewed the record. Patient is interviewed and examined at bedside. Patient's care is coordinated with Maria C Nix PA-C. Please refer to the documentation above for details of patient's presentation and for discussion of other issues.
[2021-01-09] MEDS ORDERED: RIVAROXABAN 20 MG TAB PO SCH (11:00)
[2021-01-09 12:09] VITALS: BP 107/69; TEMP 98.2; O2SAT 95
[2021-01-09 12:57] VITALS: PULSE 88
== END 2021-01-09 13:36 | disposition home or self-care (01) ==
LOC: ED 11:46 → 2N 11:46
DX: Z95.5 Presence of coronary angioplasty implant and graft; Z88.1 Allergy status to other antibiotic agents; Z79.01 Long term (current) use of anticoagulants; I25.10 Atherosclerotic heart disease of native coronary artery without angina pectoris; E11.9 Type 2 diabetes mellitus without complications; Z79.82 Long term (current) use of aspirin; Z79.899 Other long term (current) drug therapy; E78.5 Hyperlipidemia, unspecified; R06.02 Shortness of breath; Z86.711 Personal history of pulmonary embolism; K21.9 Gastro-esophageal reflux disease without esophagitis; Z88.2 Allergy status to sulfonamides; Z86.718 Personal history of other venous thrombosis and embolism; Z86.72 Personal history of thrombophlebitis; I10 Essential (primary) hypertension; Z91.040 Latex allergy status

== ENCOUNTER 2023-07-28 17:11 | Observation (INO) ==
--- NOTE | 2023-07-28 17:20 | ED Triage Note ---
Date of Service July 28, 2023 Provider in Triage Author: Yovana Reyes History of Present Illness This patient was briefly evaluated while in triage. An abbreviated physical exam was performed. This patient is a 88-year-old Female who presents to the ED for evaluation of "heart". Pt. states her heart is "wore out." States she has been dizzy, lightheaded, and achy. States it has been ongoing for a few days but wasn't telling anybody. States she is feeling short of breath. Has history of double bypass heart surgery. Physical Exam VITALS: Vitals are noted on the nurse's note and reviewed by myself. GENERAL: This is an 88 year old female, in no acute distress, nondiaphoretic, well-developed well-nourished. SKIN: No obvious rashes, edema, erythema HEAD: Normocephalic atraumatic. EYES: Conjunctivae without injection, sclerae without icterus. NECK: No JVD. LUNGS: No retractions or accessory muscle use. MUSCULOSKELETAL: Normal gait. NEURO: Patient was alert and oriented to person place and time. No focal neurological deficits. Initial orders for labs and / or imaging were placed and patient was placed in the waiting area until a bed is available. Please see further documentation for the full ED course.
[2023-07-28 18:15] LABS: Basophils # (auto) 0.04 K/uL (0.00-0.20); Basophils % (auto) 0.6 %; Eosinophils % (auto) 2.8 %; Hematocrit (blood only) 42.3 % (37.0-47.0); Hemoglobin 14.1 g/dl (12.0-16.0); Immature Granulocytes # (auto) 0.02 K/uL (0.01-0.20); Immature Granulocytes % (auto) 0.3 %; Lymphocytes # (auto) 3.14 K/uL (1.20-3.40); Lymphocytes % (auto) 44.7 %; Mean Corpuscular Hemoglobin 30.1 pg (25.0-34.0); Mean Corpuscular Hgb Conc 33.3 g/dL (32.0-36.0); Mean Corpuscular Volume 90.4 fL (80.0-100.0); Mean Platelet Volume 10.3 fL (9.4-12.4); Monocytes # (auto) 0.51 K/uL (0.11-0.59); Monocytes % (auto) 7.3 %; Neutrophils # (auto) 3.12 K/uL (1.40-6.50); Neutrophils % (auto) 44.3 %; Platelet Count 225 K/uL (130-400); RDW Coefficient of Variation 13.6 % (11.5-14.5); RDW Standard Deviation 45.1 fL (36.4-46.3); Red Blood Count 4.68 M/uL (4.20-5.40); White Blood Count 7.03 K/ul (4.8-10.8)
--- NOTE | 2023-07-28 18:26 | XRay Report ---
XR chest 1V portable HISTORY: 88 years-old Female Dyspnea COMPARISON: 01/08/2021 TECHNIQUE: PA view of the chest FINDINGS: Cardiac silhouette is enlarged. Median sternotomy. Emphysema with chronic interstitial coarsening. No pneumothorax, pleural effusion or airspace consolidation. Bones appear grossly intact. IMPRESSION: No acute process. ACT 112: Negative or not required by law. The above report was generated using voice recognition software. It may contain grammatical, syntax o r spelling errors. Electronically signed by: Rajendra Martins M.D. 07/28/2023 6:25 PM
[2023-07-28 18:27] LABS: Albumin Level 4.4 gm/dl (3.4-5.0); Bilirubin,Total 0.4 mg/dl (0.2-1.0); Calcium 9.6 mg/dl (8.6-10.3); Magnesium 2.5 mg/dl (1.7-2.4); Potassium 4.6 mmol/L (3.5-5.1)
[2023-07-28 18:33] LABS: Albumin Globulin Ratio 1.4 (0.9-2); BUN Creatinine Ratio 24.1 (10-20); Creatinine Clr Calc Pharmacy 45.1 ml/min; Est GFR (Non-African American) 67.3 ml/min; Globulin 3.2 gm/dl (2.5-4.0); Total Protein 7.6 gm/dl (6.0-8.3)
[2023-07-28 18:39] LABS: Troponin I High Sensitivity 6.7 pg/ml (0-14)
[2023-07-28 18:43] LABS: INR 1.1 (0.9-1.1); Partial Thromboplastin Ratio 1.1; Partial Thromboplastin Time 32 Seconds (21-31)
--- NOTE | 2023-07-28 19:59 | Emergency Department Note ---
Impression & Plan Weakness, Exertional dyspnea, History of coronary artery disease ED Provider Note NAME: ARELY KINNEY AGE: 88 SEX: F : 1935 ARRIVES VIA: Walk-In INFORMANT: [Patient][family] ED PROVIDER(S): [Jose Carey MD] CHIEF COMPLAINT: Shortness of breath, exertional dyspnea HISTORY OF PRESENT ILLNESS: The patient is an 88-year-old female with a history of previous coronary artery disease requiring bypass surgery. She presents with about 3 weeks of escalating exertional dyspnea. She can only take a few steps now without being very short of breath. She has to stop and catch her breath. No chest pain. No cough or cold or congestion. She does feel weak and kind of washed out. No urinary complaints. The patient states that she contacted cardiology today, she was referred to the ER. PMHx/PSHx/Social Hx: See Below PHYSICAL EXAM: GENERAL: Patient is in no acute distress. HEENT: No acute trauma, normocephalic atraumatic, mucous membranes moist, no nasal congestion. NECK: No stridor, no adenopathy, no meningismus, trachea is midline. LUNGS: Clear to auscultation bilaterally, no wheeze, no rhonchi, breath sounds equal. HEART: Without murmurs gallops or rubs, regular rate and rhythm. ABDOMEN: Soft, nontender, no peritonitis. EXTREMITIES: No cyanosis, full range of motion of all the joints without pain or difficulty. NEUROLOGIC: Oriented x 3, no acute motor or sensory deficits, no focal weakness. SKIN: No jaundice, no diaphoresis. DIFFERENTIAL DIAGNOSIS: Angina, cardiac ischemia, anemia, electrolyte imbalance, CHF, pneumonia, among others. EMERGENCY DEPARTMENT PROCEDURES: MEDICAL DECISION MAKING: There is no leukocytosis or concerning anemia. There is a normal platelet count. No concerning coagulopathy. No electrolyte abnormality in need of emergent correction. No concerning liver enzyme elevation. BNP is not elevated making CHF less likely. ECG showed a normal sinus rhythm without any acute ST elevation. Cardiac enzyme testing x 1 is not consistent with acute cardiac injury. Chest x-ray does not show mediastinal widening, pneumonia or pneumothorax. On exam, the patient was resting comfortably. Her lungs were clear. The patient presents with worsening exertional dyspnea. She does have a history of coronary artery disease. I did speak with cardiology. Patient will be hospitalized for a cardiac evaluation and likely stress test in the morning. Cardiac ischemia is a concern and certainly could be causing her dyspnea on exertion. Prior/Outside records/notes reviewed: None ECG per my interpretation: Indication was dyspnea. The ECG shows a normal sinus rhythm with a rate of 73. There is poor R wave progression. There is no acute ST elevation, no PVCs. The QTc is 412. Continuous Cardiac Monitoring per my interpretation: An order was placed for continuous cardiac monitoring. The monitor shows a rate of 79 with normal sinus rhythm. Imaging/x-ray results per my interpretation: Chest x-ray does not show mediastinal widening, pneumonia or pneumothorax. Chronic Medical/Social conditions affecting care: Advanced age. Care/Management discussed with: Case management, the on-call hospitalist. Mannie Rodriguez cardiology-Dr. Murry Level of care consideration(s): After review of the information above and other included data: --I believe the patient requires escalation of care to admission DISPOSITION: Admission with cardiology consult. Past Med/Surg History Medical History SOB (shortness of breath) T2DM (type 2 diabetes mellitus) Dehydration Hx of venous thromboembolic disease Occipital neuralgia Benign neoplasm of hard palate Hypertension History of pulmonary embolism History of diverticulitis History of DVT of lower extremity Accelerated hypertension GERD (gastroesophageal reflux disease) CAD (coronary artery disease) History of superficial phlebitis Dyslipidemia Anxiety "mild; uses Ativan once yearly " Surgical History H/O vein stripping S/P CABG x 2 S/P partial resection of colon History of bladder repair surgery History of partial hysterectomy Hx of bladder repair surgery Family History Mother Lymphoma Colon cancer Father COPD (chronic obstructive pulmonary disease) [place] miners' lung Brother Murder Sister Brain tumor Social History Smoking Status: Never smoker Second Hand Exposure: No; Do You Dip or Chew Tobacco: No; Hx Alcohol Use: Yes Hx Substance Use: No Preferred Language: Arabic Communication Ability: Effective Frame Fixer Required: No Beliefs That Will Affect Care: None marital status: / Current Living Situation: Alone Feels Safe at Home: Yes Assistive Devices: None Allergies Allergies Allergy/AdvReac Type Severity Reaction Status Date / Time erythromycin base Allergy Intermediate RASH Verified 07/28/23 20:23 latex Allergy Intermediate RASH Verified 07/28/23 20:23 sulfamethoxazole Allergy Intermediate Rash Verified 07/28/23 20:23 [From Bactrim] trimethoprim [From Bactrim] Allergy Intermediate Rash Verified 07/28/23 20:23 Home Meds Home Medications Medication Instructions Recorded Confirmed atorvastatin 80 mg tablet (Lipitor) 80 mg PO QAM ##0 10/29/15 07/28/23 omeprazole 40 mg capsule,delayed 40 mg PO DAILY PRN Gastric Reflux 10/29/15 07/28/23 release ##0 rivaroxaban 20 mg tablet (Xarelto) 20 mg PO QAM ##0 11/27/15 07/28/23 furosemide 40 mg tablet 40 mg PO DAILY PRN Fluid Retention 02/12/16 07/28/23 ##0 sennosides 8.6 mg tablet (Senokot) 8.6 mg PO BID PRN Constipation #0 10/05/17 07/28/23 tabs fluticasone propionate 50 2 spray intranasal DAILY PRN Nasal 04/29/18 07/28/23 mcg/actuation nasal Congestion spray,suspension (Flonase Allergy Relief) aspirin 81 mg tablet,delayed 81 mg PO DAILY 04/09/20 07/28/23 release metoprolol succinate 25 mg 25 mg PO QAM 04/09/20 07/28/23 tablet,extended release 24 hr metformin 500 mg tablet,extended 500 mg PO DAILY 01/08/21 07/28/23 release 24 hr multivitamin (Daily Multi-Vitamin 1 tab PO DAILY 03/30/23 07/28/23 tablet) desonide 0.05 % topical ointment 1 applic topical DAILY PRN FLARE 07/28/23 07/28/23 UPS Previous Rx's Medication Instructions Recorded nitroglycerin 0.4 mg sublingual 0.4 mg sublingual UD PRN Chest 09/27/22 tablet (Nitrostat) Pain #1 btl Results & Data (ED) Vital Signs Vital Signs - 24 hr 07/28/23 17:18 07/28/23 20:15 Temperature 36.5 C Temperature Source Temporal Artery Scan Pulse Rate 79 Pulse Rate [Apical] 60 Pulse Rhythm [Apical] Regular Pulse Strength [Apical] Normal Respiratory Rate 19 16 Respiratory Effort / Characteristics Non-Labored Spontaneous Non-Labored Respiratory Depth Normal Normal Respiratory Pattern Regular Blood Pressure 150/81 H Blood Pressure [Right Arm] 155/67 H Blood Pressure Mean 104 Blood Pressure Mean [Right Arm] 96 Blood Pressure Position [Right Arm] Lying Pulse Oximetry 96 94 Oxygen Delivery Method Room Air Room Air Sepsis Recent Fever Within 48 Hours No Sepsis New/Unexplained Change in Mental Status No Sepsis Action Taken by Nursing No Action Required Home Medications Current Medication List: was personally reviewed by me Laboratory Data Attestation: I reviewed the patient's lab results. 07/28/23 17:30 07/28/23 17:30 Lab Results 07/28/23 Range/Units 17:30 WBC 7.03 (4.8-10.8) K/ul RBC 4.68 (4.20-5.40) M/uL Hgb 14.1 (12.0-16.0) g/dl Hct 42.3 (37.0-47.0) % MCV 90.4 (80.0-100.0) fL MCH 30.1 (25.0-34.0) pg MCHC 33.3 (32.0-36.0) g/dL RDW Std Deviation 45.1 (36.4-46.3) fL RDW Coeff of [place]ick 13.6 (11.5-14.5) % Plt Count 225 (130-400) K/uL MPV 10.3 (9.4-12.4) fL Immature Gran % (Auto) 0.3 % Neut % (Auto) 44.3 % Lymph % (Auto) 44.7 % [place] % (Auto) 7.3 % Eos % (Auto) 2.8 % Baso % (Auto) 0.6 % Neut # (Auto) 3.12 (1.40-6.50) K/uL Lymph # (Auto) 3.14 (1.20-3.40) K/uL [place] # (Auto) 0.51 (0.11-0.59) K/uL Eos # (Auto) 0.20 (0.00-0.50) K/uL Baso # (Auto) 0.04 (0.00-0.20) K/uL Immature Gran # (Auto) 0.02 (0.01-0.20) K/uL PT 12.0 (9.0-12.0) Seconds INR 1.1 (0.9-1.1) APTT 32 H (21-31) Seconds PTT Ratio 1.1 Sodium 139 (136-145) mmol/L Potassium 4.6 (3.5-5.1) mmol/L Chloride 106 (98-107) mmol/L Carbon Dioxide 25 (21-32) mmol/L Anion Gap 8 (3-11) BUN 19 (6-23) mg/dl Creatinine 0.79 (0.6-1.2) mg/dl Est Cr Clr Drug Dosing 45.1 ml/min Est GFR ( Amer) 78.0 ml/min Est GFR (Non-Af Amer) 67.3 ml/min BUN/Creatinine Ratio 24.1 H (10-20) Glucose 95 (70-99(Fasting)) mg/dl Calcium 9.6 (8.6-10.3) mg/dl Magnesium 2.5 H (1.7-2.4) mg/dl Total Bilirubin 0.4 (0.2-1.0) mg/dl AST 26 (13-39) U/L ALT 19 (7-52) U/L Alkaline Phosphatase 53 (34-104) U/L Troponin I High Sens 6.7 (0-14) pg/ml B-Natriuretic Peptide 60 (0-100) pg/ml Total Protein 7.6 (6.0-8.3) gm/dl Albumin 4.4 (3.4-5.0) gm/dl Globulin 3.2 (2.5-4.0) gm/dl Albumin/Globulin Ratio 1.4 (0.9-2) Imaging Data Radiologist's Impression: Chest X-Ray 07/28/23 17:20 XR chest 1V portable HISTORY: 88 years-old Female Dyspnea COMPARISON: 01/08/2021 TECHNIQUE: PA view of the chest FINDINGS: Cardiac silhouette is enlarged. Median sternotomy. Emphysema with chronic interstitial coarsening. No pneumothorax, pleural effusion or airspace consolidation. Bones appear grossly intact. IMPRESSION: No acute process. ACT 112: Negative or not required by law. The above report was generated using voice recognition software. It may contain grammatical, syntax or spelling errors. Electronically signed by: Rajendra Martins M.D. 07/28/2023 6:25 PM Discharge Plan Visit Data Chief Complaint: Shortness of Breath/Dyspnea Stated Complaint: SOB, WEAKNESS, DIZZY ED Provider: Jose Carey Discharge Problem: Weakness, Exertional dyspnea, History of coronary artery disease Patient Disposition: Admitted As Inpatient Condition: Good Forms Stand Alone Forms: My [facility] [employer] Prescriptions Prescriptions: No Action atorvastatin [Lipitor] 80 mg Tablet 80 mg PO QAM Qty: 0 omeprazole 40 mg Capsule,Delayed Release(Dr/Ec) 40 mg PO DAILY PRN (Reason: Gastric Reflux) Qty: 0 Xarelto 20 mg Tablet 20 mg PO QAM Qty: 0 furosemide 40 mg Tablet 40 mg PO DAILY PRN (Reason: Fluid Retention) Qty: 0 sennosides [Senokot] 8.6 mg Tablet 8.6 mg PO BID PRN (Reason: Constipation) Qty: 0 nitroglycerin [Nitrostat] 0.4 mg tablet, sublingual 0.4 mg Sublingual UD PRN (Reason: Chest Pain) Qty: 1 1RF Rx Instructions: NEEDED FOR CHEST PAIN : ONE TABLET UNDER THE TONGUE EVERY 5 MINUTES, UP TO THREE DOSES. multivitamin [Daily Multi-Vitamin] Tablet 1 tab PO DAILY fluticasone propionate [Flonase Allergy Relief] 50 mcg/actuation [place],Suspension 2 spray INTRANASAL DAILY PRN (Reason: Nasal Congestion) aspirin 81 mg Tablet,Delayed Release (Dr/Ec) 81 mg PO DAILY metoprolol succinate 25 mg tablet extended release 24 hr 25 mg PO QAM metformin 500 mg tablet extended release 24 hr 500 mg PO DAILY desonide 0.05 % ointment 1 applic topical DAILY PRN (Reason: FLARE UPS) Rx Instructions: Apply to areas of the ears daily as needed for flaring. Referrals Referrals: Hayes Thompson MD [Primary Care Provider] -
[2023-07-28 21:49] LABS: Appearance Urine Clear (Clear); Bacteria Urine Automated None Seen (None Seen); Bilirubin Urine Negative (Negative); Blood Urine Trace (Negative); Cast Urine Automated 0-2 /lpf (0-2); Color Urine Yellow; Epithelial Cell Urine Auto 0-2 /hpf (0-2); Glucose Urine UA Negative (Negative); Ketones Urine Trace (Negative); Leukocyte Esterase Urine Negative (Negative); Nitrite Urine Negative (Negative); Protein Urine Negative (Negative); Specific Gravity Urine 1.011 (1.000-1.030); Urobilinogen Urine Negative (Negative); WBC Urine Automated 0-5 /hpf (0-5)
--- NOTE | 2023-07-28 22:26 | History & Physical Report ---
Date of Service July 28, 2023 Assessment & Plan (1) Exertional dyspnea: Plan: 88-year-old female with past med history significant for type 2 diabetes, hyperlipidemia, allergic rhinitis, lung nodule less than 6 cm, history of CAD s/p CABG, hypertension, GERD, hydronephrosis of right kidney, osteoporosis, bilateral sensorineural hearing loss, history of PE on Xarelto, general anxiety disorder, depression presents with shortness of breath going on for last few weeks which is progressively getting worse. Patient states currently walking short distance making her short of breath. While resting she is okay. Denies any orthopnea or paroxysmal nocturnal dyspnea. No leg swelling. Denies any chest pain. No fevers. No cough. She has chronic headaches and chronic dizziness. Chronic blurred visions. Sometimes get throbbing pain in the ear but currently no earaches. Chronic runny nose from allergies. No sore throat. Appetite is okay. No nausea. No abdominal pain. Normal bowel and bladder movements. Exertional dyspnea Possible angina BNP okay Chest x-ray okay Initial troponin okay EKG no acute findings Will monitor on telemetry N.p.o. after midnight Serial cardiac enzymes and echo Possible stress test in a.m. Consult cardiology in a.m. for further recommendations History of CAD s/p CABG On aspirin, Lipitor and metoprolol History of PE On Xarelto Diabetes Hold home p.o. meds Sliding scale Will monitor Hypertension on metoprolol Will monitor Hyperlipidemia On statin DVT prophylaxis On Xarelto Disposition Telemetry Full code History of Present Illness Chief Complaint: Shortness of breath Primary Care Provider: Hayes Thompson MD 88-year-old female with past med history significant for type 2 diabetes, hyperlipidemia, allergic rhinitis, lung nodule less than 6 cm, history of CAD s/p CABG, hypertension, GERD, hydronephrosis of right kidney, osteoporosis, bilateral sensorineural hearing loss, history of PE on Xarelto, general anxiety disorder, depression presents with shortness of breath going on for last few weeks which is progressively getting worse. Patient states currently walking short distance making her short of breath. While resting she is okay. Denies any orthopnea or paroxysmal nocturnal dyspnea. No leg swelling. Denies any chest pain. No fevers. No cough. She has chronic headaches and chronic dizziness. Chronic blurred visions. Sometimes get throbbing pain in the ear but currently no earaches. Chronic runny nose from allergies. No sore throat. Appetite is okay. No nausea. No abdominal pain. Normal bowel and bladder movements. Past medical history. As mentioned above Past surgical history. CABG. Colonoscopy. Colonoscopy with biopsy. Vein stripping. Partial colectomy for diverticulosis and diverticulitis. Partial hysterectomy. Repair of bladder and vaginal cystocele. Vaginal hysterectomy. Social history. . No smoking. Alcohol occasional. No drug use. Family history. Daughter had breast cancer. Mother had lymphoma. Colon cancer. Diabetes. Rectal cancer. Allergies Allergy/AdvReac Type Severity Reaction Status Date / Time erythromycin base Allergy Intermediate RASH Verified 07/28/23 20:23 latex Allergy Intermediate RASH Verified 07/28/23 20:23 sulfamethoxazole Allergy Intermediate Rash Verified 07/28/23 20:23 [From Bactrim] trimethoprim [From Bactrim] Allergy Intermediate Rash Verified 07/28/23 20:23 Home Medications Medication Instructions Recorded Confirmed Type atorvastatin 80 mg tablet (Lipitor) 80 mg PO QAM ##0 10/29/15 07/28/23 History omeprazole 40 mg capsule,delayed 40 mg PO DAILY PRN Gastric Reflux 10/29/15 07/28/23 History release ##0 rivaroxaban 20 mg tablet (Xarelto) 20 mg PO QAM ##0 11/27/15 07/28/23 History furosemide 40 mg tablet 40 mg PO DAILY PRN Fluid Retention 02/12/16 07/28/23 History ##0 sennosides 8.6 mg tablet (Senokot) 8.6 mg PO BID PRN Constipation #0 10/05/17 07/28/23 History tabs fluticasone propionate 50 2 spray intranasal DAILY PRN Nasal 04/29/18 07/28/23 History mcg/actuation nasal Congestion spray,suspension (Flonase Allergy Relief) aspirin 81 mg tablet,delayed 81 mg PO DAILY 04/09/20 07/28/23 History release metoprolol succinate 25 mg 25 mg PO QAM 04/09/20 07/28/23 History tablet,extended release 24 hr metformin 500 mg tablet,extended 500 mg PO DAILY 01/08/21 07/28/23 History release 24 hr nitroglycerin 0.4 mg sublingual 0.4 mg sublingual UD PRN Chest 09/27/22 07/28/23 Rx tablet (Nitrostat) Pain #1 btl multivitamin (Daily Multi-Vitamin 1 tab PO DAILY 03/30/23 07/28/23 History tablet) desonide 0.05 % topical ointment 1 applic topical DAILY PRN FLARE 07/28/23 07/28/23 History UPS Past Med/Surg History Medical History SOB (shortness of breath) T2DM (type 2 diabetes mellitus) Dehydration Hx of venous thromboembolic disease Occipital neuralgia Benign neoplasm of hard palate Hypertension History of pulmonary embolism History of diverticulitis History of DVT of lower extremity Accelerated hypertension GERD (gastroesophageal reflux disease) CAD (coronary artery disease) History of superficial phlebitis Dyslipidemia Anxiety "mild; uses Ativan once yearly " Surgical History H/O vein stripping S/P CABG x 2 S/P partial resection of colon History of bladder repair surgery History of partial hysterectomy Hx of bladder repair surgery Family History Mother Lymphoma Colon cancer Father COPD (chronic obstructive pulmonary disease) [place] miners' lung Brother Murder Sister Brain tumor Social History Smoking Status: Never smoker Second Hand Exposure: No; Do You Dip or Chew Tobacco: No; Hx Alcohol Use: Yes Alcohol type: beer and wine Hx Substance Use: No Preferred Language: Turkmen Communication Ability: Effective Shoe Handler Required: No Beliefs That Will Affect Care: None marital status: / Current Living Situation: Alone Other Information That Helps Us Care for You: No Feels Safe at Home: Yes Safety Concerns: Feels Safe At This Time Assistive Devices: None Review of Systems Review of Systems: All systems reviewed & are unremarkable except as noted in HPI & below Physical Exam Physical Exam: General- Not in distress Head- atraumatic Eyes- PERRL. ENT- oropharynx clear Neck- supple, no JVD. Lungs- clear to auscultation no wheezing or crackles. Heart- regular rhythm; no murmur, no gallop. Abdomen- normal bowel sounds, soft, nontender, no distension. Extremities- no pretibial edema, no erythema seen Neuro- alert, oriented PERRL, EOMI; no facial palsy; no dysarthria; obeys simple commands. Results & Data Results & Data Vital Signs (Past 12 Hours) Vital Signs Temp Pulse Pulse Resp BP BP Pulse Ox 07/28/23 20:56 68 07/28/23 20:15 60 16 155/67 H 94 07/28/23 17:18 36.5 C 79 19 150/81 H 96 O2 Del Method 07/28/23 20:56 07/28/23 20:15 Room Air 07/28/23 17:18 Room Air Diagnostic Findings Laboratory Results WBC 7.03 K/ul (4.8-10.8) 07/28/23 17:30 RBC 4.68 M/uL (4.20-5.40) 07/28/23 17:30 Hgb 14.1 g/dl (12.0-16.0) 07/28/23 17:30 Hct 42.3 % (37.0-47.0) 07/28/23 17:30 MCV 90.4 fL (80.0-100.0) 07/28/23 17:30 MCH 30.1 pg (25.0-34.0) 07/28/23 17:30 MCHC 33.3 g/dL (32.0-36.0) 07/28/23 17:30 RDW Std Deviation 45.1 fL (36.4-46.3) 07/28/23 17:30 RDW Coeff of [place] 13.6 % (11.5-14.5) 07/28/23 17:30 Plt Count 225 K/uL (130-400) 07/28/23 17:30 MPV 10.3 fL (9.4-12.4) 07/28/23 17:30 Immature Gran % (Auto) 0.3 % 07/28/23 17:30 Neut % (Auto) 44.3 % 07/28/23 17:30 Lymph % (Auto) 44.7 % 07/28/23 17:30 [place] % (Auto) 7.3 % 07/28/23 17:30 Eos % (Auto) 2.8 % 07/28/23 17:30 Baso % (Auto) 0.6 % 07/28/23 17:30 Neut # (Auto) 3.12 K/uL (1.40-6.50) 07/28/23 17:30 Lymph # (Auto) 3.14 K/uL (1.20-3.40) 07/28/23 17:30 [place] # (Auto) 0.51 K/uL (0.11-0.59) 07/28/23 17:30 Eos # (Auto) 0.20 K/uL (0.00-0.50) 07/28/23 17:30 Baso # (Auto) 0.04 K/uL (0.00-0.20) 07/28/23 17:30 Immature Gran # (Auto) 0.02 K/uL (0.01-0.20) 07/28/23 17:30 PT 12.0 Seconds (9.0-12.0) 07/28/23 17:30 INR 1.1 (0.9-1.1) 07/28/23 17:30 APTT 32 Seconds (21-31) H 07/28/23 17:30 PTT Ratio 1.1 07/28/23 17:30 Sodium 139 mmol/L (136-145) 07/28/23 17:30 Potassium 4.6 mmol/L (3.5-5.1) 07/28/23 17:30 Chloride 106 mmol/L (98-107) 07/28/23 17:30 Carbon Dioxide 25 mmol/L (21-32) 07/28/23 17:30 Anion Gap 8 (3-11) 07/28/23 17:30 BUN 19 mg/dl (6-23) 07/28/23 17:30 Creatinine 0.79 mg/dl (0.6-1.2) 07/28/23 17:30 Est Cr Clr Drug Dosing 45.1 ml/min 07/28/23 17:30 Est GFR ( Amer) 78.0 ml/min 07/28/23 17:30 Est GFR (Non-Af Amer) 67.3 ml/min 07/28/23 17:30 BUN/Creatinine Ratio 24.1 (10-20) H 07/28/23 17:30 Glucose 95 mg/dl (70-99(Fasting)) 07/28/23 17:30 Calcium 9.6 mg/dl (8.6-10.3) 07/28/23 17:30 Magnesium 2.5 mg/dl (1.7-2.4) H 07/28/23 17:30 Total Bilirubin 0.4 mg/dl (0.2-1.0) 07/28/23 17:30 AST 26 U/L (13-39) 07/28/23 17:30 ALT 19 U/L (7-52) 07/28/23 17:30 Alkaline Phosphatase 53 U/L (34-104) 07/28/23 17:30 Troponin I High Sens 6.7 pg/ml (0-14) 07/28/23 17:30 B-Natriuretic Peptide 60 pg/ml (0-100) 07/28/23 17:30 Total Protein 7.6 gm/dl (6.0-8.3) 07/28/23 17:30 Albumin 4.4 gm/dl (3.4-5.0) 07/28/23 17:30 Globulin 3.2 gm/dl (2.5-4.0) 07/28/23 17:30 Albumin/Globulin Ratio 1.4 (0.9-2) 07/28/23 17:30 Urine Color Yellow 07/28/23 20:36 Urine Appearance Clear (Clear) 07/28/23 20:36 Urine pH 6.0 (4.5-7.5) 07/28/23 20:36 Ur Specific [place] 1.011 (1.000-1.030) 07/28/23 20:36 Urine Protein Negative (Negative) 07/28/23 20:36 Urine Glucose (UA) Negative (Negative) 07/28/23 20:36 Urine Ketones Trace (Negative) H 07/28/23 20:36 Urine Blood Trace (Negative) H 07/28/23 20:36 Urine Nitrite Negative (Negative) 07/28/23 20:36 Urine Bilirubin Negative (Negative) 07/28/23 20:36 Urine Urobilinogen Negative (Negative) 07/28/23 20:36 Ur Leukocyte Esterase Negative (Negative) 07/28/23 20:36 Urine WBC (Auto) 0-5 /hpf (0-5) 07/28/23 20:36 Urine RBC (Auto) 3-5 /hpf (0-2) H 07/28/23 20:36 U Hyaline Cast (Auto) 0-2 /lpf (0-2) 07/28/23 20:36 U Epithel Cells (Auto) 0-2 /hpf (0-2) 07/28/23 20:36 Urine Bacteria (Auto) None Seen (None Seen) 07/28/23 20:36 Impressions Chest X-Ray 07/28/23 17:20 XR chest 1V portable HISTORY: 88 years-old Female Dyspnea COMPARISON: 01/08/2021 TECHNIQUE: PA view of the chest FINDINGS: Cardiac silhouette is enlarged. Median sternotomy. Emphysema with chronic interstitial coarsening. No pneumothorax, pleural effusion or airspace consolidation. Bones appear grossly intact. IMPRESSION: No acute process. ACT 112: Negative or not required by law. The above report was generated using voice recognition software. It may contain grammatical, syntax or spelling errors. Electronically signed by: Rajendra Martins M.D. 07/28/2023 6:25 PM ECG Additional Comments: ECG. Normal sinus rhythm rate of 73. Possible anterior infarct age undetermined. Code Status & VTE Plan VTE Prophylaxis Plan VTE Prophylaxis will be ordered: Yes
[2023-07-28] MEDS ORDERED: DEXTROSE 50% 50 ML SYRINGE IV PRN (23:05)
[2023-07-28] MEDS ORDERED: GLUCAGON FOR INJ 1 MG VIAL SQ PRN (23:05)
[2023-07-28] MEDS ORDERED: FLUTICASONE PROPIONATE NA SPR 16 GM BTL PRN (23:05)
[2023-07-28] MEDS ORDERED: FUROSEMIDE 40 MG TAB PO PRN (23:05)
[2023-07-28] MEDS ORDERED: SENNA 8.6 MG TAB PO PRN (23:05)
[2023-07-28] MEDS ORDERED: POLYETHYLENE (MIRALAX) 17 GM PACK PO PRN (23:05)
[2023-07-28] MEDS ORDERED: PANTOprazole 40 MG TAB PO PRN (23:05)
[2023-07-28] MEDS ORDERED: GLUCOSE 10 TAB/TUBE PO PRN (23:05)
[2023-07-28] MEDS ORDERED: GLUCOSE 40% GEL 15 GM TUBE PO PRN (23:05)
[2023-07-28] MEDS ORDERED: ACETAMINOPHEN 325 MG TAB PO PRN (23:05)
[2023-07-28] MEDS ORDERED: NITROGLYCERIN SL 0.4 MG/TAB TAB SL PRN (23:05)
[2023-07-28] MEDS ORDERED: CARBOHYDRATES FOR HYPOGLYCEMIA PO PRN (23:05)
[2023-07-28] MEDS: INSULIN ASPART PER UNIT CHARGE SC SCH (23:15)
[2023-07-29] MEDS: LORazepam 0.5 MG TAB PO PRN (00:21)
[2023-07-29] MEDS ORDERED: TRIAMCINOLONE ACET 0.025% OINT 15 GM TUBE TOP PRN (02:20)
[2023-07-29 04:43] LABS: Hematocrit (blood only) 37.9 % (37.0-47.0); Hemoglobin 12.6 g/dl (12.0-16.0); Mean Corpuscular Hemoglobin 30.1 pg (25.0-34.0); Mean Corpuscular Hgb Conc 33.2 g/dL (32.0-36.0); Mean Corpuscular Volume 90.5 fL (80.0-100.0); Mean Platelet Volume 10.2 fL (9.4-12.4); Platelet Count 200 K/uL (130-400); RDW Coefficient of Variation 13.6 % (11.5-14.5); RDW Standard Deviation 45.8 fL (36.4-46.3); Red Blood Count 4.19 M/uL (4.20-5.40); White Blood Count 5.83 K/ul (4.8-10.8)
[2023-07-29 05:01] LABS: Anion Gap 6 (3-11); BUN Creatinine Ratio 27.2 (10-20); Blood Urea Nitrogen 22 mg/dl (6-23); Calcium 8.8 mg/dl (8.6-10.3); Carbon Dioxide 25 mmol/L (21-32); Chloride 108 mmol/L (98-107); Creatinine Clr Calc Pharmacy 45.8 ml/min; Est GFR (African American) 75.7 ml/min; Est GFR (Non-African American) 65.3 ml/min; Glucose 91 mg/dl (70-99(Fasting)); Magnesium 2.3 mg/dl (1.7-2.4); Sodium 139 mmol/L (136-145)
[2023-07-29 05:26] LABS: Troponin I High Sensitivity 6.6 pg/ml (0-14)
[2023-07-29 05:34] LABS: Basophils # (auto) 0.03 K/uL (0.00-0.20); Basophils % (auto) 0.5 %; Eosinophils # (auto) 0.17 K/uL (0.00-0.50); Eosinophils % (auto) 2.9 %; Immature Granulocytes # (auto) 0.01 K/uL (0.01-0.20); Immature Granulocytes % (auto) 0.2 %; Lymphocytes # (auto) 3.07 K/uL (1.20-3.40); Lymphocytes % (auto) 52.7 %; Monocytes # (auto) 0.55 K/uL (0.11-0.59); Monocytes % (auto) 9.4 %; Neutrophils % (auto) 34.3 %
[2023-07-29] MEDS: INSULIN ASPART PER UNIT CHARGE SC SCH ×2 (05:36→20:22)
[2023-07-29 07:02] LABS: Estimated Average Glucose 146 mg/dl; Hemoglobin A1C 6.7 % (4.5-5.6)
[2023-07-29] MEDS: ATORVASTATIN 40 MG TAB PO SCH (12:21)
[2023-07-29] MEDS: MULTIVITAMIN TAB PO SCH (12:21)
[2023-07-29] MEDS: ASPIRIN 81 MG ECTAB PO SCH (12:21)
[2023-07-29] MEDS: METOPROLOL SUCC 25MG EXT REL TAB PO SCH (12:35)
--- NOTE | 2023-07-29 14:01 | Cardiology Consultation ---
Date of Consultation July 29, 2023 Assessment & Plan (1) Chest pain: (2) CAD (coronary artery disease): (3) S/P CABG x 2: (4) Hypertension: (5) Dyslipidemia: (6) Exertional dyspnea: Plan ASSESSMENT/PLAN: 1. Chest pain: Her chest discomfort and dyspnea remind her of prior ID in 2019 but despite several hours of ongoing discomfort, her high-sensitivity troponin is negative and ECG is unremarkable. Recommend noninvasive ischemic evaluation. Stress echo recommended but she did not feel as though she would be able to complete exercise stress test and therefore dobutamine stress echo ordered. Isosorbide mononitrate 30 mg once daily initiated. Further investigation for noncardiac chest pain can be performed by hospitalist service. 2. CAD s/p CABG x 2: Chest discomfort as described with prolonged episodes and no objective data to suggest ischemia. Known to have atretic BOWEN to LAD. Continue medical therapy with beta-ramu, high intensity statin therapy. Will initiate nitrate therapy. 3. Hypertension: Blood pressure well-controlled today. Continue current regimen. 4. Dyslipidemia: Continue high intensity statin therapy. 5. Dyspnea on exertion: She appears euvolemic. Stress echo recommended. 6. Disposition: Can be discharged home from a cardiology perspective if dobutamine stress echo is unremarkable. Addendum: Dobutamine stress echo was negative for ischemia. Admitting hospitalist, Dr. Maria, was sent a message regarding negative dobutamine stress echo. Can be discharged home from a cardiac perspective. Follow-up with her primary plastic machine operator, Dr. White. Thank you for allowing me to participate in the care of your patient. Please call for any other questions or concerns. Sincerely, Damián Costa M.D. History of Present Illness Reason for Consultation: Short of breath Requesting Physician: Dr. Maria Attending Physician: Dorian Alfonso MD History of Present Illness Ms. Shultz is a very pleasant 88-year-old female with a history significant for CAD s/p CABG x 2 (BOWEN to LAD - atretic in 2018, and SVG to circumflex October 2015), dyslipidemia, pulmonary embolism, hypertension, and type 2 diabetes. Her primary plastic machine operator is Dr. White. She was admitted on 07/28/2023 for shortness of breath and chest discomfort. She has had dyspnea on exertion for the past few months but over the past couple weeks, it has worsened. She also experiences shortness of breath at rest on occasion. She denies orthopnea and initially denied chest pain. She also denies edema, cough, syncope, near syncope, palpitations, or bleeding such as melena, hematochezia, or hematuria. After further questioning, she admits that there is a heaviness in her chest but she does not refer to this as pain. It is a substernal chest heaviness that occurs both at rest and with exertion. She initially stated it lasts only seconds but after further conversation, on the day of presentation, it lasted for several hours constantly and was present even in the ER. It recurred here as well this morning. The symptoms are similar to her ID in 2019. On the day of presentation, she was in a grocery store and had chest discomfort before she went shopping but it worsened while shopping. Her son mentions that she has significant anxiety and stress since her a few years ago. She continues to have difficulty coping with it. She has Lasix available on an as-needed basis but she has not taken it in "a long time." Review of systems: As above. Review of systems otherwise negative/unremarkable. Family history: Noncontributory. Social history: She denies tobacco or drug abuse. Occasional alcohol. She lives alone. . Has 5 children. Her son was present at the bedside. Allergies Allergy/AdvReac Type Severity Reaction Status Date / Time erythromycin base Allergy Intermediate RASH Verified 07/28/23 20:23 latex Allergy Intermediate RASH Verified 07/28/23 20:23 sulfamethoxazole Allergy Intermediate Rash Verified 07/28/23 20:23 [From Bactrim] trimethoprim [From Bactrim] Allergy Intermediate Rash Verified 07/28/23 20:23 Home Medications Medication Instructions Recorded Confirmed Type atorvastatin 80 mg tablet (Lipitor) 80 mg PO QAM ##0 10/29/15 07/28/23 History omeprazole 40 mg capsule,delayed 40 mg PO DAILY PRN Gastric Reflux 10/29/15 07/28/23 History release ##0 rivaroxaban 20 mg tablet (Xarelto) 20 mg PO QAM ##0 11/27/15 07/28/23 History furosemide 40 mg tablet 40 mg PO DAILY PRN Fluid Retention 02/12/16 07/28/23 History ##0 sennosides 8.6 mg tablet (Senokot) 8.6 mg PO BID PRN Constipation #0 10/05/17 07/28/23 History tabs fluticasone propionate 50 2 spray intranasal DAILY PRN Nasal 04/29/18 07/28/23 History mcg/actuation nasal Congestion spray,suspension (Flonase Allergy Relief) aspirin 81 mg tablet,delayed 81 mg PO DAILY 04/09/20 07/28/23 History release metoprolol succinate 25 mg 25 mg PO QAM 04/09/20 07/28/23 History tablet,extended release 24 hr metformin 500 mg tablet,extended 500 mg PO DAILY 01/08/21 07/28/23 History release 24 hr nitroglycerin 0.4 mg sublingual 0.4 mg sublingual UD PRN Chest 09/27/22 07/28/23 Rx tablet (Nitrostat) Pain #1 btl multivitamin (Daily Multi-Vitamin 1 tab PO DAILY 03/30/23 07/28/23 History tablet) desonide 0.05 % topical ointment 1 applic topical DAILY PRN FLARE 07/28/23 07/28/23 History UPS Patient History Medical History SOB (shortness of breath) T2DM (type 2 diabetes mellitus) Dehydration Hx of venous thromboembolic disease Occipital neuralgia Benign neoplasm of hard palate Hypertension History of pulmonary embolism History of diverticulitis History of DVT of lower extremity Accelerated hypertension GERD (gastroesophageal reflux disease) CAD (coronary artery disease) History of superficial phlebitis Dyslipidemia Anxiety "mild; uses Ativan once yearly " Surgical History H/O vein stripping S/P CABG x 2 S/P partial resection of colon History of bladder repair surgery History of partial hysterectomy Hx of bladder repair surgery Family History Mother Lymphoma Colon cancer Father COPD (chronic obstructive pulmonary disease) [employer] miners' lung Brother Murder Sister Brain tumor Social History Smoking Status: Never smoker Second Hand Exposure: No; Do You Dip or Chew Tobacco: No; Hx Alcohol Use: Yes Alcohol type: beer and wine Hx Substance Use: No Preferred Language: Israeli Communication Ability: Effective Livestock Breeder Required: No Beliefs That Will Affect Care: None marital status: / Current Living Situation: Alone Other Information That Helps Us Care for You: No Feels Safe at Home: Yes Safety Concerns: Feels Safe At This Time Assistive Devices: None Physical Exam Physical Exam: Gen.: No acute distress. Alert and oriented. HEENT: Anicteric sclera. Neck: No JVD. Mild bilateral carotid bruit. Normal carotid upstrokes bilaterally. Cardiac: Regular. Normal S1-S2. No murmurs, rubs, or gallops. Pulmonary: Clear to auscultation bilaterally without wheezes, rales, or rhonchi. Abdomen: Soft, nontender, nondistended, with normoactive bowel sounds. No bruits noted. Extremities: 2+ radial pulses bilaterally. 2+ posterior tibialis pulses bilaterally. No edema or cyanosis. Psychiatric: Affect appears appropriate. Chest: Nontender to palpation. Results & Data Vital Signs (Past 12 Hours) Vital Signs Temp Pulse Pulse Resp BP Pulse Ox O2 Del Method 07/29/23 11:46 36.7 C 69 17 126/71 92 Room Air 07/29/23 08:00 81 07/29/23 08:00 07/29/23 07:15 36.4 C L 90 17 130/76 92 Room Air 07/29/23 02:41 131/73 07/29/23 02:34 36.5 C 81 18 98/52 L 95 Room Air O2 Del Method 07/29/23 11:46 07/29/23 08:00 07/29/23 08:00 Room Air 07/29/23 07:15 07/29/23 02:41 07/29/23 02:34 Laboratory Results Laboratory Results - last 24 hr 07/29/23 07/29/23 07/29/23 04:19 05:31 05:41 WBC 5.83 RBC 4.19 L Hgb 12.6 Hct 37.9 MCV 90.5 MCH 30.1 MCHC 33.2 RDW Std Deviation 45.8 RDW Coeff of Derick 13.6 Plt Count 200 MPV 10.2 Immature Gran % (Auto) 0.2 Neut % (Auto) 34.3 Lymph % (Auto) 52.7 [place] % (Auto) 9.4 Eos % (Auto) 2.9 Baso % (Auto) 0.5 Neut # (Auto) 2.00 Lymph # (Auto) 3.07 [place] # (Auto) 0.55 Eos # (Auto) 0.17 Baso # (Auto) 0.03 Immature Gran # (Auto) 0.01 Sodium 139 Potassium TNP 4.1 Chloride 108 H Carbon Dioxide 25 Anion Gap 6 BUN 22 Creatinine 0.81 Est Cr Clr Drug Dosing 45.8 Est GFR ( Amer) 75.7 Est GFR (Non-Af Amer) 65.3 BUN/Creatinine Ratio 27.2 H Glucose 91 POC Glucose 97 Estimat Average Glucose 146 Hemoglobin A1c 6.7 H Calcium 8.8 Magnesium 2.3 Troponin I High Sens 6.6 07/29/23 07/29/23 07/29/23 11:25 12:04 16:44 WBC RBC Hgb Hct MCV MCH MCHC RDW Std Deviation RDW Coeff of Derick Plt Count MPV Immature Gran % (Auto) Neut % (Auto) Lymph % (Auto) [place] % (Auto) Eos % (Auto) Baso % (Auto) Neut # (Auto) Lymph # (Auto) [place] # (Auto) Eos # (Auto) Baso # (Auto) Immature Gran # (Auto) Sodium Potassium Chloride Carbon Dioxide Anion Gap BUN Creatinine Est Cr Clr Drug Dosing Est GFR ( Amer) Est GFR (Non-Af Amer) BUN/Creatinine Ratio Glucose POC Glucose 104 H Estimat Average Glucose Hemoglobin A1c Calcium Magnesium Troponin I High Sens 5.0 6.1 07/29/23 07/29/23 16:51 20:21 WBC RBC Hgb Hct MCV MCH MCHC RDW Std Deviation RDW Coeff of Derick Plt Count MPV Immature Gran % (Auto) Neut % (Auto) Lymph % (Auto) [place] % (Auto) Eos % (Auto) Baso % (Auto) Neut # (Auto) Lymph # (Auto) [place] # (Auto) Eos # (Auto) Baso # (Auto) Immature Gran # (Auto) Sodium Potassium Chloride Carbon Dioxide Anion Gap BUN Creatinine Est Cr Clr Drug Dosing Est GFR ( Amer) Est GFR (Non-Af Amer) BUN/Creatinine Ratio Glucose POC Glucose 100 H 128 H Estimat Average Glucose Hemoglobin A1c Calcium Magnesium Troponin I High Sens Diagnostic Findings Telemetry personally reviewed: Sinus rhythm. No arrhythmia. Outpatient cardiology note and history and physical report reviewed. ECG personally reviewed: ECG 07/28/2023 at 1734: NSR 73 bpm. Possible anterior infarct. ECG 07/29/2023 at 5:34 AM: NSR 83 bpm. Echo 07/29/2023: Normal LV size, wall motion, systolic function. EF 65%. Mild AI. Mild MR. Normal RVSP. Dobutamine stress echo 07/29/2023: Negative for ischemia at 104% MPHR. Labs reviewed and notable for negative high-sensitivity troponin x 4, normal BNP, stable renal function, normal potassium, normal blood counts, normal transaminase levels. Chest x-ray 07/28/2023: No acute process per radiology. Medications Administered Current Inpatient Medications Acetaminophen (Acetaminophen 325 Mg Tab) 650 mg PO Q4H PRN PRN Reason: Pain or Fever Stop: 08/27/23 23:04 Aspirin (Aspirin 81 Mg Ectab) 81 mg PO DAILY CRISSY Stop: 08/28/23 08:59 Last Admin: 07/29/23 12:21 Dose: 81 mg Atorvastatin Calcium (Atorvastatin 40 Mg Tab) 80 mg PO QAM CRISSY Stop: 08/28/23 08:59 Last Admin: 07/29/23 12:21 Dose: 80 mg Dextrose (Dextrose 50% 50 Ml Syringe) 25 - 50 ml IV UD PRN; Protocol PRN Reason: Hypoglycemia Protocol Stop: 08/27/23 23:04 Fluticasone Propionate (Fluticasone Propionate Na Spr 16 Gm Btl) 2 sprays NA DAILY PRN PRN Reason: Nasal Congestion Stop: 08/27/23 23:04 Furosemide (Furosemide 40 Mg Tab) 40 mg PO DAILY PRN PRN Reason: Fluid Retention Stop: 08/27/23 23:04 Glucagon (Glucagon For Inj 1 Mg Vial) 1 mg SQ UD PRN; Protocol PRN Reason: Hypoglycemia Protocol Stop: 08/27/23 23:04 Glucose (Glucose 10 Tab/Tube) 4 - 8 tab PO UD PRN; Protocol PRN Reason: Hypoglycemia Treatment Stop: 08/27/23 23:04 Glucose (Glucose 40% Gel 15 Gm Tube) 15 - 30 gm PO UD PRN; Protocol PRN Reason: Hypoglycemia Protocol Stop: 08/27/23 23:04 Insulin Aspart (Insulin Aspart Per Unit Charge) 0 units SC ACHS CRISSY Stop: 08/28/23 20:59 Last Admin: 07/29/23 20:22 Dose: Not Given Isosorbide Mononitrate (Isosorbide [place] Extended Rel 30 Mg Tabcr) 30 mg PO QAM [facility] Stop: 08/28/23 13:59 Last Admin: 07/29/23 16:43 Dose: 30 mg Metoprolol Succinate (Metoprolol Succ 25mg Ext Rel Tab) 25 mg PO QAM [facility] Stop: 08/28/23 08:59 Last Admin: 07/29/23 12:35 Dose: 25 mg Miscellaneous (Carbohydrates For Hypoglycemia ) 15 - 30 gm PO UD PRN PRN Reason: Hypoglycemia Protocol Stop: 08/27/23 23:04 Multivitamins (Multivitamin Tab) 1 tab PO DAILY [facility] Stop: 08/28/23 08:59 Last Admin: 07/29/23 12:21 Dose: 1 tab Nitroglycerin (Nitroglycerin Sl 0.4 Mg/Tab Tab) 0.4 mg SL Q5M PRN PRN Reason: Chest Pain Stop: 08/27/23 23:04 Pantoprazole Sodium (Pantoprazole 40 Mg Tab) 40 mg PO DAILY PRN PRN Reason: Gastric Reflux Stop: 08/28/23 23:04 Polyethylene Glycol (Polyethylene (Miralax) 17 Gm Pack) 17 gm PO DAILY PRN PRN Reason: Constipation Stop: 08/27/23 23:04 Rivaroxaban (Rivaroxaban 20 Mg Tab) 20 mg PO QDD [facility] Stop: 08/28/23 16:29 Last Admin: 07/29/23 16:43 Dose: 20 mg Sennosides (Senna 8.6 Mg Tab) 8.6 mg PO BID PRN PRN Reason: Constipation Stop: 08/27/23 23:04 Triamcinolone Acetonide (Triamcinolone Acet 0.025% Oint 15 Gm Tube) 1 appln TOP DAILY PRN PRN Reason: FLARE UPS Stop: 08/28/23 02:19 PG Care Time/CCT Total # of Minutes Spent Total Time Spent with Patient: Total time spent is greater than 50% in coordination of care (as documented) at patient's floor/unit and/or counseling patient: Coding Level of Care Code 64043 INT INP/OBS CARE 2/55MIN Diagnoses Chest pain R07.9 Coronary artery disease involving [place] coronary artery of [place] heart with unstable angina pectoris I25.10 Coronary Disease-Associated Artery/Lesion type: [place] artery [place] vs. transplanted heart: unspecified whether [place] or transplanted heart S/P CABG x 2 Z95.1 Essential hypertension I10 Hypertension type: essential hypertension Dyslipidemia E78.5 Exertional dyspnea R06.09 (2) CAD (coronary artery disease) Coronary Disease-Associated Artery/Lesion type: [place] artery [place] vs. transplanted heart: unspecified whether [place] or transplanted heart (4) Hypertension Hypertension type: essential hypertension Qualified Code(s): I10 - Essential (primary) hypertension
--- NOTE | 2023-07-29 14:17 | Hospitalist Progress Note ---
Date of Service July 29, 2023 Assessment & Plan (1) Exertional dyspnea: Plan: 88-year-old female with past med history significant for type 2 diabetes, hyperlipidemia, allergic rhinitis, lung nodule less than 6 cm, history of CAD s/p CABG, hypertension, GERD, hydronephrosis of right kidney, osteoporosis, bilateral sensorineural hearing loss, history of PE on Xarelto, general anxiety disorder, depression presents with shortness of breath going on for last few weeks which is progressively getting worse. Exertional dyspnea Possible angina History of CAD status post CABG in the past Chest x-ray personally reviewed; no acute findings High-sensitivity troponin negative EKG on admission personally reviewed; normal sinus rhythm; no ST T wave changes BNP within normal limits Patient is saturating well on room air; Chest x-ray did not show any pneumonia or vascular congestion Patient is on Xarelto given history of PE; compliant. Will appreciate cardiology evaluation for possible angina causing exertional dyspnea/chest discomfort. Continue telemonitoring History of CAD s/p CABG On aspirin, Lipitor and metoprolol History of PE On Xarelto, continue Type II diabetes Hold home p.o. meds Sliding scale Will monitor Hypertension on metoprolol, continue Will monitor Hyperlipidemia On statin, continue DVT prophylaxis On Xarelto Disposition Telemetry. PT OT eval Full code Time spent evaluating patient, direct bedside care, chart review, placing orders, interpretation of diagnostic studies, discussion with consultants, patient, and family members, as well as other required patient management activities is 50 minutes. Please note the above document was generated using voice recognition software. It may contain grammatical, syntax or spelling errors. Any formal questions or concerns about the content, text or information contained within the body of this dictation should be directly addressed to the provider for clarification Admission and Anticipated Discharge Date Admission Date: July 28, 2023 Subjective Patient seen and examined at bedside. Comfortable; not in distress. Denies fever, chills, chest pain, shortness of breath, abdominal pain or urinary symptoms. No significant overnight events Review of Systems Review of Systems: All systems reviewed & are unremarkable except as noted in Subjective Physical Exam Physical Exam: Constitutional: WD/WN, vitals as above, NAD, sitting up in bed, pleasant, conversing easily Respiratory: normal respiratory effort, lungs clear to auscultation, no wheeze, rales, rhonchi. Normal insp/exp effort, no accessory muscle use Cardiovascular: RRR, no murmur, no edema Vessels: no JVD or carotid bruit Chest: normal inspection of chest Abdomen: normal bowel sounds, soft, nontender, no hepatosplenomegaly Musculoskeletal: no cyanosis or clubbing, extremities motor strength 5/5 Skin: no rashes, warm and dry normal turgor Neurologic: PERRL, EOMI, accommodation nl, no face palsy, no dysarthria CN's II- XI intact bilaterally and moves all extremities Psychiatric: A+Ox3, euthymic affect Results & Data Results & Data Vital Signs (Past 12 Hours) Vital Signs Temp Pulse Pulse Resp BP Pulse Ox O2 Del Method 07/29/23 11:46 36.7 C 69 17 126/71 92 Room Air 07/29/23 08:00 81 07/29/23 08:00 07/29/23 07:15 36.4 C L 90 17 130/76 92 Room Air 07/29/23 02:41 131/73 07/29/23 02:34 36.5 C 81 18 98/52 L 95 Room Air O2 Del Method 07/29/23 11:46 07/29/23 08:00 07/29/23 08:00 Room Air 07/29/23 07:15 07/29/23 02:41 07/29/23 02:34
[2023-07-29] MEDS: DOBUTamine HCL 12.5 MG/ML 20 ML VIAL IV ONE (15:37)
[2023-07-29] MEDS: ATROPINE SULFATE 0.1 MG/ML 10ML SYR IV ONE (15:37)
[2023-07-29] MEDS: METOPROLOL TARTRATE 1 MG/ML VIAL IV ONE (15:38)
--- NOTE | 2023-07-29 16:14 | XCELERA ---
[id number] \\[id number]}[id number]
[2023-07-29] MEDS: RIVAROXABAN 20 MG TAB PO SCH (16:43)
[2023-07-29] MEDS: ISOSORBIDE MONO EXTENDED REL 30 MG TABCR PO SCH (16:43)
--- OUTSIDE RECORDS SUMMARY | 2023-07-29 19:02 | External Medical Summary | Summary of Care ---
Author Name Unknown Organization [facility] Address [address] [place] [facility] [place] [address] Phone [phone] Care Team Providers Care Merchandise Flow Team Leader Name Role Phone Hayes Thompson MD Primary Care Provider + Encounter Details Date Type Department Care Team (Late st Contact Info) Description 06/14/2023 Orders Only Family Practice [facility] [address] [place] [address] Hayes Thompson MD [address] [place] [address] Allergies Active Allergy Reactions Criticality Noted Date Comments Sulfamethoxazole-Trimethoprim Rash Low 2018 Erythromycin 08/31/2000 hives Latex Hives,Rash High 08/31/2000 HIVES, rash Latex High 09/27/2022 Other Reaction(s): RASH Nitrofurantoin Rash Low 09/06/2018 Sulfamethoxazole High 09/27/2022 Other Reaction(s): Rash Trimethoprim High 09/27/2022 Other Reaction(s): Rash Bupropion 03/19/2021 Change in mental status documented as of this encounter (statuses as of 06/14/2023) Medications Medication Sig Dispensed Refills Start Date End Date Status Aspirin 81 MG Tablet Take 1 Tablet by mouth in the morning. 0 Active omeprazole (PRILOSEC) 40 MG CPDR take 1 capsule by mouth every morning 1 HOUR BEFORE THE FIRST MEAL OF THE DAY 30 Cap 5 09/25/2018 Active nitroglycerin (NITROSTAT) 0.4 MG SUBLIndications:Sta ble angina Place 1 Tab under the tongue every 5 minutes as needed for Pain, Chest. 25 Tab 3 04/04/2019 Active Fluticasone Propionate 50 MCG/ACT Nasal Suspension (Flonase)Indication s:Seasonal allergic rhinitis due to pollen INSTILL 1 SPRAY INTO EACH NOSTRIL DAILY FOR NASAL CONGESTION 16 g 1 08/04/2022 Active metFORMIN HCl ER 500 MG Oral Tablet Extended Release 24 Hour (Glucophage XR)Indications:Type 2 diabetes mellitus without complication, without long-term current use of insulin (HCC) take 1 tablet by mouth once daily 90 Tablet 1 12/22/2022 Active Xarelto 20 MG Oral Tablet (Rivaroxaban)Indica tions:Personal history of PE (pulmonary embolism) take 1 tablet by mouth once daily 90 Tablet 1 02/11/2023 Active Metoprolol Succinate ER 25 MG Oral Tablet Extended Release 24 Hour (toPROL XL)Indications:S/P CABG x 2,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 90 Tablet 3 03/14/2023 Active Atorvastatin Calcium 80 MG Oral Tablet (Lipitor)Indication s:Dyslipidemia take 1 tablet by mouth once daily 90 Tablet 3 04/07/2023 Active Vitamin D3 1000 UNIT Oral Capsule Take by mouth. 0 Act aretha LORazepam 0.5 MG Oral Tablet (Ativan)Indications :JEREMIE (generalized anxiety disorder) Take 1 Tablet by mouth at bedtime as needed for Anxiety. 30 Tablet 0 04/28/2023 Active Hospital, Clinic, or Other Facility Administered Medication Ordered Dose Route Frequency Start Date End Date Status albuterol (PROVENTIL HFA) inhaler 4 PuffIndications:SOB (shortness of breath) 4 Puff IN Q4H PRN 12/24/2016 Act aretha documented as of this encounter (statuses as of 06/14/2023) Active Problems Problem Noted Date Diagnosed Date Recurrent major depressive disorder, in full rem ission 04/28/2023 Well adult exam 04/28/2023 Overview: Sees Dr Brian White, cards [facility]. Rheum for Osteoporosis. 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 05/25/2018 Lung nodule < 6cm on CT 01/10/2018 Gastroesophageal reflux disease with esophagitis 01/04/2018 senior living current use of anticoagulant therapy 0 11/05/2015 Overview: Xarelto ICD-10 update of inactive term S/P CABG x 2 10/16/2015 Overview: On pump CABGX 2 (BOWEN-LAD;V-OM1) for CAD s/p recent NSTEMI; normal EF Allergic rhinitis due to pollen 01/22/2015 Hydronephrosis of right kidney 10/24/2012 Overview: Mild right UPJ obstruction, asymptomatic Sensorineural hearing loss, bilateral 05/10/2012 Dyslipidemia 06/28/2011 Senile osteoporosis 08/31/2000 Overview: completed 5 yrs in 2006 with fosamax and calcium on Reclast by Rheum. documented as of this encounter (statuses as of 06/14/2023) Resolved Problems Problem Noted Date Diagnosed Date Resolved Date Stage 3a chronic kidney disease 02/25/2020 03/19/2021 Overview: Per CKD protocol - Per CKD protocol Kidney disease, chronic, sta ge III (GFR 30-59 ml/min) 11/27/2018 02/28/2020 Overview: Per CKD protocol Angina pectoris 05/05/2018 01/30/2019 Sepsis due to Escherichia coli 01/09/2018 05/05/2018 Cervicalgia 01/09/2018 05/12/2018 Arteritis 12/21/2017 01/30/2019 History of non-ST elevation myocardial infarction (NSTEMI) 03/30/2017 01/30/2019 Benign hematuria 08/19/2016 01/30/2019 Pulmonary embolism without a cute cor pulmonale 11/05/2015 05/12/2018 NSTEMI (non-ST elevated myoc ardial infarction) 10/16/2015 03/30/2017 Dizziness 04/17/2015 03/30/2017 Seborrheic keratosis 01/22/2015 019 History of superficial phlebitis 01/22/2015 05/12/2018 H/O vertigo 05/10/2012 05/12/2018 Subjective tinnitus 05/10/2012 03/30/20 17 Dysphagia, pharyngoesophageal phase 05/10/2012 03/30/2017 Esophageal reflux 05/10/2012 01/04/2018 Snoring 05/10/2012 01/22/2015 Overview: ICD-10 update of inactive term Benign neoplasm of colon 12/31/2009 Overview: 01/01/15: 6 mm sessile tubovillous adenoma of cecum, diverticulosis, repeat 3 years 12/31/09: 2 mm polyp transverse colon, path shows adenomatous tissue, diverticulosis, repeat in 5 years Vitamin D deficiency 01/06/2009 019 Advance directive on file 12/16/2005 Overview: POLST form on file Menopause 12/04/2003 03/30/2017 Overview: ERT till 08/2002 Other seborrheic keratosis 01/17/2002 1 skin tags 01/17/2002 03/30/2017 Psoriasis 01/04/2001 05/12/2018 Need for prophylactic hormon e replacement therapy (postmenopausal) 08/31/2000 08/16/2002 SUPERFIC PHLEBITIS-LEG 08/31/200001/22 ALLERGIC RHINITIS NOS 08/31/20002014 documented as of this encounter (statuses as of 06/14/2023) Immunizations Name Administration Dates Next Due COVID-19 mRNA, LNP-s, No Pre serve, 2-Dose Series (Pharmaco Kinesis) 01/26/2021,06/14/2020,05/24/2020 COVID-19, LNP-s, No Preserve , Chris-sucrose, Ages 12+ (Pharmaco Kinesis) 09/22/2021 COVID-19, MRNA-LNP, 23-24, P F, 30 MCG/0.3 mL, 12 YRS AND ABOVE, IM (LaunchBit-Comirnaty) 02/10/2023 Covid-19, Mrna, Lnp-s, Pf, B ivalent, 30 Mcg, IM, 12 yrs and above (Pfizer) 01/08/2022 H1N1 2009 Influenza, IM 04/30/2009 Pneumococcal Conjugate Vacc, 13 Valent (Prevnar) 04/01/2014 RSV Vac., Bivalent, Perfusio n F, Pf,0.5 Ml (Abrysvo) 02/17/2023 Season Influenza, Cell Cultu re, 18+ Yrs, With Preserv (Flucelvax) 01/21/2015 Season Influenza, Quad, PF, Adjuvanted, 65+ Yrs, IM (FLUAD) 02/03/2023 Seasonal Influenza, PF, 6 M & above, IM , (FluLaval or Fluzone) 01/11/2020,01/16/2018,02/01/2017 Seasonal Influenza, Quadriva lent Hd (Fluzone Hd) 01/19/2021 Seasonal Influenza, Quadriva lent Hd, 65+ Yrs 01/06/2022 Seasonal Influenza, Quadriva lent, No Preserve, IM 01/20/2016 Seasonal Influenza, Split, I IV3, With Preserve, Inj 01/17/2014,01/01/2013,12/29/2011,2010,02/04/2010,01/07/2009,02/19/2008,1 ,02/08/2006 Seasonal Influenza, Trivalen t, Adjuvanted, 65+ yrs 12/19/2018 TD, Preservative Free 08/17/2010 TDAP (age 10 and older)(Boostrix) 03/30/2017 Varicella Zoster Vaccine (Adult) 03/06/2008 Zoster Vaccine Recombinant (Shingrix) 10/09/2019 ,06/15/2018,03/29/2018 documented as of this encounter Social History Tobacco Use Types Packs/Day Years Used Date Smoking Tobacco: Never Smokeless Tobacco: Never Alcohol Use Standard Drinks/Week Comments Yes 0 (1 standard drink = 0.6 oz pure alcohol) Social- a glass of wine maybe evry 3 months PHQ-2 Answer Date Recorded PHQ Adult Total Score 0 10/29/2022 Hunger Vital Sign Answer Date Recorded Within the past 12 months, y ou worried that your food would run out before you got the money to buy more. Never true 10/30/19 23 Within the past 12 months, t he food you bought just didn't last and you didn't have money to get more. Never true 10/29/2022 Sex and Gender Information Value Date Recorded Sex Assigned at Female 09/06/2018 10:11 AM EDT Gender Identity Female 09/06/2018 10:11 AM EDT Sexual Orientation Straight 03/26/2022 2: 11 PM EST Job Start Date Occupation Industry Not on file Not on file Not on file documented as of this encounter Plan of Treatment Upcoming Encounters Date Type Department Care Team (Late st Contact Info) Description 11/02/2023 11:00 AM EDT Office Visit [facility] [address] [place] [address] Radha Fountain CRNP [address] [place] [address] 11/15/2023 10:00 AM EDT Office Visit Rheumatology [place] [address] [place] [address] [facility] [employer] [facility] [place] [address] 05/01/2024 3:40 PM EST Office Visit [facility] [address] [place] [address] Hayes Thompson MD [address] [place] [address] Health Maintenance Due Date Last Done Comments HbA1c 08/25/2023 02/24/2023, 04/2 , 02/08/2022, Additional history exists Albumin/Creatinine Ratio 09/29/2023 09/28/2022, 10/2021 Depression Screening 10/30/2023 10/29/2022 Diabetic Foot Exam 04/28/2024 04/28/2023, 03/26/2022 Diabetic Eye Exam 06/14/2024 05/26/2023, , 05/08/2021 DXA Scan 11/15/2024 11/15/2022, 10/17, 10/23/2018, Additional history exists DTaP,Tdap,and Td Vaccines (2 - Td or Tdap) 03/30/2027 03/30/2017, 08/17/2010, 05/19/1999 Pneumococcal Vaccine: 65+ Years Completed 04/01/2014, 09/13/2001 Zoster Vaccines Completed 10/09/2019, 05/20, 03/29/2018, Additional history exists COLONOSCOPY-EVERY 5 YRS AGES 18-100 Discontinued 05/27/2022, 05/27/2022, 10/06/2017, Additional history exists VITAMIN D LEVEL ONCE IN A LIFETIME-USE SMARTSET# [id number] Completed 11/15/2022, 10/21/2021, 10/21/2020, Additional history exists Influenza Vaccine (FLU shot) Completed 02/03/2023, 01/06/2022, 01/19/2021, Additional history exists COVID-19 Vaccine Completed 02/10/2023, , 09/22/2021, Additional history exists GARDASIL-HPV IMMUNIZATION SERIES Aged Out No longer eligible based on patient's age to complete this topic Hepatitis B Aged Out No longer eligi ble based on patient's age to complete this topic MENINGOCOCCAL (MENACTRA/MENVEO) Aged Out No longer eligible based on patient's age to complete this topic documented as of this encounter Medical Devices Implanted Type Area Wire Twister Device Identifier Shelf Expiration Date Model / Serial / Lot Sut Steel 6 M654g - [id number] Implanted:Qty: 4 on 10/17/2015 by Vaibhav Crews MD at [place] [facility] [place] N/A: Sternum JNJ : [employer] 07/16/2020 [id number] / / [id number] Marker Coronary Amgm-Sd - [id number] Implanted:Qty: 1 on 10/17/2015 by Vaibhav Crews MD at [place] [facility] [place] N/A: Chest [employer] 08/15/2018 AMGM-SD / / [id number] Lens Intraoc 23.0 - [id number] - [id number] Implanted:Qty: 1 on 03/29/2016 by Romero Joy MD at OR [facility] Left: Eye [employer] 10/15/2020 [id number] / [id number] / [id number] Lens Intraoc 21.0 - [id number] - [id number] Implanted:Qty: 1 on 04/06/2016 by Romero Joy MD at OR [facility] [employer]CH [employer]OMB 11/15/2020 [id number] / [id number] / [id number] documented as of this encounter Procedures Procedure Name Priority Date/Time Associated Diagnosis Comments DIABETIC EYE EXAM Routine 05/26/2023 documented in this encounter Results * DIABETIC EYE EXAM (05/26/2023) 05/26/2023 Jacques Martínez OD OTHER OUTSIDE LAB (SEE SCANNED REPORT) documented in this encounter Advance Directives Latest Code Status on File Code Status Date Activated Date Inactivated Comments Full Code 04/06/2016 11:53 AM 04/06/2016 6:24 PM Th is order reflects the patients wishes and were consensually agreed upon. Code Status History Code Status Date Activated Date Inactivated Comments Full Code 03/29/2016 6:48 AM 03/29/2016 1:14 PM Thi s order reflects the patients wishes and were consensually agreed upon. Full Code 10/17/2015 12:13 PM 10/22/2015 2:41 PM This o rder reflects the patients wishes and were consensually agreed upon. Full Code 10/16/2015 2:59 PM 10/17/2015 11:39 AM This order reflects the patients wishes and were consensually agreed upon. Question Answer Comments Discussion of Advance Directives occurred with: Not Discussed Does the patient have a Living Will? No Does the patient have Health Care Power of Seasoning Sprayer? No Care Teams Merchandise Flow Team Leader Relationship Specialty Start Date End Date Hayes Thompson MD [address] [place] [address] PCP - General Family Medicine 04/28/23 documented as of this encounter
--- OUTSIDE RECORDS SUMMARY | 2023-07-29 19:02 | External Medical Summary | Summary of Care ---
Author Name Unknown Organization [facility] Address [address] [facility] [place] [address] Phone [phone] Care Team Providers Care Wire Brush Maker Name Role Phone Hayes Morrison MD Primary Care Provider + Reason for Visit * Reason Comments eRx-Medication Refill Encounter Details Date Type Department Care Team (Late st Contact Info) Description 06/23/2023 Refill Family Practice [facility] [address] [place] [address] Abisai Cid, DO [address] [place] [address] Type 2 diabetes mellitus without complication, without long-term current use of insulin (HCC) Allergies Active Allergy Reactions Criticality Noted Date Comments Sulfamethoxazole-Trimethoprim Rash Low 2018 Erythromycin 08/31/2000 hives Latex Hives,Rash High 08/31/2000 HIVES, rash Latex High 09/27/2022 Other Reaction(s): RASH Nitrofurantoin Rash Low 09/06/2018 Sulfamethoxazole High 09/27/2022 Other Reaction(s): Rash Trimethoprim High 09/27/2022 Other Reaction(s): Rash Bupropion 03/19/2021 Change in mental status documented as of this encounter (statuses as of 06/24/2023) Medications Medication Sig Dispensed Refills Start Date End Date Status Aspirin 81 MG Tablet Take 1 Tablet by mouth in the morning. 0 Active omeprazole (PRILOSEC) 40 MG CPDR take 1 capsule by mouth every morning 1 HOUR BEFORE THE FIRST MEAL OF THE DAY 30 Cap 5 09/25/2018 Active nitroglycerin (NITROSTAT) 0.4 MG SUBLIndications: Stable angina Place 1 Tab under the tongue every 5 minutes as needed for Pain, Chest. 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 90 Tablet 3 03/14/2023 Active Atorvastatin Calcium 80 MG Oral Tablet (Lipitor)Indicat ions:Dyslipidemi a take 1 tablet by mouth once daily 90 Tablet 3 04/07/2023 Active Vitamin D3 1000 UNIT Oral Capsule Take by mouth. 0 Active LORazepam 0.5 MG Oral Tablet (Ativan)Indicati ons:JEREMIE (generalized anxiety disorder) Take 1 Tablet by mouth at bedtime as needed for Anxiety. 30 Tablet 0 04/28/2023 Active metFORMIN HCl ER 500 MG Oral Tablet Extended Release 24 Hour (Glucophage XR)Indications:T ype 2 diabetes mellitus without complication, without long-term current use of insulin (HCC) take 1 tablet by mouth once daily 90 Tablet 1 06/24/2023 Active metFORMIN HCl ER 500 MG Oral Tablet Extended Release 24 Hour (Glucophage XR)Indications:T ype 2 diabetes mellitus without complication, without long-term current use of insulin (HCC) take 1 tablet by mouth once daily 90 Tablet 1 12/22/2022 4 Discontinued Hospital, Clinic, or Other Facility Administered Medication Ordered Dose Route Frequency Start Date End Date Status albuterol (PROVENTIL HFA) inhaler 4 PuffIndications:SOB (shortness of breath) 4 Puff IN Q4H PRN 12/24/2016 Act aretha documented as of this encounter (statuses as of 06/24/2023) Active Problems Problem Noted Date Diagnosed Date Recurrent major depressive disorder, in full rem ission 04/28/2023 Well adult exam 04/28/2023 Overview: Sees Dr Brian White, cards [facility]. Rheum for Osteoporosis. 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 05/25/2018 Lung nodule < 6cm on CT 01/10/2018 Gastroesophageal reflux disease with esophagitis 01/04/2018 [facility] current use of anticoagulant therapy 0 11/05/2015 [...] as of this encounter (statuses as of 06/24/2023) Resolved Problems Problem Noted Date Diagnosed Date [...] as of this encounter (statuses as of 06/24/2023) Immunizations Name Administration Dates Next Due COVID-19 mRNA, LNP-s, No Pre serve, 2-Dose Series (enModus) 01/26/2021,06/14/2020,05/24/2020 COVID-19, LNP-s, No Preserve , Chris-sucrose, Ages 12+ (Pfizer) 09/22/2021 COVID-19, MRNA-LNP, 23-24, P F, 30 MCG/0.3 mL, 12 YRS AND ABOVE, IM ([facility]) 02/10/2023 Covid-19, Mrna, Lnp-s, Pf, B ivalent, [...] on file documented as of this encounter Miscellaneous Notes * Telephone Encounter - Nina Haywood RPh - 06/24/2023 10:05 AM ESTSigned Prescriptions: Disp Refills metFORMIN HCl ER 500 MG Oral Tablet Extend*90 Tab*1 Sig: take 1 tablet by mouth once dailyAuthorizing Provider: HAYES MORRISON User: NINA HAYWOOD- documented in this encounter Plan of Treatment Upcoming Encounters Date Type Department Care Team (Late st Contact Info) Description 11/02/2023 11:00 AM EDT Office Visit Family Practice [facility] [address] [address] Radha Fountain CRNP [address] [place] [address] 11/15/2023 10:00 AM EDT Office Visit Rheumatology [facility] [address] [place] [address] Michael Blevins MD [address] [place] [address] 05/01/2024 3:40 PM EST Office Visit Family Practice [facility] [address] [place] [address] Hayes Morrison MD [address] [place] [address] Health Maintenance Due Date Last Done Comments HbA1c 08/25/2023 02/24/2023, 07/18, 02/08/2022, Additional history exists Albumin/Creatinine Ratio 09/29/2023 09/28/2022, 10/2021 Depression Screening 10/30/2023 10/29/2022 Diabetic Foot Exam 04/28/2024 04/28/2023, 03/26/2022 Diabetic Eye Exam 05/26/2024 05/26/2023, , 05/08/2021 DXA Scan 11/15/2024 11/15/2022, 10/17, 10/23/2018, Additional history exists DTaP,Tdap,and Td Vaccines (2 - Td or Tdap) 03/30/2027 03/30/2017, 08/17/2010, 05/19/1999 Pneumococcal Vaccine: 65+ Years Completed 04/01/2014, 09/13/2001 Zoster Vaccines Completed 10/09/2019, 05/20, 03/29/2018, Additional history exists COLONOSCOPY-EVERY 5 YRS AGES 18-100 Discontinued 05/27/2022, 05/27/2022, 10/06/2017, Additional history exists VITAMIN D LEVEL ONCE IN A LIFETIME-USE SMARTSET# [id number] Completed 11/15/2022, 10/21/2021, 10/21/2020, Additional history exists [...] this encounter Medical Devices Implanted Type Area Business Services Tech Device Identifier Shelf Expiration Date Model / Serial / Lot Sut Steel 6 M654g - [id number] Implanted:Qty: 4 on 10/17/2015 by Vaibhav Crews MD at OR [facility] [place] N/A: Sternum JNJ : [employer] 07/16/2020 M654G / / [id number] Marker Coronary Am-Sd - [id number] Implanted:Qty: 1 on 10/17/2015 by Vaibhav Crews MD at OR [facility] [place] N/A: Chest [employer] 08/15/2018 AM-SD / / [id number] Lens Intraoc 23.0 - [id number] - [id number] Implanted:Qty: 1 on 03/29/2016 by Romero Joy MD at OR [facility] Left: Eye [employer] 10/15/2020 [id number] / [id number] / [id number] Lens Intraoc 21.0 - [id number] - [id number] Implanted:Qty: 1 on 04/06/2016 by Romero Joy MD at OR [facility] [employer]CH [employer]OM[employer] 11/15/2020 [id number] / [id number] / [id number] documented as of this encounter Visit Diagnoses Diagnosis Type 2 diabetes mellitus without complication, without long-term current use of insulin (HCC) documented in this encounter Advance Directives Latest [...] the patient have Health Care Power of Railway Switchman? No Care Teams Wire Brush Maker Relationship Specialty Start Date End Date Hayes Morrison MD [address] [place] [address] PCP - General Family Medicine 04/28/23 documented as of this encounter
[2023-07-29] MEDS: LORazepam 0.5 MG TAB PO STA (20:57)
--- NOTE | 2023-07-29 22:17 | XCELERA ---
[id number] [id number]
--- NOTE | 2023-07-30 00:07 | Electrocardiogram Report ---
Test Reason : Blood Pressure : / mmHG Vent. Rate : 073 BPM Atrial Rate : 073 BPM P-R Int : 158 ms QRS Dur : 074 ms QT Int : 374 ms P-R-T Axes : 017 -03 028 degrees QTc Int : 412 ms Normal sinus rhythm Possible Anterior infarct , age undetermined Abnormal ECG When compared with ECG of 09-JAN-2021 05:47, Questionable change in QRS axis Confirmed by Cedric Costa ([id number]) on 07/30/2023 12:06:34 AM Referred By: Brian White Confirmed By:Cedric Costa
--- NOTE | 2023-07-30 00:17 | Electrocardiogram Report ---
Test Reason : Blood Pressure : / mmHG Vent. Rate : 083 BPM Atrial Rate : 083 BPM P-R Int : 166 ms QRS Dur : 066 ms QT Int : 344 ms P-R-T Axes : 065 003 031 degrees QTc Int : 404 ms Poor data quality, interpretation may be adversely affected Normal sinus rhythm Normal ECG When compared with ECG of 28-JUL-2023 17:34, Borderline criteria for Anterior infarct are no longer Present Confirmed by Cedric Costa ([id number]) on 07/30/2023 12:16:43 AM Referred By: Brian White Confirmed By:Cedric Costa
[2023-07-30 06:04] LABS: Basophils # (auto) 0.02 K/uL (0.00-0.20); Basophils % (auto) 0.3 %; Eosinophils # (auto) 0.18 K/uL (0.00-0.50); Eosinophils % (auto) 2.7 %; Hematocrit (blood only) 37.6 % (37.0-47.0); Hemoglobin 12.5 g/dl (12.0-16.0); Immature Granulocytes # (auto) 0.01 K/uL (0.01-0.20); Immature Granulocytes % (auto) 0.2 %; Lymphocytes # (auto) 2.64 K/uL (1.20-3.40); Lymphocytes % (auto) 39.7 %; Mean Corpuscular Hemoglobin 30.1 pg (25.0-34.0); Mean Corpuscular Hgb Conc 33.2 g/dL (32.0-36.0); Mean Corpuscular Volume 90.6 fL (80.0-100.0); Mean Platelet Volume 10.2 fL (9.4-12.4); Monocytes # (auto) 0.63 K/uL (0.11-0.59); Monocytes % (auto) 9.5 %; Neutrophils # (auto) 3.17 K/uL (1.40-6.50); Neutrophils % (auto) 47.6 %; Platelet Count 202 K/uL (130-400); RDW Coefficient of Variation 13.6 % (11.5-14.5); RDW Standard Deviation 45.7 fL (36.4-46.3); Red Blood Count 4.15 M/uL (4.20-5.40); White Blood Count 6.65 K/ul (4.8-10.8)
[2023-07-30 06:07] LABS: BUN Creatinine Ratio 26.8 (10-20); Creatinine Clr Calc Pharmacy 38.3 ml/min; Est GFR (African American) 60.9 ml/min; Est GFR (Non-African American) 52.5 ml/min; Potassium 4.4 mmol/L (3.5-5.1)
--- NOTE | 2023-07-30 12:15 | Electrocardiogram Report ---
Test Reason : Blood Pressure : / mmHG Vent. Rate : 086 BPM Atrial Rate : 086 BPM P-R Int : 170 ms QRS Dur : 072 ms QT Int : 372 ms P-R-T Axes : 034 014 040 degrees QTc Int : 445 ms Normal sinus rhythm Normal ECG When compared with ECG of 29-JUL-2023 05:34, No significant change was found Confirmed by Cy Gottlieb ([id number]) on 07/30/2023 12:15:25 PM Referred By: Brian White Confirmed By:Cy Gottlieb
[2023-07-30] MEDS: OPTIRAY 320 125ml IV ONE (12:58)
--- NOTE | 2023-07-30 13:29 | CT Scan Report ---
CT angio chest PE protocol CT DOSE: 515.99 mGy.cm HISTORY: 88 years-old Female with PE protocol, Rule out PE. Acute shortness of breath TECHNIQUE: Multiple CTA images of the chest were obtained after the intravenous administration of 93 ml Optiray. Coronal and sagittal MIPS were obtained from the axial data set and were submitted for r Mumumíoiew. All measurements were obtained according to NASCET criteria. A dose lowering technique was ut ilized adhering to the principles of ALARA. COMPARISON: Chest radiograph of same day, CTA chest 12/29/2017 FINDINGS: CTA: Moderate cardiomegaly. Median sternotomy. No pericardial effusion. Extensive coronary artery calcific ations. Atherosclerosis of the thoracic aorta without aneurysm or dissection. No pulmonary emboli yamilet ntified. CT CHEST: 9 mm hypodense nodule in the inferior thyroid isthmus. Subcentimeter mediastinal and hilar lymph node s. Mild circumferential nonspecific esophageal wall thickening is noted diffusely. No pneumothorax, p leural effusion or overt pulmonary edema. Mild biapical pleural-parenchymal scarring. Subsegmental gr oundglass densities of the lung apices with reticular interstitial densities. No airspace consolidati on typical for pneumonia. There is a 6 mm fissural nodule of the right midlung on image 92 which is s imilar appearance to the prior study suggestive of a benign lymph node. There are a few scattered selin cified pulmonary granulomata which also appear benign. Central airways are patent. Debris-filled stomach is suggestive of a recent meal. Colonic diverticulosis. Unremarkable soft tissu es. No acute fracture. Healed chronic right-sided rib fractures are nondisplaced. IMPRESSION: 1. No pulmonary emboli identified. 2. No pleural effusion or airspace consolidation to suggest pneumonia. 3. Mild mid esophageal circumferential wall thickening may represent a nonspecific esophagitis. ACT 112: Negative or not required by law. The above report was generated using voice recognition software. It may contain grammatical, syntax o r spelling errors. Electronically signed by: Rajendra Martins M.D. 07/30/2023 1:27 PM
--- NOTE | 2023-07-30 13:46 | Discharge Summary ---
Date of Service July 30, 2023 Admission HPI Per Admitting Provider 88-year-old female with past med history significant for type 2 diabetes, hyperlipidemia, allergic rhinitis, lung nodule less than 6 cm, history of CAD s/p CABG, hypertension, GERD, hydronephrosis of right kidney, osteoporosis, bilateral sensorineural hearing loss, history of PE on Xarelto, general anxiety disorder, depression presents with shortness of breath going on for last few weeks which is progressively getting worse. Patient states currently walking short distance making her short of breath. While resting she is okay. Denies any orthopnea or paroxysmal nocturnal dyspnea. No leg swelling. Denies any chest pain. No fevers. No cough. She has chronic headaches and chronic dizziness. Chronic blurred visions. Sometimes get throbbing pain in the ear but currently no earaches. Chronic runny nose from allergies. No sore throat. Appetite is okay. No nausea. No abdominal pain. Normal bowel and bladder movements. Past medical history. As mentioned above Past surgical history. CABG. Colonoscopy. Colonoscopy with biopsy. Vein stripping. Partial colectomy for diverticulosis and diverticulitis. Partial hysterectomy. Repair of bladder and vaginal cystocele. Vaginal hysterectomy. Social history. . No smoking. Alcohol occasional. No drug use. Family history. Daughter had breast cancer. Mother had lymphoma. Colon cancer. Diabetes. Rectal cancer. Admission Exam Per Admitting Provider General- Not in distress Head- atraumatic Eyes- PERRL. ENT- oropharynx clear Neck- supple, no JVD. Lungs- clear to auscultation no wheezing or crackles. Heart- regular rhythm; no murmur, no gallop. Abdomen- normal bowel sounds, soft, nontender, no distension. Extremities- no pretibial edema, no erythema seen Neuro- alert, oriented PERRL, EOMI; no facial palsy; no dysarthria; obeys simple commands. Principal Diagnosis Reflux esophagitis Discharge Exam Constitutional: WD/WN, vitals as above, NAD, sitting up in bed, pleasant, conversing easily Respiratory: normal respiratory effort, lungs clear to auscultation, no wheeze, rales, rhonchi. Normal insp/exp effort, no accessory muscle use Cardiovascular: RRR, no murmur, no edema Vessels: no JVD or carotid bruit Chest: normal inspection of chest Abdomen: normal bowel sounds, soft, nontender, no hepatosplenomegaly Musculoskeletal: no cyanosis or clubbing, extremities motor strength 5/5 Skin: no rashes, warm and dry normal turgor Neurologic: PERRL, EOMI, accommodation nl, no face palsy, no dysarthria CN's II- XI intact bilaterally and moves all extremities Psychiatric: A+Ox3, euthymic affect Discharge Data Allergies Allergy/AdvReac Type Severity Reaction Status Date / Time erythromycin base Allergy Intermediate RASH Verified 07/28/23 20:23 latex Allergy Intermediate RASH Verified 07/28/23 20:23 sulfamethoxazole Allergy Intermediate Rash Verified 07/28/23 20:23 [From Bactrim] trimethoprim [From Bactrim] Allergy Intermediate Rash Verified 07/28/23 20:23 Consultations 07/28/23 20:09 ED Decision to Admit Stat 07/29/23 08:00 Consult Cardiology Routine Ordered Studies 07/30/23 10:15 CT angio chest PE protocol Stat Hospital Course (1) Exertional dyspnea: 88-year-old female with past med history significant for type 2 diabetes, hyperlipidemia, allergic rhinitis, lung nodule less than 6 cm, history of CAD s/p CABG, hypertension, GERD, hydronephrosis of right kidney, osteoporosis, bilateral sensorineural hearing loss, history of PE on Xarelto, general anxiety disorder, depression presents with shortness of breath going on for last few weeks which is progressively getting worse. Patient was admitted to telemetry floor for further workup. Cardiology was consulted for comanagement; she underwent dobutamine stress echo which was within normal limits. Patient underwent CTA chest with contrast to rule out PE. It did not reveal any pneumonia or PE. She was found to have reflux esophagitis on the CT scan for which she was prescribed Protonix 40 mg twice a day for 1 month An incidental thyroid nodule of 9 mm was seen in the CT chest. Findings were discussed with her son over the phone; patient will need to follow-up with her primary care doctor for thyroid ultrasound/further workup. He understood and verbalized instructions. Patient was discharged back home Please note the above document was generated using voice recognition software. It may contain grammatical, syntax or spelling errors. Any formal questions or concerns about the content, text or information contained within the body of this dictation should be directly addressed to the provider for clarification Total Time Total Time Spent Total Time Spent (In Minutes): 35 Total Time Includes: Examination of the Patient, Discharge Planning, Medication Reconciliation, Communication With Other Providers and Other Discharge Plan Discharge Items Patient Disposition: Home - Self-Care Reason For Visit: SOB Discharge Diagnosis: Reflux esophagitis Condition on Discharge: Good Activity: Resume your previous activity Non-emergency contact: Primary Care Provider Call non-emergency contact if: you have any medication questions and your symptoms worsen Follow-up/Referrals: Hayes Thompson MD [Primary Care Provider] - Diet: Regular Addtl Attending Provider Instructions: You were admitted to the hospital due to shortness of breath. Your evaluated with a stress test which did not show any abnormality. CAT scan of the chest was done to rule out blood clot in your lungs. It did not show any pneumonia or blood clot. You were found to have mildly esophagitis(inflammation of the food pipe) secondary to reflux. You are prescribed Protonix 40 mg to be taken twice daily(empty stomach in the morning, before dinner in the evening) for 1 month. After completion of 1 month course, you can take it once a day. The CAT scan of the chest showed a 9 mm hypodense nodule in the thyroid. An appointment with your primary care doctor will be made for follow-up sometime next week or the week after. An ultrasound of the thyroid can be done to evaluate it further. Pending Studies at Discharge: No Stand-Alone Forms: My Sproxil, Smoking Cessation Medications and DC Order Prescriptions: New pantoprazole 40 mg Tablet,Delayed Release (Dr/Ec) 40 mg PO BID 30 Days Qty: 60 0RF Continued atorvastatin [Lipitor] 80 mg Tablet 80 mg PO QAM Qty: 0 Xarelto 20 mg Tablet 20 mg PO QAM Qty: 0 furosemide 40 mg Tablet 40 mg PO DAILY PRN (Reason: Fluid Retention) Qty: 0 sennosides [Senokot] 8.6 mg Tablet 8.6 mg PO BID PRN (Reason: Constipation) Qty: 0 nitroglycerin [Nitrostat] 0.4 mg tablet, sublingual 0.4 mg Sublingual UD PRN (Reason: Chest Pain) Qty: 1 1RF Rx Instructions: NEEDED FOR CHEST PAIN : ONE TABLET UNDER THE TONGUE EVERY 5 MINUTES, UP TO THREE DOSES. multivitamin [Daily Multi-Vitamin] Tablet 1 tab PO DAILY fluticasone propionate [Flonase Allergy Relief] 50 mcg/actuation Hayes,Suspension 2 spray INTRANASAL DAILY PRN (Reason: Nasal Congestion) aspirin 81 mg Tablet,Delayed Release (Dr/Ec) 81 mg PO DAILY metoprolol succinate 25 mg tablet extended release 24 hr 25 mg PO QAM metformin 500 mg tablet extended release 24 hr 500 mg PO DAILY desonide 0.05 % ointment 1 applic topical DAILY PRN (Reason: FLARE UPS) Rx Instructions: Apply to areas of the ears daily as needed for flaring. Discontinued omeprazole 40 mg Capsule,Delayed Release(Dr/Ec) 40 mg PO DAILY PRN (Reason: Gastric Reflux) Qty: 0 Discharge Orders: Discharge Order (Routine); Ordered 07/30/23 Ordered By: Dorian Mclaughlin/Other Patient Handouts: Managing Type 2 Diabetes Admission Data Admit Date/Time: 07/28/23 22:14 Attending Provider: Dorian Alfonso Admit Provider: Cale Maria Primary Care Provider: Hayes Thompson Other Providers: Cale Maria; Andrea Murry
== END 2023-07-30 14:53 | disposition home or self-care (01) ==
LOC: ED 17:11 → 4W 22:14 → INTOOBSV 22:14 → 4W 22:45